=== PATIENT | female | born 1950 | race Caucasian/White ===

== ENCOUNTER → 2019-06-08 15:06 | Outpatient (CLI) | payer MEDICARE, SELFPAY ==
--- NOTE | ~2019-06-08 | MM_ITS ---
EXAMINATION: MM diagnostic jagdish BI w prema HISTORY: History of pain in the upper left breast, not currently present. TECHNIQUE: Craniocaudal, mediolateral, and mediolateral oblique 3-D tomosynthesis images of the breas ts were performed and synthetic 2-D images were generated. CAD analysis was submitted and interpreted . COMPARISON: 02/27/2016, 02/10/2015, 10/26/2013 BREAST PARENCHYMAL COMPOSITION: There are scattered areas of fibroglandular density. FINDINGS: Scattered benign-appearing calcifications are present. There is no evidence of suspicious m ass, calcification, or architectural distortion in either breast to suggest malignancy. There has b een no suspicious interval change. There is no mammographic correlate for the patient's reported left breast pain. IMPRESSION: 1. No specific mammographic correlate is identified for the patient's left breast pain. Further evalu ation at this time should be based on clinical assessment. Continued follow-up physical examination i s recommended. 2. Recommend routine screening mammography in one year. BI-RADS Category 2: Benign finding(s). Reviewed, dictated and finalized at location A. ORATOR OPERATOR MOLASSES IMPRESSION: 1. No specific mammographic correlate is identified for the patient's left bello st pain. Further evaluation at this time should be based on clinical assessment . Continued follow-up physical examination is recommended. 2. Recommend routine screening mammography in one year. BI-RADS Category 2: Benign finding(s).
== END ==
PROVIDERS: Visit Provider Family Medicine
DX: N64.4 Mastodynia (principal)
CPT/HCPCS: 77062; 77066; G0279

== ENCOUNTER 2019-12-09 12:15 | Inpatient (IN) | payer MEDICARE, SELFPAY ==
[2019-12-09] VITALS (43 sets, daily range): BP systolic 61–138; BP diastolic 33–98; PULSE 70–110; RESP 8–24; TEMP 36.8–37; O2SAT 62–100; BMI 57.2
--- NOTE | ~2019-12-09 | CT_ITS ---
EXAMINATION: CT chest wo con DATE: 12/12/2019 10:09 INDICATION: Respiratory Failure TECHNIQUE: Computed tomography (CT) of the chest was performed without intravenous contrast. Addition al 3D reconstructions utilizing coronal maximum intensity projection (MIP) were performed. Automated exposure control and iterative reconstruction technique were employed. The dose-length product was 87 4.81 mGy-cm. COMPARISON: None FINDINGS: Endotracheal tube with tip 3.5 cm above the ashley. Nasogastric tube extends into the stomach. Distal tip of a right upper extremity peripherally inserted central venous catheter extends to the caudal s uperior vena cava. There are posterior layering small bilateral pleural effusions with dependent pass bobo atelectasis in the bilateral lower and to lesser degree upper lobes. There are multiple bilateral tiny <4 mm pulmonary nodules in the aerated portion of the lungs as well as multiple bilateral small calcified pulmonary nodules, the majority the collapsed portions of the basilar segments of the lowe r lobes. No pneumothorax. Cardiomegaly. No pericardial effusion. Mild atherosclerotic calcification i s along the normal caliber thoracic aorta. Multiple small likely reactive mediastinal lymph nodes whi ch are more notable for number than size. Visual is upper abdomen is unremarkable. Moderate thoracic spondylosis. IMPRESSION: 1. Small bilateral pleural effusions with dependent atelectasis including partial collapse of the bas ilar segments of the bilateral lower lobes. 2. Cardiomegaly. 3. Multiple bilateral <4 mm calcified and noncalcified pulmonary nodules likely sequela of old granul omatous disease. If the patient is low risk for lung cancer, no follow-up is needed. If the patient i s high risk (i.e., history of smoking or asbestos or significant radiation exposure optional low-dose noncontrast chest CT could be considered at 12 months. Reviewed, dictated and finalized at location A. IMPRESSION: 1. Small bilateral pleural effusions with dependent atelectasis including parti al collapse of the basilar segments of the bilateral lower lobes. 2. Cardiomegaly. 3. Multiple bilateral <4 mm calcified and noncalcified pulmonary nodules likely sequela of old granulomatous disease. If the patient is low risk for lung canc er, no follow-up is needed. If the patient is high risk (i.e., history of smoki ng or asbestos or significant radiation exposure optional low-dose noncontrast chest CT could be considered at 12 months.
--- NOTE | ~2019-12-09 | CT_ITS ---
EXAMINATION: CT brain wo con EXAM DATE: 12/09/2019 15:07 INDICATION: Altered mental status. TECHNIQUE: Spiral CT of the head was performed without contrast. Axial, coronal and sagittal images were reviewed. The dose-length product (DLP) for this examination was 605.33 mGy-cm. The exposure w as tailored according to patient size, and iterative reconstruction (ASIR) was used as additional dos e reduction technique. There is no prior study for comparison. FINDINGS: There is no acute intraparenchymal hemorrhage. No evidence of intraparenchymal brain mass lesion. No evidence of acute infarction. Please note that initial head CT has limited sensitivity f or small or acute infarctions. There is mild periventricular and subcortical hypodensity, nonspecific but probably related to small vessel ischemic disease. There is moderate prominence of the sulci a nd ventricles related to cerebral atrophy. There is intracranial carotid arteriosclerosis. There a re no extra-axial collections. There is no mass effect or midline shift. The orbits are unremarkabl e. Soft tissue is unremarkable. Nasal cavity opacification and moderate anterior ethmoid opacificat ion. IMPRESSION: 1. No acute intracranial findings. 2. Chronic age related findings. Reviewed, dictated and finalized at location A.
--- NOTE | ~2019-12-09 | XR_ITS ---
EXAMINATION: XR chest 1V portable DATE: 12/10/2019 06:31 INDICATION: Pleural effusions. Intubated. TECHNIQUE: frontal view of the chest was obtained. COMPARISON: Chest radiograph dated 12/09/2019 FINDINGS: Endotracheal tube tip 4.7 cm above the ashley. Nasogastric tube extends below the left hemidiaphragm with distal tip collimated off the study. Small bilateral pleural effusions with atelectasis and/or pneumonia at the bilateral lower lung zones. Increased interstitial pattern throughout the remainder of the lungs consistent with mild pulmonary edema. No pneumothorax. Cardiomegaly. IMPRESSION: 1. Congestive heart failure with cardiomegaly and diffuse pulmonary edema. 2. Small bilateral pleural effusions with atelectasis and/or pneumonia in the lower lung zones. Reviewed, dictated and finalized at location A. IMPRESSION: 1. Congestive heart failure with cardiomegaly and diffuse pulmonary edema. 2. Small bilateral pleural effusions with atelectasis and/or pneumonia in the l ower lung zones.
--- NOTE | ~2019-12-09 | XR_ITS ---
EXAMINATION: XR chest 1V portable DATE: 12/13/2019 06:06 INDICATION: Respiratory failure TECHNIQUE: frontal view of the chest was obtained. COMPARISON: Chest radiograph and CT dated 12/12/2019 FINDINGS: Endotracheal tube tip 2.6 cm above the ashley. Nasogastric tube extends below the left hemidiaphragm with distal tip collimated off the study. Right upper extremity peripherally inserted central venous catheter (PICC) tip at the caudal superior vena cava. Opacities in the right mid to lower and left lower lung zones which on CT correspond to small bilater al pleural effusions with associated atelectasis. No pneumothorax. Cardiomegaly. IMPRESSION: 1. No interval change in small bilateral pleural effusions with associated compressive atelectasis. Reviewed, dictated and finalized at location A. IMPRESSION: 1. No interval change in small bilateral pleural effusions with associated comp ressive atelectasis.
--- NOTE | ~2019-12-09 | XR_ITS ---
EXAMINATION: XR chest 1V portable DATE: 12/14/2019 06:05 INDICATION: Respiratory failure TECHNIQUE: frontal view of the chest was obtained. COMPARISON: Chest radiograph dated 12/13/2019 FINDINGS: Endotracheal tube tip 4.0 cm above the ashley. Nasogastric tube extends below the left hemidiaphragm with distal tip collimated off the study. Right internal jugular central venous catheter with distal tip in the midsuperior vena cava. No significant interval change in opacities in the right mid to lower and left lower lung zones consi stent with small bilateral pleural effusions and associated atelectasis and/or pneumonia. No pneumoth orax. Cardiomegaly. IMPRESSION: 1. No interval change in small bilateral pleural effusions with associated atelectasis and/or pneumon ia. Reviewed, dictated and finalized at location A. IMPRESSION: 1. No interval change in small bilateral pleural effusions with associated atel ectasis and/or pneumonia.
--- NOTE | ~2019-12-09 | US_ITS ---
EXAMINATION: US venous doppler [facility] DATE: 12/10/2019 13:15 INDICATION: Lower limb swelling TECHNIQUE: Grayscale ultrasound images without and with compression and Doppler ultrasound images of the bilateral lower extremity veins were obtained. COMPARISON: None. FINDINGS: The visualized portions of right common femoral vein, profunda (deep) femoral vein, femoral vein, pop liteal vein and greater saphenous vein outflow are patent and compressible. The right posterior tibia l and peroneal veins are poorly visualized on grayscale imaging demonstrates normal flow on color Dop pler. The visualized portions of left common femoral vein, profunda femoral vein, femoral vein, popliteal v ein and greater saphenous vein outflow are patent. The left posterior tibial and peroneal veins are u nable to be visualized. IMPRESSION: 1. No deep venous thrombosis in either lower limb at or proximal to the popliteal veins. Assessment of the more distal posterior tibial and peroneal veins is limited by body habitus. Reviewed, dictated and finalized at location A. IMPRESSION: 1. No deep venous thrombosis in either lower limb at or proximal to the poplit eal veins. Assessment of the more distal posterior tibial and peroneal veins is limited by body habitus.
--- NOTE | ~2019-12-09 | XR_ITS ---
EXAMINATION: XR chest 1V portable DATE: 12/15/2019 05:56 INDICATION: Respiratory failure. TECHNIQUE: A single frontal view of the chest was obtained. COMPARISON: Chest single view 12/14/2019, chest CT 12/12/2019 FINDINGS: There are small pleural effusions. There are airspace opacities at the lung bases. No pneum othorax. Cardiomegaly is noted. The endotracheal tube tip is 5.1 cm above the ashley. The nasogastric tube tip is beyond the inferior margin of the radiograph, but at least to the stomach. A right upper extremity peripherally inserted central venous catheter (PICC) is seen with tip at the superior cavo atrial junction. IMPRESSION: 1. Stable small pleural effusions. 2. Stable airspace opacities at the lung bases, consistent with atelectasis versus pneumonia. 3. Cardiomegaly. Reviewed, dictated and finalized at location A. IMPRESSION: 1. Stable small pleural effusions. 2. Stable airspace opacities at the lung bases, consistent with atelectasis diana cecilia pneumonia. 3. Cardiomegaly.
--- NOTE | ~2019-12-09 | XR_ITS ---
XR abdomen/kub 1V DATE: 12/12/2019 09:49 INDICATION: Nasogastric placement TECHNIQUE: Portable AP view on 12/12/2019 at 0940 hours COMPARISON: None FINDINGS: The tip of the nasogastric tube is at least in the distal body of the stomach. Nonspecific bowel gas pattern. IMPRESSION: NG tube in stomach Reviewed, dictated and finalized at Location A. Reviewed, dictated and finalized at location A. IMPRESSION: NG tube in stomach
--- NOTE | ~2019-12-09 | XR_ITS ---
EXAMINATION: XR chest ET placement, XR abdomen NG/feed tube insert DATE: 12/09/2019 12:53 INDICATION: Unresponsive with dyspnea. Endotracheal tube and nasogastric tube placements. TECHNIQUE: 1. Frontal view of the chest was obtained. 2. Supine AP view of the abdomen was obtained for nasogastric tube placement. COMPARISON: Chest radiograph dated 10/12/2012 FINDINGS: Chest: Endotracheal tube tip 3.2 cm above the ashley. Interstitial and mild airspace opacities throughout sara th lungs. Small bilateral pleural effusions, right greater than left. No pneumothorax. Cardiomegaly w ith bilateral paracardial fat pads. KUB: Nasogastric tube tip in proximal side port in the body of the stomach. No dilated loops of gas-filled bowel in the visualized abdomen. IMPRESSION: 1. Diffuse bilateral lung disease which could represent pulmonary edema and/or pneumonia. 2. Small bilateral pleural effusions. 3. Cardiomegaly. Reviewed, dictated and finalized at location A. IMPRESSION: 1. Diffuse bilateral lung disease which could represent pulmonary edema and/or pneumonia. 2. Small bilateral pleural effusions. 3. Cardiomegaly.
--- NOTE | ~2019-12-09 | XR_ITS ---
EXAMINATION: XR chest 1V portable DATE: 12/12/2019 06:22 INDICATION: Respiratory failure TECHNIQUE: frontal view of the chest was obtained. COMPARISON: Chest radiograph dated 12/11/2019 FINDINGS: Endotracheal tube tip 4.4 cm above the ashley. Nasogastric tube can be followed only to the level of the midesophagus with indeterminate position of the distal tip. Right upper extremity peripherally in serted central venous catheter (PICC) tip at the midsuperior vena cava. Opacities in the bilateral mid to lower lung zones consistent with small bilateral layering pleural e ffusions with associated atelectasis and/or pneumonia. No pneumothorax. Cardiomegaly. IMPRESSION: 1. Opacities in the bilateral mid to lower lung zones consistent with small bilateral pleural effusio ns with associated atelectasis and/or pneumonia. 2. Cardiomegaly. 3. Nasogastric tube can be followed only to the mid esophagus where it becomes obscured with indeterm inate position of the distal tip. Consider radiograph of the upper abdomen for further evaluation. Reviewed, dictated and finalized at location A. IMPRESSION: 1. Opacities in the bilateral mid to lower lung zones consistent with small gissel ateral pleural effusions with associated atelectasis and/or pneumonia. 2. Cardiomegaly. 3. Nasogastric tube can be followed only to the mid esophagus where it becomes obscured with indeterminate position of the distal tip. Consider radiograph of the upper abdomen for further evaluation.
--- NOTE | ~2019-12-09 | XR_ITS ---
EXAMINATION: XR chest 1V portable DATE: 12/11/2019 05:50 INDICATION: Respiratory failure TECHNIQUE: frontal view of the chest was obtained. COMPARISON: Chest radiograph dated 12/10/2019 FINDINGS: Endotracheal tube tip 4.6 cm above the ashley. Nasogastric tube extends below the left hemidiaphragm with distal tip collimated off the study. Unchanged opacities in the bilateral lower lung zones with blunting at the costophrenic angles. Diffu se increased interstitial pattern. No pneumothorax. Cardiomegaly. IMPRESSION: 1. Congestive heart failure with cardiomegaly and diffuse mild pulmonary edema. 2. Small bilateral pleural effusions with atelectasis and/or pneumonia in the lower lung zones. Reviewed, dictated and finalized at location A. IMPRESSION: 1. Congestive heart failure with cardiomegaly and diffuse mild pulmonary edema. 2. Small bilateral pleural effusions with atelectasis and/or pneumonia in the l ower lung zones.
--- NOTE | 2019-12-09 12:16 | ECG_ITS ---
Measurements Intervals Carr Rate: 84 P: 88 SC: 159 QRS: 78 QRSD: 89 T: 59 QT: 398 QTc: 471 Interpretive Statements SINUS RHYTHM LOW QRS VOLTAGE IN PRECORDIAL LEADS BASELINE ARTIFACT- I, II BORDERLINE ECG Electronically Signed On 12-10-2019 11:37:51 CDT by Leland Johnson D.O.
[2019-12-09 12:27] LABS: Alveolar/Arterial O2 Gradient 92.5 mmHg; Base Excess ABG 9.8 mEq/l (+/-2.0); Carboxyhemoglobin 1.3 % THb (0-2.0); Fractional Inspired Oxygen 44 %; HCO3 ABG 45.2 mEq/l (22.0-26.0); Methemoglobin ABG 0.3 %THb (0-1.5); Oxygen Content ABG 9.8 %vol (16.0-22.0); Oxyhemoglobin 54.7 % THb (90.0-100.0); PO2 FiO2 Ratio Arterial Blood 0.92 %; Reduced Hemoglobin 43.7 %THb (0-5.0); Total Hemoglobin 12.7 g/dL (12.0-18.0)
--- NOTE | 2019-12-09 12:28 | PC.NURSE ---
Patient oxygen noted to be 58% on 6 Li NC at this time. Dr. Nguyen at bedside.
[2019-12-09 12:29] LABS: Oxygen Saturation ABG 51.4 % (95.0-100.0); PCO2 ABG 158.4 mmHg (35.0-45.0); PO2 ABG 40.6 mmHg (80.0-100.0); pH ABG 7.073 (7.350-7.450)
--- NOTE | 2019-12-09 12:29 | PC.NURSE ---
Patient being bagged at this time.
[2019-12-09 12:30] LABS: Device NASAL CANNULA; Modified Allen's Test Pass; Site Drawn RIGHT RADIAL
--- NOTE | 2019-12-09 12:31 | PC.NURSE ---
Normal saline [address] Nguyen at 999ml/hr. Etomidate 20 mg IVP at this time.(1233) Intubated per Dr. Nguyen using a 7.5 ET tube placed 23 at lip, end tidal C02 color change noted. Current oxygen level noted to be 98% on ventilator, pulse rate 93, current BP noted to be 82/47. OG 16 german placed oral with placement 65 at lip.
--- NOTE | 2019-12-09 12:41 | PC.NURSE ---
Versed 4mg with fentanyl 50 MCG given IVP for sedation at this time.
[2019-12-09 12:47] LABS: Basophils Percent Auto 0.4 % (0.2-1.2); Eosinophils Percent Auto 0.1 % (0-4.4); Hematocrit 42.3 % (37.0-47.0); Hemoglobin 11.8 g/dL (12.0-15.0); Immature Granulocyte Absolute 0.25 K/mm3 (0.00-0.031); Immature Granulocyte Percent A 2.3 % (0-0.5); Immature Platelet Fraction Pct 14.5 % (0.9-11.2); Lymphocytes Absolute Auto 1.15 K/mm3 (0.9-3.2); Lymphocytes Percent Auto 10.6 % (18.3-44.2); Mean Corpuscular HGB Conc 27.9 g/dl (32-36); Mean Corpuscular Hemoglobin 26.3 pg (26-34); Mean Corpuscular Volume 94.4 fl (80-100); Mean Platelet Volume 13.1 fl (7.4-10.4); Monocytes Absolute Auto 0.4 K/mm3 (0.1-0.6); Monocytes Percent Auto 4.1 % (2.6-8.5); Neutrophils Percent Auto 82.5 % (45.5-73.1); Nucleated Red Blood Cells Perc 0.3 % (0.0-0.2); Platelet Count Result 150 k/mm3 (150-375); Red Blood Count 4.48 M/mm3 (4.2-5.4); Red Cell Distribution Width 18.2 % (11.5-14.5); White Blood Count 10.9 K/mm3 (4.5-10.0)
[2019-12-09] MEDS: methylPREDNISolone SOD SUCC 125 MG VIAL IV PUSH (12:50)
[2019-12-09] MEDS: FUROSEMIDE INJ 40 MG/4 ML VIAL IV PUSH (12:50)
[2019-12-09 12:55] LABS: INR 1.2; Prothrombin Time 14.5 Seconds (11.1-14.7)
[2019-12-09 12:56] LABS: Partial Thromboplastin Time 28.5 SECONDS (22.3-36.8)
[2019-12-09 13:02] LABS: Anion Gap 5.99999 mmol/L (8-16); Blood Urea Nitrogen 28 mg/dL (7-17); Carbon Dioxide > 40 mmol/L (22-30); Chloride 96 mmol/L (98-107); Estimated Glomerular Filt Rate > 60; Glucose 180 mg/dL (65-105); Sodium 142 mmol/L (137-145)
[2019-12-09 13:19] LABS: Troponin I 0.049 ng/mL (0.000-0.034)
[2019-12-09 13:20] LABS: Add Urine Microscopic? YES; Appearance Urine Cloudy (Clear); Bacteria Urine 3+ /hpf; Bilirubin Urine Negative (Negative); Color Urine Yellow (Yellow); Glucose Urine UA Negative (Negative); Ketones Urine Negative (Negative); Leukocyte Esterase Ur 3+ LEU/UL (Negative); Mucus Urine Few /lpf; Nitrate Urine Negative (Negative); Protein Urine 2+ mg/dL (Negative); RBC Urine 21-50 /hpf (0-2); Specific Grav Ur 1.019 (1.001-1.035); Squamous Epithelial Cell Urine Rare /hpf (Few); Urobilinogen Urine Negative mg/dL (<2.0); WBC Clumps Urine Present /HPF; WBC Urine >75 /hpf
--- NOTE | 2019-12-09 13:24 | PC.NURSE ---
Patient moving and fighting ET tube at this time. Dr. Nguyen notified. Versed drip started at this time. Verbal order recieved to hold on the fentanyl drip at this time r/t low bp.
[2019-12-09 13:25] LABS: Blood Urine Negative (Negative)
--- NOTE | 2019-12-09 13:53 | ED.GENADULT ---
HPI - General Adult General Chief complaint: Altered Mental Status Stated complaint: unresponsive Time Seen by Provider: 12/09/19 12:40 Source: EMS Mode of arrival: EMS Limitations: altered mental status History of Present Illness HPI narrative: Patient is a 69 y/o female brought in by EMS for shortness and altered mental status since yesterday. Per EMS, patient has not been out of room all day yesterday. Her cannot wake her up today, so he called EMS. Patient is lethargic, in respiratory distress and cannot provide additional history. She has known history of CHF and COPD. Related Data Home Medications Medication Instructions Recorded Confirmed albuterol sulfate 2.5 mg INHALATION Q4H PRN 12/09/19 12/09/19 budesonide-formoterol [Symbicort] 2 puff INHALATION BID 12/09/19 12/09/19 calcium carbonate-vitamin D3 1 tablet PO DAILY 12/09/19 12/09/19 [Calcium 600 with Vitamin D3] cranberry 400 mg PO DAILY 12/09/19 12/09/19 ahimakniyrp-ivorqxejs-drpfjqby 1 inh INHALATION DAILY 12/09/19 12/09/19 [Trelegy Ellipta] glimepiride 2 mg PO DAILY 12/09/19 12/09/19 lisinopril 20 mg PO DAILY 12/09/19 12/09/19 metformin 500 mg PO BID 12/09/19 12/09/19 metoprolol succinate 50 mg PO Q12H 12/09/19 12/09/19 ihamxawpradk-vdi-fsyn-FA-vit K 1 tablet PO DAILY 12/09/19 12/09/19 [Adults Multivitamin] pioglitazone 30 mg PO DAILY 12/09/19 12/09/19 spironolactone 25 mg PO DAILY 12/09/19 12/09/19 Allergies Allergy/AdvReac Type Severity Reaction Status Date / Time liraglutide Allergy Intermediate Hives Verified 12/09/19 18:18 Review of Systems Review of Systems: ROS unobtainable: Yes unobtainable due to mental status PMFSH Past Medical History Medical History Chronic obstructive pulmonary disease Chronic respiratory failure with hypoxia, on home oxygen therapy Depression Diastolic congestive heart failure echocardiogram in November 2018 showed normal left ventricular size and function with moderate concentric left ventricular hypertrophy, impaired diastolic relaxation grade 1, ejection fraction of 65%, an estimated peak RVSP of 47 mmHg. Dyslipidemia Essential hypertension Hypothyroidism Morbid obesity Obesity hypoventilation syndrome Obstructive sleep apnea I believe she is on BiPAP at nighttime. Stage I adenocarcinoma of endometrium Considered inoperable given her comorbidities, however nurse charted that she had indeed had a hysterectomy. This cannot be confirmed with the patient at this time. Status post HDR brachytherapy time 6 fractions. Type 2 diabetes mellitus Surgical History Surgical History History of dilation and curettage History of tubal ligation Family History Family History Father Patient's father is Hypertension Cerebrovascular accident Acute myocardial infarction Mother Family history of diabetes mellitus in first degree relative Hypertension Hypothyroid Sibling Patient's brother is in good health Patient's sister is in good health Social History Social History Social History: Surrogate decision maker: Fady Burns, . Code status: Full code. Smoking packs per day: 0.5 Smoking cigarettes per day: 10.0 Years smoked: 40 Smoking pack-years: 20.00 Smoking status: Former smoker Smoking end date: 05/02/11 Alcohol intake: never Substance use: never Additional living arrangements comments: Resides with her spouse in [place]. They have 4 grown children. Occupation/Education: retired Spiritual care concerns: No Exam Const: General: well developed and acute distress Nutritional Appearance: obese Orientation/consciousness: lethargic HENMT: Head: normocephalic Ears: external ears normal General nose exam: Normal external nose present
[2019-12-09 14:14] LABS: NT Pro B Type Natriuretic Pept 565 PG/ML (5-100)
[2019-12-09 16:02] LABS: Troponin I 0.065 ng/mL (0.000-0.034)
--- NOTE | 2019-12-09 16:40 | PM.IMHP ---
H&P: HPI History of Present Illness Date/Time: 12/09/19 16:40 Chief complaint: Minimally responsive. Narrative: Radha Burns is a 69-year-old female with morbid obesity, obesity hypoventilation syndrome, obstructive sleep apnea, chronic respiratory failure on 2 to 3 liters nasal cannula, COPD, diastolic congestive heart failure, type 2 diabetes mellitus, hypertension, and history of endometrial cancer status post brachytherapy who presented to the emergency department earlier today via EMS from home for evaluation after she was found minimally responsive. At the time my evaluation she is sedated and intubated and unable to provide a history. As such, all of this history is obtained via a review of her electronic medical records as well as discussions with her daughter, who is at bedside. It sounds like she is pretty debilitated due to her lung disease, and is able to do some light cooking but other than that does not do much around the home. She spends a majority of her time in the dining room chair during the day and sleeps on a love seat in her room at nighttime. More recently she has had increasing shortness of breath and lower extremity swelling. Yesterday she told her that she was not feeling well and so she retired to her bedroom. It does not sound as though she came out of the room at all yesterday. Her daughter came over to visit today, and when she went into her room to check on her, the patient was drowsy awake. After the daughter cleaned out the commode and returned, the patient was minimally responsive and EMS was summoned. There is a pulse ox at home, and daughter reports that her SpO2 was in the 60s on her usual home oxygen. On arrival to the emergency department she was on 15 liters non-rebreather and was receiving assistance with her breathing via Ambu bag. She was intubated thereafter. At the time my evaluation she is sedated but is arousable and is able to nod her head that she has felt more short of breath the last few days. She denies fever and chest pain. Aside from that, I could not really get a history from her. Daughter does not recall the patient telling her of fever, chills, or sweats. She has not had any sick contacts and family members do not think that she has had any cold or flu symptoms. She has not complained of chest pain or pleuritic pain. No recent travel. Review of Systems Review of Systems: Narrative: A complete review of systems is unobtainable given her clinical condition (she is sedated and intubated ). [facility] Past Medical History Medical History (Updated 12/09/19 @ 23:23 by Christiana Strange PA-C) Chronic obstructive pulmonary disease Chronic respiratory failure with hypoxia, on home oxygen therapy Depression Diastolic congestive heart failure echocardiogram in November 2018 showed normal left ventricular size and function with moderate concentric left ventricular hypertrophy, impaired diastolic relaxation grade 1, ejection fraction of 65%, an estimated peak RVSP of 47 mmHg. Dyslipidemia Essential hypertension Hypothyroidism Morbid obesity Obesity hypoventilation syndrome Obstructive sleep apnea I believe she is on BiPAP at nighttime. Stage I adenocarcinoma of endometrium Considered inoperable given her comorbidities, however nurse charted that she had indeed had a hysterectomy. This cannot be confirmed with the patient at this time. Status post HDR brachytherapy time 6 fractions. Type 2 diabetes mellitus Surgical History Surgical History (Updated 12/09/19 @ 23:00 by Christiana Strange PA-C) History of dilation and curettage History of tubal ligation Family History Family History Father Patient's father is Hypertension Cerebrovascular accident Acute myocardial infarction Mother Family history of diabetes mellitus in first degree relative Hypertension Hypothyroid Sibling Patient's brother is in g
--- NOTE | 2019-12-09 17:41 | ADMGEN ---
This patient, Radha Burns, was admitted to Intensive Care Unit-1. Patient/family oriented to hospital policies and general routines including ID bracelet, bed and alarms, visiting hours, pain management, procedures, bathroom and other care routines, personal items, smoking policy, room service/diet, and visiting hours. Valuables list has been completed. Information on how to activate the Rapid Response Team has been discussed. Patient/Family are encouraged to report perceived risks to care and to ask questions if they do not understand what they are told or what they should do.
[2019-12-09 18:18] LABS: Alveolar/Arterial O2 Gradient 338.8 mmHg; Base Excess ABG 10.5 mEq/l (+/-2.0); Fractional Inspired Oxygen 100 %; HCO3 ABG 34.7 mEq/l (22.0-26.0); Oxygen Saturation ABG 99.8 % (95.0-100.0); Oxyhemoglobin 98.8 % THb (90.0-100.0); PCO2 ABG 44.9 mmHg (35.0-45.0); PO2 ABG 329.3 mmHg (80.0-100.0); PO2 FiO2 Ratio Arterial Blood 3.29 %; Total Hemoglobin 11.6 g/dL (12.0-18.0)
[2019-12-09 18:20] LABS: Device VENTILATOR; Modified Allen's Test Pass; Site Drawn RIGHT RADIAL; pH ABG 7.506 (7.350-7.450)
[2019-12-09 18:21] LABS: Arterial Blood Gas PEEP 5 cmH2O; Arterial Blood Gas Tidal Volume 500 ml; Arterial Blood Gas Vent Mode CMV; Arterial Blood Gas Ventilator rate 20 /MIN
[2019-12-09] MEDS: IPRATROPIUM BR 0.02% INH SOLN 0.5 MG/2.5 ML VIAL INHALATION (19:22)
[2019-12-09] MEDS: ALBUTEROL SULFATE NEB 2.5 MG/0.5 ML INH INHALATION (19:22)
[2019-12-09] MEDS: methylPREDNISolone SOD SUCC 40 MG VIAL IV PUSH (19:53)
[2019-12-09] MEDS: ENOXAPARIN 40 MG/0.4 ML SYRINGE SUB-Q (19:53)
[2019-12-09 20:27] LABS: Troponin I 0.051 ng/mL (0.000-0.034)
[2019-12-09] MEDS: METOPROLOL SUCCINATE EXT REL 50 MG TABCR PO (21:15)
[2019-12-09] MEDS: FAMOTIDINE 20 MG/2 ML VIAL IV PUSH (21:15)
[2019-12-09 21:46] LABS: Alanine Aminotransferase 30 U/L (4-35); Albumin Level 3.2 g/dL (3.5-5.1); Alkaline Phosphatase 68 U/L (38-126); Aspartate Amino Transferase 39 U/L (14-36); Bilirubin,Total 0.2 mg/dL (0.2-1.3); Lactate Dehydrogenase 624 U/L (313-618); Magnesium 1.9 mg/dL (1.6-2.3)
[2019-12-09 23:39] LABS: Hemoglobin A1C 6.6 % (<5.7)
[2019-12-10] VITALS (33 sets, daily range): BP systolic 91–124; BP diastolic 51–65; PULSE 68–84; RESP 18–93; TEMP 36.3–37.1; O2SAT 90–100; BMI 54.7
--- NOTE | 2019-12-10 | ECHO_ITS ---
Patient Info Name: Radha Burns Age: 69 years : 1950 Gender: Female Ht: 62 in Wt: 298 lbs BSA: 2.52 m2 HR: 72 bpm BP: 116 / 55 mmHg Heart Rhythm: Sinus Rhythm Technical Quality: Good Exam Date: 12/10/2019 2:15 PM Exam Location: [facility] Patient Status: Inpatient Admit Date: 12/09/2019 Staff Ordering Physician: Christiana Strange PA-C Fan Blade Truer: Migue Garcia RDCS Attending Provider: Yair Jorgensen MD Referring Physician: Alexandr CERNA; Exam Type: CA echo doppler color flow Study Info Indications I50.9 - Heart failure, unspecified Complete two-dimensional, color flow and Doppler transthoracic echocardiogram is performed. History/Risk Factors Acute respiratory failure; HFpEF, COPD, HTN. Summary 1. Left ventricular chamber dimension is normal. 2. Left ventricular systolic function is normal, estimated at 60-65%. 3. Left atrial chamber dimension is mildly enlarged. 4. There is mild aortic valve sclerosis. 5. There is trace mitral valve regurgitation. Left Ventricle Left ventricular chamber dimension is normal. Left ventricular systolic function is normal, estimated at 60-65%. The left ventricular diastolic function is normal. Right Ventricle Right ventricular chamber dimension is normal. Left Atria Left atrial chamber dimension is mildly enlarged. Right Atria Right atrial chamber dimension is normal. Aortic Valve The aortic valve is not well visualized. There is mild aortic valve sclerosis. Pulmonic Valve The pulmonic valve is not well visualized. Mitral Valve The mitral valve has normal leaflets. There is trace mitral valve regurgitation. Tricuspid Valve The tricuspid valve leaflets are normal. Pericardium/Pleural The pericardium appears normal. Aorta The aortic root size at the sinus of Valsalva is normal. Left Ventricular Outflow Tract Name Value Normal LVOT Doppler LVOT Peak Gradient 9 mmHg LVOT Mean Gradient 4 mmHg LVOT VTI 30 cm LVOT VTI/AV VTI Ratio 0.7 Mitral Valve Name Value Normal MV Doppler MV Decel [place] 419 cm/s2 MV PHT 77 ms MV Area (PHT) 2.8 cm2 4.0-5.0 MV Diastolic Function MV E Peak Velocity 112 cm/s MV A Peak Velocity 108 cm/s MV E/A 1.0 MV Decel Time 266 ms MV Annular TDI MV E/e' (Septal) 19.1 <=8.0 MV E/e' (Lateral) 12.9 <=8.0 MV E/e' (Average) 16.0 Tricuspid Valve
[2019-12-10 00:25] LABS: Glucose Point of Care 121 (65-105)
[2019-12-10] MEDS: methylPREDNISolone SOD SUCC 40 MG VIAL IV PUSH ×5 (00:32→23:33)
[2019-12-10] MEDS: ALBUTEROL SULFATE NEB 2.5 MG/0.5 ML INH INHALATION ×4 (01:07→20:52)
[2019-12-10] MEDS: IPRATROPIUM BR 0.02% INH SOLN 0.5 MG/2.5 ML VIAL INHALATION ×4 (01:07→20:53)
[2019-12-10 04:39] LABS: PCO2 ABG 62.3 mmHg (35.0-45.0); pH ABG 7.401 (7.350-7.450)
[2019-12-10 04:40] LABS: HCO3 ABG 37.8 mEq/l (22.0-26.0); Oxygen Content ABG 13.7 %vol (16.0-22.0); PO2 ABG 59.5 mmHg (80.0-100.0); Total Hemoglobin 10.9 g/dL (12.0-18.0)
[2019-12-10 04:41] LABS: Device VENTILATOR; Fractional Inspired Oxygen 60 %; Modified Allen's Test Pass; Site Drawn RIGHT RADIAL
[2019-12-10 04:42] LABS: Alveolar/Arterial O2 Gradient 299.8 mmHg; PO2 FiO2 Ratio Arterial Blood 0.99 %
[2019-12-10 04:43] LABS: Arterial Blood Gas PEEP 8 cmH2O; Arterial Blood Gas Tidal Volume 350 ml; Arterial Blood Gas Vent Mode CMV; Arterial Blood Gas Ventilator rate 18 /MIN
[2019-12-10 05:12] LABS: Hematocrit 32.8 % (37.0-47.0); Hemoglobin 9.8 g/dL (12.0-15.0); Immature Granulocyte Absolute 0.04 K/mm3 (0.00-0.031); Immature Granulocyte Percent A 0.6 % (0-0.5); Lymphocytes Absolute Auto 0.44 K/mm3 (0.9-3.2); Lymphocytes Percent Auto 6.2 % (18.3-44.2); Mean Corpuscular HGB Conc 29.9 g/dl (32-36); Mean Corpuscular Hemoglobin 26.8 pg (26-34); Mean Corpuscular Volume 89.9 fl (80-100); Mean Platelet Volume 11.7 fl (7.4-10.4); Monocytes Absolute Auto 0.2 K/mm3 (0.1-0.6); Monocytes Percent Auto 3.2 % (2.6-8.5); Neutrophils Absolute Auto 6.4 K/mm3 (1.3-6.7); Platelet Count Result 84 k/mm3 (150-375); Red Blood Count 3.65 M/mm3 (4.2-5.4); Red Cell Distribution Width 18.1 % (11.5-14.5); White Blood Count 7.1 K/mm3 (4.5-10.0)
[2019-12-10 05:32] LABS: Alanine Aminotransferase 30 U/L (4-35); Albumin Level 3.3 g/dL (3.5-5.1); Alkaline Phosphatase 70 U/L (38-126); Anion Gap 4 mmol/L (8-16); Aspartate Amino Transferase 39 U/L (14-36); Bilirubin,Total 0.2 mg/dL (0.2-1.3); Blood Urea Nitrogen 31 mg/dL (7-17); Calcium 8.3 mg/dL (8.4-10.2); Carbon Dioxide 38 mmol/L (22-30); Chloride 96 mmol/L (98-107); Estimated CRCL calculation 77 ml/min; Estimated Glomerular Filt Rate > 60; Glucose 176 mg/dL (65-105); Magnesium 1.9 mg/dL (1.6-2.3); Potassium 4.3 mmol/L (3.4-5.0); Sodium 138 mmol/L (137-145)
[2019-12-10 05:39] LABS: Hypochromasia 1+ (NORMAL); Large Platelets Present; Platelet Estimate Decreased (Adequate)
[2019-12-10] MEDS: LEVOTHYROXINE SODIUM 75 MCG TABLET PO (06:41)
[2019-12-10] MEDS: FAMOTIDINE 20 MG/2 ML VIAL IV PUSH ×2 (09:12→20:29)
--- NOTE | 2019-12-10 11:18 | PCDIET ---
MD order for Two Jesse HN (most fluid concentrated at 2.0kcal/mL) tube feedings. Recommended goal of 35mL/hr x 22 hours/day for 1540kcal, 64g protein and 539mL free water. Will follow closely.
--- NOTE | 2019-12-10 11:34 | WPDCNINT ---
Assessment and Plan Assessment and plan (1) Acute on chronic respiratory failure with hypoxia and hypercapnia: Code(s): J96.21 - Acute and chronic respiratory failure with hypoxia; J96.22 - Acute and chronic respiratory failure with hypercapnia Status: Acute Assessment and Plan: Acute Respiratory failure secondary to CHF, obesity hypoventilation syndrome, COPD, ? PNA Continue full mechanical ventilation support to prevent hypoxemia/hypercarbia and end organ damage. ABG and PCXR reviewed and will repeat in am. vent settings reviewed Bronchodilators Lasix for diuresis empiric Rocephin and azithromycin cultures steroid (2) Suspected COVID-19 virus infection: Code(s): Z20.828 - Contact with and (suspected) exposure to other viral communicable diseases Status: Acute Assessment and Plan: COVID-19 suspected. SARS-CoV-2 PCR sent and results pending Patient is in Airborne, Droplet and Contact Isolation (3) Chronic obstructive pulmonary disease: Code(s): J44.9 - Chronic obstructive pulmonary disease, unspecified Status: Acute Assessment and Plan: Solu-Medrol and bronchodilator (4) Diastolic congestive heart failure: Code(s): I50.30 - Unspecified diastolic (congestive) heart failure Status: Acute Assessment and Plan: echocardiogram ordered Lasix (5) Type 2 diabetes mellitus: Code(s): E11.9 - Type 2 diabetes mellitus without complications Status: Acute Assessment and Plan: sliding scale insulin (6) Hypothyroidism: Code(s): E03.9 - Hypothyroidism, unspecified Status: Acute Assessment and Plan: Continue levothyroxine and check TSH. (7) Essential hypertension: Code(s): I10 - Essential (primary) hypertension Status: Acute Assessment and Plan: Blood pressures were soft on arrival to the emergency department, thus will hold antihypertensives for now. Continue to monitor blood pressures closely. (8) UTI (urinary tract infection): Code(s): N39.0 - Urinary tract infection, site not specified Status: Acute Assessment and Plan: patient on Rocephin urine culture ordered Additional Plan DVT prophylaxis - Lovenox Stress ulcer prophylaxis - Pepcid Nutrition - start Tube Feeds Code Status - Full Code Total Critical Care Time - 35 minutes Due to a high probability of clinically significant, life threatening deterioration, the patient required my highest level of preparedness to intervene emergently and I personally spent this critical care time directly and personally managing the patient. This critical care time included obtaining a history; examining the patient; pulse oximetry; ordering and review of studies; arranging urgent treatment with development of a management plan; evaluation of patient's response to treatment; frequent reassessment; and discussions with other providers. It was exclusive of separately billable procedures and treating other patients and teaching time. Please see Assessment and Plan section and the rest of the note for further information on patient assessment and treatment Trading Assistant Consult Note Consult date: 12/10/19 Time Seen: 11:00 HPI: Radha Burns is a 69 year old female with PMH of morbid obesity, obesity hypoventilation syndrome, obstructive sleep apnea, chronic respiratory failure on 2 to 3 liters nasal cannula, COPD, diastolic congestive heart failure, type 2 diabetes mellitus, hypertension, and history of endometrial cancer status post brachytherapy who presented to the emergency department yesterday via EMS from home with chief complaint of shortness of breath and altered mental status. in ED patient was found to be in respiratory failure with hypoxia and hypercarbia. she was intubated and placed on mechanical ventilation. she was admitted to ICU for further evaluation and management. patient was also tested for COVID H
[2019-12-10] MEDS: PHARMACIST COMMUNICATION ORDER 1 EACH XX (11:36)
[2019-12-10 12:13] LABS: SARS-CoV-2 RNA PCR Negative
[2019-12-10] MEDS: METOPROLOL SUCCINATE EXT REL 50 MG TABCR PO ×2 (12:22→20:29)
[2019-12-10] MEDS: FUROSEMIDE INJ 40 MG/4 ML VIAL IV PUSH ×2 (13:44→17:50)
[2019-12-10 14:42] LABS: Glucose Point of Care 157 (65-105)
[2019-12-10 15:27] LABS: Anion Gap 1.99999 mmol/L (8-16); Blood Urea Nitrogen 35 mg/dL (7-17); Calcium 8.2 mg/dL (8.4-10.2); Carbon Dioxide > 40 mmol/L (22-30); Chloride 96 mmol/L (98-107); Estimated CRCL calculation 87 ml/min; Estimated Glomerular Filt Rate > 60; Glucose 177 mg/dL (65-105); Magnesium 2.1 mg/dL (1.6-2.3); Potassium 4.5 mmol/L (3.4-5.0); Sodium 138 mmol/L (137-145)
--- NOTE | 2019-12-10 17:13 | P.PNIM_ITS ---
Progress Note: A&P Assessment and Plan (1) Acute on chronic respiratory failure with hypoxia and hypercapnia: Code(s): J96.21 - Acute and chronic respiratory failure with hypoxia; J96.22 - Acute and chronic respiratory failure with hypercapnia Status: Acute Assessment and Plan: * Precipitating etiology is not entirely clear. It sounds as though she is compliant with PAP therapy. * She does have severe lung disease, however and may be nearing end-stage. * She was obtunded on arrival to the emergency department and has been intubated. * Vent management as per biofuels production associate, Dr. Gracia. patient is 69 year female morbidly obese was found unresponsive at home hypoxic patient was brought to the emergency department for further evaluation and patient was intubated currently on vent, is being tested for COVID-19 test are pending, patient is seen by biofuels production associate and appreciate (2) Diffuse lung disease: Code(s): J98.4 - Other disorders of lung Status: Acute Assessment and Plan: * Diffuse bilateral lung disease noted on chest x-ray which could be pulmonary edema and/ or pneumonia. * Send sputum and urine for culture and strep pneumoniae and Legionella antigens. * Continue empiric antibiotics for possible pneumonia. * She is in isolation, [id number] by PCR. (3) Chronic obstructive pulmonary disease: Code(s): J44.9 - Chronic obstructive pulmonary disease, unspecified Status: Acute Assessment and Plan: * She has been started on Solu-Medrol and updrafts. * Continue maintenance inhalers. (4) Diastolic congestive heart failure: Code(s): I50.30 - Unspecified diastolic (congestive) heart failure Status: Acute Assessment and Plan: * Blood pressures were soft on arrival to the emergency department, thus will hold on diuresis at this time. * Echocardiogram in a.m. (5) Obstructive sleep apnea: Code(s): G47.33 - Obstructive sleep apnea (adult) (pediatric) Status: Acute Assessment and Plan: * Given her decompensation, she would probably benefit from another overnight sleep study to ensure she is on appropriate settings. I believe she sees a tribal delegate out of [place]. * I will ask our pulmonologists to see her in consult to see if they think she may be a candidate for a trilogy unit . (6) Bacteriuria with pyuria: Code(s): R82.71 - Bacteriuria; R82.81 - Pyuria Status: Acute Assessment and Plan: * Empiric antibiotics for possible pneumonia should cover any underlying pathogen. * Urine cultures pending. (7) Type 2 diabetes mellitus: Code(s): E11.9 - Type 2 diabetes mellitus without complications Status: Acute Assessment and Plan: * Hold oral hypoglycemics and consider Lantus depending on her response to the steroids. * Check hemoglobin A1c and initiate sliding scale insulin, Accu-Cheks, and hypoglycemic protocol. (8) Hypothyroidism: Code(s): E03.9 - Hypothyroidism, unspecified Status: Acute Assessment and Plan: * Continue levothyroxine and check TSH. (9) Essential
--- NOTE | 2019-12-10 17:13 | PM.IMPN ---
Progress Note: A&P Assessment and Plan (1) Acute on chronic respiratory failure with hypoxia and hypercapnia: Code(s): J96.21 - Acute and chronic respiratory failure with hypoxia; J96.22 - Acute and chronic respiratory failure with hypercapnia Status: Acute Assessment and Plan: Precipitating etiology is not entirely clear. It sounds as though she is compliant with PAP therapy. She does have severe lung disease, however and may be nearing end-stage. She was obtunded on arrival to the emergency department and has been intubated. Vent management as per precision machinist, Dr. Gracia. patient is 69 year female morbidly obese was found unresponsive at home hypoxic patient was brought to the emergency department for further evaluation and patient was intubated currently on vent, is being tested for COVID-19 test are pending, patient is seen by precision machinist and appreciate (2) Diffuse lung disease: Code(s): J98.4 - Other disorders of lung Status: Acute Assessment and Plan: Diffuse bilateral lung disease noted on chest x-ray which could be pulmonary edema and/ or pneumonia. Send sputum and urine for culture and strep pneumoniae and Legionella antigens. Continue empiric antibiotics for possible pneumonia. She is in isolation, [id number] by PCR. (3) Chronic obstructive pulmonary disease: Code(s): J44.9 - Chronic obstructive pulmonary disease, unspecified Status: Acute Assessment and Plan: She has been started on Solu-Medrol and updrafts. Continue maintenance inhalers. (4) Diastolic congestive heart failure: Code(s): I50.30 - Unspecified diastolic (congestive) heart failure Status: Acute Assessment and Plan: Blood pressures were soft on arrival to the emergency department, thus will hold on diuresis at this time. Echocardiogram in a.m. (5) Obstructive sleep apnea: Code(s): G47.33 - Obstructive sleep apnea (adult) (pediatric) Status: Acute Assessment and Plan: Given her decompensation, she would probably benefit from another overnight sleep study to ensure she is on appropriate settings. I believe she sees a club director out of [place]. I will ask our pulmonologists to see her in consult to see if they think she may be a candidate for a trilogy unit . (6) Bacteriuria with pyuria: Code(s): R82.71 - Bacteriuria; R82.81 - Pyuria Status: Acute Assessment and Plan: Empiric antibiotics for possible pneumonia should cover any underlying pathogen. Urine cultures pending. (7) Type 2 diabetes mellitus: Code(s): E11.9 - Type 2 diabetes mellitus without complications Status: Acute Assessment and Plan: Hold oral hypoglycemics and consider Lantus depending on her response to the steroids. Check hemoglobin A1c and initiate sliding scale insulin, Accu-Cheks, and hypoglycemic protocol. (8) Hypothyroidism: Code(s): E03.9 - Hypothyroidism, unspecified Status: Acute Assessment and Plan: Continue levothyroxine and check TSH. (9) Essential hypertension: Code(s): I10 - Essential (primary) hypertension Status: Acute Assessment and Plan: Blood pressures were soft on arrival to the emergency department, thus will hold antihypertensives for now. Continue to monitor blood pressures closely. Subjective Date/time seen: patient is 69 year female morbidly obese was found unresponsive at
[2019-12-10 17:47] LABS: Glucose Point of Care 181 (65-105)
[2019-12-10] MEDS: ENOXAPARIN 40 MG/0.4 ML SYRINGE SUB-Q (17:50)
--- NOTE | 2019-12-10 19:13 | PM.CNPUL ---
Assessment and Plan Assessment and plan (1) Acute on chronic respiratory failure with hypoxia and hypercapnia: Code(s): J96.21 - Acute and chronic respiratory failure with hypoxia; J96.22 - Acute and chronic respiratory failure with hypercapnia Status: Acute Assessment and Plan: She was admitted and intubated Dec 08 with worsening hypercapnea, worsening gas exchange with pCO2 158, due to combination of COPD exacerbation, on isolation until COVID is excluded. She may have underlying pneumonia, difficult to say with abnormal CXR which may reflect infiltrate v pulmonary edema. She has been able to wean to FiO2 60%, still requiring PEEP 10 cm to recruit alveoli; she is awake on minimal sedation, tolerates this well, can nod to questions. She is receiving antibiotics, including ceftriaxone, azithromycin to cover for community acquired pathogens. She is getting diuresis. She has multiple issues, prognosis is guarded. (2) Acute exacerbation of chronic obstructive pulmonary disease: Code(s): J44.1 - Chronic obstructive pulmonary disease with (acute) exacerbation Status: Acute Assessment and Plan: She has baseline COPD which is severe, FEV1 les than a liter 2 years ago. Bronchodilators. (3) Diastolic congestive heart failure: Code(s): I50.30 - Unspecified diastolic (congestive) heart failure Status: Acute Assessment and Plan: echo; getting diuresis (4) UTI (urinary tract infection): Code(s): N39.0 - Urinary tract infection, site not specified Status: Acute Assessment and Plan: pathogen to be determined History of Present Illness History of Present Illness Consult date: 12/12/19 Chief complaint: Minimally responsive. Narrative: NEW CONSULT: Radha Burns is a 69 yo female with chronic respiratory failure on O2, presented to the ED yesterday Dec 08 with increased shortness of breath over few days with increased lower leg swelling. At baseline, she is not active, is able to prepare food, and spends her day in a chair, sleeps in a love seat. She presented with a saturation of 65% with decreased LOC. She was intubated in the ED Dec 08 with a pCO2 of 157. She is now alert, on low dose infusions of fentanyl 100 mcg/hour and versed 3 mg/hour. She required increased FiO2 to 65% and PEEP to 10 cm water pressure. PMH: HTN, COPD, chronic respiratory failure on O2 at home 2-3 L/min; diastolic CHF, DM type 2, endometrial cancer. PFT 12/18/2018 _=FEV1 48%, 0.93 L severely decreased, TLC 137% mild hyperinflation; DLCO 31%; severe emphysema. Review of Systems Review of Systems: ROS unobtainable: Yes unobtainable due to endotracheal tube PMFSH Past Medical History Medical History Chronic obstructive pulmonary disease Chronic respiratory failure with hypoxia, on home oxygen therapy Depression Diastolic congestive heart failure echocardiogram in November 2018 showed normal left ventricular size and function with moderate concentric left ventricular hypertrophy, impaired diastolic relaxation grade 1, ejection fraction of 65%, an estimated peak RVSP of 47 mmHg. Dyslipidemia Essential hypertension Hypothyroidism Morbid obesity Obesity hypoventilation syndrome Obstructive sleep apnea I believe she is on BiPAP at nighttime. Stage I adenocarcinoma of endometrium Considered inoperable given her comorbidities, however nurse charted that she had indeed had a hysterectomy. This cannot be confirmed with the patient at this time. Status post HDR brachytherapy time 6 fractions. Type 2 diabetes mellitus Surgical History Surgical History His
[2019-12-10 23:43] LABS: Glucose Point of Care 173 (65-105)
[2019-12-11] VITALS (31 sets, daily range): BP systolic 103–136; BP diastolic 48–69; PULSE 64–88; RESP 13–24; TEMP 36.6–37.1; O2SAT 91–99
[2019-12-11] MEDS: IPRATROPIUM BR 0.02% INH SOLN 0.5 MG/2.5 ML VIAL INHALATION ×4 (02:51→19:54)
[2019-12-11] MEDS: ALBUTEROL SULFATE NEB 2.5 MG/0.5 ML INH INHALATION ×4 (02:52→19:54)
[2019-12-11 05:04] LABS: Alveolar/Arterial O2 Gradient 365.1 mmHg; Base Excess ABG 10.6 mEq/l (+/-2.0); Carboxyhemoglobin 0.3 % THb (0-2.0); Fractional Inspired Oxygen 70 %; HCO3 ABG 37.6 mEq/l (22.0-26.0); Methemoglobin ABG 0.3 %THb (0-1.5); Oxygen Content ABG 14.5 %vol (16.0-22.0); Oxygen Saturation ABG 92.1 % (95.0-100.0); Oxyhemoglobin 91.2 % THb (90.0-100.0); PO2 ABG 65.6 mmHg (80.0-100.0); PO2 FiO2 Ratio Arterial Blood 0.94 %; Reduced Hemoglobin 8.2 %THb (0-5.0); Total Hemoglobin 11.3 g/dL (12.0-18.0)
[2019-12-11 05:05] LABS: Device VENTILATOR; Modified Allen's Test Pass; PCO2 ABG 63.6 mmHg (35.0-45.0); Site Drawn RIGHT RADIAL
[2019-12-11 05:06] LABS: Arterial Blood Gas PEEP 10 cmH2O; Arterial Blood Gas Tidal Volume 350 ml; Arterial Blood Gas Vent Mode CMV; Arterial Blood Gas Ventilator rate 18 /MIN
[2019-12-11 05:21] LABS: Hematocrit 34.5 % (37.0-47.0); Hemoglobin 10.1 g/dL (12.0-15.0); Immature Platelet Fraction Pct 13.8 % (0.9-11.2); Mean Corpuscular HGB Conc 29.3 g/dl (32-36); Mean Corpuscular Hemoglobin 26.3 pg (26-34); Mean Corpuscular Volume 89.8 fl (80-100); Mean Platelet Volume 12.3 fl (7.4-10.4); Platelet Count Result 96 k/mm3 (150-375); Red Blood Count 3.84 M/mm3 (4.2-5.4); Red Cell Distribution Width 18.3 % (11.5-14.5); White Blood Count 8.6 K/mm3 (4.5-10.0)
[2019-12-11 05:38] LABS: Alanine Aminotransferase 29 U/L (4-35); Albumin Level 3.6 g/dL (3.5-5.1); Alkaline Phosphatase 72 U/L (38-126); Anion Gap 7 mmol/L (8-16); Aspartate Amino Transferase 36 U/L (14-36); Bilirubin,Total 0.2 mg/dL (0.2-1.3); Blood Urea Nitrogen 45 mg/dL (7-17); Calcium 8.4 mg/dL (8.4-10.2); Carbon Dioxide 35 mmol/L (22-30); Chloride 96 mmol/L (98-107); Estimated CRCL calculation 81 ml/min; Estimated Glomerular Filt Rate > 60; Glucose 180 mg/dL (65-105); Magnesium 2.4 mg/dL (1.6-2.3); Potassium 4.7 mmol/L (3.4-5.0); Sodium 138 mmol/L (137-145)
--- NOTE | 2019-12-11 06:14 | PC.NURSE ---
Pt moved from ICU 1 to ICU 10.
[2019-12-11] MEDS: LEVOTHYROXINE SODIUM 75 MCG TABLET PO (06:18)
[2019-12-11] MEDS: methylPREDNISolone SOD SUCC 40 MG VIAL IV PUSH ×4 (06:18→23:59)
--- NOTE | 2019-12-11 07:35 | WPDINTPN ---
Progress Note: A&P Assessment and Plan (1) Acute on chronic respiratory failure with hypoxia and hypercapnia: Code(s): J96.21 - Acute and chronic respiratory failure with hypoxia; J96.22 - Acute and chronic respiratory failure with hypercapnia Status: Acute Assessment and Plan: Acute Respiratory failure secondary to CHF, obesity hypoventilation syndrome, COPD, ? PNA Continue full mechanical ventilation support to prevent hypoxemia/hypercarbia and end organ damage. ABG and PCXR reviewed and will repeat in am. vent settings reviewed decrease tidal volume to 3 3rd Bronchodilators, steroids continue Lasix for diuresis continue empiric Rocephin and azithromycin blood cultures the negative will now Lower extremity Dopplers were negative for DVT (2) Suspected COVID-19 virus infection: Code(s): Z20.828 - Contact with and (suspected) exposure to other viral communicable diseases Status: Acute Assessment and Plan: COVID-19 was suspected. SARS-CoV-2 PCR negative Discontinue Airborne, Droplet and Contact Isolation (3) Chronic obstructive pulmonary disease: Code(s): J44.9 - Chronic obstructive pulmonary disease, unspecified Status: Acute Assessment and Plan: Solu-Medrol and bronchodilator (4) Diastolic congestive heart failure: Code(s): I50.30 - Unspecified diastolic (congestive) heart failure Status: Acute Assessment and Plan: Summary 1. Left ventricular chamber dimension is normal. 2. Left ventricular systolic function is normal, estimated at 60-65%. 3. Left atrial chamber dimension is mildly enlarged. 4. There is mild aortic valve sclerosis. 5. There is trace mitral valve regurgitation. Lasix (5) Type 2 diabetes mellitus: Code(s): E11.9 - Type 2 diabetes mellitus without complications Status: Acute Assessment and Plan: sliding scale insulin (6) Hypothyroidism: Code(s): E03.9 - Hypothyroidism, unspecified Status: Acute Assessment and Plan: Continue levothyroxine (7) Essential hypertension: Code(s): I10 - Essential (primary) hypertension Status: Acute Assessment and Plan: Blood pressures were soft on arrival to the emergency department, thus will hold antihypertensives for now. Continue to monitor blood pressures closely. (8) UTI (urinary tract infection): Code(s): N39.0 - Urinary tract infection, site not specified Status: Acute Assessment and Plan: patient on Rocephin urine culture grew Klebsiella which is sensitive to Rocephin Additional Plan DVT prophylaxis - Lovenox Stress ulcer prophylaxis - Pepcid Nutrition - continue Tube Feeds Code Status - Full Code Total Critical Care Time - 30 minutes Due to a high probability of clinically significant, life threatening deterioration, the patient required my highest level of preparedness to intervene emergently and I personally spent this critical care time directly and personally managing the patient. This critical care time included obtaining a history; examining the patient; pulse oximetry; ordering and review of studies; arranging urgent treatment with development of a management plan; evaluation of patient's response to treatment; frequent reassessment; and discussions with other providers. It was exclusive of separately billable procedures and treating other patients and teaching time. Please see Assessment and Plan section and the rest of the note for further information on patient assessment and treatment Subjective Date/time seen: 12/11/19 0735 Overnight events reviewed Afebrile Continues to be on mechanical ventilation Vitals acceptable Review of Systems Review of Systems: ROS unobtainable: Yes unobtainable due to endotracheal tube Exam Narrative: Exam Narrative: General: Pt is sedated, intubated and on mechanical ventilation Lungs/Chest: Trachea central decreased
[2019-12-11] MEDS: METOPROLOL SUCCINATE EXT REL 50 MG TABCR PO ×2 (08:33→19:51)
[2019-12-11] MEDS: FUROSEMIDE INJ 40 MG/4 ML VIAL IV PUSH ×2 (08:33→17:52)
[2019-12-11] MEDS: FAMOTIDINE 20 MG/2 ML VIAL IV PUSH ×2 (08:33→19:51)
--- NOTE | 2019-12-11 10:44 | PCDIET ---
Nutrition Follow-Up Complete: Nutrition Diagnosis: Inadequate oral intake at present related to oral intubation as evidenced by NPO status. Nutrition Goal: Patient to meet estimated nutritional needs. Goal met. Patient tolerating Two Jesse HN at 35mL/hr with no reported issues. Receiving 30mL water flush every 4 hours. Last recorded weight is 147 kg which is up from last review. Suspect 12/10/19 outlier weight may have been inaccurate. Bowel Motility: No documented BM as of yet. Labs Reviewed: Hgb (10.1), Hct (34.5), Glu (180), BUN (45), Mg (2.4) Meds Noted: Albuterol, Pepcid, Fentanyl, Lasix, Zithromax, Novolog, Atrovent, Rocephin, Synthroid, Solu Medrol, Versed, Vancomycin Additional Notes: No open wounds documented. Will continue to monitor with same goal. Nutrition Monitoring and Evaluation: Follow up every Tuesday/Tuesday. Follow daily in ICU rounds.
[2019-12-11] MEDS: INSULIN ASPART (*BKC) 100 UNITS/ML SUB-Q ×2 (12:12→17:54)
[2019-12-11 12:32] LABS: Glucose Point of Care 218 (65-105)
[2019-12-11] MEDS: LIDOCAINE HCL 1% PF INJ 5 ML VIAL INFILTRATE (14:15)
[2019-12-11] MEDS: ENOXAPARIN 40 MG/0.4 ML SYRINGE SUB-Q (17:52)
--- NOTE | 2019-12-11 17:52 | PM.IMPN ---
Progress Note: A&P Assessment and Plan (1) Acute on chronic respiratory failure with hypoxia and hypercapnia: Code(s): J96.21 - Acute and chronic respiratory failure with hypoxia; J96.22 - Acute and chronic respiratory failure with hypercapnia Status: Acute Assessment and Plan: Intubated IV steroids IV abx, breathing treatments (2) Diffuse lung disease: Code(s): J98.4 - Other disorders of lung Status: Acute Assessment and Plan: Intubated IV steroids IV abx, breathing treatments (3) Chronic obstructive pulmonary disease: Code(s): J44.9 - Chronic obstructive pulmonary disease, unspecified Status: Acute Assessment and Plan: Intubated IV steroids IV rocephin and IV zithromax, breathing treatments (4) Diastolic congestive heart failure: Code(s): I50.30 - Unspecified diastolic (congestive) heart failure Status: Acute Assessment and Plan: Pt is on lasix drip (5) Obstructive sleep apnea: Code(s): G47.33 - Obstructive sleep apnea (adult) (pediatric) Status: Acute Assessment and Plan: . (6) Bacteriuria with pyuria: Code(s): R82.71 - Bacteriuria; R82.81 - Pyuria Status: Acute Assessment and Plan: pt already on iv rocephin (7) Type 2 diabetes mellitus: Code(s): E11.9 - Type 2 diabetes mellitus without complications Status: Acute Assessment and Plan: Hold oral hypoglycemics and consider Lantus depending on her response to the steroids. Check hemoglobin A1c and initiate sliding scale insulin, Accu-Cheks, and hypoglycemic protocol. (8) Hypothyroidism: Code(s): E03.9 - Hypothyroidism, unspecified Status: Chronic Assessment and Plan: pt is on levothyroxine (9) Essential hypertension: Code(s): I10 - Essential (primary) hypertension Status: Chronic Assessment and Plan: Pt is on a lasix drip Subjective Date/time seen: 12/11/19 17:52 Interval history: 69 year female morbidly obese was found unresponsive at home hypoxic patient was brought to the emergency department for further evaluation and patient was intubated currently on vent, Covid is negative likely copd excerbation Kpneumonia on cultures pt already on iv rocephin Pt is on a lasix drip for CHF excerbation Weaning off the vent Review of Systems Review of Systems: ROS unobtainable: Yes unobtainable due to endotracheal tube Exam Narrative: Exam Narrative: pt is on the ventilator Objective Data Vital Signs Vital Signs: Vital Signs - 24 hr 12/10/19 18:00 12/10/19 18:14 12/10/19 18:16 Temperature Pulse Rate 72 70 70 Respiratory Rate 93 H 18 18 Blood Pressure 96/51 L Pulse Oximetry 93 12/10/19 20:00 12/10/19 20:29 12/10/19 20:30 Temperature 37.0 C Pulse Rate 81 75 74 Respiratory Rate 24 H Blood Pressure 91/56 L Pulse Oximetry 100 93 12/10/19 20:54 12/10/19 21:01 12/10/19 22:00 Temperature Pulse Rate 76 75 69 Respiratory Rate 18 18 20 Blood Pressure 91/59 L Pulse Oximetry 96 12/10/19 23:09 12/10/19 23:25 12/11/19 00:00 Temperature 37.1 C Pulse Rate 75 73 67 Respiratory Rate 20 24 H Blood Pressure 124/59 L Pulse Oximetry 95 99 12/11/19 02:00 12/11/19 02:02 12/11/19 02:53 Temperature Pulse Rate 82 66 73 Respiratory Rate 24 H 19 Blood Pressure 120/55 L Pulse Oximetry 99 93 12/11/19 03:01 12/11/19 04:00 12/11/19 05:19 Temperature 36.6 C Pulse Rate 64 79 79 Respira
[2019-12-11 17:58] LABS: Glucose Point of Care 221 (65-105)
[2019-12-11] MEDS: CENTRAL LINE FLUSH 10 ML IV PUSH (19:52)
[2019-12-11 23:58] LABS: Glucose Point of Care 184 (65-105)
[2019-12-12] VITALS (32 sets, daily range): BP systolic 111–143; BP diastolic 52–74; PULSE 58–87; RESP 16–21; TEMP 36.6–36.8; O2SAT 90–99
[2019-12-12 00:32] LABS: Pneumococcal Antigen Urine Not Detected (Not Detected)
[2019-12-12] MEDS: IPRATROPIUM BR 0.02% INH SOLN 0.5 MG/2.5 ML VIAL INHALATION ×4 (02:31→20:06)
[2019-12-12] MEDS: ALBUTEROL SULFATE NEB 2.5 MG/0.5 ML INH INHALATION ×4 (02:31→20:06)
[2019-12-12 04:55] LABS: pH ABG 7.402 (7.350-7.450)
[2019-12-12 04:56] LABS: Base Excess ABG 7.9 mEq/l (+/-2.0); HCO3 ABG 34.1 mEq/l (22.0-26.0); Oxygen Saturation ABG 96.1 % (95.0-100.0); PO2 ABG 83.5 mmHg (80.0-100.0); Total Hemoglobin 11.2 g/dL (12.0-18.0)
[2019-12-12 04:57] LABS: Alveolar/Arterial O2 Gradient 282.7 mmHg; Carboxyhemoglobin 0.3 % THb (0-2.0); Device VENTILATOR; Fractional Inspired Oxygen 60 %; Methemoglobin ABG 0.4 %THb (0-1.5); Modified Allen's Test Pass; Oxyhemoglobin 94.7 % THb (90.0-100.0); PO2 FiO2 Ratio Arterial Blood 1.39 %; Reduced Hemoglobin 4.6 %THb (0-5.0); Site Drawn RIGHT RADIAL
[2019-12-12 04:58] LABS: Arterial Blood Gas PEEP 10 cmH2O; Arterial Blood Gas Tidal Volume 330 ml; Arterial Blood Gas Vent Mode CMV; Arterial Blood Gas Ventilator rate 18 /MIN
[2019-12-12] MEDS: CENTRAL LINE FLUSH 10 ML IV PUSH ×3 (05:24→20:27)
[2019-12-12] MEDS: methylPREDNISolone SOD SUCC 40 MG VIAL IV PUSH ×2 (05:24→18:40)
[2019-12-12 05:33] LABS: Hematocrit 33.5 % (37.0-47.0); Hemoglobin 9.9 g/dL (12.0-15.0); Mean Corpuscular HGB Conc 29.6 g/dl (32-36); Mean Corpuscular Hemoglobin 26.8 pg (26-34); Mean Corpuscular Volume 90.8 fl (80-100); Mean Platelet Volume 12.9 fl (7.4-10.4); Platelet Count Result 90 k/mm3 (150-375); Red Blood Count 3.69 M/mm3 (4.2-5.4); White Blood Count 6.3 K/mm3 (4.5-10.0)
[2019-12-12 05:52] LABS: Alanine Aminotransferase 25 U/L (4-35); Albumin Level 3.3 g/dL (3.5-5.1); Alkaline Phosphatase 60 U/L (38-126); Anion Gap 3 mmol/L (8-16); Aspartate Amino Transferase 32 U/L (14-36); Bilirubin,Total 0.3 mg/dL (0.2-1.3); Blood Urea Nitrogen 51 mg/dL (7-17); Calcium 8.3 mg/dL (8.4-10.2); Carbon Dioxide 39 mmol/L (22-30); Chloride 94 mmol/L (98-107); Estimated CRCL calculation 106 ml/min; Estimated Glomerular Filt Rate > 60; Glucose 234 mg/dL (65-105); Magnesium 2.5 mg/dL (1.6-2.3); Potassium 4.9 mmol/L (3.4-5.0); Sodium 136 mmol/L (137-145)
[2019-12-12 06:19] LABS: Vancomycin Trough 13.5 ug/mL (10.0-20.0)
[2019-12-12] MEDS: LEVOTHYROXINE SODIUM 75 MCG TABLET PO (06:34)
[2019-12-12] MEDS: INSULIN ASPART (*BKC) 100 UNITS/ML SUB-Q ×2 (06:35→12:34)
--- NOTE | 2019-12-12 08:00 | WPDINTPN ---
Progress Note: A&P Assessment and Plan (1) Acute on chronic respiratory failure with hypoxia and hypercapnia: Code(s): J96.21 - Acute and chronic respiratory failure with hypoxia; J96.22 - Acute and chronic respiratory failure with hypercapnia Status: Acute Assessment and Plan: Acute Respiratory failure secondary to CHF, obesity hypoventilation syndrome, COPD, ? PNA Continue full mechanical ventilation support to prevent hypoxemia/hypercarbia and end organ damage. ABG and PCXR reviewed and will repeat in am. vent settings reviewed wean FiO2 and PEEP as possible FiO2 weaned down to 55% Bronchodilators, steroids continue Lasix for diuresis with switch to infusion continue empiric Rocephin and azithromycin. discontinue vancomycin blood cultures the negative will now Lower extremity Dopplers were negative for DVT check CT of the chest for further assessment (2) Suspected COVID-19 virus infection: Code(s): Z20.828 - Contact with and (suspected) exposure to other viral communicable diseases Status: Acute Assessment and Plan: COVID-19 was suspected. SARS-CoV-2 PCR negative Discontinue Airborne, Droplet and Contact Isolation (3) Chronic obstructive pulmonary disease: Code(s): J44.9 - Chronic obstructive pulmonary disease, unspecified Status: Acute Assessment and Plan: Solu-Medrol and bronchodilator (4) Diastolic congestive heart failure: Code(s): I50.30 - Unspecified diastolic (congestive) heart failure Status: Acute Assessment and Plan: Summary 1. Left ventricular chamber dimension is normal. 2. Left ventricular systolic function is normal, estimated at 60-65%. 3. Left atrial chamber dimension is mildly enlarged. 4. There is mild aortic valve sclerosis. 5. There is trace mitral valve regurgitation. Lasix to be continued (5) Type 2 diabetes mellitus: Code(s): E11.9 - Type 2 diabetes mellitus without complications Status: Acute Assessment and Plan: sliding scale insulin add Lantus (6) Hypothyroidism: Code(s): E03.9 - Hypothyroidism, unspecified Status: Acute Assessment and Plan: Continue levothyroxine (7) Essential hypertension: Code(s): I10 - Essential (primary) hypertension Status: Acute Assessment and Plan: on p.o. metoprolol Continue to monitor blood pressures closely. (8) UTI (urinary tract infection): Code(s): N39.0 - Urinary tract infection, site not specified Status: Acute Assessment and Plan: patient on Rocephin urine culture grew Klebsiella which is sensitive to Rocephin Additional Plan DVT prophylaxis - Lovenox Stress ulcer prophylaxis - Pepcid Nutrition - continue Tube Feeds Code Status - Full Code Total Critical Care Time - 32 minutes Due to a high probability of clinically significant, life threatening deterioration, the patient required my highest level of preparedness to intervene emergently and I personally spent this critical care time directly and personally managing the patient. This critical care time included obtaining a history; examining the patient; pulse oximetry; ordering and review of studies; arranging urgent treatment with development of a management plan; evaluation of patient's response to treatment; frequent reassessment; and discussions with other providers. It was exclusive of separately billable procedures and treating other patients and teaching time. Please see Assessment and Plan section and the rest of the note for further information on patient assessment and treatment Subjective Date/time seen: 12/12/19 0800 Overnight events reviewed Afebrile Continues to be on mechanical ventilation Vitals acceptable Sedated but arousable follows commands Review of Systems Review of Systems: ROS unobtainable: Yes unobtainable due to endotracheal tube Exam Narrative: Exam Narrative:
[2019-12-12] MEDS: FUROSEMIDE INJ 100 MG in SODIUM CHLORIDE 0.9% IV 90 ML IV CONT (08:37)
[2019-12-12] MEDS: FAMOTIDINE 20 MG/2 ML VIAL IV PUSH ×2 (08:38→20:23)
[2019-12-12] MEDS: FUROSEMIDE INJ 40 MG/4 ML VIAL IV PUSH (08:38)
[2019-12-12] MEDS: METOPROLOL SUCCINATE EXT REL 50 MG TABCR PO (08:39)
[2019-12-12] MEDS: INSULIN GLARGINE (*BKC) 100 UNITS/ML 15 UNITS SUB-Q (11:01)
[2019-12-12 12:10] LABS: Glucose Point of Care 215 (65-105)
--- NOTE | 2019-12-12 12:17 | PCFNICU ---
ICU Rounding Note: Pt current nutrition is 2 mercedes HN continuos at goal rate of 35 ml/hr with 30 ml H2O flushes after each feeding. Nutrition recommendation: Agree with current recommendations Last recorded weight is 158.7 kg which has increased by 11.7 kg since last seen. Recommend reweighing to obtain accuracy. Bowel Motility: No documented BM Labs Reviewed: Hgb (9.9) Hct (33.5) Alb (3.3) Na (136) BUN (51) Cr (0.6) Glu (234) Meds Noted: Albuterol, Pepcid, Fentanyl, Lasix, Zithromax, Novolog, Atrovent, Rocephin, Synthroid, Solu Medrol, Versed, Vancomycin, Toprol, Sodium Chloride Additional Notes: Skin is WNL according to nurse report. Patient is tolerating tube feeding well according to report. Will continue to monitor with same goal. Following daily in ICU rounds. Assessing/reassessing every Tuesday/Tuesday.
--- NOTE | 2019-12-12 12:35 | PCNSR ---
On 12/12/19, the student, Benny Gordon, provided care and completed [facility] documentation on this patient. I have reviewed the student's documentation and agree with the findings.
[2019-12-12 15:50] LABS: Anion Gap 3 mmol/L (8-16); Blood Urea Nitrogen 45 mg/dL (7-17); Carbon Dioxide 39 mmol/L (22-30); Chloride 92 mmol/L (98-107); Estimated CRCL calculation 111 ml/min; Estimated Glomerular Filt Rate > 60; Glucose 246 mg/dL (65-105); Magnesium 2.3 mg/dL (1.6-2.3); Potassium 4.9 mmol/L (3.4-5.0); Sodium 134 mmol/L (137-145)
[2019-12-12 16:08] LABS: Legionella pneumophila Ag Ur Not Detected (Not Detected)
[2019-12-12 17:10] LABS: Glucose Point of Care 168 (65-105)
[2019-12-12] MEDS: ENOXAPARIN 40 MG/0.4 ML SYRINGE SUB-Q (18:40)
--- NOTE | 2019-12-12 20:05 | PM.PNPUL ---
Progress Note: A&P Assessment and Plan (1) Acute on chronic respiratory failure with hypoxia and hypercapnia: Code(s): J96.21 - Acute and chronic respiratory failure with hypoxia; J96.22 - Acute and chronic respiratory failure with hypercapnia Status: Acute Assessment and Plan: She was admitted and intubated Dec 08 with worsening hypercapnea, worsening gas exchange with pCO2 158, due to combination of COPD exacerbation, COVID Is negative. WBC is now normal 6.3, urine antigens are negative Legionella, Strep pneumonia. She is now on a Lasix drip 5 mg per hour with 2.6 L uop today, and has been loree to wean to FiO2 55%, PEEP still 10 cm. Remains awake on minimal sedation, tolerates this well, can nod to questions. She is receiving antibiotics, including ceftriaxone, azithromycin to cover for community acquired pathogens. Will continue to wean, treat COPD exacerbation, attempt SBT when FiO@ requirement is close to 40%. She has multiple issues, prognosis is guarded. (2) Acute exacerbation of chronic obstructive pulmonary disease: Code(s): J44.1 - Chronic obstructive pulmonary disease with (acute) exacerbation Status: Acute Assessment and Plan: She has baseline COPD which is severe, FEV1 les than a liter 2 years ago. Bronchodilators. (3) Diastolic congestive heart failure: Code(s): I50.30 - Unspecified diastolic (congestive) heart failure Status: Acute Assessment and Plan: echo; getting diuresis (4) UTI (urinary tract infection): Code(s): N39.0 - Urinary tract infection, site not specified Status: Acute Assessment and Plan: pathogen to be determined Subjective Date/time seen: 12/12/19 16:00 This 60 yo female is seen in follow up for acute on chronic hypercapnic hypoxemic respiratory failure with COPD exacerbation. She is now on Lasix drip to facilitate diuresis. She remains alert, on fentanyl 100 mcg /hour and versed 2 mg / hour. She is not in pain. Her FiO2 required increasing yesterday Dec 10, now weaned, 55%. No pressors. Tolerating tube feeds. Review of Systems Review of Systems: ROS unobtainable: Yes unobtainable due to endotracheal tube Exam Const: General: comfortable and no acute distress (lightly sedated) HENMT: Head: normal to inspection Ears: hearing grossly normal bilaterally General nose exam: Normal external nose present and Normal nares present Face and sinus: normal facial exam Mouth: Yes Normal oral and palatal mucosa present (limited exam with ETT ) Eyes: General: appearance normal, both eyes and all related structures Neck: Neck: no lymphadenopathy Chest: Chest palpation & inspection: normal inspection of the chest Resp: Effort & Inspection: normal respiratory effort Auscultation: clear to auscultation bilaterally (equal air entry, few crackles; clear compared to the CXR) Cardio: Rate: regular rate Rhythm: regular rhythm Heart sounds: S1 normal heart sound present and S2 normal heart sound present GI: Inspection: obesity Auscultation: Hypoactive bowel sounds present Extrem: General: no clubbing, no cyanosis, edema (muffin-topping over the dorsum of the foot) bilateral and other (she has erythema aroudn the lower legs, L>R, flaking skin. ) Objective Data Vital Signs Vital Signs: Vital Signs - 24 hr 12/11/19 20:11 12/11/19 22:00 12/11/19 23:04 Temperature Pulse Rate 80 70 69 Respiratory Rate 20 18 Blood Pressure 113/48 L Pulse Oximetry 92 92 12/12/19 00:00 12/12/19 02:00 12/12/19 02:25 Temperature 36.6 C Pulse Rate 64 74 73 Respiratory Rate 17 18 20 Blood Pressure 129/62 143/74 H Pulse Oximetry 93 92 12/12/19 02:32 12/12/19 04:00
[2019-12-12] MEDS: METOPROLOL SUCCINATE EXT REL 25 MG TABCR PO (20:24)
[2019-12-12 22:48] LABS: Glucose Point of Care 178 (65-105)
[2019-12-13] VITALS (43 sets, daily range): BP systolic 109–138; BP diastolic 58–82; PULSE 64–102; RESP 16–21; TEMP 36.4–37.1; O2SAT 92–99
[2019-12-13] MEDS: FUROSEMIDE INJ 100 MG in SODIUM CHLORIDE 0.9% IV 90 ML IV CONT ×2 (01:10→21:08)
[2019-12-13] MEDS: IPRATROPIUM BR 0.02% INH SOLN 0.5 MG/2.5 ML VIAL INHALATION ×4 (02:19→20:40)
[2019-12-13] MEDS: ALBUTEROL SULFATE NEB 2.5 MG/0.5 ML INH INHALATION ×4 (02:19→20:40)
[2019-12-13 04:30] LABS: Alveolar/Arterial O2 Gradient 256.3 mmHg; Base Excess ABG 12.1 mEq/l (+/-2.0); Carboxyhemoglobin 0.3 % THb (0-2.0); Fractional Inspired Oxygen 55 %; HCO3 ABG 37.9 mEq/l (22.0-26.0); Methemoglobin ABG 0.3 %THb (0-1.5); Oxygen Saturation ABG 95.4 % (95.0-100.0); Oxyhemoglobin 94.5 % THb (90.0-100.0); PCO2 ABG 54.8 mmHg (35.0-45.0); PO2 ABG 74.9 mmHg (80.0-100.0); PO2 FiO2 Ratio Arterial Blood 1.36 %; Reduced Hemoglobin 4.9 %THb (0-5.0); pH ABG 7.458 (7.350-7.450)
[2019-12-13 04:31] LABS: Device VENTILATOR; Modified Allen's Test Pass; Site Drawn RIGHT RADIAL
[2019-12-13 04:32] LABS: Arterial Blood Gas PEEP 10 cmH2O; Arterial Blood Gas Pressure Support 0 cmH2O; Arterial Blood Gas Tidal Volume 330 ml; Arterial Blood Gas Vent Mode CMV; Arterial Blood Gas Ventilator rate 18 /MIN
[2019-12-13 05:01] LABS: Hematocrit 35.6 % (37.0-47.0); Hemoglobin 10.5 g/dL (12.0-15.0); Immature Platelet Fraction Pct 11.4 % (0.9-11.2); Mean Corpuscular HGB Conc 29.5 g/dl (32-36); Mean Corpuscular Hemoglobin 26.6 pg (26-34); Mean Corpuscular Volume 90.4 fl (80-100); Mean Platelet Volume 12.4 fl (7.4-10.4); Platelet Count Result 86 k/mm3 (150-375); Red Blood Count 3.94 M/mm3 (4.2-5.4); Red Cell Distribution Width 17.8 % (11.5-14.5)
[2019-12-13] MEDS: methylPREDNISolone SOD SUCC 40 MG VIAL IV PUSH (05:04)
[2019-12-13] MEDS: LEVOTHYROXINE SODIUM 75 MCG TABLET PO (05:04)
[2019-12-13] MEDS: CENTRAL LINE FLUSH 10 ML IV PUSH ×3 (05:05→21:06)
[2019-12-13] MEDS: CENTRAL LINE FLUSH 20 ML IV PUSH (05:05)
[2019-12-13 05:16] LABS: Alanine Aminotransferase 32 U/L (4-35); Albumin Level 3.5 g/dL (3.5-5.1); Alkaline Phosphatase 60 U/L (38-126); Anion Gap 4.99999 mmol/L (8-16); Aspartate Amino Transferase 44 U/L (14-36); Bilirubin,Total 0.3 mg/dL (0.2-1.3); Blood Urea Nitrogen 46 mg/dL (7-17); Calcium 8.3 mg/dL (8.4-10.2); Carbon Dioxide > 40 mmol/L (22-30); Chloride 92 mmol/L (98-107); Estimated CRCL calculation 108 ml/min; Estimated Glomerular Filt Rate > 60; Glucose 210 mg/dL (65-105); Magnesium 2.3 mg/dL (1.6-2.3); Potassium 4.8 mmol/L (3.4-5.0); Sodium 137 mmol/L (137-145)
[2019-12-13] MEDS: INSULIN ASPART (*BKC) 100 UNITS/ML SUB-Q ×2 (06:10→17:13)
--- NOTE | 2019-12-13 07:10 | WPDINTPN ---
Progress Note: A&P Assessment and Plan (1) Acute on chronic respiratory failure with hypoxia and hypercapnia: Code(s): J96.21 - Acute and chronic respiratory failure with hypoxia; J96.22 - Acute and chronic respiratory failure with hypercapnia Status: Acute Assessment and Plan: Acute Respiratory failure secondary to CHF, obesity hypoventilation syndrome, COPD, ? PNA Continue full mechanical ventilation support to prevent hypoxemia/hypercarbia and end organ damage. ABG and PCXR reviewed and will repeat in am. vent settings reviewed decrease tidal volume to 300 wean FiO2 and PEEP as possible. FiO2 weaned down to 50% Bronchodilators, steroids continue Lasix infusion for diuresis continue empiric Rocephin and azithromycin. discontinued vancomycin blood cultures the negative will now Lower extremity Dopplers were negative for DVT CT Chest 12/11 IMPRESSION: 1. Small bilateral pleural effusions with dependent atelectasis including partial collapse of the basilar segments of the bilateral lower lobes. 2. Cardiomegaly. 3. Multiple bilateral <4 mm calcified and noncalcified pulmonary nodules likely sequela of old granulomatous disease. If the patient is low risk for lung cancer, no follow-up is needed. If the patient is high risk (i.e., history of smoking or asbestos or significant radiation exposure optional low-dose noncontrast chest CT could be considered at 12 months. (2) Suspected COVID-19 virus infection: Code(s): Z20.828 - Contact with and (suspected) exposure to other viral communicable diseases Status: Acute Assessment and Plan: COVID-19 was suspected. SARS-CoV-2 PCR negative Discontinue Airborne, Droplet and Contact Isolation (3) Chronic obstructive pulmonary disease: Code(s): J44.9 - Chronic obstructive pulmonary disease, unspecified Status: Acute Assessment and Plan: Solu-Medrol and bronchodilator decrease Solu-Medrol dose (4) Diastolic congestive heart failure: Code(s): I50.30 - Unspecified diastolic (congestive) heart failure Status: Acute Assessment and Plan: Summary 1. Left ventricular chamber dimension is normal. 2. Left ventricular systolic function is normal, estimated at 60-65%. 3. Left atrial chamber dimension is mildly enlarged. 4. There is mild aortic valve sclerosis. 5. There is trace mitral valve regurgitation. Lasix to be continued (5) Type 2 diabetes mellitus: Code(s): E11.9 - Type 2 diabetes mellitus without complications Status: Acute Assessment and Plan: sliding scale insulin and Lantus (6) Hypothyroidism: Code(s): E03.9 - Hypothyroidism, unspecified Status: Chronic Assessment and Plan: Continue levothyroxine (7) Essential hypertension: Code(s): I10 - Essential (primary) hypertension Status: Chronic Assessment and Plan: on p.o. metoprolol Continue to monitor blood pressures closely. (8) UTI (urinary tract infection): Code(s): N39.0 - Urinary tract infection, site not specified Status: Acute Assessment and Plan: patient on Rocephin urine culture grew Klebsiella which is sensitive to Rocephin Additional Plan DVT prophylaxis - Lovenox Stress ulcer prophylaxis - Pepcid Nutrition - continue Tube Feeds Code Status - Full Code Total Critical Care Time - 30 minutes Due to a high probability of clinically significant, life threatening deterioration, the patient required my highest level of preparedness to intervene emergently and I personally spent this critical care time directly and personally managing the patient. This critical care time included obtaining a history; examining the patient; pulse oximetry; ordering and review of studies; arranging urgent treatment with development of a management plan; evaluation of patient's response to treatment; frequent reassessment; and discussions with other provi
[2019-12-13] MEDS: INSULIN GLARGINE (*BKC) 100 UNITS/ML 15 UNITS SUB-Q (09:02)
[2019-12-13] MEDS: FAMOTIDINE 20 MG/2 ML VIAL IV PUSH ×2 (09:02→21:05)
[2019-12-13] MEDS: METOPROLOL SUCCINATE EXT REL 25 MG TABCR PO (09:03)
--- NOTE | 2019-12-13 10:34 | PCFNICU ---
ICU Rounding Note: Pt current nutrition is Vital 1.5 at goal of 35 mL/hr with 30 mL water flushes after each feeding. Patient previously on 2 jesse HN but switched to vital 1.2 based on shortage of 2 jesse HN. Two Jesse HN back in stock and to resume later today. No new recommendations at this time. Last recorded weight is 152.6 kg which has decreased by 6.1 kg since last seen. Patient on Lasix drip with negative -I/O. Bowel Motility: no bowel movement reported. Physician made aware of issue and ordered miralax and colace for patient. Labs Reviewed: Hgb (10.5) Hct (35.6) BUN (46) Cr (0.6) Glu (210) Meds Noted: Albuterol, Pepcid, Fentanyl, Lasix, Zithromax, Novolog, Atrovent, Rocephin, Synthroid, Solu Medrol, Versed, Vancomycin, Toprol, Sodium Chloride, Miralax, Colace Additional Notes: Patient had 10-15 mL of residual based on nursing report. Nursing reports patient is tolerating tube feeding well. Patient has reddened legs ans buttocks. Will continue to monitor with same goal. Following daily in ICU rounds. Assessing/reassessing every Tuesday/Tuesday.
[2019-12-13] MEDS: polyethylene glycoL 3350 17 GM POWD.PACK PO (11:32)
[2019-12-13 11:41] LABS: Glucose Point of Care 195 (65-105)
--- NOTE | 2019-12-13 14:07 | PCNSR ---
On 12/13/19, the student, Benny, provided care and completed [employer] documentation on this patient. I have reviewed the student's documentation and agree with the findings. Clarification: Vital 1.5 was substituted for Two Jesse HN, rather than Vital 1.2.
--- NOTE | 2019-12-13 14:26 | PM.CNCAR ---
Assessment and Plan Assessment and plan (1) Frequent PVCs: Code(s): I49.3 - Ventricular premature depolarization Status: Acute Assessment and Plan: she is hemodynamically stable with her frequent PVCs even in a pattern of ventricular bigeminy. Agree with restarting her beta-aj. Will recheck an EKG today but otherwise did not think that further workup is indicated at this point. Keep potassium greater than 4 and magnesium greater than 2 (2) Obesity hypoventilation syndrome: Code(s): E66.2 - Morbid (severe) obesity with alveolar hypoventilation Status: Acute (3) Acute exacerbation of chronic obstructive pulmonary disease: Code(s): J44.1 - Chronic obstructive pulmonary disease with (acute) exacerbation Status: Acute Assessment and Plan: currently intubated (4) Essential hypertension: Code(s): I10 - Essential (primary) hypertension Status: Chronic (5) Diastolic congestive heart failure: Code(s): I50.30 - Unspecified diastolic (congestive) heart failure Status: Acute Assessment and Plan: some degree of diastolic heart failure is present but this is predominantly likely right-sided heart failure from her obesity hypoventilation syndrome/COPD. Continue diuresis History of Present Illness History of Present Illness Consult date/time: 12/13/19 14:26 Requesting physician: Isaias Cunningham MD Consult reason: Other ( frequent PVCs) Reason For Visit: Minimally responsive. Narrative: date of service 12/13/2019 Reason for consultation frequent PVCs History: Patient is a 69-year-old female with morbid obesity, obesity hypoventilation syndrome, sleep apnea, chronic respiratory failure COPD diastolic heart failure hypertension diabetes in a [facility] [place] [facility] who presented to the hospital several days ago because of a minimal responsiveness. She was intubated and sedated. History is predominantly obtained by reviewing medical record. Reportedly she had not been feeling well and her daughter came to visit her and the patient was very drowsy. Her O2 sats were in the 60s upon EMS arrival. She has been started on Lasix drip. She is slow to respond to recover and difficult to wean from a a respirator point of view. she has been started on Lasix drip with some response. She has had frequent PVCs and a pattern of ventricular bigeminy at times and cardiology consultation was requested. Echocardiogram is unremarkable an EKG admission was also normal. There has been no recent history of chest pain that is described. No paroxysmal nocturnal dyspnea, syncope. Review of Systems Review of Systems: ROS unobtainable: Yes unobtainable due to endotracheal tube Constitutional: Constitutional: Denies body ache(s) Eyes: Eyes: Denies blurry vision ENT: Denies epistaxis Cardiovascular: Cardiovascular: Reports leg edema Respiratory: Respiratory: Reports dyspnea Gastrointestinal: Gastrointestinal: Denies diarrhea Genitourinary: Genitourinary: Denies dysuria Musculoskeletal: Musculoskeletal: Denies myalgias Integumentary/Breasts: Skin/Breast: Denies dry skin Neurologic: Denies headache(s) Psychiatric: Psychiatric: Denies suicidal ideation Endocrine: Endocrine: Denies excessive sweating Hematologic/Lymphatic: Hematologic/Lymphatic: Denies easy bleeding Allergic/Immunologic: Allergic/Immunologic: Denies GI upset with certain foods PMFSH Past Medical History Medical History Chronic obstructive pulmonary disease Chronic respiratory failure with hypoxia, on home oxygen therapy Depression Diastolic congestive heart failure echocardiogram in November 2018 showed normal left ventricular size and function with moderate concentric left ventricular hypertrophy, impaired diastolic relaxation grade 1, ejection fraction of 65%, an estimated peak RVSP of 47 mmHg. Dyslipidemia Essential hypertension Hypothyroidis
--- NOTE | 2019-12-13 14:34 | ECG_ITS ---
Measurements Intervals [place] Rate: 73 P: 86 CA: 158 QRS: 47 QRSD: 90 T: 41 QT: 373 QTc: 411 Interpretive Statements SINUS RHYTHM WITH IRREGULAR RATE DUE TO SINOATRIAL BLOCK, AV BLOCK OR NON-C CONDUCTED ATRIAL PREMATURE COMPLEX VENTRICULAR TRIGEMINY LOW QRS VOLTAGE IN PRECORDIAL LEADS BASELINE WANDER- AVR, AVL, AVF, V1 ABNORMAL ECG Electronically Signed On 12-13-2019 15:50:28 CDT by Leland Johnson D.O.
[2019-12-13 15:14] LABS: Anion Gap 5.99999 mmol/L (8-16); Blood Urea Nitrogen 40 mg/dL (7-17); Calcium 7.8 mg/dL (8.4-10.2); Carbon Dioxide > 40 mmol/L (22-30); Chloride 89 mmol/L (98-107); Estimated CRCL calculation 127 ml/min; Estimated Glomerular Filt Rate > 60; Glucose 302 mg/dL (65-105); Magnesium 2.2 mg/dL (1.6-2.3); Sodium 135 mmol/L (137-145)
[2019-12-13 17:10] LABS: Glucose Point of Care 212 (65-105)
[2019-12-13] MEDS: METOPROLOL TARTRATE 25 MG TABLET PO (21:05)
[2019-12-13] MEDS: DOCUSATE SODIUM LIQ 100 MG/10 ML UDC PO (21:05)
[2019-12-13 23:37] LABS: Glucose Point of Care 121 (65-105)
[2019-12-14] VITALS (37 sets, daily range): BP systolic 102–127; BP diastolic 63–80; PULSE 60–95; RESP 17–23; TEMP 36.6–36.8; O2SAT 93–99
--- NOTE | 2019-12-14 03:50 | PCRCNOTE ---
Patient unable to receive Symbicort due to being mechanically ventilated.
[2019-12-14] MEDS: ALBUTEROL SULFATE NEB 2.5 MG/0.5 ML INH INHALATION ×4 (03:51→20:10)
[2019-12-14] MEDS: IPRATROPIUM BR 0.02% INH SOLN 0.5 MG/2.5 ML VIAL INHALATION ×4 (03:51→20:10)
[2019-12-14 04:51] LABS: Alveolar/Arterial O2 Gradient 202.2 mmHg; Base Excess ABG 16.2 mEq/l (+/-2.0); Carboxyhemoglobin 0.3 % THb (0-2.0); Fractional Inspired Oxygen 50 %; HCO3 ABG 43.8 mEq/l (22.0-26.0); Methemoglobin ABG 0.4 %THb (0-1.5); Oxygen Content ABG 14.7 %vol (16.0-22.0); Oxygen Saturation ABG 94.5 % (95.0-100.0); Oxyhemoglobin 93.7 % THb (90.0-100.0); PO2 ABG 74.7 mmHg (80.0-100.0); PO2 FiO2 Ratio Arterial Blood 1.49 %; Reduced Hemoglobin 5.6 %THb (0-5.0); Total Hemoglobin 11.1 g/dL (12.0-18.0); pH ABG 7.409 (7.350-7.450)
[2019-12-14 05:13] LABS: PCO2 ABG 70.8 mmHg (35.0-45.0)
[2019-12-14 05:14] LABS: Device VENTILATOR; Modified Allen's Test Pass; Site Drawn RIGHT RADIAL
[2019-12-14 05:19] LABS: Hematocrit 35.5 % (37.0-47.0); Hemoglobin 10.2 g/dL (12.0-15.0); Mean Corpuscular HGB Conc 28.7 g/dl (32-36); Mean Corpuscular Hemoglobin 26.4 pg (26-34); Mean Corpuscular Volume 91.7 fl (80-100); Mean Platelet Volume 12.7 fl (7.4-10.4); Platelet Count Result 72 k/mm3 (150-375); Red Blood Count 3.87 M/mm3 (4.2-5.4); Red Cell Distribution Width 17.4 % (11.5-14.5); White Blood Count 4.3 K/mm3 (4.5-10.0)
[2019-12-14 05:30] LABS: Arterial Blood Gas PEEP 10 cmH2O; Arterial Blood Gas Tidal Volume 300 ml; Arterial Blood Gas Vent Mode CMV; Arterial Blood Gas Ventilator rate 18 /MIN
[2019-12-14] MEDS: LEVOTHYROXINE SODIUM 75 MCG TABLET PO (05:36)
[2019-12-14] MEDS: CENTRAL LINE FLUSH 20 ML IV PUSH (05:36)
[2019-12-14] MEDS: CENTRAL LINE FLUSH 10 ML IV PUSH ×2 (05:36→22:07)
[2019-12-14 05:43] LABS: Alanine Aminotransferase 38 U/L (4-35); Albumin Level 3.2 g/dL (3.5-5.1); Alkaline Phosphatase 55 U/L (38-126); Anion Gap 8.99999 mmol/L (8-16); Aspartate Amino Transferase 51 U/L (14-36); Bilirubin,Total 0.3 mg/dL (0.2-1.3); Blood Urea Nitrogen 39 mg/dL (7-17); Calcium 8.2 mg/dL (8.4-10.2); Carbon Dioxide > 40 mmol/L (22-30); Chloride 89 mmol/L (98-107); Estimated CRCL calculation 105 ml/min; Estimated Glomerular Filt Rate > 60; Glucose 137 mg/dL (65-105); Magnesium 2.3 mg/dL (1.6-2.3); Potassium 4.2 mmol/L (3.4-5.0); Sodium 138 mmol/L (137-145)
--- NOTE | 2019-12-14 07:30 | WPDINTPN ---
Progress Note: A&P Assessment and Plan (1) Acute on chronic respiratory failure with hypoxia and hypercapnia: Code(s): J96.21 - Acute and chronic respiratory failure with hypoxia; J96.22 - Acute and chronic respiratory failure with hypercapnia Status: Acute Assessment and Plan: Acute Respiratory failure secondary to CHF, obesity hypoventilation syndrome, COPD, ? PNA Continue full mechanical ventilation support to prevent hypoxemia/hypercarbia and end organ damage. ABG and PCXR reviewed and will repeat in am. vent settings reviewed decrease tidal volume to 300 wean FiO2 and PEEP as possible. FiO2 weaned down to 45% today Bronchodilators, steroids continue Lasix infusion for diuresis. I will give a dose of Diamox for increasing metabolic alkalosis although not all of it is contraction as patient is a chronic CO2 retainer continue empiric Rocephin and azithromycin. discontinued vancomycin blood cultures the negative will now Lower extremity Dopplers were negative for DVT CT Chest 12/11 IMPRESSION: 1. Small bilateral pleural effusions with dependent atelectasis including partial collapse of the basilar segments of the bilateral lower lobes. 2. Cardiomegaly. 3. Multiple bilateral <4 mm calcified and noncalcified pulmonary nodules likely sequela of old granulomatous disease. If the patient is low risk for lung cancer, no follow-up is needed. If the patient is high risk (i.e., history of smoking or asbestos or significant radiation exposure optional low-dose noncontrast chest CT could be considered at 12 months. (2) Suspected COVID-19 virus infection: Code(s): Z20.828 - Contact with and (suspected) exposure to other viral communicable diseases Status: Acute Assessment and Plan: COVID-19 was suspected. SARS-CoV-2 PCR negative Discontinue Airborne, Droplet and Contact Isolation (3) Chronic obstructive pulmonary disease: Code(s): J44.9 - Chronic obstructive pulmonary disease, unspecified Status: Acute Assessment and Plan: Solu-Medrol and bronchodilator decrease Solu-Medrol dose (4) Diastolic congestive heart failure: Code(s): I50.30 - Unspecified diastolic (congestive) heart failure Status: Acute Assessment and Plan: Summary 1. Left ventricular chamber dimension is normal. 2. Left ventricular systolic function is normal, estimated at 60-65%. 3. Left atrial chamber dimension is mildly enlarged. 4. There is mild aortic valve sclerosis. 5. There is trace mitral valve regurgitation. Lasix to be continued (5) Type 2 diabetes mellitus: Code(s): E11.9 - Type 2 diabetes mellitus without complications Status: Acute Assessment and Plan: sliding scale insulin and Lantus (6) Hypothyroidism: Code(s): E03.9 - Hypothyroidism, unspecified Status: Chronic Assessment and Plan: Continue levothyroxine (7) Essential hypertension: Code(s): I10 - Essential (primary) hypertension Status: Chronic Assessment and Plan: on p.o. metoprolol Continue to monitor blood pressures closely. (8) UTI (urinary tract infection): Code(s): N39.0 - Urinary tract infection, site not specified Status: Acute Assessment and Plan: patient on Rocephin urine culture grew Klebsiella which is sensitive to Rocephin Additional Plan DVT prophylaxis - Lovenox Stress ulcer prophylaxis - Pepcid Nutrition - continue Tube Feeds Code Status - Full Code Total Critical Care Time - 31 minutes Due to a high probability of clinically significant, life threatening deterioration, the patient required my highest level of preparedness to intervene emergently and I personally spent this critical care time directly and personally managing the patient. This critical care time included obtaining a history; examining the patient; pulse oximetry; ordering and review of studies; arranging urgent treat
[2019-12-14] MEDS: FAMOTIDINE 20 MG/2 ML VIAL IV PUSH ×2 (09:18→19:58)
[2019-12-14] MEDS: methylPREDNISolone SOD SUCC 40 MG VIAL IV PUSH (09:18)
[2019-12-14] MEDS: INSULIN GLARGINE (*BKC) 100 UNITS/ML 15 UNITS SUB-Q (09:19)
[2019-12-14] MEDS: DOCUSATE SODIUM LIQ 100 MG/10 ML UDC PO (09:19)
[2019-12-14] MEDS: METOPROLOL TARTRATE 25 MG TABLET PO ×3 (09:19→22:06)
[2019-12-14 09:31] LABS: Glucose Point of Care 138 (65-105)
[2019-12-14] MEDS: acetaZOLAMIDE SODIUM FOR INJ 500 MG VIAL IV PUSH (10:24)
--- NOTE | 2019-12-14 11:31 | PCDIET ---
Nutrition Follow-Up Complete: Nutrition Diagnosis: Inadequate oral intake at present related to oral intubation as evidenced by NPO status. Nutrition Goal: Patient to meet estimated nutritional needs. Goal met. Patient tolerating Two Jesse HN at 35mL/hr goal rate without reported issues. Last recorded weight is 146.4 kg which is down from last review. -I/O. Bowel Motility: No documented BM as of yet. MD started Colace and Miralax 12/13/19. Labs Reviewed: Hgb (10.2), Hct (35.5), Glu (137), BUN (39), Cr (0.6), Alb (3.2) Meds Noted: Diamox, Albuterol, Zithromax, Rocephin, Versed, Miralax, Colace, Pepcid, Fentanyl, Solu Medrol, Furosemide, Novolog, Lantus, Atrovent Additional Notes: Left leg with venous stasis ulcer. No pressure ulcers documented. Nutrition Monitoring and Evaluation: Follow up every 3 days. Follow daily in ICU rounds.
--- NOTE | 2019-12-14 12:05 | PM.PNCARD ---
Progress Note: A&P Assessment and Plan (1) Frequent PVCs: Code(s): I49.3 - Ventricular premature depolarization Status: Acute Assessment and Plan: she is hemodynamically stable with her frequent PVCs even in a pattern of ventricular bigeminy. increase metoprolol to 25 mg p.o. t.i.d. Keep potassium greater than 4 and magnesium greater than 2 (2) Obesity hypoventilation syndrome: Code(s): E66.2 - Morbid (severe) obesity with alveolar hypoventilation Status: Acute Assessment and Plan: CO2 is quite (3) Acute exacerbation of chronic obstructive pulmonary disease: Code(s): J44.1 - Chronic obstructive pulmonary disease with (acute) exacerbation Status: Acute Assessment and Plan: currently intubated (4) Essential hypertension: Code(s): I10 - Essential (primary) hypertension Status: Chronic Assessment and Plan: at goal (5) Diastolic congestive heart failure: Code(s): I50.30 - Unspecified diastolic (congestive) heart failure Status: Acute Assessment and Plan: some degree of diastolic heart failure is present but this is predominantly likely right-sided heart failure from her obesity hypoventilation syndrome/COPD. Continue diuresis Subjective Date/time seen: 12/14/19 12:05 Interval history: 69 year female morbidly obese was found unresponsive at home hypoxic patient was brought to the emergency department for further evaluation and patient was intubated currently on vent, Covid is negative likely copd excerbation Kpneumonia on cultures pt already on iv rocephin Pt is on a lasix drip for CHF excerbation Weaning off the vent Date of service 12/14/2019: Still diuresing well. PVCs have improved. Still intubated and sedated. Review of Systems Review of Systems: ROS unobtainable: Yes unobtainable due to endotracheal tube Constitutional: Constitutional: Denies body ache(s), Denies excessive sweating and Denies headache(s) Eyes: Eyes: Denies blurry vision ENT: Denies headache(s) and Denies epistaxis Cardiovascular: Cardiovascular: Reports leg edema and Reports dyspnea Respiratory: Respiratory: Reports dyspnea Gastrointestinal: Gastrointestinal: Denies diarrhea Genitourinary: Genitourinary: Denies dysuria Musculoskeletal: Musculoskeletal: Denies myalgias Integumentary/Breasts: Skin/Breast: Denies dry skin Neurologic: Denies headache(s) Psychiatric: Psychiatric: Denies suicidal ideation Endocrine: Endocrine: Denies excessive sweating Hematologic/Lymphatic: Hematologic/Lymphatic: Denies easy bleeding Allergic/Immunologic: Allergic/Immunologic: Denies GI upset with certain foods Exam Narrative: Exam Narrative: Currently intubated and sedated. Const: General: no acute distress HENMT: General nose exam: Normal nares present Eyes: Sclera: sclerae normal Neck: Neck: supple Carotids: no bruits Chest: Other: No chest wall deformities are noted Resp: Auscultation: diminished lung sounds Cardio: Rate: regular rate Other: Ectopy is currently improved and not present Urinary Catheter: Urinary Catheter: patent and draining Skin: General skin exam: normal color Neuro: Other: patient is currently intubated and sedated but withdrawal to pain Extrem: General: normal to inspection and edema Psych: Other: sedated Objective Data Vital Signs Vital Signs: Vital Signs - 24 hr 12/13/19 14:00 12/13/19 14:29 12/13/19 14:32 Temperature Pulse Rate 64 74 75 Respiratory Rate 18 18 Blood Pressure 109/58 L Pulse Oximetry 92 92 12/13/19 14:40 12/13/19 16:00 12/13/19 16:35 Temperature 36.4 C Pulse Rate 68 85 70 Respiratory Rate 18 20 Blood Pressure 132/79 Pulse Oximetry 97 97 12/13/19 17:24 12/13/19 17:25 12/13/19 17:59 Temperature Pulse Rate 90 90 80 Respiratory Rate 18 18 17 Blood Pressure Pulse Oximetry 12/13/19 18:00 12/13/19 18:25 12/13/19 18:56
[2019-12-14 12:48] LABS: Glucose Point of Care 190 (65-105)
[2019-12-14 15:26] LABS: Anion Gap 6.99999 mmol/L (8-16); Blood Urea Nitrogen 32 mg/dL (7-17); Calcium 8.2 mg/dL (8.4-10.2); Carbon Dioxide > 40 mmol/L (22-30); Chloride 89 mmol/L (98-107); Estimated CRCL calculation 81 ml/min; Estimated Glomerular Filt Rate > 60; Glucose 250 mg/dL (65-105); Magnesium 2.2 mg/dL (1.6-2.3); Potassium 3.8 mmol/L (3.4-5.0); Sodium 136 mmol/L (137-145)
--- NOTE | 2019-12-14 17:24 | PM.IMPN ---
Progress Note: A&P Assessment and Plan (1) Acute on chronic respiratory failure with hypoxia and hypercapnia: Code(s): J96.21 - Acute and chronic respiratory failure with hypoxia; J96.22 - Acute and chronic respiratory failure with hypercapnia Status: Acute Assessment and Plan: Intubated IV steroids IV abx, breathing treatments (2) Diffuse lung disease: Code(s): J98.4 - Other disorders of lung Status: Acute Assessment and Plan: Intubated IV steroids IV abx, breathing treatments (3) Chronic obstructive pulmonary disease: Code(s): J44.9 - Chronic obstructive pulmonary disease, unspecified Status: Acute Assessment and Plan: Intubated IV steroids IV rocephin and IV zithromax, breathing treatments (4) Diastolic congestive heart failure: Code(s): I50.30 - Unspecified diastolic (congestive) heart failure Status: Acute Assessment and Plan: Pt is on lasix drip (5) Obstructive sleep apnea: Code(s): G47.33 - Obstructive sleep apnea (adult) (pediatric) Status: Acute Assessment and Plan: . (6) Bacteriuria with pyuria: Code(s): R82.71 - Bacteriuria; R82.81 - Pyuria Status: Acute Assessment and Plan: pt already on iv rocephin (7) Type 2 diabetes mellitus: Code(s): E11.9 - Type 2 diabetes mellitus without complications Status: Acute Assessment and Plan: Hold oral hypoglycemics and consider Lantus depending on her response to the steroids. Check hemoglobin A1c and initiate sliding scale insulin, Accu-Cheks, and hypoglycemic protocol. (8) Hypothyroidism: Code(s): E03.9 - Hypothyroidism, unspecified Status: Chronic Assessment and Plan: pt is on levothyroxine (9) Essential hypertension: Code(s): I10 - Essential (primary) hypertension Status: Chronic Assessment and Plan: Pt is on a lasix drip Subjective Date/time seen: 12/14/19 17:24 Interval history: 69 year female morbidly obese was found unresponsive at home hypoxic patient was brought to the emergency department for further evaluation and patient was intubated currently on vent, Covid is negative likely copd excerbation Kpneumonia on cultures pt already on iv rocephin Pt is on a lasix drip for CHF excerbation Weaning off the vent Review of Systems Review of Systems: ROS unobtainable: Yes unobtainable due to medical condition Exam Narrative: Exam Narrative: pt is on the ventilator Const: General: comfortable and no acute distress HENMT: General nose exam: Normal nares present Other: ET tube in place Neck: Other: no retraction Resp: Effort & Inspection: normal respiratory effort GI: Other: morbidly obese Skin: General skin exam: normal color Extrem: General: normal to inspection Objective Data Vital Signs Vital Signs: Vital Signs - 24 hr 12/13/19 17:25 08/13/20 17:59 12/13/19 18:00 Temperature Pulse Rate 90 80 80 Respiratory Rate 18 17 17 Blood Pressure 113/63 Pulse Oximetry 98 12/13/19 18:25 12/13/19 18:56 12/13/19 19:15 Temperature Pulse Rate 80 78 80 Respiratory Rate 17 18 20 Blood Pressure Pulse Oximetry 12/13/19 20:00 12/13/19 20:20 12/13/19 20:41 Temperature 36.6 C Pulse Rate 70 79 76 Respiratory Rate 18 18 Blood Pressure 111/63 Pulse Oximetry 99 98 12/13/19 20:55 12/13/19 21:05 12/13/19 21:08 Temperature Pulse Rate 81 77 80 Respiratory Rate 19 Blood Pressure
[2019-12-14 18:06] LABS: Glucose Point of Care 193 (65-105)
[2019-12-14] MEDS: FUROSEMIDE INJ 100 MG in SODIUM CHLORIDE 0.9% IV 90 ML IV CONT (18:10)
[2019-12-14] MEDS: ENOXAPARIN 40 MG/0.4 ML SYRINGE SUB-Q (18:11)
[2019-12-15] VITALS (33 sets, daily range): BP systolic 92–166; BP diastolic 61–85; PULSE 73–94; RESP 10–24; TEMP 36.6–37.4; O2SAT 90–98
[2019-12-15 00:49] LABS: Glucose Point of Care 148 (65-105)
[2019-12-15] MEDS: IPRATROPIUM BR 0.02% INH SOLN 0.5 MG/2.5 ML VIAL INHALATION ×4 (01:37→20:00)
[2019-12-15] MEDS: ALBUTEROL SULFATE NEB 2.5 MG/0.5 ML INH INHALATION ×4 (01:37→20:00)
[2019-12-15 04:58] LABS: Alveolar/Arterial O2 Gradient 178.5 mmHg; Base Excess ABG 15.1 mEq/l (+/-2.0); Carboxyhemoglobin 0.9 % THb (0-2.0); Fractional Inspired Oxygen 45 %; HCO3 ABG 42.1 mEq/l (22.0-26.0); Methemoglobin ABG 0.3 %THb (0-1.5); Oxygen Content ABG 15.9 %vol (16.0-22.0); Oxyhemoglobin 92.2 % THb (90.0-100.0); PO2 ABG 69.9 mmHg (80.0-100.0); PO2 FiO2 Ratio Arterial Blood 1.55 %; Reduced Hemoglobin 6.6 %THb (0-5.0); Total Hemoglobin 12.2 g/dL (12.0-18.0); pH ABG 7.438 (7.350-7.450)
[2019-12-15 04:59] LABS: PCO2 ABG 63.7 mmHg (35.0-45.0)
[2019-12-15 05:00] LABS: Device VENTILATOR; Modified Allen's Test Pass; Site Drawn RIGHT RADIAL
[2019-12-15 05:01] LABS: Arterial Blood Gas PEEP 8 cmH2O; Arterial Blood Gas Tidal Volume 300 ml; Arterial Blood Gas Vent Mode CMV; Arterial Blood Gas Ventilator rate 18 /MIN
[2019-12-15 06:13] LABS: Glucose Point of Care 98 (65-105)
[2019-12-15] MEDS: CENTRAL LINE FLUSH 10 ML IV PUSH ×2 (06:22→21:29)
[2019-12-15] MEDS: METOPROLOL TARTRATE 25 MG TABLET PO ×3 (06:22→21:29)
[2019-12-15] MEDS: LEVOTHYROXINE SODIUM 75 MCG TABLET PO (06:23)
[2019-12-15 06:35] LABS: Hematocrit 35.7 % (37.0-47.0); Hemoglobin 10.5 g/dL (12.0-15.0); Immature Platelet Fraction Pct 12.3 % (0.9-11.2); Mean Corpuscular HGB Conc 29.4 g/dl (32-36); Mean Corpuscular Hemoglobin 26.2 pg (26-34); Mean Platelet Volume 13.5 fl (7.4-10.4); Platelet Count Result 74 k/mm3 (150-375); Red Blood Count 4.01 M/mm3 (4.2-5.4); Red Cell Distribution Width 17.3 % (11.5-14.5); White Blood Count 7.4 K/mm3 (4.5-10.0)
--- NOTE | 2019-12-15 07:00 | WPDINTPN ---
Progress Note: A&P Assessment and Plan (1) Acute on chronic respiratory failure with hypoxia and hypercapnia: Code(s): J96.21 - Acute and chronic respiratory failure with hypoxia; J96.22 - Acute and chronic respiratory failure with hypercapnia Status: Acute Assessment and Plan: Acute Respiratory failure secondary to CHF, obesity hypoventilation syndrome, COPD, ? PNA Continue full mechanical ventilation support to prevent hypoxemia/hypercarbia and end organ damage. ABG and PCXR reviewed and will repeat in am. vent settings reviewed will try pressure support weaning trial today wean FiO2 and PEEP as possible. FiO2 weaned down to 45% today Bronchodilators, steroids continue Lasix infusion for diuresis. Continue Diamox for metabolic alkalosis although not all of it is contraction as patient is a chronic CO2 retainer continue empiric Rocephin and azithromycin. discontinued vancomycin blood cultures the negative will now Lower extremity Dopplers were negative for DVT CT Chest 12/11 IMPRESSION: 1. Small bilateral pleural effusions with dependent atelectasis including partial collapse of the basilar segments of the bilateral lower lobes. 2. Cardiomegaly. 3. Multiple bilateral <4 mm calcified and noncalcified pulmonary nodules likely sequela of old granulomatous disease. If the patient is low risk for lung cancer, no follow-up is needed. If the patient is high risk (i.e., history of smoking or asbestos or significant radiation exposure optional low-dose noncontrast chest CT could be considered at 12 months. (2) Suspected COVID-19 virus infection: Code(s): Z20.828 - Contact with and (suspected) exposure to other viral communicable diseases Status: Acute Assessment and Plan: COVID-19 was suspected. SARS-CoV-2 PCR negative Discontinue Airborne, Droplet and Contact Isolation (3) Chronic obstructive pulmonary disease: Code(s): J44.9 - Chronic obstructive pulmonary disease, unspecified Status: Acute Assessment and Plan: Solu-Medrol and bronchodilator decrease Solu-Medrol dose (4) Diastolic congestive heart failure: Code(s): I50.30 - Unspecified diastolic (congestive) heart failure Status: Acute Assessment and Plan: Summary 1. Left ventricular chamber dimension is normal. 2. Left ventricular systolic function is normal, estimated at 60-65%. 3. Left atrial chamber dimension is mildly enlarged. 4. There is mild aortic valve sclerosis. 5. There is trace mitral valve regurgitation. Lasix to be continued (5) Type 2 diabetes mellitus: Code(s): E11.9 - Type 2 diabetes mellitus without complications Status: Acute Assessment and Plan: sliding scale insulin and Lantus (6) Hypothyroidism: Code(s): E03.9 - Hypothyroidism, unspecified Status: Chronic Assessment and Plan: Continue levothyroxine (7) Essential hypertension: Code(s): I10 - Essential (primary) hypertension Status: Chronic Assessment and Plan: on p.o. metoprolol Continue to monitor blood pressures closely. (8) UTI (urinary tract infection): Code(s): N39.0 - Urinary tract infection, site not specified Status: Acute Assessment and Plan: patient on Rocephin urine culture grew Klebsiella which is sensitive to Rocephin Additional Plan DVT prophylaxis - Lovenox Stress ulcer prophylaxis - Pepcid Nutrition - continue Tube Feeds Code Status - Full Code Total Critical Care Time - 30 minutes Due to a high probability of clinically significant, life threatening deterioration, the patient required my highest level of preparedness to intervene emergently and I personally spent this critical care time directly and personally managing the patient. This critical care time included obtaining a history; examining the patient; pulse oximetry; ordering and review of studies; arranging urgent treatment w
[2019-12-15 07:30] LABS: Alanine Aminotransferase 43 U/L (4-35); Albumin Level 3.3 g/dL (3.5-5.1); Alkaline Phosphatase 57 U/L (38-126); Anion Gap 4.99999 mmol/L (8-16); Aspartate Amino Transferase 63 U/L (14-36); Bilirubin,Total 0.5 mg/dL (0.2-1.3); Blood Urea Nitrogen 31 mg/dL (7-17); Calcium 8.2 mg/dL (8.4-10.2); Carbon Dioxide > 40 mmol/L (22-30); Chloride 91 mmol/L (98-107); Estimated CRCL calculation 89 ml/min; Estimated Glomerular Filt Rate > 60; Glucose 167 mg/dL (65-105); Magnesium 2.4 mg/dL (1.6-2.3); Potassium 3.7 mmol/L (3.4-5.0); Sodium 136 mmol/L (137-145)
--- NOTE | 2019-12-15 08:52 | PM.PNCARD ---
Progress Note: A&P Additional Plan 69-year-old lady with frequent ectopic activity as detailed above and Dr. Velasquez's last note. Patient seems to be stable with beta-aj treatment. Still has occasional ectopics but less frequency. There is no plan for further cardiac workup at this time we will sign off and please call of cardiology services are needed again during this hospitalization Irineo Mcneil MD [facility] Subjective Date/time seen: date of service:12/15/19 08:52 Interval history: Follow-up visit in 69-year-old patient with multiple comorbidities with frequent ventricular ectopic activity. Patient has echocardiographic evidence of normal left ventricular systolic function and no significant valvular pathology. Ectopic activity appears to be the consequence of respiratory insufficiency / obesity hypoventilation syndrome. Simple beta-aj therapy in the form of metoprolol has been prescribed. Exam Const: General: comfortable Other: Obese white female intubated ICU 10. HENMT: Mouth: Yes dry mucous membranes Eyes: Sclera: sclerae normal Pupils: Equal, round and reactive pupils present Neck: Neck: supple and no JVD Resp: Effort & Inspection: normal respiratory effort Auscultation: clear to auscultation bilaterally Other: Breath sounds distant and relatively clear Cardio: Rate: regular rate Rhythm: regular rhythm GI: Auscultation: normal bowel sounds Skin: General skin exam: normal color Neuro: Other: sedated patient Extrem: General: normal to inspection Objective Data Vital Signs Vital Signs: Vital Signs - 24 hr 12/14/19 09:19 12/14/19 09:39 12/14/19 10:00 Temperature Pulse Rate 85 76 73 Respiratory Rate 18 18 Blood Pressure 118/71 Pulse Oximetry 99 12/14/19 10:36 12/14/19 12:00 12/14/19 13:51 Temperature 36.6 C Pulse Rate 80 82 75 Respiratory Rate 22 H Blood Pressure 116/66 Pulse Oximetry 97 94 12/14/19 14:00 12/14/19 14:06 12/14/19 14:07 Temperature Pulse Rate 78 78 79 Respiratory Rate 18 22 H Blood Pressure 118/70 Pulse Oximetry 95 96 12/14/19 15:56 12/14/19 16:00 12/14/19 16:07 Temperature 36.7 C Pulse Rate 74 78 84 Respiratory Rate 18 Blood Pressure 110/67 Pulse Oximetry 93 12/14/19 17:10 12/14/19 18:00 12/14/19 18:11 Temperature Pulse Rate 77 78 83 Respiratory Rate 22 H 22 H Blood Pressure 121/66 Pulse Oximetry 94 95 12/14/19 19:55 12/14/19 19:56 12/14/19 20:00 Temperature 36.8 C Pulse Rate 77 77 77 Respiratory Rate 22 H 18 20 Blood Pressure 111/64 Pulse Oximetry 93 12/14/19 20:06 12/14/19 20:10 12/14/19 20:20 Temperature Pulse Rate 77 78 84 Respiratory Rate 17 20 Blood Pressure Pulse Oximetry 94 12/14/19 21:58 12/14/19 22:06 12/14/19 22:45 Temperature Pulse Rate 95 86 76 Respiratory Rate 18 Blood Pressure 127/68 Pulse Oximetry 94 96 12/15/19 00:00 12/15/19 00:43 12/15/19 01:39 Temperature 36.9 C Pulse Rate 76 74 81 Respiratory Rate 18 18 21 H Blood Pressure 113/67 Pulse Oximetry 93 98 12/15/19 01:46 12/15/19 02:00 12/15/19 04:00 Temperature 37.0 C Pulse Rate 86 84 80 Respiratory Rate 20 17 18 Blood Pressure 140/63 130/65 Pulse Oximetry 96 94 12/15/19 04:09 12/15/19 04:41 12/15/19 06:00 Temperature Pulse Rate 84 80 80 Respiratory Rate 21 H 22 H Blood Pressure 118/61 Pulse Oximetry 97 95 12/15/19 06:22 12/15/19 08:07 12/15/19 08:09 Temperature Pulse Rate 83 84 84 Respiratory Rate 15 Blood Pressure Pulse Oximetry 95 12/15/19 08:29 Temperature Pulse Rate 90 Respiratory Rate 12 Blood Pressure Pulse Oximetry Intake/Output Intake/Output: Intake & Output 12/12/19 12/13/19 12/14/19 12/15/19 23:59 23:59 23:59 23:59 Intake Total 1738 2002.0 1107 1091 Output Total 7620 4125 4675 1775 [facility] -1312 -2123.0 -3568 -684 Meds/Results Medications: Active Medications Generic Name Dos
[2019-12-15 08:59] LABS: Glucose Point of Care 192 (65-105)
[2019-12-15] MEDS: acetaZOLAMIDE SODIUM FOR INJ 500 MG VIAL IV PUSH (08:59)
[2019-12-15] MEDS: DOCUSATE SODIUM LIQ 100 MG/10 ML UDC PO (08:59)
[2019-12-15 09:12] LABS: Alveolar/Arterial O2 Gradient 182.8 mmHg; Base Excess ABG 16.5 mEq/l (+/-2.0); Fractional Inspired Oxygen 45 %; HCO3 ABG 43.5 mEq/l (22.0-26.0); Oxygen Content ABG 15.9 %vol (16.0-22.0); Oxyhemoglobin 91.8 % THb (90.0-100.0); PO2 ABG 65.3 mmHg (80.0-100.0); PO2 FiO2 Ratio Arterial Blood 1.45 %; Total Hemoglobin 12.3 g/dL (12.0-18.0)
[2019-12-15 09:13] LABS: Device VENTILATOR; Modified Allen's Test Pass; Site Drawn LEFT RADIAL
[2019-12-15 09:14] LABS: Arterial Blood Gas PEEP 8 cmH2O; Arterial Blood Gas Pressure Support 5 cmH2O; Arterial Blood Gas Vent Mode SPONTANEOUS
[2019-12-15] MEDS: methylPREDNISolone SOD SUCC 40 MG VIAL IV PUSH (10:26)
[2019-12-15] MEDS: INSULIN GLARGINE (*BKC) 100 UNITS/ML 15 UNITS SUB-Q (10:26)
[2019-12-15] MEDS: FAMOTIDINE 20 MG/2 ML VIAL IV PUSH ×2 (10:26→21:29)
[2019-12-15 12:58] LABS: Glucose Point of Care 204 (65-105)
[2019-12-15] MEDS: INSULIN ASPART (*BKC) 100 UNITS/ML SUB-Q (13:04)
[2019-12-15] MEDS: FUROSEMIDE INJ 100 MG in SODIUM CHLORIDE 0.9% IV 90 ML IV CONT (14:07)
--- NOTE | 2019-12-15 16:45 | PM.PNPUL ---
Progress Note: A&P Assessment and Plan (1) Acute on chronic respiratory failure with hypoxia and hypercapnia: Code(s): J96.21 - Acute and chronic respiratory failure with hypoxia; J96.22 - Acute and chronic respiratory failure with hypercapnia Status: Acute Assessment and Plan: Extubated today. Admitted and intubated Dec 08 with worsening hypercapnea, worsening gas exchange with pCO2 158, due to combination of COPD exacerbation, COVID Is negative. WBC is now normal 6.3, urine antigens are negative Legionella, Strep pneumonia. Off Lasix drip. She has multiple issues, prognosis is guarded. (2) Acute exacerbation of chronic obstructive pulmonary disease: Code(s): J44.1 - Chronic obstructive pulmonary disease with (acute) exacerbation Status: Acute Assessment and Plan: She has baseline COPD which is severe, FEV1 les than a liter 2 years ago. Bronchodilators. (3) Diastolic congestive heart failure: Code(s): I50.30 - Unspecified diastolic (congestive) heart failure Status: Acute Assessment and Plan: echo; getting diuresis (4) UTI (urinary tract infection): Code(s): N39.0 - Urinary tract infection, site not specified Status: Acute Assessment and Plan: pathogen to be determined Subjective Date/time seen: 12/15/19 16:45 This 69 yo female is seen in follow up, ICU Room 10, with acute on chronic respiratory failure, was extubated at 9:45 am. Her pCO2 was 65, compensated pH. 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 Review of Systems Review of Systems: All systems reviewed & are unremarkable except as noted in HPI and below (HPI) Exam Const: General: comfortable and no acute distress (lightly sedated) HENMT: Head: normal to inspection Ears: hearing grossly normal bilaterally General nose exam: Normal external nose present and Normal nares present Face and sinus: normal facial exam Mouth: Yes Normal oral and palatal mucosa present (limited exam with ETT ) Eyes: General: appearance normal, both eyes and all related structures Neck: Neck: no lymphadenopathy Chest: Chest palpation & inspection: normal inspection of the chest Resp: Effort & Inspection: normal respiratory effort Auscultation: clear to auscultation bilaterally (equal air entry, few crackles; clear compared to the CXR) Cardio: Rate: regular rate Rhythm: regular rhythm Heart sounds: S1 normal heart sound present and S2 normal heart sound present GI: Inspection: obesity Auscultation: Hypoactive bowel sounds present Extrem: General: no clubbing, no cyanosis, edema (muffin-topping over the dorsum of the foot) bilateral and other (she has erythema aroudn the lower legs, L>R, flaking skin. ) Objective Data Vital Signs Vital Signs: Vital Signs - 24 hr 12/14/19 17:10 12/14/19 18:00 12/14/19 18:11 Temperature Pulse Rate 77 78 83 Respiratory Rate 22 H 22 H Blood Pressure 121/66 Pulse Oximetry 94 95 12/14/19 19:55 12/14/19 19:56 12/14/19 20:00 Temperature 36.8 C Pulse Rate 77 77 77 Respiratory Rate 22 H 18 20 Blood Pressure 111/64 Pulse Oximetry 93 12/14/19 20:06 12/14/19 20:10 12/14/19 20:20 Temperature Pulse Rate 77 78 84 Respiratory Rate 17 20 Blood Pressure Pulse Oximetry 94 12/14/19 21:58 12/14/19 22:06 12/14/19 22:45 Temperature Pulse Rate 95 86 76 Respiratory Rate 18 Blood Pressure 127/68 Pulse Oximetry 94 96 12/15/19 00:00 12/15/19 00:43 12/15/19 01:39 Temperature 36.9 C Pulse Rate 76 74 81 Respiratory Rate 18 18 21 H Blood Pressure 113/67 Pulse Oximetry 93 98 12/15/19 01:46 12/15/19 02:00
[2019-12-15] MEDS: ENOXAPARIN 40 MG/0.4 ML SYRINGE SUB-Q (17:15)
[2019-12-15 17:24] LABS: Glucose Point of Care 161 (65-105)
--- NOTE | 2019-12-15 18:24 | PM.IMPN ---
Progress Note: A&P Assessment and Plan (1) Acute on chronic respiratory failure with hypoxia and hypercapnia: Code(s): J96.21 - Acute and chronic respiratory failure with hypoxia; J96.22 - Acute and chronic respiratory failure with hypercapnia Status: Acute Assessment and Plan: extubated IV steroids IV abx, breathing treatments (2) Diffuse lung disease: Code(s): J98.4 - Other disorders of lung Status: Acute Assessment and Plan: extubated IV steroids IV abx, breathing treatments (3) Chronic obstructive pulmonary disease: Code(s): J44.9 - Chronic obstructive pulmonary disease, unspecified Status: Acute Assessment and Plan: extubated IV steroids IV rocephin and IV zithromax, breathing treatments (4) Diastolic congestive heart failure: Code(s): I50.30 - Unspecified diastolic (congestive) heart failure Status: Acute Assessment and Plan: Pt is on lasix IV Left ventricular systolic function is normal, estimated at 60-65%. The left ventricular diastolic function is normal. (5) Obstructive sleep apnea: Code(s): G47.33 - Obstructive sleep apnea (adult) (pediatric) Status: Acute Assessment and Plan: Seen by pulmology . (6) Bacteriuria with pyuria: Code(s): R82.71 - Bacteriuria; R82.81 - Pyuria Status: Acute Assessment and Plan: pt already on iv rocephin for Kpneumonia in Urine (7) Type 2 diabetes mellitus: Code(s): E11.9 - Type 2 diabetes mellitus without complications Status: Acute Assessment and Plan: Hold oral hypoglycemics and consider Lantus depending on her response to the steroids. Check hemoglobin A1c and initiate sliding scale insulin, Accu-Cheks, and hypoglycemic protocol. (8) Hypothyroidism: Code(s): E03.9 - Hypothyroidism, unspecified Status: Chronic Assessment and Plan: pt is on levothyroxine (9) Essential hypertension: Code(s): I10 - Essential (primary) hypertension Status: Chronic Assessment and Plan: Bp are controlled (10) Diarrhea: Code(s): R19.7 - Diarrhea, unspecified Status: Acute Assessment and Plan: Pt was tube feeds earlier in the admission, continue to monitor Subjective Date/time seen: 12/15/19 18:24 Interval history: 69 year female morbidly obese was found unresponsive at home hypoxic patient was brought to the emergency department for further evaluation and patient was intubated currently on vent, Covid is negative likely copd excerbation Kpneumonia on urine cultures pt already on iv rocephin Pt is on a lasix IV for CHF excerbation Pt is extubated today Pt is having diarrhea today was tube feed earlier in admission Review of Systems Review of Systems: All systems reviewed & are unremarkable except as noted in HPI and below ROS unobtainable: Yes other (Diarrhea ) Exam Const: General: comfortable and no acute distress GI: Other: morbidly obese Skin: General skin exam: normal color Extrem: General: normal to inspection Objective Data Vital Signs Vital Signs: Vital Signs - 24 hr 12/14/19 19:55 12/14/19 19:56 12/14/19 20:00 Temperature 36.8 C Pulse Rate 77 77 77 Respiratory Rate 22 H 18 20 Blood Pressure 111/64 Pulse Oximetry 93 12/14/19 20:06 12/14/19 20:10 12/14/19 20:20 Temperature Pulse Rate 77 78 84 Respiratory Rate 17 20 Blood Pressure Pulse Oximetry 94 12/14/19 21:58 12/14/19 22:06 12/14/19 22:
[2019-12-16] VITALS (29 sets, daily range): BP systolic 114–155; BP diastolic 56–76; PULSE 68–90; RESP 14–28; TEMP 35.9–37.2; O2SAT 92–99
[2019-12-16 00:05] LABS: Glucose Point of Care 128 (65-105)
[2019-12-16] MEDS: ALBUTEROL SULFATE NEB 2.5 MG/0.5 ML INH INHALATION ×4 (02:08→19:34)
[2019-12-16] MEDS: IPRATROPIUM BR 0.02% INH SOLN 0.5 MG/2.5 ML VIAL INHALATION ×4 (02:08→19:34)
[2019-12-16] MEDS: CENTRAL LINE FLUSH 10 ML IV PUSH ×3 (05:41→20:48)
[2019-12-16] MEDS: LEVOTHYROXINE SODIUM 75 MCG TABLET PO (05:41)
[2019-12-16] MEDS: METOPROLOL TARTRATE 25 MG TABLET PO ×3 (05:42→20:48)
[2019-12-16 06:06] LABS: Glucose Point of Care 114 (65-105)
--- NOTE | 2019-12-16 07:20 | WPDINTPN ---
Progress Note: A&P Assessment and Plan (1) Acute on chronic respiratory failure with hypoxia and hypercapnia: Code(s): J96.21 - Acute and chronic respiratory failure with hypoxia; J96.22 - Acute and chronic respiratory failure with hypercapnia Status: Acute Assessment and Plan: Acute Respiratory failure secondary to CHF, obesity hypoventilation syndrome, COPD, ? PNA 12/15/2019 Patient was extubated after a successful weaning. Patient was placed on BiPAP for few hours as she was still low drowsy from sedation. As the day progressed mental status improved and patient was taken off of BiPAP and placed on nasal cannula. Patient was on BiPAP overnight and this morning she feels good and continue BiPAP p.r.n. and at night incentive spirometry and up in chair today discontinue Lasix infusion and switched to Lasix IV twice a day continue Bronchodilators, steroids continue empiric Rocephin and azithromycin. will continue for 7 days. discontinued vancomycin as blood cultures are negative will now Lower extremity Dopplers were negative for DVT CT Chest 12/11 IMPRESSION: 1. Small bilateral pleural effusions with dependent atelectasis including partial collapse of the basilar segments of the bilateral lower lobes. 2. Cardiomegaly. 3. Multiple bilateral <4 mm calcified and noncalcified pulmonary nodules likely sequela of old granulomatous disease. If the patient is low risk for lung cancer, no follow-up is needed. If the patient is high risk (i.e., history of smoking or asbestos or significant radiation exposure optional low-dose noncontrast chest CT could be considered at 12 months. (2) Suspected COVID-19 virus infection: Code(s): Z20.828 - Contact with and (suspected) exposure to other viral communicable diseases Status: Acute Assessment and Plan: COVID-19 was suspected. SARS-CoV-2 PCR negative Discontinue Airborne, Droplet and Contact Isolation (3) Chronic obstructive pulmonary disease: Code(s): J44.9 - Chronic obstructive pulmonary disease, unspecified Status: Acute Assessment and Plan: Solu-Medrol and bronchodilator decreased Solu-Medrol dose to daily (4) Diastolic congestive heart failure: Code(s): I50.30 - Unspecified diastolic (congestive) heart failure Status: Acute Assessment and Plan: Summary 1. Left ventricular chamber dimension is normal. 2. Left ventricular systolic function is normal, estimated at 60-65%. 3. Left atrial chamber dimension is mildly enlarged. 4. There is mild aortic valve sclerosis. 5. There is trace mitral valve regurgitation. Lasix to be continued (5) Type 2 diabetes mellitus: Code(s): E11.9 - Type 2 diabetes mellitus without complications Status: Acute Assessment and Plan: controlled with current dose of sliding scale insulin and Lantus (6) Hypothyroidism: Code(s): E03.9 - Hypothyroidism, unspecified Status: Chronic Assessment and Plan: Continue levothyroxine (7) Essential hypertension: Code(s): I10 - Essential (primary) hypertension Status: Chronic Assessment and Plan: on p.o. metoprolol Continue to monitor blood pressures closely. (8) UTI (urinary tract infection): Code(s): N39.0 - Urinary tract infection, site not specified Status: Acute Assessment and Plan: patient on Rocephin urine culture grew Klebsiella which is sensitive to Rocephin Additional Plan DVT prophylaxis - Lovenox Stress ulcer prophylaxis - Pepcid Nutrition - advance diet Code Status - Full Code incentive spirometry, PT, OT, up in chair and transfer out of ICU to step-down unit today Subjective Date/time seen: 12/16/19 0720 Overnight events reviewed. Patient was extubated yesterday after a successful weaning. Patient was placed on BiPAP for few hours as she was still low drowsy from sedation. As the day progressed mental
[2019-12-16] MEDS: methylPREDNISolone SOD SUCC 40 MG VIAL IV PUSH (08:31)
[2019-12-16] MEDS: FAMOTIDINE 20 MG/2 ML VIAL IV PUSH (08:31)
[2019-12-16] MEDS: acetaZOLAMIDE SODIUM FOR INJ 500 MG VIAL IV PUSH (08:31)
[2019-12-16] MEDS: INSULIN GLARGINE (*BKC) 100 UNITS/ML 15 UNITS SUB-Q (08:31)
[2019-12-16 08:45] LABS: Basophils Percent Auto 0.1 % (0.2-1.2); Eosinophils Absolute Auto 0.1 K/mm3 (0-0.3); Eosinophils Percent Auto 0.8 % (0-4.4); Hematocrit 37.9 % (37.0-47.0); Hemoglobin 11.5 g/dL (12.0-15.0); Immature Granulocyte Absolute 0.03 K/mm3 (0.00-0.031); Immature Granulocyte Percent A 0.4 % (0-0.5); Immature Platelet Fraction Pct 12.8 % (0.9-11.2); Lymphocytes Absolute Auto 0.79 K/mm3 (0.9-3.2); Lymphocytes Percent Auto 10.4 % (18.3-44.2); Mean Corpuscular HGB Conc 30.3 g/dl (32-36); Mean Corpuscular Hemoglobin 26.6 pg (26-34); Mean Corpuscular Volume 87.5 fl (80-100); Monocytes Absolute Auto 0.5 K/mm3 (0.1-0.6); Monocytes Percent Auto 7.1 % (2.6-8.5); Neutrophils Absolute Auto 6.2 K/mm3 (1.3-6.7); Neutrophils Percent Auto 81.2 % (45.5-73.1); Platelet Count Result 82 k/mm3 (150-375); Red Blood Count 4.33 M/mm3 (4.2-5.4); Red Cell Distribution Width 17.3 % (11.5-14.5); White Blood Count 7.6 K/mm3 (4.5-10.0)
[2019-12-16 08:51] LABS: Alanine Aminotransferase 47 U/L (4-35); Albumin Level 3.6 g/dL (3.5-5.1); Alkaline Phosphatase 64 U/L (38-126); Anion Gap 5 mmol/L (8-16); Aspartate Amino Transferase 65 U/L (14-36); Bilirubin,Total 0.7 mg/dL (0.2-1.3); Blood Urea Nitrogen 20 mg/dL (7-17); Calcium 8.6 mg/dL (8.4-10.2); Carbon Dioxide 38 mmol/L (22-30); Chloride 95 mmol/L (98-107); Estimated CRCL calculation 86 ml/min; Estimated Glomerular Filt Rate > 60; Glucose 118 mg/dL (65-105); Magnesium 2.4 mg/dL (1.6-2.3); Potassium 3.5 mmol/L (3.4-5.0); Sodium 138 mmol/L (137-145)
[2019-12-16 11:17] LABS: Glucose Point of Care 233 (65-105)
[2019-12-16] MEDS: INSULIN ASPART (*BKC) 100 UNITS/ML SUB-Q (12:38)
--- NOTE | 2019-12-16 14:13 | PC.NURSE ---
This patient, Radha Burns, was received from ICU-10 into 206 on 12/16/19 at 1413. Personal belongings list checked and signed. Patient/family oriented to unit policies and routines
--- NOTE | 2019-12-16 15:19 | PC.NURSE ---
Pt transferred to IMU 206 via WC, pt on 3L NC, belongings with patient and daughter at bedside. Report given to Ariana ESPINOZA.
[2019-12-16 16:54] LABS: Glucose Point of Care 191 (65-105)
--- NOTE | 2019-12-16 16:59 | PM.IMPN ---
Progress Note: A&P Assessment and Plan (1) Acute on chronic respiratory failure with hypoxia and hypercapnia: Code(s): J96.21 - Acute and chronic respiratory failure with hypoxia; J96.22 - Acute and chronic respiratory failure with hypercapnia Status: Acute Assessment and Plan: extubated. on medical floor now, IV steroids IV abx, breathing treatments encouraged to ambulate, PT/ OT ordered (2) Diffuse lung disease: Code(s): J98.4 - Other disorders of lung Status: Acute Assessment and Plan: extubated. on medical floornow, IV steroids IV abx, breathing treatments (3) Chronic obstructive pulmonary disease: Code(s): J44.9 - Chronic obstructive pulmonary disease, unspecified Status: Acute Assessment and Plan: extubated, on medical floor now, IV steroids IV rocephin and IV zithromax, breathing treatments (4) Diastolic congestive heart failure: Code(s): I50.30 - Unspecified diastolic (congestive) heart failure Status: Acute Assessment and Plan: Pt is off lasix IV Left ventricular systolic function is normal, estimated at 60-65%. The left ventricular diastolic function is normal. (5) Obstructive sleep apnea: Code(s): G47.33 - Obstructive sleep apnea (adult) (pediatric) Status: Acute Assessment and Plan: Seen by pulmology . (6) Bacteriuria with pyuria: Code(s): R82.71 - Bacteriuria; R82.81 - Pyuria Status: Acute Assessment and Plan: pt already on iv rocephin for Kpneumonia in Urine (7) Type 2 diabetes mellitus: Code(s): E11.9 - Type 2 diabetes mellitus without complications Status: Acute Assessment and Plan: Hold oral hypoglycemics and consider Lantus depending on her response to the steroids. Check hemoglobin A1c and initiate sliding scale insulin, Accu-Cheks, and hypoglycemic protocol. (8) Hypothyroidism: Code(s): E03.9 - Hypothyroidism, unspecified Status: Chronic Assessment and Plan: pt is on levothyroxine (9) Essential hypertension: Code(s): I10 - Essential (primary) hypertension Status: Chronic Assessment and Plan: Bp are controlled (10) Diarrhea: Code(s): R19.7 - Diarrhea, unspecified Status: Resolved Assessment and Plan: No further diarrhea Subjective Date/time seen: 12/16/19 16:59 Interval history: 69 year female morbidly obese was found unresponsive at home hypoxic patient was brought to the emergency department for further evaluation and patient was intubated currently on vent, Covid is negative likely copd excerbation Kpneumonia on urine cultures pt already on iv rocephin Pt is on a lasix IV for CHF excerbation Pt is extubated and remains stable on the medical floor. Review of Systems Review of Systems: All systems reviewed & are unremarkable except as noted in HPI and below Respiratory: Respiratory: Reports chest congestion and Reports cough Exam Const: General: comfortable and no acute distress Other: Pleasant talking Resp: Auscultation: bronchial breath sounds GI: Other: morbidly obese Skin: General skin exam: normal color Extrem: General: normal to inspection Objective Data Vital Signs Vital Signs: Vital Signs - 24 hr 12/15/19 18:00 12/15/19 20:00 12/15/19 20:05 Temperature 36.6 C Pulse Rate 86 80 90 Respiratory Rate 14 15 23 H Blood Pressure 166/70 H 148/83 H Pulse Oximetry 94 97 95 12/15/19 20:09 12/15/19 20:17 12/15/19 2
[2019-12-16] MEDS: FUROSEMIDE INJ 40 MG/4 ML VIAL IV PUSH (17:17)
[2019-12-16 17:26] LABS: Anion Gap 9 mmol/L (8-16); Blood Urea Nitrogen 32 mg/dL (7-17); Calcium 8.9 mg/dL (8.4-10.2); Carbon Dioxide 35 mmol/L (22-30); Chloride 92 mmol/L (98-107); Estimated CRCL calculation 68 ml/min; Estimated Glomerular Filt Rate > 60; Glucose 200 mg/dL (65-105); Potassium 3.5 mmol/L (3.4-5.0); Sodium 136 mmol/L (137-145)
[2019-12-16 17:58] LABS: Vancomycin Trough < 5.0 ug/mL (10.0-20.0)
[2019-12-16 20:37] LABS: Glucose Point of Care 152 (65-105)
[2019-12-17] VITALS (30 sets, daily range): BP systolic 101–151; BP diastolic 51–65; PULSE 65–958; RESP 16–22; TEMP 35.8–36.6; O2SAT 96–100
[2019-12-17] MEDS: IPRATROPIUM BR 0.02% INH SOLN 0.5 MG/2.5 ML VIAL INHALATION ×4 (01:30→19:50)
[2019-12-17] MEDS: ALBUTEROL SULFATE NEB 2.5 MG/0.5 ML INH INHALATION ×4 (01:31→19:50)
[2019-12-17 03:59] LABS: Alveolar/Arterial O2 Gradient 99.9 mmHg; Base Excess ABG 5.9 mEq/l (+/-2.0); Carboxyhemoglobin 0.5 % THb (0-2.0); Fractional Inspired Oxygen 35 %; HCO3 ABG 31.6 mEq/l (22.0-26.0); Methemoglobin ABG 0.3 %THb (0-1.5); Oxygen Content ABG 16.9 %vol (16.0-22.0); Oxygen Saturation ABG 96.9 % (95.0-100.0); Oxyhemoglobin 95.4 % THb (90.0-100.0); PCO2 ABG 50.9 mmHg (35.0-45.0); PO2 ABG 90.5 mmHg (80.0-100.0); PO2 FiO2 Ratio Arterial Blood 2.59 %; Reduced Hemoglobin 3.8 %THb (0-5.0); Total Hemoglobin 12.5 g/dL (12.0-18.0); pH ABG 7.411 (7.350-7.450)
[2019-12-17 04:00] LABS: Device NON-INVASIVE VENT; Modified Allen's Test Pass; Site Drawn RIGHT RADIAL
[2019-12-17 04:01] LABS: Non-Invasive Expiratory Pressure 8 CMH2O; Non-Invasive Inspiratory Pressure 15 CMH2O; Non-Invasive Vent Rate 10 /MIN
[2019-12-17] MEDS: LEVOTHYROXINE SODIUM 75 MCG TABLET PO (05:46)
[2019-12-17] MEDS: CENTRAL LINE FLUSH 10 ML IV PUSH ×3 (05:46→21:00)
[2019-12-17] MEDS: METOPROLOL TARTRATE 25 MG TABLET PO ×3 (05:46→21:00)
[2019-12-17 06:10] LABS: Hematocrit 37.8 % (37.0-47.0); Hemoglobin 11.4 g/dL (12.0-15.0); Mean Corpuscular HGB Conc 30.2 g/dl (32-36); Mean Corpuscular Volume 86.1 fl (80-100); Platelet Count Result 88 k/mm3 (150-375); Red Blood Count 4.39 M/mm3 (4.2-5.4); Red Cell Distribution Width 16.9 % (11.5-14.5); White Blood Count 8.8 K/mm3 (4.5-10.0)
[2019-12-17 06:21] LABS: Alanine Aminotransferase 52 U/L (4-35); Albumin Level 3.7 g/dL (3.5-5.1); Alkaline Phosphatase 70 U/L (38-126); Anion Gap 6 mmol/L (8-16); Aspartate Amino Transferase 64 U/L (14-36); Bilirubin,Total 0.8 mg/dL (0.2-1.3); Blood Urea Nitrogen 29 mg/dL (7-17); Calcium 8.9 mg/dL (8.4-10.2); Carbon Dioxide 37 mmol/L (22-30); Chloride 93 mmol/L (98-107); Estimated CRCL calculation 85 ml/min; Estimated Glomerular Filt Rate > 60; Glucose 132 mg/dL (65-105); Magnesium 2.3 mg/dL (1.6-2.3); Potassium 3.5 mmol/L (3.4-5.0); Sodium 136 mmol/L (137-145)
[2019-12-17 07:43] LABS: Glucose Point of Care 126 (65-105)
[2019-12-17] MEDS: FUROSEMIDE INJ 40 MG/4 ML VIAL IV PUSH ×2 (09:29→17:10)
[2019-12-17] MEDS: PANTOPRAZOLE 40 MG TABLET PO (09:30)
[2019-12-17] MEDS: methylPREDNISolone SOD SUCC 40 MG VIAL IV PUSH (09:30)
[2019-12-17] MEDS: INSULIN GLARGINE (*BKC) 100 UNITS/ML 15 UNITS SUB-Q (09:33)
[2019-12-17 12:04] LABS: Glucose Point of Care 135 (65-105)
[2019-12-17 12:10] LABS: SARS-CoV-2 RNA PCR Negative
--- NOTE | 2019-12-17 15:06 | PCDIET ---
Nutrition Follow-Up Complete: Nutrition Diagnosis: Inadequate oral intake at present related to oral intubation as evidenced by NPO status. Nutrition Goal: Patient to meet estimated nutritional needs. Goal in progress. Patient with average of 80% of meals consumed, although patient reports ordering light meals and has altered taste. Agreeable to try Glucerna Shake (220kcal, 10g protein). Recommend continuing diabetic diet with Glucerna BID. Last recorded weight is 131.1 kg which is down from last review. -I/O. Bowel Motility: Last documented BM on 12/15/19. Labs Reviewed: Hgb (11.4), Glu (132), BUN (29), Na (136) Meds Noted: Albuterol, Lasix, Atrovent, Solu Medrol, Novolog, Lantus, Protonix, Miralax Additional Notes: Left leg with venous stasis ulcer. No pressure ulcers reported. Will continue to monitor with same goal. Nutrition Monitoring and Evaluation: Follow up every 5 days. Follow daily in ICU rounds.
[2019-12-17 16:34] LABS: Glucose Point of Care 257 (65-105)
--- NOTE | 2019-12-17 16:58 | PM.IMPN ---
Progress Note: A&P Assessment and Plan (1) Acute on chronic respiratory failure with hypoxia and hypercapnia: Code(s): J96.21 - Acute and chronic respiratory failure with hypoxia; J96.22 - Acute and chronic respiratory failure with hypercapnia Status: Acute Assessment and Plan: extubated IV steroids IV abx, breathing treatments 69 year female morbidly obese was found unresponsive at home hypoxic patient was brought to the emergency department for further evaluation and patient was intubated, and was extubated on 12/14, Covid is negative most likely copd excerbation, current in IMU pneumonia on urine cultures pt already on iv rocephin Pt is on a lasix IV for CHF excerbation. today patient is feeling much better however complains of persistent and unable to expectorate will continue present managed will add guaifenesin will continue to monitor, will taper Solu-Medrol as patient's symptoms improved, will have a PT OT evaluate the patient and further recommendation to follow (2) Diffuse lung disease: Code(s): J98.4 - Other disorders of lung Status: Acute Assessment and Plan: extubated IV steroids IV abx, breathing treatments (3) Chronic obstructive pulmonary disease: Code(s): J44.9 - Chronic obstructive pulmonary disease, unspecified Status: Acute Assessment and Plan: extubated IV steroids IV rocephin and IV zithromax, breathing treatments (4) Diastolic congestive heart failure: Code(s): I50.30 - Unspecified diastolic (congestive) heart failure Status: Acute Assessment and Plan: Pt is on lasix IV Left ventricular systolic function is normal, estimated at 60-65%. The left ventricular diastolic function is normal. (5) Obstructive sleep apnea: Code(s): G47.33 - Obstructive sleep apnea (adult) (pediatric) Status: Acute Assessment and Plan: Seen by pulmology . (6) Bacteriuria with pyuria: Code(s): R82.71 - Bacteriuria; R82.81 - Pyuria Status: Acute Assessment and Plan: pt already on iv rocephin for Kpneumonia in Urine (7) Type 2 diabetes mellitus: Code(s): E11.9 - Type 2 diabetes mellitus without complications Status: Acute Assessment and Plan: Hold oral hypoglycemics and consider Lantus depending on her response to the steroids. Check hemoglobin A1c and initiate sliding scale insulin, Accu-Cheks, and hypoglycemic protocol. (8) Hypothyroidism: Code(s): E03.9 - Hypothyroidism, unspecified Status: Chronic Assessment and Plan: pt is on levothyroxine (9) Essential hypertension: Code(s): I10 - Essential (primary) hypertension Status: Chronic Assessment and Plan: Bp are controlled (10) Diarrhea: Code(s): R19.7 - Diarrhea, unspecified Status: Resolved Assessment and Plan: Pt was tube feeds earlier in the admission, continue to monitor Subjective Date/time seen: 12/17/19 16:58 Interval history: 69 year female morbidly obese was found unresponsive at home hypoxic patient was brought to the emergency department for further evaluation and patient was intubated, and was extubated on 12/14, Covid is negative most likely copd excerbation, current in IMU pneumonia on urine cultures pt already on iv rocephin Pt is on a lasix IV for CHF excerbation. today patient is feeling much better however complains of persistent and unable to expectorate will continue present managed will add guaifenesin will
[2019-12-17] MEDS: INSULIN ASPART (*BKC) 100 UNITS/ML SUB-Q (17:09)
[2019-12-17] MEDS: ENOXAPARIN 40 MG/0.4 ML SYRINGE SUB-Q (17:09)
[2019-12-17] MEDS: guaiFENesin 12 HR 600 MG TABCR PO ×2 (17:10→20:59)
[2019-12-17 21:17] LABS: Glucose Point of Care 143 (65-105)
--- NOTE | 2019-12-17 21:22 | PM.PNPUL ---
Progress Note: A&P Assessment and Plan (1) Acute on chronic respiratory failure with hypoxia and hypercapnia: Code(s): J96.21 - Acute and chronic respiratory failure with hypoxia; J96.22 - Acute and chronic respiratory failure with hypercapnia Status: Acute Assessment and Plan: Extubated 12/14. Admitted and intubated Dec 08 with worsening hypercapnea, worsening gas exchange with pCO2 158, due to combination of COPD exacerbation, COVID Is negative. WBC is now normal 6.3, urine antigens are negative Legionella, Strep pneumonia. Off Lasix drip. She has multiple issues, prognosis is guarded. (2) Acute exacerbation of chronic obstructive pulmonary disease: Code(s): J44.1 - Chronic obstructive pulmonary disease with (acute) exacerbation Status: Acute Assessment and Plan: She has baseline COPD which is severe, FEV1 les than a liter 2 years ago. Bronchodilators. (3) Diastolic congestive heart failure: Code(s): I50.30 - Unspecified diastolic (congestive) heart failure Status: Acute Assessment and Plan: echo; getting diuresis (4) UTI (urinary tract infection): Code(s): N39.0 - Urinary tract infection, site not specified Status: Acute Assessment and Plan: pathogen to be determined Subjective Date/time seen: 12/17/19 21:22 Interval history: 69 year female morbidly obese was found unresponsive at home hypoxic patient was brought to the emergency department for further evaluation and patient was intubated, and was extubated on 12/14, Covid is negative; has a COPD exacerbation. IMU Room 206. She is feeling better. Dr Jorgensen added guaifenesin, and her solumedrol is being weaned. PT OT evaluate the patient and further recommendation to follow Review of Systems Review of Systems: All systems reviewed & are unremarkable except as noted in HPI and below (HPI) Exam Narrative: Exam Narrative: Const: General: comfortable and no acute distress (lightly sedated) HENMT: Head: normal to inspection Ears: hearing grossly normal bilaterally General nose exam: Normal external nose present and Normal nares present Face and sinus: normal facial exam Mouth: Yes Normal oral and palatal mucosa present (limited exam with ETT ) Eyes: General: appearance normal, both eyes and all related structures Neck: Neck: no lymphadenopathy Chest: Chest palpation & inspection: normal inspection of the chest Resp: Effort & Inspection: normal respiratory effort Auscultation: clear to auscultation bilaterally (equal air entry, few crackles; clear compared to the CXR) Cardio: Rate: regular rate Rhythm: regular rhythm Heart sounds: S1 normal heart sound present and S2 normal heart sound present GI: Inspection: obesity Auscultation: Hypoactive bowel sounds present Extrem: General: no clubbing, no cyanosis, edema (muffin-topping over the dorsum of the foot) bilateral and other (she has erythema aroudn the lower legs, L>R, flaking skin. ) Objective Data Vital Signs Vital Signs: Vital Signs - 24 hr 12/16/19 21:28 12/16/19 22:00 12/16/19 23:43 Temperature 36.6 C Pulse Rate 85 73 72 Respiratory Rate 20 20 Blood Pressure 136/62 Pulse Oximetry 99 99 12/16/19 23:45 12/17/19 01:30 12/17/19 01:31 Temperature Pulse Rate 72 75 75 Respiratory Rate 20 18 18 Blood Pressure Pulse Oximetry 99 99 12/17/19 01:41 12/17/19 02:10 12/17/19 04:00 Temperature 36.6 C Pulse Rate 77 65 72 Respiratory Rate 18 16 Blood Pressure 151/59 H Pulse Oximetry 98 12/17/19 04:02 12/17/19 05:46 12/17/19 06:00 Temperature Pulse Rate 86 78 74 Respiratory Rate 16 Blood Pressure Pulse Oximetry 98 08
[2019-12-18] VITALS (18 sets, daily range): BP systolic 99–147; BP diastolic 47–71; PULSE 66–89; RESP 16–22; TEMP 36.5–37.1; O2SAT 96–100
[2019-12-18] MEDS: IPRATROPIUM BR 0.02% INH SOLN 0.5 MG/2.5 ML VIAL INHALATION ×2 (01:36→08:29)
[2019-12-18] MEDS: ALBUTEROL SULFATE NEB 2.5 MG/0.5 ML INH INHALATION ×2 (01:36→08:29)
[2019-12-18] MEDS: METOPROLOL TARTRATE 25 MG TABLET PO ×2 (05:58→14:57)
[2019-12-18] MEDS: CENTRAL LINE FLUSH 10 ML IV PUSH (05:59)
[2019-12-18] MEDS: LEVOTHYROXINE SODIUM 75 MCG TABLET PO (05:59)
[2019-12-18 06:07] LABS: Hematocrit 35.8 % (37.0-47.0); Hemoglobin 10.9 g/dL (12.0-15.0); Immature Platelet Fraction Pct 15.2 % (0.9-11.2); Mean Corpuscular HGB Conc 30.4 g/dl (32-36); Mean Corpuscular Hemoglobin 26.5 pg (26-34); Mean Corpuscular Volume 86.9 fl (80-100); Platelet Count Result 78 k/mm3 (150-375); Red Blood Count 4.12 M/mm3 (4.2-5.4)
[2019-12-18 06:17] LABS: Alanine Aminotransferase 56 U/L (4-35); Albumin Level 3.5 g/dL (3.5-5.1); Alkaline Phosphatase 71 U/L (38-126); Anion Gap 3 mmol/L (8-16); Aspartate Amino Transferase 65 U/L (14-36); Bilirubin,Total 0.7 mg/dL (0.2-1.3); Blood Urea Nitrogen 27 mg/dL (7-17); Calcium 8.5 mg/dL (8.4-10.2); Carbon Dioxide 38 mmol/L (22-30); Chloride 95 mmol/L (98-107); Estimated CRCL calculation 98 ml/min; Estimated Glomerular Filt Rate > 60; Glucose 103 mg/dL (65-105); Magnesium 2.2 mg/dL (1.6-2.3); Potassium 3.1 mmol/L (3.4-5.0); Sodium 136 mmol/L (137-145)
[2019-12-18 07:43] LABS: Glucose Point of Care 100 (65-105)
[2019-12-18] MEDS: INSULIN GLARGINE (*BKC) 100 UNITS/ML 15 UNITS SUB-Q (10:12)
[2019-12-18] MEDS: POTASSIUM CHLORIDE 20 MEQ TABLET 40 MEQ PO (10:13)
[2019-12-18] MEDS: FUROSEMIDE INJ 40 MG/4 ML VIAL IV PUSH (10:14)
[2019-12-18] MEDS: predniSONE 20 MG TABLET 40 MG PO (10:14)
[2019-12-18] MEDS: PANTOPRAZOLE 40 MG TABLET PO (10:15)
[2019-12-18 12:01] LABS: Glucose Point of Care 156 (65-105)
[2019-12-18] MEDS: guaiFENesin 12 HR 600 MG TABCR PO (12:01)
--- NOTE | 2019-12-18 12:45 | PM.DS ---
DS: Admitting Diagnosis Admitting Diagnosis Admitting Diagnosis: Minimally responsive. DS: Discharge Diagnosis Discharge Diagnosis (1) Acute on chronic respiratory failure with hypoxia and hypercapnia: Code(s): J96.21 - Acute and chronic respiratory failure with hypoxia; J96.22 - Acute and chronic respiratory failure with hypercapnia Status: Acute Assessment and Plan: extubated. on medical floor now, IV steroids IV abx, breathing treatments encouraged to ambulate, PT/ OT ordered (2) Diffuse lung disease: Code(s): J98.4 - Other disorders of lung Status: Acute Assessment and Plan: extubated. on medical floornow, IV steroids IV abx, breathing treatments (3) Chronic obstructive pulmonary disease: Code(s): J44.9 - Chronic obstructive pulmonary disease, unspecified Status: Acute Assessment and Plan: Patient is a 69-year-old female with history of COPD, presented with exacerbation of COPD and respiratory failure patient was intubated and was treated with a steroid updraft and antibiotics, patient extubated on 12/14, now on medical floor, doing well seen by pulmonology, clinically stable he can be discharged today to follow-up with her brake holder as outpatient. extubated, on medical floor now, IV steroids IV rocephin and IV zithromax, breathing treatments (4) Diastolic congestive heart failure: Code(s): I50.30 - Unspecified diastolic (congestive) heart failure Status: Acute Assessment and Plan: Pt is off lasix IV Left ventricular systolic function is normal, estimated at 60-65%. The left ventricular diastolic function is normal. (5) Obstructive sleep apnea: Code(s): G47.33 - Obstructive sleep apnea (adult) (pediatric) Status: Acute Assessment and Plan: Seen by pulmology . (6) Bacteriuria with pyuria: Code(s): R82.71 - Bacteriuria; R82.81 - Pyuria Status: Acute Assessment and Plan: pt already on iv rocephin for Kpneumonia in Urine (7) Type 2 diabetes mellitus: Code(s): E11.9 - Type 2 diabetes mellitus without complications Status: Acute Assessment and Plan: Hold oral hypoglycemics and consider Lantus depending on her response to the steroids. Check hemoglobin A1c and initiate sliding scale insulin, Accu-Cheks, and hypoglycemic protocol. (8) Hypothyroidism: Code(s): E03.9 - Hypothyroidism, unspecified Status: Chronic Assessment and Plan: pt is on levothyroxine (9) Essential hypertension: Code(s): I10 - Essential (primary) hypertension Status: Chronic Assessment and Plan: Bp are controlled (10) Diarrhea: Code(s): R19.7 - Diarrhea, unspecified Status: Resolved Assessment and Plan: No further diarrhea DS: Summary Hospital Course Reason for hospitalization: Chief complaint: Minimally responsive. Narrative: Radha Burns is a 69-year-old female with morbid obesity, obesity hypoventilation syndrome, obstructive sleep apnea, chronic respiratory failure on 2 to 3 liters nasal cannula, COPD, diastolic congestive heart failure, type 2 diabetes mellitus, hypertension, and history of endometrial cancer status post brachytherapy who presented to the emergency department earlier today via EMS from home for evaluation after she was found minimally responsive. At the time my evaluation she is sedated and intubated and unable to provide a history. As such, all of this history is obtained via a re
[2019-12-18] MEDS: NEOMYCIN/POLYMYXIN/BACITRACIN OINTMENT PACKET 1 PACKET (15:07)
--- NOTE | 2019-12-18 15:31 | PM.PNPUL ---
Progress Note: A&P Assessment and Plan (1) Acute exacerbation of chronic obstructive pulmonary disease: Code(s): J44.1 - Chronic obstructive pulmonary disease with (acute) exacerbation Status: Acute Assessment and Plan: Resolving. She can be discharged home from pulmonary perspective. Continue home bronchodilator therapy, diruetics, CPAP pressures. f/u with outpatient lining closer in 2-4 weeks if possible. Will order f/u CT chest non contrast in 4-6 weeks for her outpatient lining closer to review. (2) UTI (urinary tract infection): Code(s): N39.0 - Urinary tract infection, site not specified Status: Acute (3) CHF (congestive heart failure): Qualifiers: Heart failure chronicity: acute on chronic Heart failure type: unspecified Qualified Code(s): I50.9 - Heart failure, unspecified Code(s): I50.9 - Heart failure, unspecified Status: Acute Subjective Date/time seen: 12/18/19 15:31 Interval history: Feeling well and back to baseline. CXR still showing bilateral moderate sized pleural effusions but she has no productive cough. Sounds like the UTI with sepsis is made her very sick at home. She wears home O2 and CPAP and her COPD and DANELLE are managed regularly by an outpatient lining closer. Review of Systems Review of Systems: All systems reviewed & are unremarkable except as noted in HPI and below Exam Const: General: comfortable and no acute distress HENMT: Mouth: Yes moist mucous membranes Neck: Neck: supple and no JVD Resp: Effort & Inspection: normal respiratory effort Auscultation: no crackles, no rales, no rhonchi, no wheezes and diminished lung sounds Cardio: Rate: regular rate Rhythm: regular rhythm Heart sounds: no murmurs Skin: General skin exam: normal color and no rashes or lesions noted Neuro: Cognition (Neuro): normal cognition Speech: normal speech Extrem: General: normal to inspection and edema Objective Data Vital Signs Vital Signs: Vital Signs - 24 hr 12/17/19 16:00 12/17/19 16:45 12/17/19 18:00 Temperature 36.1 C L Pulse Rate 75 80 91 Respiratory Rate 21 H Blood Pressure 110/65 Pulse Oximetry 99 12/17/19 19:51 12/17/19 20:00 12/17/19 20:02 Temperature 36.4 C Pulse Rate 77 958 H 80 Respiratory Rate 20 20 20 Blood Pressure 110/62 Pulse Oximetry 98 97 12/17/19 20:03 12/17/19 21:00 12/17/19 22:00 Temperature Pulse Rate 80 84 68 Respiratory Rate 20 Blood Pressure Pulse Oximetry 12/17/19 22:10 12/18/19 00:00 12/18/19 01:15 Temperature 36.6 C Pulse Rate 70 70 74 Respiratory Rate 21 H 20 Blood Pressure 147/58 H Pulse Oximetry 97 99 12/18/19 01:34 12/18/19 01:37 12/18/19 01:42 Temperature Pulse Rate 66 66 70 Respiratory Rate 22 H 16 20 Blood Pressure Pulse Oximetry 97 12/18/19 03:38 12/18/19 04:00 12/18/19 05:56 Temperature 36.5 C Pulse Rate 70 69 69 Respiratory Rate 20 20 Blood Pressure 124/47 L Pulse Oximetry 97 100 12/18/19 05:58 12/18/19 08:00 12/18/19 08:15 Temperature 36.6 C Pulse Rate 67 79 76 Respiratory Rate 21 H Blood Pressure 104/57 L Pulse Oximetry 96 100 12/18/19 08:30 12/18/19 08:40 12/18/19 10:00 Temperature Pulse Rate 77 75 80 Respiratory Rate 20 20 Blood Pressure Pulse Oximetry 96 12/18/19 12:00 12/18/19 13:05 12/18/19 14:00 Temperature 37.1 C Pulse Rate 76 82 89 Respiratory Rate 22 H Blood Pressure 99/71 L Pulse Oximetry 99 12/18/19 14:57 Temperature Pulse Rate 74 Respiratory Rate Blood Pressure Pulse Oximetry Intake/Output Intake/Output: Intake & Output 12/15/19 12/16/19 12/17/19 12/18/19 23:59 23:59 23:59 23:59 Intake Total 1458 1010 1580 1190 Output Total 3821 [phone] [facility] [phone] Meds/Results Medications: Active Medications Generic Name Dose Route Start Last Admin Trade Name Freq PRN Reason Stop Dose Admin Albuterol 2.5 mg 0
--- NOTE | 2019-12-22 08:12 | PC.NURSE ---
LATE ENTRY This note is being entered to document information to the patient's record. The following information was omitted on [12/09/2019 at 1600.] Patient was continued in soft restraints at this time r/t continue to pull at IVs and ET tube.
== END 2019-12-18 17:06 | disposition home or self-care (01) | DRG 207 ==
LOC: ANHED 14:19 → ANHICU 17:13 → ANHIMU 12-16 14:15
PROVIDERS: Family Medicine; Internal Medicine; Physician Assistant; Admitting Provider Family Medicine; Emergency Provider Emergency Medicine; Visit Provider Family Medicine
DX: J96.21 Acute and chronic respiratory failure with hypoxia (principal); I50.33 Acute on chronic diastolic (congestive) heart failure; E87.3 Alkalosis; E66.2 Morbid (severe) obesity with alveolar hypoventilation; Z68.43 Body mass index [BMI] 50.0-59.9, adult; J44.1 Chronic obstructive pulmonary disease with (acute) exacerbation; D69.6 Thrombocytopenia, unspecified; I11.0 Hypertensive heart disease with heart failure; Z20.828 Contact with and (suspected) exposure to other viral communicable diseases; J96.22 Acute and chronic respiratory failure with hypercapnia; J98.4 Other disorders of lung; B96.1 Klebsiella pneumoniae [K. pneumoniae] as the cause of diseases classified elsewhere; R82.71 Bacteriuria; R82.81 Pyuria; E03.9 Hypothyroidism, unspecified; E11.9 Type 2 diabetes mellitus without complications; I49.3 Ventricular premature depolarization; E78.5 Hyperlipidemia, unspecified; Z87.891 Personal history of nicotine dependence; Z99.81 Dependence on supplemental oxygen; Z79.84 Long term (current) use of oral hypoglycemic drugs; Z79.899 Other long term (current) drug therapy; Z85.42 Personal history of malignant neoplasm of other parts of uterus
CPT/HCPCS: 31500; 36415; 36569; 36600; 70450; 71045; 71250; 74018; 80048; 80053; 80076; 80202; 81001; 82375; 82728; 82805; 83036; 83050; 83605; 83615; 83735; 83880; 84484; 85025; 85027; 85055; 85610; 85730; 86140; 87040; 87070; 87077; 87086; 87088; 87186; 87205; 87449; 87635; 87899; 93005; 93306; 93970; 94002; 94003; 94640; 94660; 96365; 96375; 97110; 97161; 97165; 97530; 97535; 99291; A9270; C1751; C9803; J0456; J0696; J1120; J1650; J1815; J1940; J2250; J2920; J2930; J3010; J3370; J7030; J7512; U0003

== ENCOUNTER 2020-11-18 11:54 | Inpatient (IN) | payer OTHER, SELFPAY ==
[2020-11-18] VITALS (26 sets, daily range): BP systolic 111–153; BP diastolic 56–92; PULSE 82–115; RESP 18–29; TEMP 36.3–37.1; O2SAT 78–100; BMI 56.1
--- NOTE | ~2020-11-18 | CT_ITS ---
EXAMINATION: CTA chest PE protocol DATE: 11/18/2020 14:48 INDICATION: Shortness of breath TECHNIQUE: Computed tomography angiography (CTA) of the chest was performed with 100 mL Omnipaque-350 intravenous contrast timed to evaluate the pulmonary arteries. Coronal maximum intensity projection 3D-reconstructions were created by the technologist. Automated exposure control and iterative reconst ruction technique were employed. Exam dose: 1035.86 mGy-cm total exam DLP. COMPARISON: None. FINDINGS: There is moderate opacification the pulmonary arteries and no evidence of pulmonary embolis m. No thoracic aortic dissection. Cardiomegaly. No pericardial effusion. Small right pleural effusion. Prominent right basilar atelecta sis with air bronchograms. There is discoid atelectasis and/or scarring in the left lower lobe. There is some patchy groundglass infiltrates of the remaining lung whitaker. Diagnosis includes pulmonary edema and bilateral pneumonia. 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 Diffuse idiopathic skeletal hyperostosis of the thoracic spine. No suspicious osteolytic or osteoblastic lesions are noted. IMPRESSION: No pulmonary embolism is evident Cardiomegaly, mild right pleural effusion, bilateral patchy pulmonary infiltrates, consistent with co ngestive heart failure and pulmonary edema. Pneumonia is not excluded. Right basilar and lesser left basilar atelectasis Reviewed, dictated and finalized at [facility]. Reviewed, dictated and finalized at location [facility]. IMPRESSION: No pulmonary embolism is evident Cardiomegaly, mild right pleural effusion, bilateral patchy pulmonary infiltrat es, consistent with congestive heart failure and pulmonary edema. Pneumonia is not excluded. Right basilar and lesser left basilar atelectasis
--- NOTE | ~2020-11-18 | XR_ITS ---
EXAMINATION: XR chest 1V portable DATE: 11/20/2020 05:35 INDICATION: Congestive heart failure and COPD exacerbation. TECHNIQUE: frontal view of the chest was obtained. COMPARISON: Chest radiograph dated 11/19/2020 FINDINGS: Cardiomegaly with pulmonary vascular congestion and mild pulmonary edema in the lower lung zones. [place] in the right lower lung zone with blunting at the right costophrenic angle consistent with sma ll pleural effusion and associated atelectasis and/or pneumonia. No pneumothorax or left-sided pleura l effusion. IMPRESSION: 1. Congestive heart failure with cardiomegaly, pulmonary vascular congestion and mild pulmonary edema . 2. Small right pleural effusion with associated right basilar atelectasis and/or pneumonia. Reviewed, dictated and finalized at location A. IMPRESSION: 1. Congestive heart failure with cardiomegaly, pulmonary vascular congestion an d mild pulmonary edema. 2. Small right pleural effusion with associated right basilar atelectasis and/o r pneumonia.
--- NOTE | ~2020-11-18 | US_ITS ---
EXAMINATION: US venous doppler [facility] DATE: 11/19/2020 10:51 INDICATION: Lower limb swelling TECHNIQUE: Ruggiero scale images without and with compression and Doppler images of the bilateral lower e xtremity veins were obtained. COMPARISON: 12/10/2019 FINDINGS: The bilateral peroneal veins are not evaluated due to body habitus. The right common femoral vein, profunda femoral vein, femoral vein, popliteal vein, posterior tibial veins, and greater saphenous vein are patent. The left common femoral vein, profunda femoral vein, femoral vein, popliteal vein, posterior tibial v eins, and greater saphenous vein are patent. IMPRESSION: 1. Patent bilateral lower extremity veins. No evidence of deep venous thrombosis. Reviewed, dictated and finalized at location B. IMPRESSION: 1. Patent bilateral lower extremity veins. No evidence of deep venous thrombosi s.
--- NOTE | ~2020-11-18 | XR_ITS ---
XR chest 1V portable DATE: 11/19/2020 08:41 INDICATION: Shortness of breath. COPD. Congestive heart failure. TECHNIQUE: Portable upright AP chest on 11/19/2020 at 0834 hours COMPARISON: 11/18/2020 portable AP chest at 1226 hours 11/18/2020 CT pulmonary scan FINDINGS: Cardiomegaly. There is pulmonary vascular congestion and redistribution. There is diminishe d right pleural effusion and diminished infiltrate or atelectasis in the right lower lung zone and di minished prominence of the minor fissure since 11/18/2020. Diffuse osteopenia. Degenerative changes of the thoracic spine. IMPRESSION: Congestive heart failure and pulmonary infiltrate and right pleural effusion, all improve d since 11/18/2020 Reviewed, dictated and finalized at location A. IMPRESSION: Congestive heart failure and pulmonary infiltrate and right pleural effusion, all improved since 11/18/2020
--- NOTE | ~2020-11-18 | US_ITS ---
US renal BI 11/25/2020 11:37 Procedure: Realtime transabdominal ultrasound of the kidneys and bladder. Indication: Chronic UTI Comparison: Ultrasound dated 11/03/2004 Findings: Renal echotexture is normal bilaterally without hydronephrosis, contour deforming mass or r enal calculus. The right kidney measures 11.6 cm and left kidney measures 13.8 cm. Bladder evaluation limited due to Jolly catheter. Impression: 1: Unremarkable renal ultrasound. No stones, masses or hydronephrosis. Reviewed, dictated and finalized at location A. Impression: 1: Unremarkable renal ultrasound. No stones, masses or hydronephrosis.
--- NOTE | ~2020-11-18 | XR_ITS ---
EXAMINATION: XR chest 1V portable INDICATION: COPD and CHF exacerbation TECHNIQUE: Portable AP chest at 0701 hours COMPARISON: 11/20/2020 FINDINGS: Cardiomegaly is unchanged. There is a stable mild diffuse interstitial pattern. Small pleur al effusions are suggested. There is no pneumothorax. Minimal bibasilar airspace present. IMPRESSION: 1. Cardiomegaly with stable mild pulmonary edema. 2. Small pleural effusions, stable. 3. Bibasilar airspace opacities, likely atelectasis. Reviewed, dictated and finalized at location B.
--- NOTE | ~2020-11-18 | XR_ITS ---
EXAMINATION: XR chest 1V portable INDICATION: Shortness of breath TECHNIQUE: Portable AP chest at 1226 hours COMPARISON: 12/15/2019 FINDINGS: There our small pleural effusions. Airspace opacities are present in the lung bases. A mild diffuse interstitial pattern is present. Cardiomegaly is noted. There is no pneumothorax. IMPRESSION: 1. Cardiomegaly with likely mild pulmonary edema. 2. Small pleural effusions. 3. Bibasilar airspace opacities, consistent with atelectasis versus pneumonia. Reviewed, dictated and finalized at location B.
[2020-11-18 12:05] LABS: Alveolar/Arterial O2 Gradient 590.4 mmHg; Base Excess ABG 8.7 mEq/l (+/-2.0); Carboxyhemoglobin 1.6 % THb (0-2.0); Fractional Inspired Oxygen 100 %; Methemoglobin ABG 0.2 %THb (0-1.5); Oxygen Content ABG 10.6 %vol (16.0-22.0); Oxyhemoglobin 67.5 % THb (90.0-100.0); PO2 FiO2 Ratio Arterial Blood 0.39 %; Reduced Hemoglobin 30.7 %THb (0-5.0); Total Hemoglobin 11.2 g/dL (12.0-18.0)
[2020-11-18 12:09] LABS: pH ABG 7.276 (7.350-7.450)
[2020-11-18 12:10] LABS: Oxygen Saturation ABG 63.9 % (95.0-100.0); PCO2 ABG 83.5 mmHg (35.0-45.0); PO2 ABG 39.1 mmHg (80.0-100.0)
--- NOTE | 2020-11-18 12:14 | ECG_ITS ---
Measurements Intervals [place] Rate: 113 P: 81 [place]: 161 QRS: 84 QRSD: 85 T: 67 QT: 286 QTc: 393 Interpretive Statements SINUS TACHYCARDIA INCOMPLETE RIGHT BUNDLE BRANCH BLOCK LOW QRS VOLTAGE IN PRECORDIAL LEADS BORDERLINE T WAVE ABNORMALITY- HIGH LATERAL LEADS BASELINE ARTIFACT- I, II, III, AVR, AVL, AVF, V1-V2, V4-V6 ABNORMAL ECG Electronically Signed On 11-18-2020 12:57:31 CDT by Leland Johnson D.O.
--- NOTE | 2020-11-18 12:23 | ED.GENADULT ---
HPI - General Adult General Chief complaint: Shortness of Breath/Dyspnea Stated complaint: SOB Time Seen by Provider: 11/18/20 12:00 Source: patient and EMS History of Present Illness HPI narrative: Patient is a 70 y/o female complaining of severe SOB starting 2 days ago. She has history of COPD and she is on home O2. She states that Nebulizer helps with her SOB. She has no chest pain or fever. She has some cough. When EMS arrived, her pulse was 69% on 3L. She was given Neb and Decadron 10 mg IV. She was placed on CPAP. Related Data Home Medications Medication Instructions Recorded Confirmed Adults Multivitamin 1 tablet PO DAILY 12/09/19 12/09/19 Calcium 600 with Vitamin D3 1 tablet PO DAILY 12/09/19 12/09/19 albuterol sulfate 2.5 mg INHALATION Q4H PRN 12/09/19 12/09/19 budesonide-formoterol [Symbicort] 2 puff INHALATION BID 12/09/19 12/09/19 cranberry 400 mg PO DAILY 12/09/19 12/09/19 lisinopril 20 mg PO DAILY 12/09/19 12/09/19 metoprolol succinate 50 mg PO Q12H 12/09/19 12/09/19 pioglitazone 30 mg PO DAILY 12/09/19 12/09/19 spironolactone 25 mg PO DAILY 12/09/19 12/09/19 potassium chloride 10 meq PO DAILY 11/18/20 11/18/20 Allergies Allergy/AdvReac Type Severity Reaction Status Date / Time liraglutide Allergy Intermediate Hives Verified 11/18/20 12:26 Review of Systems Review of Systems: All systems reviewed & are unremarkable except as noted in HPI and below Constitutional: Constitutional: Denies chills, Denies fever(s), Denies headache(s) and Denies weakness Eyes: Eyes: Denies blurry vision ENT: Denies headache(s) and Denies neck pain Cardiovascular: Cardiovascular: Denies chest pain and Reports dyspnea Respiratory: Respiratory: Reports cough and Reports dyspnea Gastrointestinal: Gastrointestinal: Denies abdominal pain, Denies diarrhea, Denies nausea and Denies vomiting Genitourinary: Genitourinary: Denies hematuria and Denies dysuria Musculoskeletal: Musculoskeletal: Denies back pain and Denies neck pain Neurologic: Denies headache(s) and Denies weakness PMFSH Past Medical History Medical History (Updated 11/18/20 @ 18:32 by Cierra Nguyen MD) Chronic obstructive pulmonary disease Chronic respiratory failure with hypoxia, on home oxygen therapy Depression Diastolic congestive heart failure echocardiogram in November 2018 showed normal left ventricular size and function with moderate concentric left ventricular hypertrophy, impaired diastolic relaxation grade 1, ejection fraction of 65%, an estimated peak RVSP of 47 mmHg. Dyslipidemia Essential hypertension Hypothyroidism Morbid obesity Obesity hypoventilation syndrome Obstructive sleep apnea I believe she is on BiPAP at nighttime. Stage I adenocarcinoma of endometrium Considered inoperable given her comorbidities, however nurse charted that she had indeed had a hysterectomy. This cannot be confirmed with the patient at this time. Status post HDR brachytherapy time 6 fractions. Type 2 diabetes mellitus Surgical History Surgical History History of dilation and curettage History of tubal ligation Family History Family History Father Patient's father is Hypertension Cerebrovascular accident Acute myocardial infarction Mother Family history of diabetes mellitus in first degree relative Hypertension Hypothyroid Sibling Patient's brother is in good health Patient's sister is in good health Social History Social History Social History: Surrogate decision maker: Fady Burns, . Code status: Full code. Smoking packs per day: 0.5 Smoking cigarettes per day: 10.0 Years smoked: 40 Smoking pack-years: 20.00 Smoking status: Former smoker Smoking end date: 05/02/11 Alcohol intake: never Substance use: never Additional living ar
[2020-11-18 12:25] LABS: Device OTHER DEVICE; Modified Allen's Test Pass; Site Drawn RIGHT RADIAL
[2020-11-18] MEDS: MAGNESIUM SULF 2 GM/WATER 50ML 2 GM/50 ML BAG 100 GM (12:25)
[2020-11-18 12:52] LABS: Basophils Percent Auto 0.4 % (0.2-1.2); Eosinophils Percent Auto 0.3 % (0-4.4); Hematocrit 33.8 % (37.0-47.0); Hemoglobin 9.6 g/dL (12.0-15.0); INR 1.1; Immature Granulocyte Absolute 0.17 K/mm3 (0.00-0.031); Immature Granulocyte Percent A 1.7 % (0-0.5); Lymphocytes Absolute Auto 0.73 K/mm3 (0.9-3.2); Lymphocytes Percent Auto 7.3 % (18.3-44.2); Mean Corpuscular HGB Conc 28.4 g/dl (32-36); Mean Corpuscular Hemoglobin 26.3 pg (26-34); Mean Corpuscular Volume 92.6 fl (80-100); Mean Platelet Volume 12.9 fl (7.4-10.4); Monocytes Absolute Auto 0.7 K/mm3 (0.1-0.6); Monocytes Percent Auto 6.7 % (2.6-8.5); Neutrophils Absolute Auto 8.4 K/mm3 (1.3-6.7); Neutrophils Percent Auto 83.6 % (45.5-73.1); Partial Thromboplastin Time 31.5 SECONDS (22.3-36.8); Platelet Count Result 112 k/mm3 (150-375); Red Blood Count 3.65 M/mm3 (4.2-5.4); Red Cell Distribution Width 16.7 % (11.5-14.5)
[2020-11-18 12:55] LABS: D Dimer 1.01 ug/mL (<0.48)
[2020-11-18 13:01] LABS: Alanine Aminotransferase 30 U/L (4-35); Albumin Level 4.3 g/dL (3.5-5.1); Alkaline Phosphatase 103 U/L (38-126); Anion Gap 4 mmol/L (8-16); Aspartate Amino Transferase 45 U/L (14-36); Bilirubin,Total 0.7 mg/dL (0.2-1.3); Blood Urea Nitrogen 28 mg/dL (7-17); Calcium 9.5 mg/dL (8.4-10.2); Carbon Dioxide 38 mmol/L (22-30); Chloride 97 mmol/L (98-107); Estimated CRCL calculation 111 ml/min; Estimated Glomerular Filt Rate > 60; Glucose 147 mg/dL (65-110); Potassium 5.3 mmol/L (3.4-5.0); Sodium 139 mmol/L (137-145)
[2020-11-18 13:23] LABS: NT Pro B Type Natriuretic Pept 395 pg/mL (5-100); Troponin I 0.013 ng/mL (0.000-0.034)
[2020-11-18 14:06] LABS: Add Urine Microscopic? YES; Appearance Urine Clear (Clear); Bilirubin Urine Negative (Negative); Color Urine Yellow (Yellow); Glucose Urine UA Negative (Negative); Hyaline Casts Urine 15-19 /lpf; Ketones Urine Negative (Negative); Leukocyte Esterase Ur 1+ LEU/UL (Negative); Mucus Urine Rare /lpf; Nitrate Urine Negative (Negative); Protein Urine 1+ mg/dL (Negative); Squamous Epithelial Cell Urine Rare /hpf (Few); Urobilinogen Urine Negative mg/dL (<2.0); WBC Urine 31-50 /hpf
[2020-11-18 14:18] LABS: Blood Urine Negative (Negative)
[2020-11-18] MEDS: FUROSEMIDE INJ 40 MG/4 ML VIAL IV PUSH (14:29)
[2020-11-18 16:22] LABS: Alveolar/Arterial O2 Gradient 173.1 mmHg; Base Excess ABG 9.8 mEq/l (+/-2.0); Fractional Inspired Oxygen 50 %; HCO3 ABG 40.2 mEq/l (22.0-26.0); Oxygen Content ABG 14.1 %vol (16.0-22.0); Oxygen Saturation ABG 91.1 % (95.0-100.0); Oxyhemoglobin 91.4 % THb (90.0-100.0); PO2 ABG 74.2 mmHg (80.0-100.0); PO2 FiO2 Ratio Arterial Blood 1.48 %; Total Hemoglobin 10.9 g/dL (12.0-18.0)
[2020-11-18 16:33] LABS: Troponin I 0.025 ng/mL (0.000-0.034)
[2020-11-18 16:36] LABS: pH ABG 7.235 (7.350-7.450)
[2020-11-18 16:37] LABS: Device NON-INVASIVE VENT; Modified Allen's Test Pass; PCO2 ABG 97.1 mmHg (35.0-45.0); Site Drawn LEFT RADIAL
[2020-11-18 16:38] LABS: Non-Invasive Expiratory Pressure 8 CMH2O; Non-Invasive Inspiratory Pressure 18 CMH2O; Non-Invasive Vent Rate 18 /MIN
--- NOTE | 2020-11-18 19:33 | ADMGEN ---
This patient, Radha Burns, was admitted to Intensive Care Unit-7 at 1900 from the ER. Patient/family oriented to hospital policies and general routines including ID bracelet, bed and alarms, visiting hours, pain management, procedures, bathroom and other care routines, personal items, smoking policy, room service/diet, and visiting hours. Information on how to activate the Rapid Response Team has been discussed. Patient/Family are encouraged to report perceived risks to care and to ask questions if they do not understand what they are told or what they should do.
--- NOTE | 2020-11-18 20:44 | PM.IMHP ---
H&P: HPI History of Present Illness Date/Time: 11/18/20 20:44 This is a 70-year-old female patient who is oxygen dependent at home. She has a history of COPD and CHF. She also hypoventilation requiring a CPAP. It looks like it has been at least a year since the patient has been admitted. The patient came in today with complaints of severe shortness of breath that is been going on for 2 days. She used nebulizer machine that help some. She had no fever chills. She also had some cough. When EMS arrived the patient's pulse ox was 69% on 3 L and she was started on a CPAP machine. She was given a nebulizer treatment and Decadron. Patient's pH on her ABGs was 7.276 with a CO2 83.5. PO2 was 39.1. The patient was still arousable. Repeat ABGs pH 7.235 with the CO2 97.1 and a PO2 of 74.2. Patient's BiPAP settings are 16/8 with a bleed a 40%. The patient is still arousable of this point. Chest x-ray was read as cardiomegaly with likely mild pulmonary edema. Small pleural effusions. Bibasilar airspace opacities consistent with atelectasis versus pneumonia. CT a pulmonary was read as no pulmonary embolism is evident cardiomegaly, mild right pleural effusion, mild bilateral patchy pulmonary infiltrates consistent with congestive heart failure and pulmonary edema. Pneumonia is not excluded. Right basilar and least her left basilar atelectasis. The patient was given IV Lasix. The patient was admitted to ICU as inpatient on the date of service of 11/18/2020. Chief Complaint: Shortness of breath Review of Systems Review of Systems: All systems reviewed & are unremarkable except as noted in HPI and below ROS unobtainable: Yes unobtainable due to medical condition, unobtainable due to mental status and other ( The patient is on a BiPAP machine and it is difficult to understand ) Constitutional: Constitutional: Reports as per HPI and Reports no additional constitutional complaints Eyes: Eyes: Reports as per HPI and Reports no additional eye complaints ENT: Reports system reviewed and no additional complaints, except as documented and Reports Normal hearing present Cardiovascular: Cardiovascular: Reports no additional cardiovascular complaints Respiratory: Respiratory: Reports no additional respiratory complaints and Reports no additional respiratory complaints Gastrointestinal: Gastrointestinal: Reports as per HPI and Reports no additional gastrointestinal complaints Musculoskeletal: Musculoskeletal: Reports no additional musculoskeletal complaints Integumentary/Breasts: Skin/Breast: Reports system reviewed and no additional complaints, except as docu and Reports as per HPI Neurologic: Reports system reviewed and no additional complaints, except as documented, Reports as per HPI and Reports Normal hearing present Psychiatric: Psychiatric: Reports no additional psychiatric complaints and Reports as per HPI Endocrine: Endocrine: Reports no additional endocrine complaints Hematologic/Lymphatic: Hematologic/Lymphatic: Reports no additional hematologic/lymphatic complaints Allergic/Immunologic: Allergic/Immunologic: Reports no additional allergic/immunologic complaints [facility] Past Medical History Medical History (Updated 11/18/20 @ 21:08 by Isi Arboleda NP) Chronic obstructive pulmonary disease Chronic respiratory failure with hypoxia, on home oxygen therapy Depression Diastolic congestive heart failure echocardiogram in November 2018 showed normal left ventricular size and function with moderate concentric left ventricular hypertrophy, impaired diastolic relaxation grade 1, ejection fraction of 65%, an estimated peak RVSP of 47 mmHg. Dyslipidemia Essential hypertension Hypothyroidism Morbid obesity Obesity hypoventilation syndrome Obstructive sleep apnea I believe she is on BiPAP at nighttime. Stage I adenocarcinoma of endometrium Considered inoperable given her comorbidities, however nurse charted that she had indeed had a hysterectom
[2020-11-18 21:01] LABS: Troponin I 0.021 ng/mL (0.000-0.034)
[2020-11-18] MEDS: methylPREDNISolone SOD SUCC 125 MG VIAL IV PUSH (21:30)
[2020-11-18] MEDS: ENOXAPARIN 40 MG/0.4 ML SYRINGE SUB-Q (21:52)
[2020-11-18 23:05] LABS: Alveolar/Arterial O2 Gradient 157.1 mmHg; Base Excess ABG 9.7 mEq/l (+/-2.0); Fractional Inspired Oxygen 45 %; HCO3 ABG 37.8 mEq/l (22.0-26.0); Oxygen Content ABG 13.4 %vol (16.0-22.0); Oxyhemoglobin 93.6 % THb (90.0-100.0); PO2 ABG 78.3 mmHg (80.0-100.0); PO2 FiO2 Ratio Arterial Blood 1.74 %; Total Hemoglobin 10.1 g/dL (12.0-18.0)
[2020-11-18 23:08] LABS: Device NON-INVASIVE VENT; Modified Allen's Test Pass; PCO2 ABG 75.1 mmHg (35.0-45.0); Site Drawn LEFT RADIAL
[2020-11-18 23:09] LABS: Non-Invasive Expiratory Pressure 8 CMH2O; Non-Invasive Inspiratory Pressure 18 CMH2O; Non-Invasive Vent Rate 18 /MIN
[2020-11-18 23:41] LABS: Glucose Point of Care 155 mg/dl (65-105)
[2020-11-19] VITALS (22 sets, daily range): BP systolic 107–162; BP diastolic 53–95; PULSE 78–105; RESP 18–24; TEMP 36.7–37.3; O2SAT 90–100
[2020-11-19] MEDS: ALBUTEROL SULFATE NEB 2.5 MG/0.5 ML INH INHALATION ×4 (02:34→20:45)
[2020-11-19] MEDS: IPRATROPIUM BR 0.02% INH SOLN 0.5 MG/2.5 ML VIAL INHALATION ×4 (02:35→20:45)
[2020-11-19] MEDS: methylPREDNISolone SOD SUCC 125 MG VIAL 80 MG IV PUSH (05:18)
[2020-11-19 05:27] LABS: Basophils Percent Auto 0.2 % (0.2-1.2); Hematocrit 31.2 % (37.0-47.0); Hemoglobin 8.7 g/dL (12.0-15.0); Immature Granulocyte Absolute 0.04 K/mm3 (0.00-0.031); Immature Granulocyte Percent A 0.6 % (0-0.5); Immature Platelet Fraction Pct 12.3 % (0.9-11.2); Lymphocytes Absolute Auto 0.37 K/mm3 (0.9-3.2); Lymphocytes Percent Auto 5.8 % (18.3-44.2); Mean Corpuscular HGB Conc 27.9 g/dl (32-36); Mean Corpuscular Hemoglobin 26.5 pg (26-34); Mean Corpuscular Volume 95.1 fl (80-100); Mean Platelet Volume 12.8 fl (7.4-10.4); Monocytes Absolute Auto 0.1 K/mm3 (0.1-0.6); Monocytes Percent Auto 1.6 % (2.6-8.5); Neutrophils Absolute Auto 5.8 K/mm3 (1.3-6.7); Neutrophils Percent Auto 91.8 % (45.5-73.1); Platelet Count Result 94 k/mm3 (150-375); Red Blood Count 3.28 M/mm3 (4.2-5.4); Red Cell Distribution Width 16.8 % (11.5-14.5); White Blood Count 6.4 K/mm3 (4.5-10.0)
[2020-11-19 05:31] LABS: Hemoglobin A1C 6.2 % (<5.7)
[2020-11-19 05:35] LABS: Alanine Aminotransferase 24 U/L (4-35); Albumin Level 3.7 g/dL (3.5-5.1); Alkaline Phosphatase 92 U/L (38-126); Anion Gap 5 mmol/L (8-16); Aspartate Amino Transferase 27 U/L (14-36); Bilirubin,Total 0.5 mg/dL (0.2-1.3); Blood Urea Nitrogen 33 mg/dL (7-17); Calcium 9.2 mg/dL (8.4-10.2); Carbon Dioxide 36 mmol/L (22-30); Chloride 96 mmol/L (98-107); Estimated CRCL calculation 94 ml/min; Estimated Glomerular Filt Rate > 60; Glucose 161 mg/dL (65-110); Lactate Dehydrogenase 635 U/L (313-618); Lipase 12 U/L (23-300); Magnesium 2.3 mg/dL (1.6-2.3); Potassium 5.3 mmol/L (3.4-5.0); Sodium 137 mmol/L (137-145)
[2020-11-19 05:36] LABS: Lactic Acid Reflex 1.2 mmol/L (0.7-2.1)
[2020-11-19] MEDS: LEVOTHYROXINE SODIUM INJ 100 MCG/5 ML VIAL 37.5 MCG IV PUSH (06:47)
[2020-11-19 07:08] LABS: Glucose Point of Care 178 mg/dl (65-105)
[2020-11-19] MEDS: FUROSEMIDE INJ 40 MG/4 ML VIAL IV PUSH ×2 (08:15→18:45)
--- NOTE | 2020-11-19 09:55 | WPDCNINT ---
Assessment and Plan Assessment and plan (1) Acute respiratory failure with hypoxia and hypercapnia: Code(s): J96.01 - Acute respiratory failure with hypoxia; J96.02 - Acute respiratory failure with hypercapnia Status: Acute Assessment and Plan: acute hypercapnic respiratory failure along with hypoxic respiratory failure likely related to CHF and/or COPD exacerbation, could also be related to pneumonia - patient is on BiPAP, increase the IPAP to 24 this morning, will repeat ABGs - if ABGs look better, will give break from BiPAP. Patient will have to wear BiPAP at night - continue ceftriaxone and azithromycin - continue bronchodilators and steroids - patient being diuresed with Lasix - pulmonology has been consulted (2) Acute exacerbation of chronic obstructive pulmonary disease: Code(s): J44.1 - Chronic obstructive pulmonary disease with (acute) exacerbation Status: Acute Assessment and Plan: as above (3) CAP (community acquired pneumonia): Code(s): J18.9 - Pneumonia, unspecified organism Status: Acute (4) Essential hypertension: Code(s): I10 - Essential (primary) hypertension Status: Chronic Assessment and Plan: blood pressures have been stable, continue to monitor (5) Hypothyroidism: Code(s): E03.9 - Hypothyroidism, unspecified Status: Chronic Assessment and Plan: continue levothyroxine (6) Type 2 diabetes mellitus: Code(s): E11.9 - Type 2 diabetes mellitus without complications Status: Acute Assessment and Plan: continue Accu-Cheks and sliding scale insulin - hemoglobin A1c 6.2 on this admission (7) Obesity hypoventilation syndrome: Code(s): E66.2 - Morbid (severe) obesity with alveolar hypoventilation Status: Acute Assessment and Plan: chronic (8) Obstructive sleep apnea: Code(s): G47.33 - Obstructive sleep apnea (adult) (pediatric) Status: Acute Assessment and Plan: chronic - patient to wear BiPAP at night (9) UTI (urinary tract infection): Code(s): N39.0 - Urinary tract infection, site not specified Status: Acute Assessment and Plan: UA reflective of UTI, cultures pending, continue ceftriaxone (10) DVT prophylaxis: Code(s): Z29.9 - Encounter for prophylactic measures, unspecified Status: Acute Assessment and Plan: continue Lovenox Additional Plan discussed with patient updated with her condition and plan of care. I answered all questions code status: Full code Critical care time spent: 42 minutes This dictation may have been done utilizing a voice recognition system. Attempts have been made to correct errors. However, there may be uncorrected grammatical, spelling, and recognition errors present. Due to a high probability of clinically significant, life threatening deterioration, the patient required my highest level of preparedness to intervene emergently and I personally spent this critical care time directly and personally managing the patient. This critical care time included obtaining a history; examining the patient; pulse oximetry; ordering and review of studies; arranging urgent treatment with development of a management plan; evaluation of patient's response to treatment; frequent reassessment; and discussions with other providers. It was exclusive of separately billable procedures and treating other patients and teaching time. Please see Assessment and Plan section and the rest of the note for further information on patient assessment and treatment Optician Apprentice Consult Note Consult date: 11/19/20 Time Seen: 07:02 Reason for consult: Hypercapnic respiratory failure, CHF HPI: Radha Burns is a 70 year old female with PMH of COPD on home O2, CHF, HTN, DANELLE, DM 2, Hypothyroidism, depression, morbid obesity presented to the ED on 11/18/2020 with complains of severe shortness of breath that started 2 days prior
[2020-11-19] MEDS: methylPREDNISolone SOD SUCC 40 MG VIAL IV PUSH ×3 (11:10→23:31)
[2020-11-19 11:19] LABS: Glucose Point of Care 158 mg/dl (65-105)
[2020-11-19 12:15] LABS: Alveolar/Arterial O2 Gradient 187.7 mmHg; Base Excess ABG 11.2 mEq/l (+/-2.0); Fractional Inspired Oxygen 45 %; HCO3 ABG 37.3 mEq/l (22.0-26.0); Modified Allen's Test Pass; Oxygen Content ABG 12.9 %vol (16.0-22.0); Oxygen Saturation ABG 93.2 % (95.0-100.0); Oxyhemoglobin 92.5 % THb (90.0-100.0); PCO2 ABG 58.3 mmHg (35.0-45.0); PO2 ABG 66.8 mmHg (80.0-100.0); PO2 FiO2 Ratio Arterial Blood 1.48 %; Site Drawn LEFT RADIAL; Total Hemoglobin 9.9 g/dL (12.0-18.0); pH ABG 7.424 (7.350-7.450)
[2020-11-19 19:08] LABS: SARS-CoV-2 RNA PCR Negative
[2020-11-19 19:58] LABS: Glucose Point of Care 181 mg/dl (65-105)
[2020-11-19] MEDS: ENOXAPARIN 40 MG/0.4 ML SYRINGE SUB-Q (21:40)
[2020-11-19 23:54] LABS: Glucose Point of Care 185 mg/dl (65-105)
[2020-11-20] VITALS (24 sets, daily range): BP systolic 117–148; BP diastolic 59–89; PULSE 69–105; RESP 19–30; TEMP 36.5–37.2; O2SAT 92–100
--- NOTE | 2020-11-20 | ECHO_ITS ---
Patient Info Name: Radha Burns Age: 70 years : 1950 Gender: Female Ht: 64 in Wt: 343 lbs BSA: 2.76 m2 HR: 70 bpm BP: 121 / 72 mmHg Technical Quality: Good Exam Date: 11/20/2020 8:29 AM Exam Location: [facility] Patient Status: Inpatient Admit Date: 11/18/2020 Staff Ordering Physician: Isi Arboleda NP Golf Ball Inspector: Piero Hansen RDCS, RT Attending Provider: Yair Jorgensen MD Referring Physician: Nkechi WORRELL; Exam Type: CA echo dop color flow w con Study Info Indications I50.9 - Heart failure, unspecified Complete two-dimensional, color flow and Doppler transthoracic echocardiogram is performed with contrast to opacify the left ventricle and to improve the deliniation of the left ventricle endocardial borders. Summary 1. Left ventricular systolic function is normal, estimated at 60-65%. 2. There is mildly increased left ventricular wall thickness. 3. The left ventricular diastolic function is grade II diastolic dysfunction. 4. E/e' 16.39 is elevated. 5. There is mild tricuspid valve regurgitation. 6. Severe pulmonary hypertension, estimated pulmonary arterial systolic pressure is 57 mmHg. 7. Trivial pericardial effusion. Left Ventricle Left ventricular chamber dimension is normal. Left ventricular systolic function is normal, estimated at 60-65%. There is mildly increased left ventricular wall thickness. Left ventricular septal wall motion is normal. The left ventricular diastolic function is grade II diastolic dysfunction. E/e' 16.39 is elevated. Right Ventricle Right ventricular chamber dimension is normal. Right ventricular systolic function is normal. Left Atria Left atrial chamber dimension is normal. Right Atria Right atrial chamber dimension is normal. Aortic Valve The aortic valve is trileaflet. There is no aortic valve sclerosis. There is no aortic valve stenosis. There is no aortic valve regurgitation. Pulmonic Valve The pulmonic valve is normal. There is no pulmonic valve stenosis. There is no pulmonic regurgitation. Mitral Valve The mitral valve has normal leaflets. There is no mitral valve stenosis. There is no mitral valve regurgitation. Tricuspid Valve The tricuspid valve leaflets are normal. There is no significant tricuspid valve stenosis. There is mild tricuspid valve regurgitation. Severe pulmonary hypertension, estimated pulmonary arterial systolic pressure is 57 mmHg. Pericardium/Pleural The pericardium appears normal. There is trivial pericardial effusion. Inferior Vena Cava Dilated inferior vena cava with <50% collapse upon inspiration consistent with elevated right atrial pressure, 15 mmHg. Aorta The aortic root size at the sinus of Valsalva is normal. The prox ascending aorta size is normal. Left Ventricular Outflow Tract Name Value Normal LVOT 2D LVOT Diameter 1.99 cm LVOT Doppler LVOT Peak Gradient 7 mmHg LVOT Mean Gradient 4 mmHg LVOT VTI 29.72 cm LVOT VTI/AV VTI Ratio 0.77
[2020-11-20] MEDS: ALBUTEROL SULFATE NEB 2.5 MG/0.5 ML INH INHALATION ×4 (02:46→22:25)
[2020-11-20] MEDS: IPRATROPIUM BR 0.02% INH SOLN 0.5 MG/2.5 ML VIAL INHALATION ×4 (02:47→22:24)
[2020-11-20 04:29] LABS: Basophils Percent Auto 0.1 % (0.2-1.2); Eosinophils Percent Auto 0.3 % (0-4.4); Hematocrit 30.6 % (37.0-47.0); Hemoglobin 8.7 g/dL (12.0-15.0); Immature Granulocyte Absolute 0.04 K/mm3 (0.00-0.031); Immature Granulocyte Percent A 0.5 % (0-0.5); Immature Platelet Fraction Pct 13.3 % (0.9-11.2); Lymphocytes Absolute Auto 0.49 K/mm3 (0.9-3.2); Lymphocytes Percent Auto 6.6 % (18.3-44.2); Mean Corpuscular HGB Conc 28.4 g/dl (32-36); Mean Corpuscular Hemoglobin 26.4 pg (26-34); Mean Platelet Volume 12.3 fl (7.4-10.4); Monocytes Absolute Auto 0.3 K/mm3 (0.1-0.6); Monocytes Percent Auto 4.3 % (2.6-8.5); Neutrophils Absolute Auto 6.5 K/mm3 (1.3-6.7); Neutrophils Percent Auto 88.2 % (45.5-73.1); Platelet Count Result 87 k/mm3 (150-375); Red Blood Count 3.29 M/mm3 (4.2-5.4); Red Cell Distribution Width 16.7 % (11.5-14.5); White Blood Count 7.4 K/mm3 (4.5-10.0)
[2020-11-20 04:41] LABS: Alanine Aminotransferase 23 U/L (4-35); Albumin Level 3.6 g/dL (3.5-5.1); Alkaline Phosphatase 82 U/L (38-126); Anion Gap 6 mmol/L (8-16); Aspartate Amino Transferase 27 U/L (14-36); Bilirubin,Total 0.4 mg/dL (0.2-1.3); Blood Urea Nitrogen 50 mg/dL (7-17); CRP 5.8 mg/dL (<1.0); Calcium 8.8 mg/dL (8.4-10.2); Carbon Dioxide 37 mmol/L (22-30); Chloride 92 mmol/L (98-107); Estimated CRCL calculation 94 ml/min; Estimated Glomerular Filt Rate > 60; Glucose 193 mg/dL (65-110); Magnesium 2.3 mg/dL (1.6-2.3); Potassium 5.1 mmol/L (3.4-5.0); Sodium 135 mmol/L (137-145)
[2020-11-20 04:54] LABS: Hypochromasia 1+ (NORMAL)
[2020-11-20] MEDS: LEVOTHYROXINE SODIUM INJ 100 MCG/5 ML VIAL 37.5 MCG IV PUSH (05:55)
[2020-11-20] MEDS: methylPREDNISolone SOD SUCC 40 MG VIAL IV PUSH ×3 (05:55→17:20)
[2020-11-20 06:09] LABS: Alveolar/Arterial O2 Gradient 178.2 mmHg; Base Excess ABG 10.1 mEq/l (+/-2.0); Carboxyhemoglobin 0.3 % THb (0-2.0); Fractional Inspired Oxygen 45 %; HCO3 ABG 37.5 mEq/l (22.0-26.0); Methemoglobin ABG 0.3 %THb (0-1.5); Oxygen Content ABG 16.2 %vol (16.0-22.0); Oxygen Saturation ABG 93.2 % (95.0-100.0); Oxyhemoglobin 92.5 % THb (90.0-100.0); PO2 ABG 69.6 mmHg (80.0-100.0); PO2 FiO2 Ratio Arterial Blood 1.55 %; Reduced Hemoglobin 6.9 %THb (0-5.0); Total Hemoglobin 12.4 g/dL (12.0-18.0); pH ABG 7.384 (7.350-7.450)
[2020-11-20 06:11] LABS: Device BIPAP; Modified Allen's Test Pass; PCO2 ABG 64.2 mmHg (35.0-45.0); Site Drawn RIGHT RADIAL
[2020-11-20 06:13] LABS: Expiratory Pressure 8 cmH2O; Inspiratory Pressure 18 cmH2O
[2020-11-20 07:00] LABS: Glucose Point of Care 170 mg/dl (65-105)
[2020-11-20 07:04] LABS: Lactic Acid Reflex 0.9 mmol/L (0.7-2.1)
[2020-11-20 07:43] LABS: Device BIPAP; Expiratory Pressure 8 cmH2O; Inspiratory Pressure 18 cmH2O
[2020-11-20] MEDS: FUROSEMIDE INJ 40 MG/4 ML VIAL IV PUSH ×2 (08:35→16:22)
[2020-11-20] MEDS: PERFLUTREN LIPID MICROSPHERES 1.5 ML VIAL DILUTED TO 10 ML TOTAL VOLUME IV PUSH (08:57)
[2020-11-20 11:43] LABS: Glucose Point of Care 163 mg/dl (65-105)
[2020-11-20 11:54] LABS: Alveolar/Arterial O2 Gradient 177.9 mmHg; Fractional Inspired Oxygen 45 %; HCO3 ABG 39.8 mEq/l (22.0-26.0); Oxygen Content ABG 13.2 %vol (16.0-22.0); Oxygen Saturation ABG 93.4 % (95.0-100.0); Oxyhemoglobin 91.6 % THb (90.0-100.0); PO2 ABG 69.2 mmHg (80.0-100.0); PO2 FiO2 Ratio Arterial Blood 1.54 %; Total Hemoglobin 10.2 g/dL (12.0-18.0); pH ABG 7.406 (7.350-7.450)
[2020-11-20 11:55] LABS: Device NON-INVASIVE VENT; Modified Allen's Test Pass; PCO2 ABG 64.8 mmHg (35.0-45.0); Site Drawn LEFT RADIAL
[2020-11-20 11:56] LABS: Non-Invasive Expiratory Pressure 8 CMH2O; Non-Invasive Inspiratory Pressure 24 CMH2O; Non-Invasive Vent Rate 24 /MIN
--- NOTE | 2020-11-20 12:30 | WPDINTPN ---
Progress Note: A&P Assessment and Plan (1) Acute respiratory failure with hypoxia and hypercapnia: Code(s): J96.01 - Acute respiratory failure with hypoxia; J96.02 - Acute respiratory failure with hypercapnia Status: Acute Assessment and Plan: acute hypercapnic respiratory failure along with hypoxic respiratory failure likely related to CHF and/or COPD exacerbation, could also be related to pneumonia - patient is on BiPAP, increase the IPAP to 24 this morning, ABGs much improved, patient likely lives had a pCO2 of 50s to 60s. patient may benefit from a BiPAP or trilogy at home - if ABGs look better, will give break from BiPAP. Patient will have to wear BiPAP at night - continue ceftriaxone and azithromycin - continue bronchodilators and steroids - patient being diuresed with Lasix - pulmonology has been consulted (2) Acute exacerbation of chronic obstructive pulmonary disease: Code(s): J44.1 - Chronic obstructive pulmonary disease with (acute) exacerbation Status: Acute Assessment and Plan: will have patient switch between BiPAP and nasal cannula intermittently. BiPAP at night and while sleeping during the day (3) CAP (community acquired pneumonia): Code(s): J18.9 - Pneumonia, unspecified organism Status: Acute Assessment and Plan: continue antibiotics as above (4) Essential hypertension: Code(s): I10 - Essential (primary) hypertension Status: Chronic Assessment and Plan: blood pressures have been stable, continue to monitor (5) Hypothyroidism: Code(s): E03.9 - Hypothyroidism, unspecified Status: Chronic Assessment and Plan: continue levothyroxine (6) Type 2 diabetes mellitus: Code(s): E11.9 - Type 2 diabetes mellitus without complications Status: Acute Assessment and Plan: continue Accu-Cheks and sliding scale insulin - hemoglobin A1c 6.2 on this admission (7) Obesity hypoventilation syndrome: Code(s): E66.2 - Morbid (severe) obesity with alveolar hypoventilation Status: Acute Assessment and Plan: chronic (8) Obstructive sleep apnea: Code(s): G47.33 - Obstructive sleep apnea (adult) (pediatric) Status: Acute Assessment and Plan: chronic - patient to wear BiPAP at night (9) UTI (urinary tract infection): Code(s): N39.0 - Urinary tract infection, site not specified Status: Acute Assessment and Plan: UA reflective of UTI, cultures pending, continue ceftriaxone (10) DVT prophylaxis: Code(s): Z29.9 - Encounter for prophylactic measures, unspecified Status: Acute Assessment and Plan: continue Lovenox Additional Plan discussed with patient updated with her condition and plan of care. I answered all questions code status: Full code Critical care time spent: 31 minutes patient will be transferred to IMU This dictation may have been done utilizing a voice recognition system. Attempts have been made to correct errors. However, there may be uncorrected grammatical, spelling, and recognition errors present. Due to a high probability of clinically significant, life threatening deterioration, the patient required my highest level of preparedness to intervene emergently and I personally spent this critical care time directly and personally managing the patient. This critical care time included obtaining a history; examining the patient; pulse oximetry; ordering and review of studies; arranging urgent treatment with development of a management plan; evaluation of patient's response to treatment; frequent reassessment; and discussions with other providers. It was exclusive of separately billable procedures and treating other patients and teaching time. Please see Assessment and Plan section and the rest of the note for further information on patient assessment and treatment Subjective Date/time seen: 11/20/20 12:30 Int
[2020-11-20] MEDS: TOLNAFTATE 1% POWDER 45 GM BTL 1 APPLIC TOPICAL ×2 (16:22→20:49)
--- NOTE | 2020-11-20 16:39 | PC.NURSE ---
This patient, Radha Burns, was received from [ICU-7 ] on 11/20/20 at 1639. Patient/family oriented to unit policies and routines
--- NOTE | 2020-11-20 16:39 | PC.NURSE ---
This patient, Radha Burns, was transferred to [[id number]] on 11/20/20 at 1640. Personal belongings sent with patient. Report given to [Cynthia ESPINOZA]. Appropriate documentation sent with patient.
[2020-11-20] MEDS: INSULIN ASPART (*BKC) 100 UNITS/ML SUB-Q (17:19)
[2020-11-20] MEDS: ENOXAPARIN 40 MG/0.4 ML SYRINGE SUB-Q (20:49)
[2020-11-20 21:12] LABS: Glucose Point of Care 272 mg/dl (65-105)
[2020-11-20 21:55] LABS: Glucose Point of Care 264 mg/dl (65-105)
[2020-11-21] VITALS (23 sets, daily range): BP systolic 118–159; BP diastolic 59–98; PULSE 65–110; RESP 20–26; TEMP 36.1–36.6; O2SAT 87–98
[2020-11-21] MEDS: INSULIN ASPART (*BKC) 100 UNITS/ML SUB-Q ×4 (00:06→23:56)
[2020-11-21] MEDS: methylPREDNISolone SOD SUCC 40 MG VIAL IV PUSH ×5 (00:07→23:56)
[2020-11-21 00:14] LABS: Glucose Point of Care 232 mg/dl (65-105)
[2020-11-21] MEDS: ALBUTEROL SULFATE NEB 2.5 MG/0.5 ML INH INHALATION ×4 (02:45→20:25)
[2020-11-21] MEDS: IPRATROPIUM BR 0.02% INH SOLN 0.5 MG/2.5 ML VIAL INHALATION ×4 (02:45→20:25)
[2020-11-21 04:42] LABS: Basophils Percent Auto 0.2 % (0.2-1.2); Hematocrit 30.7 % (37.0-47.0); Hemoglobin 9.1 g/dL (12.0-15.0); Immature Granulocyte Absolute 0.08 K/mm3 (0.00-0.031); Immature Granulocyte Percent A 1.2 % (0-0.5); Lymphocytes Absolute Auto 0.38 K/mm3 (0.9-3.2); Lymphocytes Percent Auto 5.9 % (18.3-44.2); Mean Corpuscular HGB Conc 29.6 g/dl (32-36); Mean Corpuscular Hemoglobin 26.6 pg (26-34); Mean Corpuscular Volume 89.8 fl (80-100); Mean Platelet Volume 12.4 fl (7.4-10.4); Monocytes Absolute Auto 0.3 K/mm3 (0.1-0.6); Monocytes Percent Auto 5.1 % (2.6-8.5); Neutrophils Absolute Auto 5.6 K/mm3 (1.3-6.7); Neutrophils Percent Auto 87.6 % (45.5-73.1); Platelet Count Result 91 k/mm3 (150-375); Red Blood Count 3.42 M/mm3 (4.2-5.4); Red Cell Distribution Width 16.6 % (11.5-14.5); White Blood Count 6.4 K/mm3 (4.5-10.0)
[2020-11-21 04:53] LABS: Alanine Aminotransferase 26 U/L (4-35); Albumin Level 3.6 g/dL (3.5-5.1); Alkaline Phosphatase 82 U/L (38-126); Anion Gap 8 mmol/L (8-16); Aspartate Amino Transferase 31 U/L (14-36); Bilirubin,Total 0.4 mg/dL (0.2-1.3); Blood Urea Nitrogen 56 mg/dL (7-17); Calcium 9.2 mg/dL (8.4-10.2); Carbon Dioxide 37 mmol/L (22-30); Chloride 91 mmol/L (98-107); Estimated CRCL calculation 94 ml/min; Estimated Glomerular Filt Rate > 60; Glucose 194 mg/dL (65-110); Magnesium 2.4 mg/dL (1.6-2.3); Sodium 136 mmol/L (137-145)
[2020-11-21] MEDS: LEVOTHYROXINE SODIUM INJ 100 MCG/5 ML VIAL 37.5 MCG IV PUSH (06:11)
[2020-11-21] MEDS: TOLNAFTATE 1% POWDER 45 GM BTL 1 APPLIC TOPICAL ×2 (08:48→20:28)
[2020-11-21] MEDS: FUROSEMIDE INJ 40 MG/4 ML VIAL IV PUSH ×2 (08:48→17:21)
[2020-11-21 09:42] LABS: Glucose Point of Care 184 mg/dl (65-105)
[2020-11-21 10:25] LABS: Alveolar/Arterial O2 Gradient 197.7 mmHg; Carboxyhemoglobin 0.9 % THb (0-2.0); Fractional Inspired Oxygen 45 %; HCO3 ABG 34.2 mEq/l (22.0-26.0); Methemoglobin ABG 0.3 %THb (0-1.5); Oxygen Content ABG 14.2 %vol (16.0-22.0); Oxygen Saturation ABG 93.8 % (95.0-100.0); Oxyhemoglobin 90.7 % THb (90.0-100.0); PCO2 ABG 49.9 mmHg (35.0-45.0); PO2 ABG 66.4 mmHg (80.0-100.0); PO2 FiO2 Ratio Arterial Blood 1.48 %; Reduced Hemoglobin 8.1 %THb (0-5.0); Total Hemoglobin 11.1 g/dL (12.0-18.0); pH ABG 7.454 (7.350-7.450)
[2020-11-21 10:26] LABS: Device NON-INVASIVE VENT; Modified Allen's Test Pass; Site Drawn RIGHT RADIAL
[2020-11-21 10:27] LABS: Non-Invasive Expiratory Pressure 8 CMH2O; Non-Invasive Inspiratory Pressure 24 CMH2O; Non-Invasive Vent Rate 24 /MIN
[2020-11-21 11:26] LABS: Vancomycin Trough 21.8 ug/mL (10.0-20.0)
[2020-11-21 11:45] LABS: Glucose Point of Care 223 mg/dl (65-105)
--- NOTE | 2020-11-21 14:46 | PM.IMPN ---
Progress Note: A&P Assessment and Plan (1) Acute respiratory failure with hypoxia and hypercapnia: Code(s): J96.01 - Acute respiratory failure with hypoxia; J96.02 - Acute respiratory failure with hypercapnia Status: Acute Assessment and Plan: STILL REQUIRING BIPAP ALTHOUGH FEELS MUCH BETTER TODAY IN THE MORNING acute hypercapnic respiratory failure along with hypoxic respiratory failure likely related to CHF and/or COPD exacerbation, could also be related to pneumonia - patient is on BiPAP, increase the IPAP to 24 this morning, ABGs much improved, patient likely lives had a pCO2 of 50s to 60s. patient may benefit from a BiPAP or trilogy at home - if ABGs look better, will give break from BiPAP. Patient will have to wear BiPAP at night - continue ceftriaxone and azithromycin - continue bronchodilators and steroids - patient being diuresed with Lasix - pulmonology has been consulted (2) Acute exacerbation of chronic obstructive pulmonary disease: Code(s): J44.1 - Chronic obstructive pulmonary disease with (acute) exacerbation Status: Acute Assessment and Plan: CONTINUE PRESENT MANAGEMENT will have patient switch between BiPAP and nasal cannula intermittently. BiPAP at night and while sleeping during the day (3) CAP (community acquired pneumonia): Code(s): J18.9 - Pneumonia, unspecified organism Status: Acute Assessment and Plan: continue antibiotics as above (4) Essential hypertension: Code(s): I10 - Essential (primary) hypertension Status: Chronic Assessment and Plan: blood pressures have been stable, continue to monitor (5) Hypothyroidism: Code(s): E03.9 - Hypothyroidism, unspecified Status: Chronic Assessment and Plan: continue levothyroxine (6) Type 2 diabetes mellitus: Code(s): E11.9 - Type 2 diabetes mellitus without complications Status: Acute Assessment and Plan: continue Accu-Cheks and sliding scale insulin - hemoglobin A1c 6.2 on this admission (7) Obesity hypoventilation syndrome: Code(s): E66.2 - Morbid (severe) obesity with alveolar hypoventilation Status: Acute Assessment and Plan: chronic (8) Obstructive sleep apnea: Code(s): G47.33 - Obstructive sleep apnea (adult) (pediatric) Status: Acute Assessment and Plan: chronic - patient to wear BiPAP at night (9) UTI (urinary tract infection): Code(s): N39.0 - Urinary tract infection, site not specified Status: Acute Assessment and Plan: UA reflective of UTI, cultures pending, continue ceftriaxone (10) DVT prophylaxis: Code(s): Z29.9 - Encounter for prophylactic measures, unspecified Status: Acute Assessment and Plan: continue Lovenox Additional Plan discussed with patient updated with her condition and plan of care. I answered all questions code status: Full code Critical care time spent: 31 minutes patient will be transferred to IMU This dictation may have been done utilizing a voice recognition system. Attempts have been made to correct errors. However, there may be uncorrected grammatical, spelling, and recognition errors present. Due to a high probability of clinically significant, life threatening deterioration, the patient required my highest level of preparedness to intervene emergently and I personally spent this critical care time directly and personally managing the patient. This critical care time included obtaining a history; examining the patient; pulse oximetry; ordering and review of studies; arranging urgent treatment with development of a management plan; evaluation of patient's response to treatment; frequent reassessment; and discussions with other providers. It was exclusive of separately billable procedures and treating other patients and teaching time. Please see Assessment and Plan section and the rest of the note for further
[2020-11-21 17:26] LABS: Glucose Point of Care 298 mg/dl (65-105)
[2020-11-21] MEDS: ENOXAPARIN 40 MG/0.4 ML SYRINGE SUB-Q (20:27)
[2020-11-21] MEDS: SODIUM CHLORIDE NASAL GEL 14.1 GM 1 APPLIC NASAL (20:28)
[2020-11-21 23:41] LABS: Glucose Point of Care 316 mg/dl (65-105)
[2020-11-22] VITALS (22 sets, daily range): BP systolic 133–157; BP diastolic 64–79; PULSE 74–117; RESP 18–26; TEMP 35.6–36.8; O2SAT 93–100
[2020-11-22 05:45] LABS: Glucose Point of Care 219 mg/dl (65-105)
[2020-11-22] MEDS: LEVOTHYROXINE SODIUM INJ 100 MCG/5 ML VIAL 37.5 MCG IV PUSH (05:49)
[2020-11-22] MEDS: INSULIN ASPART (*BKC) 100 UNITS/ML SUB-Q ×3 (05:49→18:39)
[2020-11-22] MEDS: methylPREDNISolone SOD SUCC 40 MG VIAL IV PUSH ×3 (05:49→18:40)
[2020-11-22] MEDS: TOLNAFTATE 1% POWDER 45 GM BTL 1 APPLIC TOPICAL ×2 (09:16→21:09)
[2020-11-22] MEDS: FUROSEMIDE INJ 40 MG/4 ML VIAL IV PUSH ×2 (09:16→18:39)
[2020-11-22] MEDS: ALBUTEROL SULFATE NEB 2.5 MG/0.5 ML INH INHALATION ×3 (09:18→20:11)
[2020-11-22] MEDS: IPRATROPIUM BR 0.02% INH SOLN 0.5 MG/2.5 ML VIAL INHALATION ×3 (09:19→20:11)
[2020-11-22 11:35] LABS: Glucose Point of Care 340 mg/dl (65-105)
[2020-11-22 18:22] LABS: Glucose Point of Care 235 mg/dl (65-105)
[2020-11-22] MEDS: SODIUM CHLORIDE NASAL GEL 14.1 GM 1 APPLIC NASAL (21:09)
[2020-11-22] MEDS: ENOXAPARIN 40 MG/0.4 ML SYRINGE SUB-Q (22:54)
[2020-11-22 23:54] LABS: Glucose Point of Care 334 mg/dl (65-105)
[2020-11-23] VITALS (27 sets, daily range): BP systolic 129–159; BP diastolic 54–66; PULSE 69–104; RESP 16–25; TEMP 35.8–37.1; O2SAT 92–100
[2020-11-23] MEDS: INSULIN ASPART (*BKC) 100 UNITS/ML SUB-Q ×4 (00:31→17:59)
[2020-11-23] MEDS: methylPREDNISolone SOD SUCC 40 MG VIAL IV PUSH ×2 (00:32→06:27)
[2020-11-23] MEDS: ALBUTEROL SULFATE NEB 2.5 MG/0.5 ML INH INHALATION ×4 (01:18→20:34)
[2020-11-23] MEDS: IPRATROPIUM BR 0.02% INH SOLN 0.5 MG/2.5 ML VIAL INHALATION ×4 (01:18→20:34)
[2020-11-23] MEDS: LEVOTHYROXINE SODIUM INJ 100 MCG/5 ML VIAL 37.5 MCG IV PUSH (06:27)
[2020-11-23 06:33] LABS: Glucose Point of Care 229 mg/dl (65-105)
[2020-11-23] MEDS: FUROSEMIDE INJ 40 MG/4 ML VIAL IV PUSH ×2 (09:20→17:58)
[2020-11-23] MEDS: TOLNAFTATE 1% POWDER 45 GM BTL 1 APPLIC TOPICAL ×2 (09:20→20:38)
--- NOTE | 2020-11-23 09:32 | PM.CNPUL ---
Assessment and Plan Assessment and plan (1) Chronic obstructive pulmonary disease: Code(s): J44.9 - Chronic obstructive pulmonary disease, unspecified Status: Acute Assessment and Plan: patient carries a diagnosis of COPD for 10 years and has a history of tobacco use at 42 pack years. Patient has chronic hypercarbic and hypoxemic respiratory failure and currently has a COPD exacerbation with possible pneumonia. Patient has been treated with Solu-Medrol since 11/18, albuterol and ipratropium nebulizers and currently states she is improved. She has no wheezes on exam. 11/23 Patient is day 6 of high-dose glucocorticoids and I will discontinue them today. I will initiate budesonide nebulizers 0.5 mg twice a day. I will continue albuterol 2.5 mg nebs a Q 6 hours and ipratropium 0.5 mg nebs q.6 hours. Patient is currently being treated with ceftriaxone and azithromycin for community-acquired pneumonia started on 11/18. blood cultures are negative and I will continue these antibiotics through 11/24 for a total of 7 days. Patient has chronic hypoxemic and hypercarbic respiratory failure. Patient's initial blood gas this presentation was 7.28/84/ 39 and presented with a serum bicarbonate of 38 on 11/18/2020. Patient has hypercarbic respiratory failure is related to COPD and obesity hypoventilation syndrome and she would benefit from BiPAP or noninvasive ventilation to prevent further deterioration and subsequent hospitalizations. Patient has difficulty with the current BiPAP settings and I have changed her to an AVAPS mode with a respiratory rate of 16, tidal volume 500, EPAP 8, minimal inspiratory pressure 9, maximal inspiratory pressure 25 inspiratory time 1.0 seconds, rise of 3 which is our middle setting, and 35%. I will check a blood gas in the morning prior to removing the noninvasive ventilation. will follow with you (2) Obesity hypoventilation syndrome: Code(s): E66.2 - Morbid (severe) obesity with alveolar hypoventilation Status: Acute Assessment and Plan: patient has obesity hypoventilation syndrome diagnosed from a sleep study on 12/11/2012 and she would benefit from noninvasive ventilation for this condition as well as her hypercarbic respiratory failure related to her COPD. I will initiate AVAPS on the above-mentioned settings tonight. (3) CHF (congestive heart failure): Qualifiers: Heart failure chronicity: acute on chronic Heart failure type: unspecified Qualified Code(s): I50.9 - Heart failure, unspecified Code(s): I50.9 - Heart failure, unspecified Status: Acute Assessment and Plan: Patient has a history of grade 2 diastolic dysfunction and severe pulmonary hypertension and is being diuresed per the hospitalist team. I agree with diuresis as aggressively as possible as tolerated by her renal and cardiac systems. 11/23 Cumulative minus 3585 on lasix 40 IV BID. History of Present Illness History of Present Illness Consult date: 11/23/20 Reason for consult: COPD Chief complaint: acute respiratory failure/copd exacerbation Narrative: 11/23/20 This is a new pulmonary consult for COPD, obesity hypoventilation syndrome, chronic hypoxemic and hypercarbic respiratory failure. 70-year-old woman with a history of morbid obesity, COPD for 10 years on home oxygen 2-3 L at night, obesity hypoventilation syndrome on CPAP with 2-3 L bleed in at night since 2016 ([employer], telephone [phone] is her [employer]), severe pulmonary hypertension with an estimated PA systolic pressure 57 on 11/20/2020, hypothyroidism, hypertension, diastolic congestive heart failure with grade 2 diastolic dysfunction and a left ventricular EF of 60-65 % on 11/20/2020 who presented on 11/18 with acute on chronic hypercarbic and hypoxemic respiratory failure. Patient tells me that she follows up with the grit removal operator Dr. Dennis Hoff at [place] and last saw him in July of
[2020-11-23 11:52] LABS: Glucose Point of Care 260 mg/dl (65-105)
--- NOTE | 2020-11-23 13:22 | PM.IMPN ---
Progress Note: A&P Assessment and Plan (1) Acute respiratory failure with hypoxia and hypercapnia: Code(s): J96.01 - Acute respiratory failure with hypoxia; J96.02 - Acute respiratory failure with hypercapnia Status: Acute Assessment and Plan: APPRECIATE PULMONOLOGY CONSULT FOLLOW-UP PULMONOLOGY RECS APPEARS IMPROVED STILL REQUIRING BIPAP ALTHOUGH FEELS MUCH BETTER TODAY IN THE MORNING acute hypercapnic respiratory failure along with hypoxic respiratory failure likely related to CHF and/or COPD exacerbation, could also be related to pneumonia - patient is on BiPAP, increase the IPAP to 24 this morning, ABGs much improved, patient likely lives had a pCO2 of 50s to 60s. patient may benefit from a BiPAP or trilogy at home - if ABGs look better, will give break from BiPAP. Patient will have to wear BiPAP at night - continue ceftriaxone and azithromycin - continue bronchodilators and steroids - patient being diuresed with Lasix (2) Acute exacerbation of chronic obstructive pulmonary disease: Code(s): J44.1 - Chronic obstructive pulmonary disease with (acute) exacerbation Status: Acute Assessment and Plan: CONTINUE PRESENT MANAGEMENT BREATHING TREATMENTS SYSTEMIC STEROIDS (3) CAP (community acquired pneumonia): Code(s): J18.9 - Pneumonia, unspecified organism Status: Acute Assessment and Plan: continue antibiotics (4) Essential hypertension: Code(s): I10 - Essential (primary) hypertension Status: Chronic Assessment and Plan: blood pressures have been stable, continue to monitor (5) Hypothyroidism: Code(s): E03.9 - Hypothyroidism, unspecified Status: Chronic Assessment and Plan: continue levothyroxine (6) Type 2 diabetes mellitus: Code(s): E11.9 - Type 2 diabetes mellitus without complications Status: Acute Assessment and Plan: continue Accu-Cheks and sliding scale insulin - hemoglobin A1c 6.2 on this admission (7) Obesity hypoventilation syndrome: Code(s): E66.2 - Morbid (severe) obesity with alveolar hypoventilation Status: Acute Assessment and Plan: chronic (8) Obstructive sleep apnea: Code(s): G47.33 - Obstructive sleep apnea (adult) (pediatric) Status: Acute Assessment and Plan: chronic - patient to wear BiPAP at night (9) UTI (urinary tract infection): Code(s): N39.0 - Urinary tract infection, site not specified Status: Acute Assessment and Plan: UA reflective of UTI, cultures pending, continue ceftriaxone (10) DVT prophylaxis: Code(s): Z29.9 - Encounter for prophylactic measures, unspecified Status: Acute Assessment and Plan: continue Lovenox Additional Plan PULMONOLOGY HAS BEEN CONSULTED This dictation may have been done utilizing a voice recognition system. Attempts have been made to correct errors. However, there may be uncorrected grammatical, spelling, and recognition errors present. Due to a high probability of clinically significant, life threatening deterioration, the patient required my highest level of preparedness to intervene emergently and I personally spent this critical care time directly and personally managing the patient. This critical care time included obtaining a history; examining the patient; pulse oximetry; ordering and review of studies; arranging urgent treatment with development of a management plan; evaluation of patient's response to treatment; frequent reassessment; and discussions with other providers. It was exclusive of separately billable procedures and treating other patients and teaching time. Please see Assessment and Plan section and the rest of the note for further information on patient assessment and treatment Subjective Date/time seen: 11/23/20 13:22 I FEEL BETTER Interval history: PATIENT STILL REQUIRING BIPAP AT NIGHTTIME Reason for consult: H
[2020-11-23] MEDS: FLUCONAZOLE 150 MG TABLET PO (15:29)
[2020-11-23 16:51] LABS: Glucose Point of Care 280 mg/dl (65-105)
[2020-11-23] MEDS: BUDESONIDE RESPULE NEB 0.5 MG/2 ML AMP INHALATION (20:34)
[2020-11-23] MEDS: ENOXAPARIN 40 MG/0.4 ML SYRINGE SUB-Q (20:38)
[2020-11-23] MEDS: SODIUM CHLORIDE NASAL GEL 14.1 GM 1 APPLIC NASAL (20:38)
[2020-11-24] VITALS (22 sets, daily range): BP systolic 132–160; BP diastolic 51–69; PULSE 74–107; RESP 18–29; TEMP 36.2–36.7; O2SAT 90–100
[2020-11-24] MEDS: IPRATROPIUM BR 0.02% INH SOLN 0.5 MG/2.5 ML VIAL INHALATION ×4 (03:30→22:09)
[2020-11-24] MEDS: ALBUTEROL SULFATE NEB 2.5 MG/0.5 ML INH INHALATION ×4 (03:30→22:09)
[2020-11-24 04:14] LABS: Glucose Point of Care 209 mg/dl (65-105)
[2020-11-24 05:13] LABS: Base Excess ABG 18.8 mEq/l (+/-2.0); Fractional Inspired Oxygen 35 %; HCO3 ABG 46.1 mEq/l (22.0-26.0); Oxygen Content ABG 14.1 %vol (16.0-22.0); Oxygen Saturation ABG 95.9 % (95.0-100.0); Oxyhemoglobin 95.1 % THb (90.0-100.0); PO2 ABG 81.7 mmHg (80.0-100.0); PO2 FiO2 Ratio Arterial Blood 2.33 %; Total Hemoglobin 10.5 g/dL (12.0-18.0); pH ABG 7.434 (7.350-7.450)
[2020-11-24 05:19] LABS: Device NON-INVASIVE VENT; Modified Allen's Test Pass; Non-Invasive Vent Rate 16 /MIN; PCO2 ABG 70.4 mmHg (35.0-45.0); Site Drawn RIGHT RADIAL
[2020-11-24 06:08] LABS: Blood Urea Nitrogen 34 mg/dL (7-17); Calcium 8.6 mg/dL (8.4-10.2); Carbon Dioxide > 40 mmol/L (22-30); Chloride 89 mmol/L (98-107); Estimated CRCL calculation 85 ml/min; Estimated Glomerular Filt Rate > 60; Glucose 144 mg/dL (65-110); Potassium 3.7 mmol/L (3.4-5.0); Sodium 136 mmol/L (137-145)
[2020-11-24] MEDS: LEVOTHYROXINE SODIUM INJ 100 MCG/5 ML VIAL 37.5 MCG IV PUSH (07:36)
--- NOTE | 2020-11-24 08:23 | PM.PNPUL ---
Progress Note: A&P Assessment and Plan (1) Chronic obstructive pulmonary disease: Code(s): J44.9 - Chronic obstructive pulmonary disease, unspecified Status: Acute Assessment and Plan: patient carries a diagnosis of COPD for 10 years and has a history of tobacco use at 42 pack years. Patient has chronic hypercarbic and hypoxemic respiratory failure and currently has a COPD exacerbation with possible pneumonia. Patient has been treated with Solu-Medrol since 11/18, albuterol and ipratropium nebulizers and currently states she is improved. She has no wheezes on exam. 11/23 Patient is day 6 of high-dose glucocorticoids and I will discontinue them today. I will initiate budesonide nebulizers 0.5 mg twice a day. I will continue albuterol 2.5 mg nebs a Q 6 hours and ipratropium 0.5 mg nebs q.6 hours. Patient is currently being treated with ceftriaxone and azithromycin for community-acquired pneumonia started on 11/18. blood cultures are negative and I will continue these antibiotics through 11/24 for a total of 7 days. Patient has chronic hypoxemic and hypercarbic respiratory failure. Patient's initial blood gas this presentation was 7.28/84/ 39 and presented with a serum bicarbonate of 38 on 11/18/2020. Patient has hypercarbic respiratory failure is related to COPD and obesity hypoventilation syndrome and she would benefit from BiPAP or noninvasive ventilation to prevent further deterioration and subsequent hospitalizations. Patient has difficulty with the current BiPAP settings and I have changed her to an AVAPS mode with a respiratory rate of 16, tidal volume 500, EPAP 8, minimal inspiratory pressure 9, maximal inspiratory pressure 25 inspiratory time 1.0 seconds, rise of 3 which is our middle setting, and 35%. I will check a blood gas in the morning prior to removing the noninvasive ventilation. 11/24 Patient continues to improve and today she tells me she is 50% back to her baseline. Patient is now on 5 L nasal cannula and saturations 94%. Patient wore her full face mask last night and slept intermittently and said that the noninvasive settings were fine. ON AVAPS mode with a respiratory rate of 16, tidal volume 500, EPAP 8, minimal inspiratory pressure 9, maximal inspiratory pressure 25 inspiratory time 1.0 seconds, rise of 3 which is our middle setting, and 35% She had a blood gas at the end of the night with a pH of 7.43/70/82. Finished 6 days of azithro and will DC today. Day 6 of ceftriaxone will DC after today dose. I will perform overnight oximetry on 30% tonight. Will follow with you (2) Obesity hypoventilation syndrome: Code(s): E66.2 - Morbid (severe) obesity with alveolar hypoventilation Status: Acute Assessment and Plan: patient has COPD and obesity hypoventilation syndrome diagnosed from a sleep study on 12/11/2012 and she would benefit from noninvasive ventilation for this condition as well as her hypercarbic respiratory failure related to her COPD. I will initiate AVAPS on the above-mentioned settings. Encouraged weight loss. (3) CHF (congestive heart failure): Qualifiers: Heart failure chronicity: acute on chronic Heart failure type: unspecified Qualified Code(s): I50.9 - Heart failure, unspecified Code(s): I50.9 - Heart failure, unspecified Status: Acute Assessment and Plan: Patient has a history of grade 2 diastolic dysfunction and severe pulmonary hypertension and is being diuresed per the hospitalist team. I agree with diuresis as aggressively as possible as tolerated by her renal and cardiac systems. 11/23 Cumulative minus 3585 on lasix 40 IV BID. 11/23 Cumulative minus 6005 on lasix 40 IV BID. Subjective Date/time seen: 11/24/20 08:23 Interval history: Narrative: 11/23/20 This is a new pulmonary consult for COPD, obesity hypoventilation syndrome, chronic hypoxemic and hypercarbic respiratory failure. 70-year-old woman with a history
[2020-11-24] MEDS: BUDESONIDE RESPULE NEB 0.5 MG/2 ML AMP INHALATION ×2 (08:47→22:09)
[2020-11-24] MEDS: TOLNAFTATE 1% POWDER 45 GM BTL 1 APPLIC TOPICAL ×2 (10:30→20:55)
[2020-11-24] MEDS: FUROSEMIDE INJ 40 MG/4 ML VIAL IV PUSH ×2 (10:30→17:03)
[2020-11-24 11:36] LABS: Glucose Point of Care 293 mg/dl (65-105)
[2020-11-24] MEDS: INSULIN ASPART (*BKC) 100 UNITS/ML SUB-Q ×2 (11:43→17:03)
--- NOTE | 2020-11-24 12:57 | PM.IMPN ---
Progress Note: A&P Assessment and Plan (1) Acute respiratory failure with hypoxia and hypercapnia: Code(s): J96.01 - Acute respiratory failure with hypoxia; J96.02 - Acute respiratory failure with hypercapnia Status: Acute Assessment and Plan: Patietn with acute hypercapnic and hypoxic respiratory failure related to CHF and/or COPD exacerbation and/or pneumonia. ABG on admission 7./39 on 10L. She was treated with BiPAP and settings adjusted. Treated with lasix, steroids, nebs and abx. ABG today 7./82. Steroids stopped. Weaned to 5L O2. Continue current treatment plant otherwise. Wean O2 as toelrated. Appreciate pulmonary input. PT/OT (2) Acute exacerbation of chronic obstructive pulmonary disease: Code(s): J44.1 - Chronic obstructive pulmonary disease with (acute) exacerbation Status: Acute Assessment and Plan: Clinically improved. Patient still with productive cough. Being treated for pneumonia / bronchitis. Start PT OT. Appreciate Pulmonary input. Continue nebulizer treatments. Steroids stopped 11/23/2020. Continue to follow. Wean oxygen as tolerated. (3) CAP (community acquired pneumonia): Code(s): J18.9 - Pneumonia, unspecified organism Status: Acute Assessment and Plan: CT of the chest was negative for pulmonary embolism and more consistent with CHF but cannot exclude pneumonia. BCx remain negative. Patient is having a productive cough with difficulty expectorating. Continue Pulmicort. Will add Pulmozyme for harman so to see if this helps. She has completed azithromycin. Continue Rocephin and vancomycin for now. (4) Essential hypertension: Code(s): I10 - Essential (primary) hypertension Status: Chronic Assessment and Plan: Patient's blood pressure was reviewed on 11/24 Blood pressure remains reasonably well controlled. Will resume some of her home medicatins. Monitor closely (5) Hypothyroidism: Code(s): E03.9 - Hypothyroidism, unspecified Status: Chronic Assessment and Plan: Stable. Continue levothyroxine. Change to oral route. (6) Type 2 diabetes mellitus: Code(s): E11.9 - Type 2 diabetes mellitus without complications Status: Acute Assessment and Plan: A1c 6.2. The patient's blood glucose was reviewed on 11/24. Glucose remains poorly controlled. Related to steroids. Steroids were stopped 11/23. Continue AccuCheks covering with sliding scale. Hypoglycemia protocol available as needed. Continue current medications. (7) Obesity hypoventilation syndrome: Code(s): E66.2 - Morbid (severe) obesity with alveolar hypoventilation Status: Acute Assessment and Plan: Chronic. As above (8) Obstructive sleep apnea: Code(s): G47.33 - Obstructive sleep apnea (adult) (pediatric) Status: Acute Assessment and Plan: Chronic. Patient wears CPAP at night with nasal pillows at home. As above (9) UTI (urinary tract infection): Code(s): N39.0 - Urinary tract infection, site not specified Status: Acute Assessment and Plan: UA reflective of UTI. urine culture growing Enterococcus sensitive to vancomycin. Continue the same. Family requesting urology consult since this is her 5th UTI since July. Will consult urology. (10) DVT prophylaxis: Code(s): Z29.9 - Encounter for prophylactic measures, unspecified Status: Acute Assessment and Plan: Lovenox Additional Plan Tinea corporis - nape of the neck being treated as fungal infection. Will monitor for improvement. Consider antibacterial cream if no improvement in 1-2 days Subjective Date/time seen: 11/24/20 12:57 Interval history: 70yo female with morbid obesity, COPD for 10 years on home oxygen 2-3 L, obesity hypoventilation syndrome on CPAP with 2-3 L bleed in at night since 2016, severe pulmonary HTN (PASP 57mmHg), dCHF who presents on
[2020-11-24] MEDS: METOPROLOL SUCCINATE EXT REL 50 MG TABCR PO (16:12)
--- NOTE | 2020-11-24 16:14 | WPDURCON ---
Assessment and Plan Assessment and plan (1) UTI (urinary tract infection): Code(s): N39.0 - Urinary tract infection, site not specified Status: Acute Assessment and Plan: Continue IV therapy with Vancomycin. No need to repeat her urine culture as she is asymptomatic at this time after being on treatment for a sufficient amount of time. (2) Chronic lower urinary tract infection: Code(s): N39.0 - Urinary tract infection, site not specified Status: Acute Assessment and Plan: Would recommend a ANDREAS of her kidneys and bladder, then to follow up in the office with Dr. Morataya for a cystoscope to further evaluate. Unclear as to what is causing her infections but necessary to rule out stones, lesions or strictures, incomplete emptying. Will also recommend a bladder scan post void to rule out retention. Urology Consult Note HPI Date Seen: 11/24/20 Requesting Physician: Yair Jorgensen MD Primary Care Provider: DIRECTOR PUBLIC SERVICE PHYSICIAN Consult Narrative Narrative: Radha Burns is a 70 year old female who presented to the ER initially 6 days ago for SOB. She normally wears O2 at home. While here she was diagnosed with a UTI, after noticing her UA was abnormal her urine culture was sent off and confirmed Enterococcus growth. She is currently being treated with Vancomycin which is culture sensitive. She also had a positive urine culture last November in the [facility] system on 12/09/2019 which grew Klebsiella. According to her chart, her family is requesting that we see her d/t chronic UTI's. It was reported that she has had more than 4 infections since July, however it is unclear where these have been treated or if there were other positive urine cultures. She states that during infections she has dysuria, frequency hematuria, but denies flank pain, abdominal pain or fevers. Her creatinine is 0.80, she is tachypneic and tachycardic. She states she has not had any imaging of her abdomen at any other locations and there has been no imaging done at this hospital recently. Review of Systems Cardiovascular: Cardiovascular: Denies chest pain Respiratory: Respiratory: Reports dyspnea Gastrointestinal: Gastrointestinal: Denies abdominal pain, Denies nausea and Denies vomiting Genitourinary: Genitourinary: Denies hematuria, Denies dysuria, Denies flank pain and Denies urinary urgency [facility] Past Medical History Medical History (Updated 11/24/20 @ 16:20 by Sejal Banerjee APRN) Chronic obstructive pulmonary disease Chronic respiratory failure with hypoxia, on home oxygen therapy Depression Diastolic congestive heart failure echocardiogram in November 2018 showed normal left ventricular size and function with moderate concentric left ventricular hypertrophy, impaired diastolic relaxation grade 1, ejection fraction of 65%, an estimated peak RVSP of 47 mmHg. Dyslipidemia Essential hypertension Hypothyroidism Morbid obesity Obesity hypoventilation syndrome Obstructive sleep apnea I believe she is on BiPAP at nighttime. Stage I adenocarcinoma of endometrium Considered inoperable given her comorbidities, however nurse charted that she had indeed had a hysterectomy. This cannot be confirmed with the patient at this time. Status post HDR brachytherapy time 6 fractions. Type 2 diabetes mellitus Surgical History Surgical History History of dilation and curettage History of tubal ligation Family History Family History Father Patient's father is Hypertension Cerebrovascular accident Acute myocardial infarction Mother Family history of diabetes mellitus in first degree relative Hypertension Hypothyroid Sibling Patient's brother is in good health Patient's sister is in good health Social History Social History Social Histor
[2020-11-24 17:54] LABS: Glucose Point of Care 225 mg/dl (65-105)
[2020-11-24] MEDS: ENOXAPARIN 40 MG/0.4 ML SYRINGE SUB-Q (20:55)
[2020-11-24] MEDS: SODIUM CHLORIDE NASAL GEL 14.1 GM 1 APPLIC NASAL (20:55)
[2020-11-24 21:30] LABS: Glucose Point of Care 218 mg/dl (65-105)
[2020-11-24 23:36] LABS: Vancomycin Trough 9.9 ug/mL (10.0-20.0)
[2020-11-25] VITALS (21 sets, daily range): BP systolic 101–145; BP diastolic 48–72; PULSE 76–100; RESP 18–23; TEMP 36.2–36.7; O2SAT 90–97
[2020-11-25] MEDS: LEVOTHYROXINE SODIUM 75 MCG TABLET PO (05:59)
[2020-11-25 07:14] LABS: Hematocrit 33.1 % (37.0-47.0); Mean Corpuscular HGB Conc 30.2 g/dl (32-36); Mean Corpuscular Hemoglobin 26.2 pg (26-34); Mean Corpuscular Volume 86.9 fl (80-100); Mean Platelet Volume 12.2 fl (7.4-10.4); Platelet Count Result 96 k/mm3 (150-375); Red Blood Count 3.81 M/mm3 (4.2-5.4); Red Cell Distribution Width 15.9 % (11.5-14.5); White Blood Count 7.5 K/mm3 (4.5-10.0)
[2020-11-25 07:36] LABS: Albumin Level 3.4 g/dL (3.5-5.1); Blood Urea Nitrogen 22 mg/dL (7-17); Calcium 8.5 mg/dL (8.4-10.2); Carbon Dioxide > 40 mmol/L (22-30); Chloride 89 mmol/L (98-107); Estimated CRCL calculation 131 ml/min; Estimated Glomerular Filt Rate > 60; Glucose 141 mg/dL (65-110); Phosphorus 3.3 mg/dL (2.5-4.5); Potassium 3.8 mmol/L (3.4-5.0); Sodium 135 mmol/L (137-145)
[2020-11-25] MEDS: ALBUTEROL SULFATE NEB 2.5 MG/0.5 ML INH INHALATION ×3 (09:22→20:38)
[2020-11-25] MEDS: BUDESONIDE RESPULE NEB 0.5 MG/2 ML AMP INHALATION ×2 (09:23→20:39)
[2020-11-25] MEDS: IPRATROPIUM BR 0.02% INH SOLN 0.5 MG/2.5 ML VIAL INHALATION ×3 (09:23→20:39)
[2020-11-25 09:26] LABS: Glucose Point of Care 134 mg/dl (65-105)
--- NOTE | 2020-11-25 09:50 | PM.PNPUL ---
Progress Note: A&P Assessment and Plan (1) Chronic obstructive pulmonary disease: Code(s): J44.9 - Chronic obstructive pulmonary disease, unspecified Status: Acute Assessment and Plan: patient carries a diagnosis of COPD for 10 years and has a history of tobacco use at 42 pack years. Patient has chronic hypercarbic and hypoxemic respiratory failure and currently has a COPD exacerbation with possible pneumonia. Patient has been treated with Solu-Medrol since 11/18, albuterol and ipratropium nebulizers and currently states she is improved. She has no wheezes on exam. 11/23 Patient is day 6 of high-dose glucocorticoids and I will discontinue them today. I will initiate budesonide nebulizers 0.5 mg twice a day. I will continue albuterol 2.5 mg nebs a Q 6 hours and ipratropium 0.5 mg nebs q.6 hours. Patient is currently being treated with ceftriaxone and azithromycin for community-acquired pneumonia started on 11/18. blood cultures are negative and I will continue these antibiotics through 11/24 for a total of 7 days. Patient has chronic hypoxemic and hypercarbic respiratory failure. Patient's initial blood gas this presentation was 7.28/84/ 39 and presented with a serum bicarbonate of 38 on 11/18/2020. Patient has hypercarbic respiratory failure is related to COPD and obesity hypoventilation syndrome and she would benefit from BiPAP or noninvasive ventilation to prevent further deterioration and subsequent hospitalizations. Patient has difficulty with the current BiPAP settings and I have changed her to an AVAPS mode with a respiratory rate of 16, tidal volume 500, EPAP 8, minimal inspiratory pressure 9, maximal inspiratory pressure 25 inspiratory time 1.0 seconds, rise of 3 which is our middle setting, and 35%. I will check a blood gas in the morning prior to removing the noninvasive ventilation. 11/24 Patient continues to improve and today she tells me she is 50% back to her baseline. Patient is now on 5 L nasal cannula and saturations 94%. Patient wore her full face mask last night and slept intermittently and said that the noninvasive settings were fine. ON AVAPS mode with a respiratory rate of 16, tidal volume 500, EPAP 8, minimal inspiratory pressure 9, maximal inspiratory pressure 25 inspiratory time 1.0 seconds, rise of 3 which is our middle setting, and 35% She had a blood gas at the end of the night with a pH of 7.43/70/82. Finished 6 days of azithro and will DC today. Day 6 of ceftriaxone will DC after today dose. I will perform overnight oximetry on 30% tonight. 11/25 Patient continues to improve. Currently she is on 3 L nasal cannula with saturations 93%. Tolerated AVAPS mode with a respiratory rate of 16, tidal volume 500, EPAP 8, minimal inspiratory pressure 9, maximal inspiratory pressure 25 inspiratory time 1.0 seconds, rise of 3 which is our middle setting, and 30%. patient had an overnight oximetry on these settings which demonstrated a average saturation 91%, lowest saturation 78% time with saturation less than or equal to 88% was 24 minutes. Finished antibiotics. Patient suitable for discharge to skilled facility from pulmonary perspective on these pulmonary medications: Beta agonist, muscarinic antagonist and inhaled corticosteroids that insurance will cover (Trelegy 200/62.5/24 at 1 puffs Q day or Breztri 160/9/4.8 at 2 puffs BID) Rescue albuterol 2 puffs q.4 hours p.r.n. shortness of breath or wheezing. Oxygen at rest and with ambulation per assessment at skilled facility. Noninvasive ventilation with AVAPS mode with a respiratory rate of 16, tidal volume 500, Expiratory pressure min 9, expiratory pressure max 15, minimal pressure support 9, maximal pressure support 25, inspiratory time 1.0 seconds, rise of 3, and 4 L bleed in. Follow up inpulmonary clinic in 2-3 weeks. I agve her our business card and informed our speech communication professor. Will sign off. Discussed with Dr. Herbert. Call with questions (2) Obesity hypov
[2020-11-25] MEDS: FUROSEMIDE INJ 40 MG/4 ML VIAL IV PUSH (10:20)
[2020-11-25] MEDS: METOPROLOL SUCCINATE EXT REL 50 MG TABCR PO (10:20)
[2020-11-25] MEDS: MULTIVITAMINS /C LUTEIN (CENTRUM SILVER) TABLET *BKC 1 TAB PO (10:20)
[2020-11-25] MEDS: TOLNAFTATE 1% POWDER 45 GM BTL 1 APPLIC TOPICAL ×2 (10:21→21:38)
--- NOTE | 2020-11-25 10:38 | PCRCNOTE ---
Arrangements for Trilogy pending with [facility]. Will also require approval for use at [facility].
--- NOTE | 2020-11-25 11:19 | PCPTNOTE ---
Attempted to see patient for PT, however unable to due to patient leaving room for testing.
[2020-11-25 12:49] LABS: Glucose Point of Care 186 mg/dl (65-105)
[2020-11-25] MEDS: acetaZOLAMIDE SODIUM FOR INJ 500 MG VIAL 250 MG IV PUSH (13:06)
[2020-11-25] MEDS: FUROSEMIDE 40 MG TABLET PO ×2 (13:06→17:12)
--- NOTE | 2020-11-25 13:47 | WPDUROPN2 ---
Progress Note: A&P Assessment and Plan (1) Chronic lower urinary tract infection: Code(s): N39.0 - Urinary tract infection, site not specified Status: Acute Assessment and Plan: ANDREAS is normal. The other urine cultures were confirmed to be done at [facility] by her PCP in between this infection and the one in 12/2019 noted in the hospital system. We will have her do a voiding trial prior to discharge to remove her guallpa. She will start daily Keflex to prevent new UTI's, after finishing treatment of her current infection. She will need to follow up with Dr. Morataya in the office for a cysto when she is discharged. Subjective Subjective Date/Time Seen: 11/25/20 13:47 Urine culture grew Enterococcus on 11/18/2020. She has a guallpa catheter in at this time draining clear yellow urine. Her ANDREAS is normal from yesterday. Patient sitting up in her chair and doing well. Review of Systems Cardiovascular: Cardiovascular: Denies chest pain Respiratory: Respiratory: Reports dyspnea Gastrointestinal: Gastrointestinal: Denies abdominal pain, Denies nausea and Denies vomiting Genitourinary: Genitourinary: Denies hematuria Exam Resp: Effort & Inspection: labored Cardio: Rate: tachycardic GI: GI Palp: Yes Soft to palpation and No Tenderness to palpation present (GI) : General: Yes no CVA tenderness Urinary Catheter: Urinary Catheter: patent and draining and urine clear Extrem: General: edema bilateral Objective Data Vital Signs Vital Signs: Vital Signs - 24 hr 11/24/20 14:00 11/24/20 14:23 11/24/20 14:34 Temperature Pulse Rate 98 101 H 74 Respiratory Rate 20 18 Blood Pressure Pulse Oximetry 11/24/20 15:02 11/24/20 16:00 11/24/20 18:00 Temperature 97.5 F L Pulse Rate 99 92 95 Respiratory Rate 29 H 24 H Blood Pressure 151/65 H Pulse Oximetry 100 97 11/24/20 20:00 11/24/20 22:00 11/24/20 22:20 Temperature 97.9 F Pulse Rate 92 89 90 Respiratory Rate 20 22 H Blood Pressure 143/67 H Pulse Oximetry 96 97 11/25/20 00:00 11/25/20 02:00 11/25/20 04:00 Temperature 97.8 F 97.9 F Pulse Rate 86 80 77 Respiratory Rate 20 20 20 Blood Pressure 145/52 H 140/67 Pulse Oximetry 97 91 97 11/25/20 05:17 11/25/20 06:00 11/25/20 08:00 Temperature 97.1 F L Pulse Rate 79 76 84 Respiratory Rate 23 H 18 Blood Pressure 130/59 L Pulse Oximetry 91 95 11/25/20 09:23 11/25/20 09:35 11/25/20 12:00 Temperature 97.3 F L Pulse Rate 98 92 100 Respiratory Rate 20 20 22 H Blood Pressure 127/48 L Pulse Oximetry 95 95 96 Intake/Output Intake/Output: Intake & Output 11/22/20 11/23/20 11/24/20 11/25/20 23:59 23:59 23:59 23:59 Intake Total 2620 1280 2470 940 Output Total 4571 2200 4056 1300 [facility] -[phone] Meds/Results Medications: Active Medications Generic Name Dose Route Start Last Admin Trade Name Freq PRN Reason Stop Dose Admin Albuterol 2.5 mg 11/19/20 02:00 11/25/20 12:11 Albuterol Sulfate Neb 2.5 Mg/0.5 Ml Inh INHALATION Not Given Q6HRT NIKHIL Budesonide 0.5 mg 11/23/20 20:00 11/25/20 09:23 Budesonide Respule Neb 0.5 Mg/2 Ml Amp INHALATION 0.5 mg Q12HRT NIKHIL Administration Calcium Carbonate 500 mg 11/25/20 09:00 11/25/20 10:20 Calcium/Vitamin D 500 Mg Tablet PO 12/25/20 09:01 500 mg DAILY NIKHIL Administration Dextrose 12.5 gm 11/18/20 20:42 Dextrose 50% 25 Gm/50 Ml Syringe IV PUSH PRN PRN Hypoglycemia Protocol Enoxaparin Sodium 40 mg 11/18/20 21:00 11/24/20 20:55 Enoxaparin 40 Mg/0.4 Ml Syringe SUB-Q 40 mg Q24H NIKHIL Administration Furosemide 40 mg 11/25/20 11:00 11/25/20 13:06 Furosemide 40 Mg Tablet PO 40 mg BID NIKHIL Administration Glucagon 1 mg 11/18/20 20:42 Glucagon For Inj 1 Mg Vial IM PRN PRN Hypoglycemia Protocol Glucose 15 gm 11/18/20 20:42 Glucose Oral Gel 15 Gm Of Glucse In 37.5 Gm Tube PO PRN PRN Hypoglycemia
--- NOTE | 2020-11-25 14:29 | PM.IMPN ---
Progress Note: A&P Assessment and Plan (1) Acute respiratory failure with hypoxia and hypercapnia: Code(s): J96.01 - Acute respiratory failure with hypoxia; J96.02 - Acute respiratory failure with hypercapnia Status: Acute Assessment and Plan: Patietn with acute hypercapnic and hypoxic respiratory failure related to CHF and/or COPD exacerbation and/or pneumonia. ABG on admission 783/39 on 10L. She was treated with BiPAP and settings adjusted. Treated with lasix, steroids, nebs and abx. ABG today /82. Steroids stopped. Weaned to 3L O2. Continue current treatment plant otherwise. Back to baseline home O2 requirement. Appreciate pulmonary input. Awaiting placement (2) Acute exacerbation of chronic obstructive pulmonary disease: Code(s): J44.1 - Chronic obstructive pulmonary disease with (acute) exacerbation Status: Acute Assessment and Plan: Clinically improved. Patient still with productive cough. Being treated for pneumonia / bronchitis. Contnue PT/OT. Appreciate Pulmonary input. Continue nebulizer treatments. Steroids stopped 11/23/2020. Continue to follow. Back to baseline O2 requirement (3) CAP (community acquired pneumonia): Code(s): J18.9 - Pneumonia, unspecified organism Status: Acute Assessment and Plan: CT of the chest was negative for pulmonary embolism and more consistent with CHF but cannot exclude pneumonia. BCx remain negative. Patient is having a productive cough with difficulty expectorating. Continue Pulmicort. She has completed azithromycin. Last day for Rocephin and vancomycin. (4) Essential hypertension: Code(s): I10 - Essential (primary) hypertension Status: Chronic Assessment and Plan: Patient's blood pressure was reviewed on 11/25 Blood pressure remains reasonably well controlled. Will continue current medications. Monitor closely (5) Hypothyroidism: Code(s): E03.9 - Hypothyroidism, unspecified Status: Chronic Assessment and Plan: Stable. Continue levothyroxine. Check TSH (6) Type 2 diabetes mellitus: Code(s): E11.9 - Type 2 diabetes mellitus without complications Status: Acute Assessment and Plan: A1c 6.2. The patient's blood glucose was reviewed on 11/25 Glucose better controlled. Related to steroids but steroids were stopped 11/23. Continue AccuCheks covering with sliding scale. Hypoglycemia protocol available as needed. Continue current medications. (7) Obesity hypoventilation syndrome: Code(s): E66.2 - Morbid (severe) obesity with alveolar hypoventilation Status: Acute Assessment and Plan: Chronic. As above (8) Obstructive sleep apnea: Code(s): G47.33 - Obstructive sleep apnea (adult) (pediatric) Status: Acute Assessment and Plan: Chronic. Patient wears CPAP at night with nasal pillows at home. Plan for discharge with BiPAP now. As above (9) UTI (urinary tract infection): Code(s): N39.0 - Urinary tract infection, site not specified Status: Acute Assessment and Plan: UA reflective of UTI. urine culture growing Enterococcus sensitive to vancomycin. Continue the same. Urology consulted since this is her 5th UTI since July. She is on her last day of Vancomycin. Renal US showing no acute process. Remove Jolly. Appreciate Urology input (10) Thrombocytopenia: Code(s): D69.6 - Thrombocytopenia, unspecified Status: Acute Assessment and Plan: Platelet count low but stable in the 90K range. Appears to be chronic and noted last year. Etiology unclear. Could be ITP possibly. Follow for now (11) DVT prophylaxis: Code(s): Z29.9 - Encounter for prophylactic measures, unspecified Status: Acute Assessment and Plan: Lovenox held due to low plt count Additional Plan Tinea corporis - nape of the neck being treated as fungal infec
[2020-11-25] MEDS: WATER, STERILE FOR INJECTION 10 ML VIAL XX (14:30)
--- NOTE | 2020-11-25 14:31 | PCDIET ---
Weekly nutritional screen. Patient is tolerating current diet with adequate intake. Reports fluctuating appetite but unaware of any weight loss. No nutritional needs at this time.
[2020-11-25 16:49] LABS: Glucose Point of Care 257 mg/dl (65-105)
[2020-11-25] MEDS: INSULIN ASPART (*BKC) 100 UNITS/ML SUB-Q (17:12)
[2020-11-25 20:21] LABS: Glucose Point of Care 236 mg/dl (65-105)
[2020-11-25] MEDS: SODIUM CHLORIDE NASAL GEL 14.1 GM 1 APPLIC NASAL (21:37)
[2020-11-26] VITALS (20 sets, daily range): BP systolic 119–138; BP diastolic 45–61; PULSE 74–92; RESP 16–24; TEMP 36.2–36.8; O2SAT 93–100
[2020-11-26] MEDS: IPRATROPIUM BR 0.02% INH SOLN 0.5 MG/2.5 ML VIAL INHALATION ×3 (02:23→13:03)
[2020-11-26] MEDS: ALBUTEROL SULFATE NEB 2.5 MG/0.5 ML INH INHALATION ×3 (02:23→13:03)
[2020-11-26 05:28] LABS: Blood Urea Nitrogen 21 mg/dL (7-17); Calcium 8.7 mg/dL (8.4-10.2); Carbon Dioxide > 40 mmol/L (22-30); Chloride 90 mmol/L (98-107); Estimated CRCL calculation 85 ml/min; Estimated Glomerular Filt Rate > 60; Glucose 150 mg/dL (65-110); Potassium 3.5 mmol/L (3.4-5.0); Sodium 137 mmol/L (137-145)
[2020-11-26] MEDS: LEVOTHYROXINE SODIUM 75 MCG TABLET PO (06:03)
[2020-11-26] MEDS: BUDESONIDE RESPULE NEB 0.5 MG/2 ML AMP INHALATION (07:38)
[2020-11-26 08:00] LABS: Glucose Point of Care 151 mg/dl (65-105)
[2020-11-26] MEDS: acetaZOLAMIDE SODIUM FOR INJ 500 MG VIAL 250 MG IV PUSH (08:17)
[2020-11-26] MEDS: MULTIVITAMINS /C LUTEIN (CENTRUM SILVER) TABLET *BKC 1 TAB PO (08:21)
[2020-11-26] MEDS: METOPROLOL SUCCINATE EXT REL 50 MG TABCR PO (08:21)
[2020-11-26] MEDS: FUROSEMIDE 40 MG TABLET PO ×2 (08:22→16:32)
[2020-11-26] MEDS: TOLNAFTATE 1% POWDER 45 GM BTL 1 APPLIC TOPICAL ×2 (08:22→20:20)
[2020-11-26 12:31] LABS: Glucose Point of Care 192 mg/dl (65-105)
--- NOTE | 2020-11-26 14:41 | PM.IMPN ---
Progress Note: A&P Assessment and Plan (1) Acute respiratory failure with hypoxia and hypercapnia: Code(s): J96.01 - Acute respiratory failure with hypoxia; J96.02 - Acute respiratory failure with hypercapnia Status: Acute Assessment and Plan: Patient with acute hypercapnic and hypoxic respiratory failure related to CHF and/or COPD exacerbation and/or pneumonia. ABG on admission /39 on 10L. She was treated with BiPAP and settings adjusted; plan for discharge on AVAPS. Treated with lasix IV, steroids, nebs and abx. ABG today .. Steroids stopped. Continue current treatment plant otherwise. Back to baseline home O2 requirement. Appreciate pulmonary input. Awaiting placement (2) Acute exacerbation of chronic obstructive pulmonary disease: Code(s): J44.1 - Chronic obstructive pulmonary disease with (acute) exacerbation Status: Acute Assessment and Plan: Clinically improved. She is feeling back to herself. Was treated for pneumonia / bronchitis as well. Steroids stopped 11/23/2020. Back to baseline O2 requirement. Continue to follow. Continue nebulizer treatments. Continue PT/OT. Appreciate Pulmonary input. (3) CAP (community acquired pneumonia): Code(s): J18.9 - Pneumonia, unspecified organism Status: Acute Assessment and Plan: CT of the chest was negative for pulmonary embolism and more consistent with CHF but cannot exclude pneumonia. BCx remain negative. Continue Pulmicort. She has completed azithromycin, Rocephin and vancomycin. Check CXR in 1 month to ensure clearance. (4) Essential hypertension: Code(s): I10 - Essential (primary) hypertension Status: Chronic Assessment and Plan: Patient's blood pressure was reviewed on 11/26 Blood pressure remains reasonably well controlled. Will continue current medications. Monitor closely (5) Hypothyroidism: Code(s): E03.9 - Hypothyroidism, unspecified Status: Chronic Assessment and Plan: Stable. Continue levothyroxine. Check TSH. (6) Type 2 diabetes mellitus: Code(s): E11.9 - Type 2 diabetes mellitus without complications Status: Acute Assessment and Plan: A1c 6.2. The patient's blood glucose was reviewed on 11/26 Glucose better controlled. Related to steroids but steroids were stopped 11/23. Continue AccuCheks covering with sliding scale. Hypoglycemia protocol available as needed. (7) Obesity hypoventilation syndrome: Code(s): E66.2 - Morbid (severe) obesity with alveolar hypoventilation Status: Acute Assessment and Plan: Chronic. As above (8) Obstructive sleep apnea: Code(s): G47.33 - Obstructive sleep apnea (adult) (pediatric) Status: Acute Assessment and Plan: Chronic. Patient wears CPAP at night with nasal pillows at home. Wearing AVAPS here with plan for discharge with AVAPS now. As above (9) UTI (urinary tract infection): Code(s): N39.0 - Urinary tract infection, site not specified Status: Acute Assessment and Plan: UA reflective of UTI. Urine culture growing Enterococcus sensitive to vancomycin. Urology consulted since this is her 5th UTI since July. She completed a course of Vancomycin. Renal US showing no acute process. Jolly removed. Appreciate Urology input (10) Thrombocytopenia: Code(s): D69.6 - Thrombocytopenia, unspecified Status: Acute Assessment and Plan: Platelet count low but stable in the 90K range. Appears to be chronic and noted last year. Etiology unclear. Could be ITP possibly. Follow intermittently for now (11) DVT prophylaxis: Code(s): Z29.9 - Encounter for prophylactic measures, unspecified Status: Acute Assessment and Plan: Doppler showing patent bilateral lower extremity veins. No evidence of deep venous thrombosis. Lovenox held due to low plt count; SCD added Subjec
--- NOTE | 2020-11-26 15:50 | PC.NURSE ---
Pt will be transferred to med surg starting 1509 on 11/26/20. Waiting on bed.
[2020-11-26 16:18] LABS: Glucose Point of Care 217 mg/dl (65-105)
[2020-11-26] MEDS: INSULIN ASPART (*BKC) 100 UNITS/ML SUB-Q (16:32)
--- NOTE | 2020-11-26 18:41 | PC.NURSE ---
This patient, Radha Burns, was transferred to [facility] on 11/26/20 at 1850. Personal belongings sent with patient. Report given to Jaqueline. Appropriate documentation sent with patient.
--- NOTE | 2020-11-26 18:56 | PC.NURSE ---
This patient, Radha Burns, was received from IMU on 11/26/20 at 1856. Patient/family oriented to unit policies and routines
[2020-11-26] MEDS: SODIUM CHLORIDE NASAL GEL 14.1 GM 1 APPLIC NASAL (20:20)
[2020-11-26 20:24] LABS: Glucose Point of Care 261 mg/dl (65-105)
--- NOTE | 2020-11-26 23:53 | PCRCNOTE ---
Window of time for administration has passed. See next scheduled administration.
[2020-11-27] VITALS (17 sets, daily range): BP systolic 119–125; BP diastolic 50; PULSE 77–90; RESP 16–20; TEMP 36.6–36.9; O2SAT 86–99
[2020-11-27] MEDS: ALBUTEROL SULFATE NEB 2.5 MG/0.5 ML INH INHALATION ×3 (01:54→14:23)
[2020-11-27] MEDS: IPRATROPIUM BR 0.02% INH SOLN 0.5 MG/2.5 ML VIAL INHALATION ×3 (01:54→14:23)
[2020-11-27] MEDS: LEVOTHYROXINE SODIUM 75 MCG TABLET PO (05:49)
[2020-11-27 06:07] LABS: Hematocrit 32.6 % (37.0-47.0); Hemoglobin 9.4 g/dL (12.0-15.0); Mean Corpuscular HGB Conc 28.8 g/dl (32-36); Mean Corpuscular Hemoglobin 25.7 pg (26-34); Mean Corpuscular Volume 89.1 fl (80-100); Mean Platelet Volume 12.8 fl (7.4-10.4); Platelet Count Result 85 k/mm3 (150-375); Red Blood Count 3.66 M/mm3 (4.2-5.4); Red Cell Distribution Width 15.9 % (11.5-14.5); White Blood Count 8.1 K/mm3 (4.5-10.0)
[2020-11-27 06:32] LABS: Anion Gap 5 mmol/L (8-16); Blood Urea Nitrogen 20 mg/dL (7-17); Calcium 8.8 mg/dL (8.4-10.2); Carbon Dioxide 37 mmol/L (22-30); Chloride 93 mmol/L (98-107); Estimated CRCL calculation 91 ml/min; Estimated Glomerular Filt Rate > 60; Glucose 141 mg/dL (65-110); Potassium 3.6 mmol/L (3.4-5.0); Sodium 135 mmol/L (137-145)
[2020-11-27 07:36] LABS: Glucose Point of Care 108 mg/dl (65-105)
[2020-11-27] MEDS: FUROSEMIDE 40 MG TABLET PO ×2 (08:00→17:36)
[2020-11-27] MEDS: MULTIVITAMINS /C LUTEIN (CENTRUM SILVER) TABLET *BKC 1 TAB PO (08:00)
[2020-11-27] MEDS: METOPROLOL SUCCINATE EXT REL 50 MG TABCR PO (08:00)
[2020-11-27] MEDS: TOLNAFTATE 1% POWDER 45 GM BTL 1 APPLIC TOPICAL (08:00)
[2020-11-27] MEDS: BUDESONIDE RESPULE NEB 0.5 MG/2 ML AMP INHALATION (08:05)
--- NOTE | 2020-11-27 09:45 | PCRCNOTE ---
Yvette approved though [facility]. Device to be set-up at [facility]. [facility] staff education being provided by [facility] later today.
[2020-11-27 11:42] LABS: Glucose Point of Care 193 mg/dl (65-105)
--- NOTE | 2020-11-27 13:50 | PC.NURSE ---
On 11/27/20, the student, [Sondra Goldstein], provided care and completed [facility] documentation on this patient. I have reviewed the student's documentation and agree with the findings.
--- NOTE | 2020-11-27 16:08 | HOMEO2EVAL ---
Evaluation was performed at [facility] Home Oxygen Evaluation RC: Home Oxygen (O2) Evaluation Start: 11/27/20 15:48 Freq: ONCE Status: Active Protocol: RPE Activity Type Activity Date Activity User E-Sign Co-Sign Detail Recorded Client Recorded Date Recorded By Document 11/27/20 15:40 LUIS [email or web address] 11/27/20 16:07 LUIS Document 11/27/20 15:41 LUIS [email or web address] 11/27/20 16:07 LUIS Document 11/27/20 15:42 LUIS [email or web address] 11/27/20 16:07 LUIS Document 11/27/20 15:43 LUIS [email or web address] 11/27/20 16:07 LUIS Document 11/27/20 15:44 LUIS [email or web address] 11/27/20 16:07 LUIS Document 11/27/20 15:50 LUIS [email or web address] 11/27/20 16:07 LUIS 11/27/20 11/27/20 11/27/20 15:40 15:41 15:42 Home O2 Evaluation Test Phase Resting Resting Resting Oxygen Delivery Room Air Nasal Cannula Nasal Cannula Oxygen Flow Rate (L/min) 1 2 Pulse Oximetry (90-100 %) 87 L 87 L 91 Home Oxygen Evaluation Comments Treatment Charges O2 Evaluation - Inpatient 11/27/20 11/27/20 11/27/20 15:43 15:44 15:50 Home O2 Evaluation Test Phase Exercise Exercise Resting Oxygen Delivery Nasal Cannula Nasal Cannula Nasal Cannula Oxygen Flow Rate (L/min) 2 3 2 Pulse Oximetry (90-100 %) 86 L 90 92 Home Oxygen Evaluation Comments pt requires 2 l at rest and 3 l with exertion Treatment Charges
--- NOTE | 2020-11-27 16:12 | PCRCNOTE ---
Home O2 eval complete. RN notified. Pt has [facility] for O2 needs and new Trilogy unit. Pt has Port O2 concentrator for D/c home.
--- NOTE | 2020-12-05 05:20 | PM.IMPN ---
Progress Note: A&P Assessment and Plan (1) Acute respiratory failure with hypoxia and hypercapnia: Code(s): J96.01 - Acute respiratory failure with hypoxia; J96.02 - Acute respiratory failure with hypercapnia Status: Acute Assessment and Plan: Patient presents with acute hypercapnic and hypoxic respiratory failure related to CHF and/or COPD exacerbation and/or pneumonia. ABG on admission 7.27/83/39 on 10L. She was treated with BiPAP and settings adjusted; plan for discharge on AVAPS. Treated with lasix IV, steroids, nebs and abx. ABG improved to 7.43/70/82. Back to baseline home O2 requirement. Pulmonary consulted and assisted with managing her COPD and DANELLE (2) Acute exacerbation of chronic obstructive pulmonary disease: Code(s): J44.1 - Chronic obstructive pulmonary disease with (acute) exacerbation Status: Acute Assessment and Plan: Clinically improved. Treated with nebulizer treatments, steroids and abx. She is feeling back to herself. Steroids stopped 11/23/2020. Back to baseline O2 requirement. She worked with PT/OT. She did well and was insistent on being discharged home. She did well with therpay due to the length of time it took to have insurance authorization. (3) CAP (community acquired pneumonia): Code(s): J18.9 - Pneumonia, unspecified organism Status: Acute Assessment and Plan: CT of the chest was negative for pulmonary embolism and more consistent with CHF but cannot exclude pneumonia. BCx were negative. She completed azithromycin, Rocephin and vancomycin. Check CXR in 1 month to ensure clearance. (4) Essential hypertension: Code(s): I10 - Essential (primary) hypertension Status: Chronic Assessment and Plan: Patient's blood pressure was monitored and blood pressure remained reasonably well controlled. (5) Hypothyroidism: Code(s): E03.9 - Hypothyroidism, unspecified Status: Chronic Assessment and Plan: TSH normal. We continued her levothyroxine. (6) Type 2 diabetes mellitus: Code(s): E11.9 - Type 2 diabetes mellitus without complications Status: Acute Assessment and Plan: A1c 6.2. The patient's blood glucose was monitored with AccuCheks covering with sliding scale. Hypoglycemia protocol was available as needed. Glucose elevated related to steroids but steroids were stopped 11/23. Glucose became better controlled. (7) Obesity hypoventilation syndrome: Code(s): E66.2 - Morbid (severe) obesity with alveolar hypoventilation Status: Acute Assessment and Plan: Chronic. As above (8) Obstructive sleep apnea: Code(s): G47.33 - Obstructive sleep apnea (adult) (pediatric) Status: Acute Assessment and Plan: Chronic. Patient wears CPAP at night with nasal pillows at home. Wearing AVAPS here with plan for discharge with AVAPS now. As above (9) UTI (urinary tract infection): Code(s): N39.0 - Urinary tract infection, site not specified Status: Acute Assessment and Plan: UA reflective of UTI. Urine culture growing Enterococcus sensitive to vancomycin. Urology consulted since this is her 5th UTI since July. She completed a course of Vancomycin. Renal US showing no acute process. Jolly removed. Plan for patient to follow up with Urology (10) Thrombocytopenia: Code(s): D69.6 - Thrombocytopenia, unspecified Status: Acute Assessment and Plan: Platelet count low but stable in the 90K range. Appears to be chronic and noted last year. Etiology unclear. Could be ITP possibly. Follow intermittently for now (11) DVT prophylaxis: Code(s): Z29.9 - Encounter for prophylactic measures, unspecified Status: Acute Assessment and Plan: Doppler showing patent bilateral lower extremity veins. No evidence of deep venous thrombosis. Lovenox held due to low plt count; SCDs were used Addition
--- NOTE | 2020-12-22 21:15 | P.PNIM_ITS ---
Progress Note: A&P Assessment and Plan (1) Acute respiratory failure with hypoxia and hypercapnia: Code(s): J96.01 - Acute respiratory failure with hypoxia; J96.02 - Acute respiratory failure with hypercapnia Status: Acute Assessment and Plan: Patient presents with acute hypercapnic and hypoxic respiratory failure related to CHF and/or COPD exacerbation and/or pneumonia. ABG on admission 7.27/83/39 on 10L. She was treated with BiPAP and settings adjusted; plan for discharge on AVAPS. Treated with lasix IV, steroids, nebs and abx. ABG improved to 7.43/70/82. Back to baseline home O2 requirement. Pulmonary consulted and assisted with managing her COPD and DANELLE (2) Acute exacerbation of chronic obstructive pulmonary disease: Code(s): J44.1 - Chronic obstructive pulmonary disease with (acute) exacerbation Status: Acute Assessment and Plan: Clinically improved. Treated with nebulizer treatments, steroids and abx. She is feeling back to herself. Steroids stopped 11/23/2020. Back to baseline O2 requirement. She worked with PT/OT. She did well and was insistent on being discharged home. She did well with therpay due to the length of time it took to have insurance authorization. (3) CAP (community acquired pneumonia): Code(s): J18.9 - Pneumonia, unspecified organism Status: Acute Assessment and Plan: CT of the chest was negative for pulmonary embolism and more consistent with CHF but cannot exclude pneumonia. BCx were negative. She completed azithromycin, Rocephin and vancomycin. Check CXR in 1 month to ensure clearance. (4) Essential hypertension: Code(s): I10 - Essential (primary) hypertension Status: Chronic Assessment and Plan: Patient's blood pressure was monitored and blood pressure remained reasonably well controlled. (5) Hypothyroidism: Code(s): E03.9 - Hypothyroidism, unspecified Status: Chronic Assessment and Plan: TSH normal. We continued her levothyroxine. (6) Type 2 diabetes mellitus: Code(s): E11.9 - Type 2 diabetes mellitus without complications Status: Acute Assessment and Plan: A1c 6.2. The patient's blood glucose was monitored with AccuCheks covering with sliding scale. Hypoglycemia protocol was available as needed. Glucose elevated related to steroids but steroids were stopped 11/23. Glucose became better controlled. (7) Obesity hypoventilation syndrome: Code(s): E66.2 - Morbid (severe) obesity with alveolar hypoventilation Status: Acute Assessment and Plan: Chronic. As above (8) Obstructive sleep apnea: Code(s): G47.33 - Obstructive sleep apnea (adult) (pediatric) Status: Acute Assessment and Plan: Chronic. Patient wears CPAP at night with nasal pillows at home. Wearing AVAPS here with plan for discharge with AVAPS now. As above (9) UTI (urinary tract infection): Code(s): N39.0 - Urinary tract infection, site not specified Status: Acute Assessment and Plan: UA reflective of UTI. Urine culture growing Enterococcus sensitive to vancomycin. Urology consulted since this is her 5th UTI since July. She completed a course of Vancomycin. Renal US showing no acute process. Jolly removed. Plan for patient to follow up with Urology (10) Thrombocytopenia: Code(s): D69.6 - Thrombocytopenia, unspecified Status: Acute Assessment and Plan: Platelet count low but stable in the 90K range. Appears to be chronic and noted last y
== END 2020-11-27 17:45 | disposition home health service (06) | DRG 291 ==
LOC: ANHED 15:08 → ANHICU 17:53 → ANH3MED 11-26 20:51 → ANHICU 11-28 10:28 → ANHIMU 11-28 10:28
PROVIDERS: Internal Medicine; Internal Medicine Pulmonary Disease; Nurse Practitioner; Admitting Provider Family Medicine; Emergency Provider Emergency Medicine; PCP Family Medicine; Visit Provider Internal Medicine
DX: I11.0 Hypertensive heart disease with heart failure (principal); J96.21 Acute and chronic respiratory failure with hypoxia; J18.9 Pneumonia, unspecified organism; J96.02 Acute respiratory failure with hypercapnia; J44.1 Chronic obstructive pulmonary disease with (acute) exacerbation; E66.2 Morbid (severe) obesity with alveolar hypoventilation; J44.0 Chronic obstructive pulmonary disease with (acute) lower respiratory infection; N39.0 Urinary tract infection, site not specified; I50.33 Acute on chronic diastolic (congestive) heart failure; Z20.822 Contact with and (suspected) exposure to COVID-19; Z99.81 Dependence on supplemental oxygen; F32.9 Major depressive disorder, single episode, unspecified; E78.5 Hyperlipidemia, unspecified; E03.9 Hypothyroidism, unspecified; E11.9 Type 2 diabetes mellitus without complications; Z87.891 Personal history of nicotine dependence; C54.1 Malignant neoplasm of endometrium; D69.6 Thrombocytopenia, unspecified; Z79.4 Long term (current) use of insulin; I27.20 Pulmonary hypertension, unspecified; B95.2 Enterococcus as the cause of diseases classified elsewhere; B35.4 Tinea corporis
CPT/HCPCS: 36415; 36600; 51701; 71045; 71275; 76775; 80048; 80053; 80069; 80202; 81001; 82375; 82805; 82948; 83036; 83050; 83605; 83615; 83690; 83735; 83880; 84100; 84443; 84484; 85025; 85027; 85055; 85380; 85610; 85730; 86140; 87040; 87070; 87077; 87086; 87088; 87186; 87205; 93005; 93970; 94002; 94003; 94618; 94640; 94660; 94762; 96374; 96375; 97110; 97162; 97165; 97530; 97535; 99291; A9270; C8929; C9803; J0456; J0696; J1120; J1650; J1815; J1940; J2920; J2930; J3370; J3475; Q9957; Q9967; U0003; U0005

== ENCOUNTER 2020-12-29 09:44 | Inpatient (IN) | payer OTHER, SELFPAY ==
[2020-12-29] VITALS (21 sets, daily range): BP systolic 122–157; BP diastolic 57–78; PULSE 90–116; RESP 20–30; TEMP 36.4–36.9; O2SAT 92–100; BMI 66.6
--- NOTE | 2020-12-29 | ECG_ITS ---
Measurements Intervals [place] Rate: 109 P: 86 MI: 166 QRS: 56 QRSD: 93 T: 47 QT: 320 QTc: 431 Interpretive Statements SINUS TACHYCARDIA LOW QRS VOLTAGE IN PRECORDIAL LEADS BORDERLINE R WAVE PROGRESSION, ANTERIOR LEADS BASELINE ARTIFACT- I, II, III, AVR, AVL, AVF, V2-V6 ABNORMAL ECG Electronically Signed On 12-29-2020 14:03:10 CDT by Leland Johnson D.O.
--- NOTE | ~2020-12-29 | XR_ITS ---
EXAMINATION: XR chest 1V portable INDICATION: Shortness of breath TECHNIQUE: Portable AP chest at 1045 hours COMPARISON: 01/13/2021 FINDINGS: There are opacities of the mid and lower lung zones with worsening on the right. A mild int erstitial pattern is present. Small pleural effusions are present. There is no pneumothorax. Cardiome jonny is noted. IMPRESSION: 1. Cardiomegaly with pulmonary edema. Focal opacity in the right midlung zone could reflect worsening edema versus atelectasis versus pneumonia. 2. Small pleural effusions. Reviewed, dictated and finalized at location A. IMPRESSION: 1. Cardiomegaly with pulmonary edema. Focal opacity in the right midlung zone c ould reflect worsening edema versus atelectasis versus pneumonia. 2. Small pleural effusions.
--- NOTE | ~2020-12-29 | CT_ITS ---
EXAMINATION: CTA chest PE protocol EXAM DATE: 01/10/2021 13:14 INDICATION: r/o pulm embolism, worsening respiratory status. Shortness of breath. TECHNIQUE: Spiral CTA of the chest (pulmonary arteries) was performed with 100 cc Omnipaque 350 intr avenous contrast injection. Images were acquired during the pulmonary arterial phase. Coronal maxi mum intensity projection 3D-reconstructions were created by the technologist on dedicated workstation . Axial, coronal and sagittal reformatted images were reviewed. The dose-length product (DLP) for t his examination was 913.46 mGy-cm. The exposure was tailored according to patient size (auto mA exp osure control), and iterative reconstruction (ASIR) was used as additional dose reduction technique. Comparison is made to prior examination from 11/18/2020. FINDINGS: Patient may have CHF exacerbation. The main, central pulmonary arteries are dilated which c an indicate elevated pulmonary arterial pressure, pulmonary arterial hypertension. No intraluminal fi lling defects within the pulmonary arteries. No thoracic aortic dissection. There is moderate rig ht pleural effusion, small left pleural effusion. Multi segmental bilateral lower lobe atelectasis. M ild emphysema. Mosaic attenuation which could be mild pulmonary edema or air trapping. Tracheobronch ial tree is patent. There is no mediastinal, hilar or axillary lymphadenopathy. There is no pneum othorax. Cardiomegaly. There is mild coronary arterial calcification, arterial sclerosis. Some li diana surface undulations, patient may have cirrhosis. There is thoracic spondylosis without osteoblas tic or osteolytic lesions identified. IMPRESSION: 1. Dilated pulmonary arteries without emboli suspected. 2. Cardiomegaly. Moderate right, small left pleural effusions. 3. Multi segmental and lateral lower lobe atelectasis. 4. Mosaic attenuation, air trapping versus mild pulmonary edema. 5. Mild emphysema. 6. Probable cirrhosis. Reviewed, dictated and finalized at location A.
--- NOTE | ~2020-12-29 | XR_ITS ---
EXAMINATION: XR chest 1V portable INDICATION: Shortness of breath, COPD TECHNIQUE: Portable AP chest at 0954 hours COMPARISON: 11/21/2020 FINDINGS: There are small pleural effusions. Cardiomegaly is noted. A mild diffuse interstitial patte rn is present. There are airspace opacities of the lower lung zones. IMPRESSION: 1. Small pleural effusions. 2. Bibasilar airspace opacities, consistent with atelectasis versus pneumonia. 3. Cardiomegaly with mild pulmonary edema. Reviewed, dictated and finalized at location A.
--- NOTE | ~2020-12-29 | US_ITS ---
EXAMINATION: US thyroid DATE: 01/15/2021 15:04 INDICATION: Right neck swelling TECHNIQUE: Multiple ultrasound images of the thyroid were obtained. COMPARISON: None. FINDINGS: The right thyroid lobe measures 6.2 x 1.8 x 2.3 cm. The left thyroid lobe measures 5.3 x 2.1 x 2.1 c m. The thyroid isthmus is thickened measuring 1.3 cm. There are multiple bilateral thyroid nodules. The largest seen at the superior right thyroid measuring 1.6 cm maximal diameter. The nodule is solid , hypoechoic, wider than tall with smooth margins and without echogenic foci (TI-RADS 4, moderately s uspicious , FNA if >=1.5 cm, annual followup is >=1 cm). There are a few additional TI-RADS 4 nodules with similar imaging features the next largest measuring 1.2 cm in the inferior right thyroid in the remaining measuring less than 1 cm in the left and right thyroid lobes. 10 mm mixed cystic and solid nodule with smooth margins, isoechoic solid component with internal echogenic focus with comet taili ng consistent with inspissated colloid (TI-RADS 2, not suspicious, no FNA recommended). Suggestion of soft tissue swelling with subcutaneous edema in the right submandibular region without a discrete ma ss or fluid collection. IMPRESSION: 1. Multinodular goiter. Recommend ultrasound-guided biopsy of the 1.6 cm TI-RADS 4 right thyroid nodu le. Reviewed, dictated and finalized at location A. IMPRESSION: 1. Multinodular goiter. Recommend ultrasound-guided biopsy of the 1.6 cm TI-RAD S 4 right thyroid nodule.
--- NOTE | ~2020-12-29 | US_ITS ---
EXAMINATION: US venous doppler [facility] DATE: 12/29/2020 13:46 INDICATION: Bilateral lower limb swelling TECHNIQUE: Ruggiero scale images without and with compression and Doppler images of the bilateral lower e xtremity veins were obtained. COMPARISON: 11/19/2020 FINDINGS: The right common femoral vein, profunda femoral vein, femoral vein, popliteal vein, posterior tibial veins, and greater saphenous vein are patent. The peroneal trunk is not evaluated due to body habitus . A Quintero's cyst is noted which measures up to 5.5 cm. The left common femoral vein, profunda femoral vein, greater saphenous vein, and femoral vein are pat ent. The popliteal vein, peroneal trunk, and posterior tibial veins are not evaluated due to body hab itus. IMPRESSION: 1. Patent bilateral lower extremity veins. No evidence of deep venous thrombosis. Examination limited by body habitus. 2. Right-sided Quintero's cyst. Reviewed, dictated and finalized at location A. IMPRESSION: 1. Patent bilateral lower extremity veins. No evidence of deep venous thrombosi s. Examination limited by body habitus. 2. Right-sided Quintero's cyst.
--- NOTE | ~2020-12-29 | XR_ITS ---
EXAMINATION: XR chest 1V portable EXAM DATE: 01/01/2021 09:44 INDICATION: Shortness of breath. TECHNIQUE: Portable AP chest x-ray, compared to study from 12/29/2020. FINDINGS: There is no significant interval change. Small to moderate right, small left pleural effu sions with adjacent compressive atelectasis. There is cardiomegaly and pulmonary vascular congestion . There is indistinct reticulation with a bibasal predominance which may indicate pulmonary edema. IMPRESSION: Findings consistent with CHF exacerbation unchanged. Reviewed, dictated and finalized at location B.
--- NOTE | ~2020-12-29 | XR_ITS ---
EXAMINATION: XR chest 2V DATE: 01/07/2021 13:45 INDICATION: Shortness of breath, pulmonary edema TECHNIQUE: AP and lateral views of the chest are obtained. COMPARISON: 01/01/2021 FINDINGS: A mild diffuse interstitial pattern persists with slight improvement. Cardiomegaly is noted . There are small pleural effusions. More focal airspace opacities are present in the lung bases. The re is no pneumothorax. There is severe thoracic spondylosis. IMPRESSION: 1. Cardiomegaly with improving pulmonary edema. 2. Small pleural effusions. 3. Bibasilar airspace opacities, consistent with atelectasis versus pneumonia. Reviewed, dictated and finalized at location B.
--- NOTE | ~2020-12-29 | XR_ITS ---
EXAMINATION: XR chest 1V portable INDICATION: Hypoxia TECHNIQUE: Portable AP chest at 0345 hours COMPARISON: 01/07/2021 FINDINGS: Diffuse opacities persist throughout all lung zones with slight worsening in the mid and lo wer lung zones. There are small stable pleural effusions. No pneumothorax is identified. Cardiomegaly is noted. IMPRESSION: 1. Cardiomegaly with likely worsening pulmonary edema. 2. Small pleural effusions. Reviewed, dictated and finalized at location A.
[2020-12-29 09:51] LABS: Alveolar/Arterial O2 Gradient 293.9 mmHg; Base Excess ABG 11.5 mEq/l (+/-2.0); Carboxyhemoglobin 0.9 % THb (0-2.0); Fractional Inspired Oxygen 80 %; Methemoglobin ABG 0.3 %THb (0-1.5); Oxygen Content ABG 14.3 %vol (16.0-22.0); Oxygen Saturation ABG 98.7 % (95.0-100.0); Oxyhemoglobin 97.2 % THb (90.0-100.0); PO2 ABG 168.9 mmHg (80.0-100.0); PO2 FiO2 Ratio Arterial Blood 2.11 %; Reduced Hemoglobin 1.6 %THb (0-5.0); Total Hemoglobin 10.2 g/dL (12.0-18.0)
[2020-12-29 09:52] LABS: PCO2 ABG 102.5 mmHg (35.0-45.0)
[2020-12-29 09:53] LABS: Device NON-REBREATHER MASK; Site Drawn RIGHT BRACHIAL
--- NOTE | 2020-12-29 10:07 | ED.SOB ---
HPI - SOB/Dyspnea General Chief Complaint: Shortness of Breath/Dyspnea Stated Complaint: DIFFICULTY BREATHING Time Seen by Provider: 12/29/20 09:56 Source: patient, EMS and RN notes reviewed Mode of arrival: EMS Limitations: no limitations History of Present Illness HPI Narrative: Patient is 70 years old white female brought to the emergency room from home by ambulance complaining of shortness of breath for a while, got worse this morning. Patient had history of COPD, on 3 to 4 L by nasal cannula during daytime, and Trilogy BiPAP during night. Patient is fully vaccinated for COVID-19. Arrived to the ED on 15 L nonrebreather, with oxygenation 78%. Patient is full code. History of obstructive sleep apnea, obesity hypoventilation syndrome, COPD, chronic respiratory failure, congestive heart failure, diabetes, hypertension. Related Data Home Medications Medication Instructions Recorded Confirmed Adults Multivitamin 1 tablet PO DAILY 12/09/19 11/18/20 Calcium 600 with Vitamin D3 1 tablet PO DAILY 12/09/19 11/18/20 albuterol sulfate 2.5 mg INHALATION Q4H PRN 12/09/19 11/18/20 cranberry 500 mg PO DAILY 12/09/19 11/18/20 lisinopril 20 mg PO DAILY 12/09/19 11/18/20 metoprolol succinate 50 mg PO DAILY 12/09/19 11/18/20 pioglitazone 30 mg PO DAILY 12/09/19 11/18/20 spironolactone 25 mg PO DAILY 12/09/19 11/18/20 levothyroxine 75 mcg PO QAM 11/18/20 11/18/20 potassium chloride 10 meq PO DAILY 11/18/20 11/18/20 Allergies Allergy/AdvReac Type Severity Reaction Status Date / Time liraglutide Allergy Intermediate Hives Verified 12/29/20 09:46 Review of Systems Review of Systems: CONSTITUTIONAL: Denies fever, chills, or sweats. EYES: Denies visual changes, redness, or discharge. ENT: Denies rhinorrhea, congestion, sore throat, or otalgia. CARDIOVASCULAR: Denies chest pain, palpitations, or edema. RESPIRATORY: Denies cough or dyspnea. GASTROINTESTINAL: Denies abdominal pain, nausea, vomiting, or diarrhea. GENITOURINARY: Denies dysuria or hematuria. SKIN: Denies rash or itching. MUSCULOSKELETAL: Denies back pain, joint pain, or myalgia. NEUROLOGIC: Denies headache, numbness, or weakness. PSYCHIATRIC: Denies anxiety or depression. [facility] Past Medical History Medical History (Updated 12/29/20 @ 10:15 by Rina Shepard MD) Chronic obstructive pulmonary disease Chronic respiratory failure with hypoxia, on home oxygen therapy Depression Diastolic congestive heart failure echocardiogram in November 2018 showed normal left ventricular size and function with moderate concentric left ventricular hypertrophy, impaired diastolic relaxation grade 1, ejection fraction of 65%, an estimated peak RVSP of 47 mmHg. Dyslipidemia Essential hypertension Hypothyroidism Morbid obesity Obesity hypoventilation syndrome Obstructive sleep apnea I believe she is on BiPAP at nighttime. Stage I adenocarcinoma of endometrium Considered inoperable given her comorbidities, however nurse charted that she had indeed had a hysterectomy. This cannot be confirmed with the patient at this time. Status post HDR brachytherapy time 6 fractions. Type 2 diabetes mellitus Surgical History Surgical History History of dilation and curettage History of tubal ligation Family History Family History Father Patient's father is Hypertension Cerebrovascular accident Acute myocardial infarction Mother Family history of diabetes mellitus in first degree relative Hypertension Hypothyroid Sibling Patient's brother is in good health Patient's sister is in good health Social History Social History Social History: Surrogate decision maker: Fady Gunnden, . Code status: Full code. Smoking packs per day: 1 Smoking cigarettes per day: 20.0 Years smoked: 45 Smoking pack-years: 45.00
[2020-12-29] MEDS: methylPREDNISolone SOD SUCC 40 MG VIAL 62.5 MG IV PUSH (10:38)
[2020-12-29] MEDS: FUROSEMIDE INJ 40 MG/4 ML VIAL 60 MG IV PUSH (10:38)
[2020-12-29 11:13] LABS: Basophils Percent Auto 0.2 % (0.2-1.2); Eosinophils Absolute Auto 0.1 K/mm3 (0-0.3); Hematocrit 32.3 % (37.0-47.0); Hemoglobin 8.9 g/dL (12.0-15.0); Immature Granulocyte Absolute 0.08 K/mm3 (0.00-0.031); Immature Platelet Fraction Pct 12.2 % (0.9-11.2); Lymphocytes Absolute Auto 0.55 K/mm3 (0.9-3.2); Lymphocytes Percent Auto 6.7 % (18.3-44.2); Mean Corpuscular HGB Conc 27.6 g/dl (32-36); Mean Corpuscular Hemoglobin 25.4 pg (26-34); Mean Platelet Volume 12.5 fl (7.4-10.4); Monocytes Absolute Auto 0.4 K/mm3 (0.1-0.6); Monocytes Percent Auto 4.6 % (2.6-8.5); Neutrophils Absolute Auto 7.1 K/mm3 (1.3-6.7); Neutrophils Percent Auto 86.5 % (45.5-73.1); Platelet Count Result 96 k/mm3 (150-375); Red Blood Count 3.51 M/mm3 (4.2-5.4); Red Cell Distribution Width 17.2 % (11.5-14.5); White Blood Count 8.2 K/mm3 (4.5-10.0)
[2020-12-29 11:29] LABS: Prothrombin Time 13.3 Seconds (11.1-14.7)
[2020-12-29 11:30] LABS: Partial Thromboplastin Time 28.6 SECONDS (22.3-36.8)
[2020-12-29 11:34] LABS: Hypochromasia 1+ (NORMAL)
[2020-12-29 11:35] LABS: Stomatocytes 1+ (NORMAL)
[2020-12-29 11:38] LABS: NT Pro B Type Natriuretic Pept 200 pg/mL (5-100)
[2020-12-29 11:40] LABS: Troponin I < 0.012 ng/mL (0.000-0.034)
[2020-12-29 11:47] LABS: Alanine Aminotransferase 22 U/L (4-35); Albumin Level 3.4 g/dL (3.5-5.1); Alkaline Phosphatase 114 U/L (38-126); Aspartate Amino Transferase 30 U/L (14-36); Bilirubin,Total 0.6 mg/dL (0.2-1.3); Blood Urea Nitrogen 17 mg/dL (7-17); Calcium 8.8 mg/dL (8.4-10.2); Carbon Dioxide > 40 mmol/L (22-30); Chloride 96 mmol/L (98-107); Estimated CRCL calculation 105 ml/min; Estimated Glomerular Filt Rate > 60; Glucose 176 mg/dL (65-110); Potassium 4.2 mmol/L (3.4-5.0); Sodium 139 mmol/L (137-145)
[2020-12-29] MEDS: IPRATROPIUM BR 0.02% INH SOLN 0.5 MG/2.5 ML VIAL INHALATION ×2 (11:47→20:54)
[2020-12-29] MEDS: ALBUTEROL SULFATE NEB 2.5 MG/0.5 ML INH 5 MG INHALATION (11:47)
--- NOTE | 2020-12-29 12:48 | PM.IMHP ---
H&P: HPI History of Present Illness Date/Time: 12/29/20 12:48 this is 70-year-old female patient who resides with her at home. The patient was brought into the emergency room via ambulance with complaint of shortness of breath. The patient does have a history of COPD and she is chronically on oxygen at 2-3 L at home. The patient also has a trilogy BiPAP that she uses at night. The patient tells me that she has been using her trilogy. 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 The patient has been fully vaccinated for COVID-19. The patient's O2 saturations were initially 78% on room air and the patient is a full code. She initially was placed on 15 L per non-rebreather. And then she was placed on a BiPAP machine 16/8 with a tidal volume of 500 with 45% oxygen. The patient is arousable and she is speaking in full sentences. Initially the patient appeared to be sleeping and her saturation was 91% with respirations 48. But once I aroused her and she started talking her oxygen level went up to 96% respirations went to 28 per minute. I asked respiratory to redraw her ABGs. The 1st set was noted to be pH of 7.230, CO2 102.5, PO2 160.9, and bicarb 42. Patient's BiPAP settings were changed multiple times. The oxygen bleed was changed to couple times. Chest x-ray was read as small pleural effusions. Bibasilar airspace opacities, consistent with atelectasis versus pneumonia. Cardiomegaly with mild pulmonary edema. Her last echo was performed on 11/20/2020 with the EF of 65%. The patient was given IV Lasix, Solu-Medrol, nitroglycerin, and dual nebs in the emergency room. Patient stated that she is starting to feel much better. Her H&H is 8.9 and 32.3. Which is her baseline. The patient denies any active bleeding. Patient's blood sugars noted to be 176. The patient stated she is diabetic. The patient is being admitted to inpatient services on the date of service of 12/29/2020. Chief Complaint: Shortness of breath Review of Systems Review of Systems: All systems reviewed & are unremarkable except as noted in HPI and below Constitutional: Constitutional: Reports as per HPI and Reports no additional constitutional complaints Eyes: Eyes: Reports as per HPI and Reports no additional eye complaints ENT: Reports system reviewed and no additional complaints, except as documented and Reports Normal hearing present Cardiovascular: Cardiovascular: Reports no additional cardiovascular complaints Respiratory: Respiratory: Reports no additional respiratory complaints and Reports no additional respiratory complaints Gastrointestinal: Gastrointestinal: Reports as per HPI and Reports no additional gastrointestinal complaints Musculoskeletal: Musculoskeletal: Reports no additional musculoskeletal complaints Integumentary/Breasts: Skin/Breast: Reports system reviewed and no additional complaints, except as docu and Reports as per HPI Neurologic: Reports system reviewed and no additional complaints, except as documented, Reports as per HPI and Reports Normal hearing present Psychiatric: Psychiatric: Reports no additional psychiatric complaints and Reports as per HPI Endocrine: Endocrine: Reports no additional endocrine complaints Hematologic/Lymphatic: Hematologic/Lymphatic: Reports no additional hematologic/lymphatic complaints Allergic/Immunologic: Allergic/Immunologic: Reports no additional allergic/immunologic complaints [facility] Past Medical History Medical History (Updated 12/29/20 @ 13:12 by Isi Arboleda NP) Chronic obstructive pulmonary disease Chronic respiratory failure with hypoxia, on home oxygen therapy Depression Diastolic congestive heart failure echocardiogram in November 2018 showed normal left ventricular size and function with moderate concentric left ventricular hypertrophy, impaired diastolic relaxation grade 1, ejection fraction of 65%, an estimated peak RVSP of 47 mmHg. Dyslipidemia Essential hypertension Hypothyro
[2020-12-29 12:55] LABS: Alveolar/Arterial O2 Gradient 149.7 mmHg; Base Excess ABG 13.8 mEq/l (+/-2.0); Fractional Inspired Oxygen 45 %; Oxygen Content ABG 13.6 %vol (16.0-22.0); Oxygen Saturation ABG 92.1 % (95.0-100.0); Oxyhemoglobin 91.9 % THb (90.0-100.0); PO2 ABG 72.3 mmHg (80.0-100.0); PO2 FiO2 Ratio Arterial Blood 1.61 %; Total Hemoglobin 10.5 g/dL (12.0-18.0); pH ABG 7.312 (7.350-7.450)
[2020-12-29 12:56] LABS: PCO2 ABG 86.9 mmHg (35.0-45.0)
[2020-12-29 12:57] LABS: Device NON-INVASIVE VENT; Modified Allen's Test Pass; Site Drawn LEFT RADIAL
[2020-12-29 13:01] LABS: Non-Invasive Inspiratory Pressure 25 CMH2O; Non-Invasive Vent Rate 16 /MIN
[2020-12-29 13:02] LABS: Non-Invasive Expiratory Pressure 8 CMH2O
[2020-12-29 14:26] LABS: Troponin I < 0.012 ng/mL (0.000-0.034)
--- NOTE | 2020-12-29 14:49 | PM.CNPUL ---
Assessment and Plan Assessment and plan (1) Acute on chronic respiratory failure with hypoxia and hypercapnia: Code(s): J96.21 - Acute and chronic respiratory failure with hypoxia; J96.22 - Acute and chronic respiratory failure with hypercapnia Status: Acute Assessment and Plan: Patient has morbid obesity, obesity hypoventilation syndrome, pulmonary hypertension, tobacco use and possible COPD, and diastolic heart failure with fluid retention as the etiology for her respiratory failure. Currently I do not see evidence of pneumonia. She may also have a COPD exacerbation. Patient with acute on chronic hypoxemic and hypoxic hypercarbic respiratory failure. On 11/24 during previous hospitalization on AVAPS mode with a respiratory rate of 16, tidal volume 500, EPAP 8, minimal inspiratory pressure 9, maximal inspiratory pressure 25 inspiratory time 1.0 seconds, rise of 3 which is our middle setting, and 35% She had a blood gas at the end of the night with a pH of 7.43/70/82. Currently I have her back on these AVAPS settings. she has a home noninvasive ventilator with a VATS 80 settings and I told the patient to have her family bring in this machine tubing and mask so that she can wear that in the hospital. Will follow with you. (2) Chronic obstructive pulmonary disease: Code(s): J44.9 - Chronic obstructive pulmonary disease, unspecified Status: Acute Assessment and Plan: Patient has worsening dyspnea on exertion and acute on chronic hypercarbic and hypoxemic respiratory failure with no wheezing, change in phlegm volume or change in phlegm color per her report. She is morbidly obese and it is almost impossible to hear any breath sounds but she has no heavy wheezing. She is maintained on trilogy 200-20 62.5-24 and rescue albuterol. I will continue Solu-Medrol 40 Q 6. albuterol and ipratropium nebulizers and assess her in the morning for conversion to oral steroids. I see no need for antibiotics at this time. (3) Diastolic congestive heart failure: Code(s): I50.30 - Unspecified diastolic (congestive) heart failure Status: Acute Assessment and Plan: Patient with an echocardiogram on 11/20/2020 that showed grade 2 diastolic dysfunction. Patient has fluid retention likely from obesity hypoventilation with pulmonary hypertension. previous echo showed no evidence of right ventricular enlargement or decreased right ventricular systolic function or right atrial enlargement. I agree with diuresing as aggressively as tolerated by her cardiac and renal systems. Patient is currently being diuresed with Lasix 40 IV b.i.d.. History of Present Illness History of Present Illness Consult date: 12/29/20 Requesting physician: Isi Arboleda NP Reason for consult: COPD Chief complaint: Acute respiratory failure/COPD exacerbation/ CHF Narrative: 70-year-old woman with a history of morbid obesity, COPD for 10 years and obesity hypoventilation syndrome on home trilogy with 4 L bleed in started on hospital discharge on 11/27/20, oxygen 3L rest and 4-6 with ambulation, severe pulmonary hypertension with an estimated PA systolic pressure 57 on 11/20/2020, hypothyroidism, hypertension, diastolic congestive heart failure with grade 2 diastolic dysfunction and a left ventricular EF of 60-65 % on 11/20/2020 who presented on 12/29/20 with SOB and acute on chronic hypercarbic and hypoxemic respiratory failure. Patient smoked tobacco from 1970 to 2011 at 1 pack per day for a total of 42 pack years. Patient denies vaping, illicit drug use, sandblasting, welding, asbestos work, professional painting, sand blasting. Patient recently discharged from hospitalization from 11/18/20 throough 11/27/20 on: Tre[place] 200/62.5/24 at 1 puffs Q day, rescue albuterol nebs, lasix 40 PO BID. Noninvasive ventilation with AVAPS mode with a respiratory rate of 16, tidal volume 500, Expiratory pressure min 9, expiratory pr
--- NOTE | 2020-12-29 15:08 | PC.NURSE ---
attempted to call report, nurse just received SBAR from patient care secretary. Nurse will call me back.
[2020-12-29 16:04] LABS: Glucose Point of Care 189 mg/dl (65-105)
--- NOTE | 2020-12-29 16:22 | ADMGEN ---
This patient, Radha Burns, was admitted to IMU Room 232-01 [id number] Patient/ oriented to hospital policies and general routines including ID bracelet, bed and alarms, visiting hours, pain management, procedures, bathroom and other care routines, personal items, smoking policy, room service/diet, and visiting hours. [address] Allen into see pt Information on how to activate the Rapid Response Team has been discussed. Patient/ encouraged to report perceived risks to care and to ask questions if they do not understand what they are told or what they should do.
[2020-12-29 16:56] LABS: Troponin I < 0.012 ng/mL (0.000-0.034)
[2020-12-29] MEDS: FUROSEMIDE INJ 40 MG/4 ML VIAL IV PUSH (19:33)
[2020-12-29] MEDS: NITROGLYCERIN OINTMENT 1 INCH DOSE TRANSDERM (19:33)
[2020-12-29 20:31] LABS: Glucose Point of Care 179 mg/dl (65-105)
[2020-12-29] MEDS: methylPREDNISolone SOD SUCC 40 MG VIAL IV PUSH (20:31)
[2020-12-29] MEDS: TOLNAFTATE 1% POWDER 45 GM BTL 1 APPLIC TOPICAL (20:35)
[2020-12-29] MEDS: ALBUTEROL SULFATE NEB 2.5 MG/0.5 ML INH INHALATION (20:54)
[2020-12-29] MEDS: METOPROLOL SUCCINATE EXT REL 50 MG TABCR PO (21:33)
[2020-12-30] VITALS (19 sets, daily range): BP systolic 129–150; BP diastolic 58–64; PULSE 75–107; RESP 20–26; TEMP 36.5–36.9; O2SAT 90–98
[2020-12-30] MEDS: NITROGLYCERIN OINTMENT 1 INCH DOSE TRANSDERM ×3 (00:23→17:18)
[2020-12-30] MEDS: methylPREDNISolone SOD SUCC 40 MG VIAL IV PUSH ×2 (00:23→05:01)
[2020-12-30] MEDS: IPRATROPIUM BR 0.02% INH SOLN 0.5 MG/2.5 ML VIAL INHALATION (02:22)
[2020-12-30] MEDS: ALBUTEROL SULFATE NEB 2.5 MG/0.5 ML INH INHALATION (02:22)
[2020-12-30] MEDS: LEVOTHYROXINE SODIUM 75 MCG TABLET PO (05:02)
[2020-12-30 05:39] LABS: Hematocrit 34.3 % (37.0-47.0); Hemoglobin 9.4 g/dL (12.0-15.0); Immature Granulocyte Absolute 0.06 K/mm3 (0.00-0.031); Immature Granulocyte Percent A 0.8 % (0-0.5); Lymphocytes Absolute Auto 0.48 K/mm3 (0.9-3.2); Lymphocytes Percent Auto 6.5 % (18.3-44.2); Mean Corpuscular HGB Conc 27.4 g/dl (32-36); Mean Corpuscular Hemoglobin 25.5 pg (26-34); Mean Platelet Volume 12.7 fl (7.4-10.4); Monocytes Absolute Auto 0.1 K/mm3 (0.1-0.6); Monocytes Percent Auto 1.5 % (2.6-8.5); Neutrophils Absolute Auto 6.7 K/mm3 (1.3-6.7); Neutrophils Percent Auto 91.2 % (45.5-73.1); Platelet Count Result 104 k/mm3 (150-375); Red Blood Count 3.69 M/mm3 (4.2-5.4); Red Cell Distribution Width 17.4 % (11.5-14.5); White Blood Count 7.4 K/mm3 (4.5-10.0)
[2020-12-30 06:06] LABS: Blood Urea Nitrogen 21 mg/dL (7-17); Calcium 8.8 mg/dL (8.4-10.2); Carbon Dioxide > 40 mmol/L (22-30); Chloride 95 mmol/L (98-107); Estimated CRCL calculation 104 ml/min; Estimated Glomerular Filt Rate > 60; Glucose 214 mg/dL (65-110); Lactate Dehydrogenase 628 U/L (313-618); Magnesium 1.9 mg/dL (1.6-2.3); Potassium 4.8 mmol/L (3.4-5.0); Sodium 140 mmol/L (137-145)
[2020-12-30 06:23] LABS: Hemoglobin A1C 6.8 % (<5.7)
[2020-12-30 07:25] LABS: Thyroid Stimulating Hormone Reflex 0.557 uIU/mL (0.465-4.68)
--- NOTE | 2020-12-30 08:30 | PM.PNPUL ---
Progress Note: A&P Assessment and Plan (1) Acute on chronic respiratory failure with hypoxia and hypercapnia: Code(s): J96.21 - Acute and chronic respiratory failure with hypoxia; J96.22 - Acute and chronic respiratory failure with hypercapnia Status: Acute Assessment and Plan: 12/29 Patient has morbid obesity, obesity hypoventilation syndrome, pulmonary hypertension, tobacco use and possible COPD, and diastolic heart failure with fluid retention as the etiology for her respiratory failure. Currently I do not see evidence of pneumonia. I do not think this is a COPD exacerbation as no increase in phlegm volume and no change inphlegm color and only owrsening WOMACK with no rest SOB. Patient with acute on chronic hypoxemic and hypoxic hypercarbic respiratory failure. On 11/24 during previous hospitalization on AVAPS mode with a respiratory rate of 16, tidal volume 500, EPAP 8, minimal inspiratory pressure 9, maximal inspiratory pressure 25 inspiratory time 1.0 seconds, rise of 3 which is our middle setting, and 35% She had a blood gas at the end of the night with a pH of 7.43/70/82. Currently I have her back on these AVAPS settings. She has a home noninvasive ventilator with AVAPS-AE settings and I told the patient to have her family bring in this machine tubing and mask so that she can wear that in the hospital. 12/30 patient did well with a hospital noninvasive ventilator with a VATS mode overnight. I took the noninvasive ventilator off this morning and she said she is breathing at her normal when she is at rest. She states that her main trouble is when she tries to exert herself to walk. The best she can do is walk across the room with her walker at home. The says that they had some difficulty with a home noninvasive ventilator with alarms. I have encouraged the family to bring in the home unit so that we can troubleshoot the unit while the patient is in the hospital. Will follow with you. (2) Chronic obstructive pulmonary disease: Code(s): J44.9 - Chronic obstructive pulmonary disease, unspecified Status: Acute Assessment and Plan: 12/29 Patient has worsening dyspnea on exertion and acute on chronic hypercarbic and hypoxemic respiratory failure with no wheezing, change in phlegm volume or change in phlegm color per her report. She is morbidly obese and it is almost impossible to hear any breath sounds but she has no heavy wheezing. She is maintained on trilogy 200-20 62.5-24 and rescue albuterol. I will continue Solu-Medrol 40 Q 6. albuterol and ipratropium nebulizers and assess her in the morning for conversion to oral steroids. I see no need for antibiotics at this time. 12/30 Patient gives no history of wheezing, change in phlegm volume, change in phlegm color but does have shortness of breath that was mainly dyspnea on exertion at home. At this time I am not convinced the patient is having a COPD exacerbation and I will discontinue systemic steroids. I will place her back on her home regimen of trilogy 200/62.5/25 with p.r.n. rescue albuterol nebulizers. Blood cultures negative and I agree with no antibiotics at this time. (3) Diastolic congestive heart failure: Code(s): I50.30 - Unspecified diastolic (congestive) heart failure Status: Acute Assessment and Plan: 12/29 Patient with an echocardiogram on 11/20/2020 that showed grade 2 diastolic dysfunction. Patient has fluid retention likely from obesity hypoventilation with pulmonary hypertension. previous echo showed no evidence of right ventricular enlargement or decreased right ventricular systolic function or right atrial enlargement. I agree with diuresing as aggressively as tolerated by her cardiac and renal systems. Patient is currently being diuresed with Lasix 40 IV b.i.d.. 12/30 I agree with diuresing as aggressively as tolerated by her cardiac and renal systems on lasix 40 IV BID, Diuresed 1250 mL yesterday. S
[2020-12-30 08:55] LABS: Glucose Point of Care 208 mg/dl (65-105)
[2020-12-30] MEDS: TOLNAFTATE 1% POWDER 45 GM BTL 1 APPLIC TOPICAL ×2 (09:00→20:49)
[2020-12-30] MEDS: INSULIN ASPART (*BKC) 100 UNITS/ML SUB-Q (09:03)
[2020-12-30] MEDS: METOPROLOL SUCCINATE EXT REL 50 MG TABCR PO (09:05)
[2020-12-30] MEDS: FUROSEMIDE INJ 40 MG/4 ML VIAL IV PUSH (09:05)
[2020-12-30] MEDS: MULTIVITAMINS /C LUTEIN (CENTRUM SILVER) TABLET *BKC 1 TAB PO (09:05)
[2020-12-30] MEDS: SPIRONOLACTONE 25 MG TABLET PO (09:06)
[2020-12-30] MEDS: POTASSIUM CHLORIDE 10 MEQ TABLET.ER PO (09:06)
[2020-12-30] MEDS: PIOGLITAZONE HCL 30 MG TABLET PO (09:06)
[2020-12-30] MEDS: FLUTICASONE/UMECLIDIN/VILANTER 200-62.5-25 MCG ELLIPTA 1 PUFF INHALATION (09:21)
[2020-12-30 12:57] LABS: Glucose Point of Care 219 mg/dl (65-105)
--- NOTE | 2020-12-30 13:38 | PM.IMPN ---
Progress Note: A&P Assessment and Plan (1) Acute respiratory failure with hypoxia and hypercapnia: Code(s): J96.01 - Acute respiratory failure with hypoxia; J96.02 - Acute respiratory failure with hypercapnia Status: Acute Assessment and Plan: Continue with inhalers. Pulmonary consult was greatly be appreciated. Taken off of steroids given no evidence of COPD exacerbation. The patient has chronic hypoxia and hypercapnia. The patient is on a trilogy at home. Question of malfunction and is to bring it for troubleshooting. The patient also has oxygen chronically 2-3 L at home as well. (2) Obesity hypoventilation syndrome: Code(s): E66.2 - Morbid (severe) obesity with alveolar hypoventilation Status: Acute Assessment and Plan: The patient uses a trilogy at home. This will be brought in today for respiratory therapy to look at it today to ensure it is working properly with the plan to have her use it tonight. (3) CHF (congestive heart failure): Qualifiers: Heart failure chronicity: acute on chronic Heart failure type: unspecified Qualified Code(s): I50.9 - Heart failure, unspecified Code(s): I50.9 - Heart failure, unspecified Status: Acute Assessment and Plan: Patient recently had an echo and EF was within normal limits but with significant diastolic dysfunction. Patient is now receiving IV Lasix. She has chronic lymphedema to her lower extremities. The patient is typically on p.o. Lasix (40 mg b.i.d.). There is evidence of pitting edema along with her lymphedema on exam and also chest x-ray with congestion. Will give an extra 80 mg of IV Lasix today and continue to assess response. (4) Essential hypertension: Code(s): I10 - Essential (primary) hypertension Status: Chronic Assessment and Plan: Continue with home lisinopril, metoprolol, and spironolactone. Adjust as needed. (5) Hypothyroidism: Code(s): E03.9 - Hypothyroidism, unspecified Status: Chronic Assessment and Plan: TSH within normal limits. continue with her levothyroxine. (6) Type 2 diabetes mellitus: Code(s): E11.9 - Type 2 diabetes mellitus without complications Status: Chronic Assessment and Plan: Continue with patient's home medication and will do Accu-Cheks a.c. HS with moderate sliding scale. Hemoglobin A1c 6.8. Uncertain why she is on pioglitazone which is associated with worsening heart failure versus other more preferred oral diabetes medications. This can be readdressed in the outpatient setting. (7) Thrombocytopenia: Code(s): D69.6 - Thrombocytopenia, unspecified Status: Acute Assessment and Plan: Patient appears to be at her baseline. Continue to monitor. (8) Anemia of chronic disease: Code(s): D63.8 - Anemia in other chronic diseases classified elsewhere Status: Acute Assessment and Plan: Patient appears to be at her baseline. Continue to monitor no active bleeding at this time. Additional Plan Code status: Full code DVT proph: SCDs Subjective Date/time seen: 12/30/20 13:38 No acute events overnight. She was on VATS noninvasive ventilation overnight. She reports her shortness of breath is stable. Hemodynamically stable. Afebrile. No new symptoms reported. Review of Systems Review of Systems: All systems reviewed & are unremarkable except as noted in HPI and below Exam Narrative: Gen: Alert, NAD, Bipap on Abd: Soft, NT, ND Heart: RRR Lungs: CTAB Ext: 1+ bilateral lower extremity edema and significant lymphedema Objective Data Vital Signs Vital Signs: Vital Signs - 24 hr 12/29/20 14:47 12/29/20 15:00 12/29/20 15:45 Temperature 97.8 F Pulse Rate 105 H 106 H 116 H Respiratory Rate 23 H 23 H 26 H Blood Pressure 151/78 H Pulse Oximetry 93 95 94 12/29/20 16:00 12/29/20 16:40 12/29/20 18:00 Temperature 98 F Pulse Rate 106 H 104 H 101 H Res
[2020-12-30] MEDS: FUROSEMIDE INJ 100 MG/10 ML VIAL 80 MG IV PUSH (16:11)
[2020-12-30 17:07] LABS: Glucose Point of Care 152 mg/dl (65-105)
[2020-12-30] MEDS: SILVERGEL (ELTA) 45 ML 1 APPLIC TOPICAL (20:49)
[2020-12-30 21:09] LABS: Glucose Point of Care 171 mg/dl (65-105)
[2020-12-31] VITALS (12 sets, daily range): BP systolic 124–158; BP diastolic 54–92; PULSE 76–102; RESP 12–28; TEMP 36.6–36.8; O2SAT 91–95; BMI 10.0
[2020-12-31 05:09] LABS: Alveolar/Arterial O2 Gradient 103.8 mmHg; Base Excess ABG 12.4 mEq/l (+/-2.0); Fractional Inspired Oxygen 35 %; Oxygen Content ABG 13.9 %vol (16.0-22.0); Oxygen Saturation ABG 91.1 % (95.0-100.0); Oxyhemoglobin 90.4 % THb (90.0-100.0); PO2 ABG 64.1 mmHg (80.0-100.0); PO2 FiO2 Ratio Arterial Blood 1.83 %; Total Hemoglobin 10.9 g/dL (12.0-18.0); pH ABG 7.374 (7.350-7.450)
[2020-12-31 05:12] LABS: Modified Allen's Test Pass; PCO2 ABG 70.2 mmHg (35.0-45.0); Site Drawn RIGHT RADIAL
[2020-12-31 05:28] LABS: Hemoglobin 8.6 g/dL (12.0-15.0); Immature Platelet Fraction Pct 9.8 % (0.9-11.2); Mean Corpuscular HGB Conc 27.7 g/dl (32-36); Mean Corpuscular Hemoglobin 25.8 pg (26-34); Mean Corpuscular Volume 93.1 fl (80-100); Mean Platelet Volume 11.2 fl (7.4-10.4); Platelet Count Result 113 k/mm3 (150-375); Red Blood Count 3.33 M/mm3 (4.2-5.4); Red Cell Distribution Width 17.3 % (11.5-14.5); White Blood Count 7.3 K/mm3 (4.5-10.0)
[2020-12-31] MEDS: LEVOTHYROXINE SODIUM 75 MCG TABLET PO (05:35)
[2020-12-31 08:45] LABS: Glucose Point of Care 255 mg/dl (65-105)
[2020-12-31] MEDS: FLUTICASONE/UMECLIDIN/VILANTER 200-62.5-25 MCG ELLIPTA 1 PUFF INHALATION (09:03)
--- NOTE | 2020-12-31 09:19 | PM.PNPUL ---
Progress Note: A&P Assessment and Plan (1) Acute on chronic respiratory failure with hypoxia and hypercapnia: Code(s): J96.21 - Acute and chronic respiratory failure with hypoxia; J96.22 - Acute and chronic respiratory failure with hypercapnia Status: Acute Assessment and Plan: 12/29 Patient has morbid obesity, obesity hypoventilation syndrome, pulmonary hypertension, tobacco use and possible COPD, and diastolic heart failure with fluid retention as the etiology for her respiratory failure. Currently I do not see evidence of pneumonia. I do not think this is a COPD exacerbation as no increase in phlegm volume and no change inphlegm color and only owrsening WOMACK with no rest SOB. Patient with acute on chronic hypoxemic and hypoxic hypercarbic respiratory failure. On 11/24 during previous hospitalization on AVAPS mode with a respiratory rate of 16, tidal volume 500, EPAP 8, minimal inspiratory pressure 9, maximal inspiratory pressure 25 inspiratory time 1.0 seconds, rise of 3 which is our middle setting, and 35% She had a blood gas at the end of the night with a pH of 7.43/70/82. Currently I have her back on these AVAPS settings. She has a home noninvasive ventilator with AVAPS-AE settings and I told the patient to have her family bring in this machine tubing and mask so that she can wear that in the hospital. 12/30 patient did well with a hospital noninvasive ventilator with a VATS mode overnight. I took the noninvasive ventilator off this morning and she said she is breathing at her normal when she is at rest. She states that her main trouble is when she tries to exert herself to walk. The best she can do is walk across the room with her walker at home. The says that they had some difficulty with a home noninvasive ventilator with alarms. I have encouraged the family to bring in the home unit so that we can troubleshoot the unit while the patient is in the hospital. 12/31 She states she has 50% back to normal. Patient wore her home noninvasive ventilator with the AVAPS-AE mode with a rate of 10, tidal volume 500, EPAP Min 5, EPAP max 15, IPAP min 9, IPAP max 25, inspiratory time 1.0 and 4 L bleed in last night. She said she was able to sleep a little bit with the machine on. She did complain of an air leak going into are eyes. At the bedside today I adjusted her mask to try to minimize this leak and she said it felt better after we adjusted the mask. At the end of the night she had a blood gas demonstrating a pH of 7.37/70/64. She had an overnight oximetry with the 4 L bleed in demonstrating her average saturation was 93%, Desiree saturation 76%, time with saturations less than or equal to 88% was 14 minutes. The tracing demonstrates 1 episode with saturations less than or equal to 88% but otherwise she was maintained over 88%. This episode below 88% may have been associated with mask malpositioning and will not increase her oxygen at this time. Will follow with you. (2) Chronic obstructive pulmonary disease: Code(s): J44.9 - Chronic obstructive pulmonary disease, unspecified Status: Acute Assessment and Plan: 12/29 Patient has worsening dyspnea on exertion and acute on chronic hypercarbic and hypoxemic respiratory failure with no wheezing, change in phlegm volume or change in phlegm color per her report. She is morbidly obese and it is almost impossible to hear any breath sounds but she has no heavy wheezing. She is maintained on trilogy 200-20 62.5-24 and rescue albuterol. I will continue Solu-Medrol 40 Q 6. albuterol and ipratropium nebulizers and assess her in the morning for conversion to oral steroids. I see no need for antibiotics at this time. 12/30 Patient gives no history of wheezing, change in phlegm volume, change in phlegm color but does have shortness of breath that was mainly dyspnea on exertion at home. At this time I am not convinced the patient is having a COPD exacerbation and I
--- NOTE | 2020-12-31 09:35 | PM.IMPN ---
Progress Note: A&P Assessment and Plan (1) Acute respiratory failure with hypoxia and hypercapnia: Code(s): J96.01 - Acute respiratory failure with hypoxia; J96.02 - Acute respiratory failure with hypercapnia Status: Acute Assessment and Plan: Continue with inhalers. Pulmonary consult was greatly be appreciated. Taken off of steroids given no evidence of COPD exacerbation. The patient has chronic hypoxia and hypercapnia. The patient is on a trilogy at home. She did reasonable with her home trilogy use last night. Her PCO2 this AM is 70, pH is compensated. Discussed with pulmonary, this is about her baseline and no further changes to the trilogy are recommended. The patient also has oxygen chronically 4 L at home as well. Continue inhalers. (2) Obesity hypoventilation syndrome: Code(s): E66.2 - Morbid (severe) obesity with alveolar hypoventilation Status: Acute Assessment and Plan: Continue Trelegy at current settings, continue oxygen at 5 L while awake. Appreciate Pulmonary recommendations. (3) CHF (congestive heart failure): Qualifiers: Heart failure chronicity: acute on chronic Heart failure type: unspecified Qualified Code(s): I50.9 - Heart failure, unspecified Code(s): I50.9 - Heart failure, unspecified Status: Acute Assessment and Plan: Patient recently had an echo and EF was within normal limits but with significant diastolic dysfunction. Patient is now receiving IV Lasix. She has chronic lymphedema to her lower extremities. The patient is typically on p.o. Lasix (40 mg b.i.d.). There is evidence of pitting edema along with her lymphedema on exam and also chest x-ray with congestion. Will give an extra 80 mg of IV Lasix today and continue to assess response. (4) Essential hypertension: Code(s): I10 - Essential (primary) hypertension Status: Chronic Assessment and Plan: Continue with home lisinopril, metoprolol, and spironolactone. Adjust as needed. (5) Hypothyroidism: Code(s): E03.9 - Hypothyroidism, unspecified Status: Chronic Assessment and Plan: TSH within normal limits. continue with her levothyroxine. (6) Type 2 diabetes mellitus: Code(s): E11.9 - Type 2 diabetes mellitus without complications Status: Chronic Assessment and Plan: Continue with patient's home medication and will do Accu-Cheks a.c. HS with moderate sliding scale. Hemoglobin A1c 6.8. Uncertain why she is on pioglitazone which is associated with worsening heart failure versus other more preferred oral diabetes medications. This can be readdressed in the outpatient setting. (7) Thrombocytopenia: Code(s): D69.6 - Thrombocytopenia, unspecified Status: Acute Assessment and Plan: Patient appears to be at her baseline. Continue to monitor. (8) Anemia of chronic disease: Code(s): D63.8 - Anemia in other chronic diseases classified elsewhere Status: Acute Assessment and Plan: Slightly lower than baseline. Will check anemia indices and replace as needed. Continue to monitor no active bleeding at this time. Additional Plan Dipso: I discussed with her length that she requires high level care and given her is wheelchair-bound, she is unlikely to be able to care self home. Recommend [facility] facility placement vs. LTAC if possible. I discussed this with and appreciate help of our childcare teacher for placement. Subjective Date/time seen: 12/31/20 09:35 She reports feeling more comfortable with the BiPAP the night prior than she is with a trilogy overnight. This morning she is sitting at the edge bed. Looks comfortable. She is currently on 5 L of oxygen by nasal cannula. Appetite is good. Hemodynamically stable. Exam Narrative: Gen: Alert, NAD, on oxygen by nasal cannula Abd: Soft, NT, ND Heart: RRR Lungs: CTAB Ext: 1+ bilateral lower extremity edema and signi
[2020-12-31] MEDS: INSULIN ASPART (*BKC) 100 UNITS/ML SUB-Q (11:02)
[2020-12-31] MEDS: METOPROLOL SUCCINATE EXT REL 50 MG TABCR PO (11:04)
[2020-12-31] MEDS: FUROSEMIDE INJ 40 MG/4 ML VIAL IV PUSH (11:04)
[2020-12-31] MEDS: SPIRONOLACTONE 25 MG TABLET PO (11:05)
[2020-12-31] MEDS: MULTIVITAMINS /C LUTEIN (CENTRUM SILVER) TABLET *BKC 1 TAB PO (11:05)
[2020-12-31] MEDS: PIOGLITAZONE HCL 30 MG TABLET PO (11:05)
[2020-12-31] MEDS: SILVERGEL (ELTA) 45 ML 1 APPLIC TOPICAL (11:06)
[2020-12-31] MEDS: TOLNAFTATE 1% POWDER 45 GM BTL 1 APPLIC TOPICAL ×2 (11:06→20:39)
[2020-12-31 12:42] LABS: Glucose Point of Care 179 mg/dl (65-105)
[2020-12-31 16:35] LABS: Bilirubin,Total 0.4 mg/dL (0.2-1.3); Lactate Dehydrogenase 653 U/L (313-618)
[2020-12-31 16:54] LABS: Iron 29 ug/dL (37-170)
[2020-12-31] MEDS: POTASSIUM CHLORIDE 10 MEQ TABLET.ER PO (16:59)
[2020-12-31] MEDS: FUROSEMIDE INJ 40 MG/4 ML VIAL 80 MG IV PUSH (16:59)
[2020-12-31 17:04] LABS: Percent Iron Saturation 8 % (20-50)
[2020-12-31 17:12] LABS: Glucose Point of Care 194 mg/dl (65-105)
[2020-12-31 17:42] LABS: Folic Acid > 20.0 ng/mL (2.76->20)
--- NOTE | 2020-12-31 20:10 | PC.NURSE ---
This patient, Radha Burns, was received from [ IMU] on 12/31/20 at 2000. Patient/family oriented to unit policies and routines
[2020-12-31 20:49] LABS: Glucose Point of Care 248 mg/dl (65-105)
[2021-01-01] VITALS (16 sets, daily range): BP systolic 129–149; BP diastolic 6–70; PULSE 72–101; RESP 19–25; TEMP 36.1–36.9; O2SAT 90–98
[2021-01-01] MEDS: LEVOTHYROXINE SODIUM 75 MCG TABLET PO (05:32)
[2021-01-01 06:11] LABS: Basophils Percent Auto 0.4 % (0.2-1.2); Eosinophils Absolute Auto 0.1 K/mm3 (0-0.3); Eosinophils Percent Auto 1.2 % (0-4.4); Hematocrit 32.3 % (37.0-47.0); Hemoglobin 9.1 g/dL (12.0-15.0); Immature Granulocyte Absolute 0.04 K/mm3 (0.00-0.031); Immature Granulocyte Percent A 0.5 % (0-0.5); Immature Platelet Fraction Pct 10.7 % (0.9-11.2); Lymphocytes Absolute Auto 0.65 K/mm3 (0.9-3.2); Lymphocytes Percent Auto 8.5 % (18.3-44.2); Mean Corpuscular HGB Conc 28.2 g/dl (32-36); Mean Corpuscular Hemoglobin 25.5 pg (26-34); Mean Corpuscular Volume 90.5 fl (80-100); Monocytes Absolute Auto 0.6 K/mm3 (0.1-0.6); Monocytes Percent Auto 7.6 % (2.6-8.5); Neutrophils Absolute Auto 6.3 K/mm3 (1.3-6.7); Neutrophils Percent Auto 81.8 % (45.5-73.1); Platelet Count Result 101 k/mm3 (150-375); Red Blood Count 3.57 M/mm3 (4.2-5.4); White Blood Count 7.7 K/mm3 (4.5-10.0)
[2021-01-01] MEDS: POTASSIUM CHLORIDE 10 MEQ TABLET.ER PO (08:55)
[2021-01-01] MEDS: SPIRONOLACTONE 25 MG TABLET PO (08:55)
[2021-01-01] MEDS: PIOGLITAZONE HCL 30 MG TABLET PO (08:55)
[2021-01-01] MEDS: MULTIVITAMINS /C LUTEIN (CENTRUM SILVER) TABLET *BKC 1 TAB PO (08:55)
[2021-01-01] MEDS: METOPROLOL SUCCINATE EXT REL 50 MG TABCR PO (08:55)
[2021-01-01] MEDS: TOLNAFTATE 1% POWDER 45 GM BTL 1 APPLIC TOPICAL ×2 (08:56→20:21)
[2021-01-01] MEDS: FUROSEMIDE INJ 40 MG/4 ML VIAL IV PUSH ×2 (08:56→17:06)
--- NOTE | 2021-01-01 09:24 | PCRCNOTE ---
MDI HELD THIS MORNING DUE TO INCREASED WOB AND LOW SPO2 OF 84% ON 5LPM NC. PT WAS PLACED ON 8LPM HFNC WITH LITTLE IMPROVEMENT IN SPO2. ATTEMPTED PT HOME TRILOGY WITH 6LPM O2 BLEED IN FOR SPO2 92% BUT THEN PT SPO2 DROPPED TO MID 80'S AGAIN. WOB HOWEVER WAS IMPROVED. O2 INCREASED TO 12LPM WITH SPO2 96% WITH DR WHEELER AT BEDSIDE.
[2021-01-01 09:34] LABS: Glucose Point of Care 154 mg/dl (65-105)
[2021-01-01 10:06] LABS: Device CPAP
--- NOTE | 2021-01-01 10:47 | PM.PNPUL ---
Progress Note: A&P Assessment and Plan (1) Acute on chronic respiratory failure with hypoxia and hypercapnia: Code(s): J96.21 - Acute and chronic respiratory failure with hypoxia; J96.22 - Acute and chronic respiratory failure with hypercapnia Status: Acute Assessment and Plan: 12/29 Patient has morbid obesity, obesity hypoventilation syndrome, pulmonary hypertension, tobacco use and possible COPD, and diastolic heart failure with fluid retention as the etiology for her respiratory failure. Currently I do not see evidence of pneumonia. I do not think this is a COPD exacerbation as no increase in phlegm volume and no change inphlegm color and only owrsening WOMACK with no rest SOB. Patient with acute on chronic hypoxemic and hypoxic hypercarbic respiratory failure. On 11/24 during previous hospitalization on AVAPS mode with a respiratory rate of 16, tidal volume 500, EPAP 8, minimal inspiratory pressure 9, maximal inspiratory pressure 25 inspiratory time 1.0 seconds, rise of 3 which is our middle setting, and 35% She had a blood gas at the end of the night with a pH of 7.43/70/82. Currently I have her back on these AVAPS settings. She has a home noninvasive ventilator with AVAPS-AE settings and I told the patient to have her family bring in this machine tubing and mask so that she can wear that in the hospital. 12/30 patient did well with a hospital noninvasive ventilator with a VATS mode overnight. I took the noninvasive ventilator off this morning and she said she is breathing at her normal when she is at rest. She states that her main trouble is when she tries to exert herself to walk. The best she can do is walk across the room with her walker at home. The says that they had some difficulty with a home noninvasive ventilator with alarms. I have encouraged the family to bring in the home unit so that we can troubleshoot the unit while the patient is in the hospital. 12/31 She states she has 50% back to normal. Patient wore her home noninvasive ventilator with the AVAPS-AE mode with a rate of 10, tidal volume 500, EPAP Min 5, EPAP max 15, IPAP min 9, IPAP max 25, inspiratory time 1.0 and 4 L bleed in last night. She said she was able to sleep a little bit with the machine on. She did complain of an air leak going into are eyes. At the bedside today I adjusted her mask to try to minimize this leak and she said it felt better after we adjusted the mask. At the end of the night she had a blood gas demonstrating a pH of 7.37/70/64. She had an overnight oximetry with the 4 L bleed in demonstrating her average saturation was 93%, Desiree saturation 76%, time with saturations less than or equal to 88% was 14 minutes. The tracing demonstrates 1 episode with saturations less than or equal to 88% but otherwise she was maintained over 88%. This episode below 88% may have been associated with mask malpositioning and will not increase her oxygen at this time. 01/01 Worsening oxygenation this morning and chest x-ray continues to show bilateral effusions with congestion. Patient was given 80 mg IV Lasix push this morning. She has no wheezing and no evidence of a pneumonia. continue her home AVAPS-AE mode with a rate of 10, tidal volume 500, EPAP Min 5, EPAP max 15, IPAP min 9, IPAP max 25, inspiratory time 1.0 and oxygen bleed in to maintain satuations 90-94%. Will follow with you. (2) Chronic obstructive pulmonary disease: Code(s): J44.9 - Chronic obstructive pulmonary disease, unspecified Status: Acute Assessment and Plan: 12/29 Patient has worsening dyspnea on exertion and acute on chronic hypercarbic and hypoxemic respiratory failure with no wheezing, change in phlegm volume or change in phlegm color per her report. She is morbidly obese and it is almost impossible to hear any breath sounds but she has no heavy wheezing. She is maintained on trilogy 200-20 62.5-24 and rescue albuterol. I will continue [facility]
--- NOTE | 2021-01-01 11:41 | PCRCNOTE ---
CALLED TO PTS ROOM FOR LOW SPO2. DUE TO DIFFICULTY IN REACHING 90% WITH PTS HOME TRILOGY AND 15LPM O2 BLEED IN, PT WAS PLACED ON V60 WITH HOME AVAPS SETTINGS. PTS SPO2 DROPPED TO 83% ON 75% FIO2 SO SETTINGS WERE CHANGED TO ACHIEVE VT OF ~500. FINAL SETTINGS REPORTED ARE 17/12 R16 50% FIO2 FOR SPO2 97%
--- NOTE | 2021-01-01 12:25 | PCPTNOTE ---
Attempted to see pt for PT session this afternoon. RN reports pt is having difficulty breathing with increased oxygen demand. Pt will be transferring to IMU soon. Therapy will hold at this time and try again as schedule allows and pt is appropriate.
[2021-01-01 13:14] LABS: NT Pro B Type Natriuretic Pept 372 pg/mL (5-100)
--- NOTE | 2021-01-01 15:00 | PCOTNOTE ---
Pt not seen this date due to decline in medical status and transfer to IMU.
[2021-01-01 16:57] LABS: Glucose Point of Care 144 mg/dl (65-105)
[2021-01-01] MEDS: SILVERGEL (ELTA) 45 ML 1 APPLIC TOPICAL (17:06)
--- NOTE | 2021-01-01 18:11 | PM.IMPN ---
Progress Note: A&P Assessment and Plan (1) Acute respiratory failure with hypoxia and hypercapnia: Code(s): J96.01 - Acute respiratory failure with hypoxia; J96.02 - Acute respiratory failure with hypercapnia Status: Acute Assessment and Plan: The patient is on a trilogy at home. She did reasonably with her home trilogy use last night. She desaturated to the 70s and was getting tired on the trilogy despite aggressive diuresis with IV lasix. During the afternoon she was upgraded to IMU and started on BiPAP. (2) Acute exacerbation of chronic obstructive pulmonary disease: Code(s): J44.1 - Chronic obstructive pulmonary disease with (acute) exacerbation Status: Acute Assessment and Plan: We will continue aggressive pulmonary toilet with scheduled duonebs. There is no evidence of acute COPD exacerbation. Patient is a chronic CO2 retainer on oxygen 4 liters at home which is her baseline (3) Obesity hypoventilation syndrome: Code(s): E66.2 - Morbid (severe) obesity with alveolar hypoventilation Status: Acute Assessment and Plan: Currently failing trilogy she was upgraded to bipap. (4) CHF (congestive heart failure): Qualifiers: Heart failure chronicity: acute on chronic Heart failure type: unspecified Qualified Code(s): I50.9 - Heart failure, unspecified Code(s): I50.9 - Heart failure, unspecified Status: Acute Assessment and Plan: Patient recently had an echo and EF was within normal limits but with significant diastolic dysfunction. Patient is responding well to IV Lasix. She has chronic lymphedema to her lower extremities. The patient is typically on p.o. Lasix (40 mg b.i.d.). There is evidence of pitting edema along with her lymphedema on exam and also chest x-ray with congestion. Continue IV Lasix today and continue to assess response. (5) Type 2 diabetes mellitus: Code(s): E11.9 - Type 2 diabetes mellitus without complications Status: Chronic Assessment and Plan: Continue with patient's home medication and will do Accu-Cheks a.c. HS with moderate sliding scale. Hemoglobin A1c 6.8. Uncertain why she is on pioglitazone which is associated with worsening heart failure versus other more preferred oral diabetes medications. This can be readdressed in the outpatient setting (6) Diastolic congestive heart failure: Code(s): I50.30 - Unspecified diastolic (congestive) heart failure Status: Acute Assessment and Plan: as above (7) Frequent PVCs: Code(s): I49.3 - Ventricular premature depolarization Status: Acute Assessment and Plan: Rate controlled with metoprolol. Monitor electrolytes. (8) CAP (community acquired pneumonia): Code(s): J18.9 - Pneumonia, unspecified organism Status: Acute Assessment and Plan: Chest Xray suggestive of pulmonary edema. Blood culture negative. Sputum culture reveals oropharyngeal christiana. (9) Hypothyroidism: Code(s): E03.9 - Hypothyroidism, unspecified Status: Chronic Assessment and Plan: Supplement with levothyroxine. (10) Essential hypertension: Code(s): I10 - Essential (primary) hypertension Status: Chronic Assessment and Plan: Continue with home lisinopril, metoprolol, and spironolactone (11) Anemia of chronic disease: Code(s): D63.8 - Anemia in other chronic diseases classified elsewhere Status: Acute Assessment and Plan: Continue to monitor no active bleeding at this time. (12) DVT prophylaxis: Code(s): Z29.9 - Encounter for prophylactic measures, unspecified Status: Acute Additional Plan [facility] vs. [facility] if possible. Subjective Date/time seen: 01/01/21 18:11 Interval history: 70-year-old lady with a past medical history including but not limited to morbid obesity, COPD for 10 years, obesity hypoventilation syndr
[2021-01-01 19:46] LABS: IFOB Positive Control Positive; Immunochemical Fecal Occult Bl Positive (N)
[2021-01-01 21:34] LABS: Glucose Point of Care 184 mg/dl (65-105)
[2021-01-02] VITALS (26 sets, daily range): BP systolic 98–142; BP diastolic 53–67; PULSE 58–113; RESP 18–28; TEMP 35.6–36.4; O2SAT 91–96
--- NOTE | 2021-01-02 | ECHO_ITS ---
Patient Info Name: Radha Burns Age: 70 years : 1950 Gender: Female Ht: 60 in Wt: 329 lbs BSA: 2.63 m2 HR: 104 bpm BP: 98 / 67 mmHg Heart Rhythm: Sinus Rhythm, Tachycardia Exam Date: 01/02/2021 10:29 AM Exam Location: [facility] Patient Status: Inpatient Admit Date: 12/29/2020 Staff Ordering Physician: Irineo Carpenter MD Component Technician: Piero Hansen RDCS, RT Attending Provider: Jessica Fraser MD Referring Physician: Jayden HOLGUIN; Exam Type: CA echo dop color flow w con Study Info Indications J96.01 - Acute respiratory failure with hypoxia I50.9 - Heart failure, unspecified Complete two-dimensional, color flow and Doppler transthoracic echocardiogram is performed with contrast to opacify the left ventricle and to improve the deliniation of the left ventricle endocardial borders. Strain analysis performed. Summary 1. Technically difficult study with limited views. 2. Left ventricular systolic function is normal, estimated at 65-70%. 3. There is no increased left ventricular wall thickness. 4. The left ventricular diastolic function is grade II diastolic dysfunction. 5. E/e' 16.58 is mildly elevated. 6. Right atrial chamber dimension is mildly enlarged. 7. There is mild aortic valve stenosis with a peak velocity of 231.04 cm/s, mean gradient of 9 mmHg, and aortic valve area of 1.95 cm2. 8. There is trace tricuspid valve regurgitation. 9. Severe pulmonary hypertension, estimated pulmonary arterial systolic pressure is 77 mmHg. 10. Dilated inferior vena cava with <50% collapse upon inspiration consistent with significantly elevated right atrial pressure, 15 mmHg. 11. Right ventricular chamber dimension is normal. 12. Right ventricular systolic function is normal with TAPSE 3.2.. Left Ventricle Left ventricular chamber dimension is normal. Left ventricular systolic function is normal, estimated at 65-70%. There is no increased left ventricular wall thickness. The left ventricular diastolic function is grade II diastolic dysfunction. E/e' 16.58 is mildly elevated. Global longitudinal strain is mildly elevated at -14 %. Technically difficult study with limited views. Right Ventricle Right ventricular chamber dimension is normal. Right ventricular systolic function is normal with TAPSE 3.2.. Left Atria Left atrial chamber dimension is mildly enlarged. Right Atria Right atrial chamber dimension is mildly enlarged. Aortic Valve The aortic valve is not well visualized. There is mild aortic valve stenosis with a peak velocity of 231.04 cm/s, mean gradient of 9 mmHg, and aortic valve area of 1.95 cm2. There is no aortic valve regurgitation. Pulmonic Valve The pulmonic valve is not well visualized. Mitral Valve The mitral valve has thickened leaflets. There is trace mitral valve regurgitation. The mitral valve annulus is mildly calcified. Tricuspid Valve The tricuspid valve leaflets are not well visualized. There is trace tricuspid valve regurgitation. Severe pulmonary hypertension, estimated pulmonary arterial systolic pressure is 77 mmHg. Pericardium/Pleural The pericardium appears not well visualized. There is small pericardial effusion. Inferior Vena Cava Dilated inferior vena cava with <50% collapse upon inspiration consistent with significantly elevated right atrial pressure, 15 mmHg. Aorta The aortic root size at the sinus of Valsalva is normal. Left Ventricular Outflow Tract
[2021-01-02] MEDS: LEVOTHYROXINE SODIUM 75 MCG TABLET PO (06:21)
--- NOTE | 2021-01-02 07:30 | P.PNPL_ITS ---
Progress Note: A&P Assessment and Plan (1) Acute on chronic respiratory failure with hypoxia and hypercapnia: Code(s): J96.21 - Acute and chronic respiratory failure with hypoxia; J96.22 - Acute and chronic respiratory failure with hypercapnia Status: Acute Assessment and Plan: 12/29 Patient has morbid obesity, obesity hypoventilation syndrome, pulmonary hypertension, tobacco use and possible COPD, and diastolic heart failure with fluid retention as the etiology for her respiratory failure. Currently I do not see evidence of pneumonia. I do not think this is a COPD exacerbation as no increase in phlegm volume and no change inphlegm color and only owrsening WOMACK with no rest SOB. Patient with acute on chronic hypoxemic and hypoxic hypercarbic respiratory failure. On 11/24 during previous hospitalization on AVAPS mode with a respiratory rate of 16, tidal volume 500, EPAP 8, minimal inspiratory pressure 9, maximal inspiratory pressure 25 inspiratory time 1.0 seconds, rise of 3 which is our middle setting, and 35% She had a blood gas at the end of the night with a pH of 7.43/70/82. Currently I have her back on these AVAPS settings. She has a home noninvasive ventilator with AVAPS-AE settings and I told the patient to have her family bring in this machine tubing and mask so that she can wear that in the hospital. 12/30 patient did well with a hospital noninvasive ventilator with a VATS mode overnight. I took the noninvasive ventilator off this morning and she said she is breathing at her normal when she is at rest. She states that her main trouble is when she tries to exert herself to walk. The best she can do is walk across the room with her walker at home. The says that they had some difficulty with a home noninvasive ventilator with alarms. I have encouraged t he family to bring in the home unit so that we can troubleshoot the unit while the patient is in the hospital. 12/31 She states she has 50% back to normal. Patient wore her home noninvasive ventilator with the AVAPS-AE mode with a rate of 10, tidal volume 500, EPAP Min 5, EPAP max 15, IPAP min 9, IPAP max 25, inspiratory time 1.0 and 4 L bleed in last night. She said she was able to sleep a little bit with the machine on. She did complain of an air leak going into are eyes. At the bedside today I adjusted her mask to try to minimize this leak and she said it felt better after we adjusted the mask. At the end of the night she had a blood gas demonstrating a pH of 7.37/70/64. She had an overnight oximetry with the 4 L bleed in demonstrating her average saturation was 93%, Desiree saturation 76%, time with saturations less than or equal to 88% was 14 minutes. The tracing demonstrates 1 episode with saturations less than or equal to 88% but otherwise she was maintained over 88%. This episode below 88% may have been associated with mask malpositioning and will not increase her oxygen at this time. 01/01 Worsening oxygenation this morning and chest x-ray continues to show bila teral effusions with congestion. Patient was given 80 mg IV Lasix push this morning. She has no wheezing and no evidence of a pneumonia. continue her home AVAPS-AE mode with a rate of 10, tidal volume 500, EPAP Min 5, EPAP max 15, IPAP min 9, IPAP max 25, inspiratory time 1.0 and oxygen bleed in to maintain satuations 90-94%. 01/02 Patient wore hospital BiPAP 18/8 all day yesterday and overnight. She was on 80% this morning with saturations 100%. Her tidal volumes were 330. I changed her to noninvasive ventilation with AVAPS mode rate of 20, tidal volume 500, EPAP 8, inspiratory minimum pressure 9, inspiratory maximum pressure 35, inspiratory time 1.0 seconds, rise 3 and decreased her to 50% and she
--- NOTE | 2021-01-02 08:16 | PCPTNOTE ---
Patient transferred to IMU from medical floor due to change in medical status. PT will hold therapy at this time and await recommendations from Zahraa.
[2021-01-02] MEDS: TOLNAFTATE 1% POWDER 45 GM BTL 1 APPLIC TOPICAL ×2 (08:36→21:13)
[2021-01-02] MEDS: SILVERGEL (ELTA) 45 ML 1 APPLIC TOPICAL (08:36)
--- NOTE | 2021-01-02 08:44 | PCOTNOTE ---
Spoke with nurse re: pt. status with BiPap. Nurse reports that dr. confirm BiPap can be taken off and is not continuous. Followed up with TENORIO to confirm continuation of OT services, and to reconfirm with nurse prior to OT therapy session.
[2021-01-02 08:45] LABS: Glucose Point of Care 143 mg/dl (65-105)
[2021-01-02] MEDS: BUDESONIDE RESPULE NEB 0.5 MG/2 ML AMP INHALATION ×2 (08:45→20:42)
[2021-01-02] MEDS: ALBUTEROL SULFATE NEB 2.5 MG/0.5 ML INH INHALATION ×4 (08:46→20:42)
[2021-01-02] MEDS: IPRATROPIUM BR 0.02% INH SOLN 0.5 MG/2.5 ML VIAL INHALATION ×4 (08:46→20:42)
[2021-01-02] MEDS: FUROSEMIDE INJ 100 MG/10 ML VIAL 80 MG IV PUSH ×2 (10:00→17:33)
[2021-01-02 10:44] LABS: Alveolar/Arterial O2 Gradient 180.5 mmHg; Base Excess ABG 21.6 mEq/l (+/-2.0); Fractional Inspired Oxygen 50 %; HCO3 ABG 52.5 mEq/l (22.0-26.0); Oxygen Content ABG 15.6 %vol (16.0-22.0); Oxygen Saturation ABG 89.3 % (95.0-100.0); Oxyhemoglobin 88.7 % THb (90.0-100.0); PO2 ABG 64.1 mmHg (80.0-100.0); PO2 FiO2 Ratio Arterial Blood 1.28 %; Total Hemoglobin 12.5 g/dL (12.0-18.0)
[2021-01-02 10:51] LABS: Device NON-INVASIVE VENT; Modified Allen's Test Pass; PCO2 ABG 99.5 mmHg (35.0-45.0); Site Drawn RIGHT RADIAL
[2021-01-02 10:52] LABS: Non-Invasive Expiratory Pressure 8 CMH2O; Non-Invasive Vent Rate 20 /MIN
[2021-01-02] MEDS: PERFLUTREN LIPID MICROSPHERES 1.5 ML VIAL DILUTED TO 10 ML TOTAL VOLUME IV PUSH (11:09)
--- NOTE | 2021-01-02 11:27 | PCOTNOTE ---
Attempted to see patient at this time, however patient back on BiPAP. Checked with nursing and RN reported therapy will not be seeing patient today.
--- NOTE | 2021-01-02 11:38 | PCPTNOTE ---
PT on hold per RN due to pt on Bipap. Will follow.
[2021-01-02 12:20] LABS: Alveolar/Arterial O2 Gradient 196.5 mmHg; Base Excess ABG 23.7 mEq/l (+/-2.0); Fractional Inspired Oxygen 50 %; HCO3 ABG 52.9 mEq/l (22.0-26.0); Oxygen Content ABG 13.6 %vol (16.0-22.0); Oxygen Saturation ABG 88.5 % (95.0-100.0); Oxyhemoglobin 89.2 % THb (90.0-100.0); PO2 ABG 59.4 mmHg (80.0-100.0); PO2 FiO2 Ratio Arterial Blood 1.19 %; Total Hemoglobin 10.8 g/dL (12.0-18.0)
[2021-01-02 12:21] LABS: Device NON-INVASIVE VENT; Modified Allen's Test Pass; PCO2 ABG 89.4 mmHg (35.0-45.0); Site Drawn RIGHT RADIAL
[2021-01-02 12:22] LABS: Non-Invasive Expiratory Pressure 8 CMH2O; Non-Invasive Vent Rate 26 /MIN
--- NOTE | 2021-01-02 12:46 | PM.CNCAR ---
Assessment and Plan Assessment and plan (1) Diastolic congestive heart failure: Code(s): I50.30 - Unspecified diastolic (congestive) heart failure Status: Acute Assessment and Plan: I agree patient has a component of heart failure with preserved ejection fraction, EF 65-70%. Repeat echocardiogram reveals preserved RV size and function, mild right atrial enlargement but now with worsening pulmonary hypertension RVSP 77 mm Hg. No clear evidence of ventricular interdependence. Chest x-ray suggestive worsening pulmonary vascular congestion from 01/01/2021. -I agree with aggressive IV diuresis Lasix 80 mg b.i.d. for now. Patient had a very good response this morning. I do not believe this is the sole explanation for her decompensated respiratory status. Discussed with pulmonology Dr. Allen at length in this regard. Accurate input and output. DVT prophylaxis. Add Lovenox 40 mg subcutaneous daily. Dose now. Serial troponins negative at admission. Repeat 12 lead EKG. Personally reviewed prior CT chest, echocardiogram, 12 lead EKG, chest x-rays and reviewed with pulmonology. Spent 70 minutes in the care of this patient including time at bedside examination, discussion with colleagues, chart review, and medical decision making. (2) Acute on chronic respiratory failure with hypoxia and hypercapnia: Code(s): J96.21 - Acute and chronic respiratory failure with hypoxia; J96.22 - Acute and chronic respiratory failure with hypercapnia Status: Acute Assessment and Plan: Continue bronchodilator therapy. Consider IV steroids. I would recommend repeat swab for COVID-19. Lower extremity venous Dopplers negative at admission, negative troponin. BNP elevated albeit mildly. Caution to avoid hypotension. Monitor electrolytes, renal function closely. Questionable benefit with dobutamine or Milrinone in this setting although given progressive pulmonary hypertension would favor Milrinone over dobutamine given preserved RV function although I would not recommend initiation at this time. Avoid intubation if at all possible with preference for noninvasive positive ventilation as tolerated. However, patient is declining despite noninvasive measures and diuretics. Patient is not wheezing no sputum production no fevers or chills or evidence of acute pulmonary infection or pneumonia. Not clearly in acute COPD exacerbation although cannot exclude but she is readily retaining CO2 on ABG.. (3) Obesity hypoventilation syndrome: Code(s): E66.2 - Morbid (severe) obesity with alveolar hypoventilation Status: Acute Assessment and Plan: Continue noninvasive positive pressure ventilation per pulmonology. Probable DANELLE and possible COPD. (4) Anemia of chronic disease: Code(s): D63.8 - Anemia in other chronic diseases classified elsewhere Status: Acute Assessment and Plan: Repeat CBC, BMP. (5) Thrombocytopenia: Code(s): D69.6 - Thrombocytopenia, unspecified Status: Acute (6) Obstructive sleep apnea: Code(s): G47.33 - Obstructive sleep apnea (adult) (pediatric) Status: Acute History of Present Illness History of Present Illness Consult date/time: Date of service: 01/02/21 12:46 Cardiology consultation at the request of Dr. Callaway for our opinion regarding respiratory failure and possible CHF. Requesting physician: Mitra Callaway MD Consult reason: congestive heart failure Reason For Visit: Acute respiratory failure/COPD exacerbation/ CHF Narrative: Patient is a 70-year-old female with a past medical history significant for COPD, chronic obesity hypoventilation syndrome, morbid obesity on home trilogy with 4 L O2 and recent admission for acute on chronic hypoxic and hypercarbic respiratory failure end of October. At that time she was discharged on Trelegy and her trilogy unit, Lasix 40 mg twice daily. 2D echocardiogram 11/20/2020 revealed EF 60-65%, mild tricuspid regurgi
[2021-01-02 12:54] LABS: Glucose Point of Care 139 mg/dl (65-105)
[2021-01-02] MEDS: methylPREDNISolone SOD SUCC 40 MG VIAL IV PUSH ×2 (14:30→21:13)
[2021-01-02] MEDS: ENOXAPARIN 40 MG/0.4 ML SYRINGE SUB-Q (14:30)
[2021-01-02 17:51] LABS: Glucose Point of Care 165 mg/dl (65-105)
--- NOTE | 2021-01-02 18:47 | PM.IMPN ---
Progress Note: A&P Additional Plan (1) Acute respiratory failure with hypoxia and hypercapnia: Code(s): J96.01 - Acute respiratory failure with hypoxia; J96.02 - Acute respiratory failure with hypercapnia Status: Acute Assessment and Plan: The patient is on a trilogy at home. Yesterday she was upgraded to IMU and started on BiPAP. Patient decompensated and had to be started on hospital BiPAP 18/8 all day yesterday and overnight. She was on 80% this morning with saturations 100%. Her tidal volumes were 330. Per pulmonary, she was switched to noninvasive ventilation with a VATS mode rate of 20, tidal volume 500, EPAP 8, inspiratory minimum pressure 9, inspiratory maximum pressure 35, inspiratory time 1.0 seconds, rise 3 and decreased her to 50% and she said these settings were better and her tidal volumes increased. Saturations on 50% were still 100% and FiO2 was decreased to 40%. Her BNP has increased to 372 from 200 on admission. She was -630 yesterday with 80 mg IV Lasix in the morning and 40 IV Lasix in the afternoon and I increased her to 80 IV b.i.d. this morning. She is afebrile and has no wheezing and no change in her phlegm. Per pulmonary her inhalers were changed to nebulized albuterol, nebulized ipratropium and nebulized budesonide. (2) Acute exacerbation of chronic obstructive pulmonary disease: Code(s): J44.1 - Chronic obstructive pulmonary disease with (acute) exacerbation Status: Acute Assessment and Plan: We will continue aggressive pulmonary toilet with scheduled duonebs, albuterol and budesonide nebulization. Unlikley COPD exacerbation in absence of increased sputum production. Patient is a chronic CO2 retainer on oxygen 4 liters at home which is her baseline (3) Obesity hypoventilation syndrome: Code(s): E66.2 - Morbid (severe) obesity with alveolar hypoventilation Status: Acute Assessment and Plan: Currently failing trilogy she was upgraded to bipap. (4) CHF (congestive heart failure): Qualifiers: Heart failure chronicity: acute on chronic Heart failure type: unspecified Qualified Code(s): I50.9 - Heart failure, unspecified Code(s): I50.9 - Heart failure, unspecified Status: Acute Assessment and Plan: Patient recently had an echo and EF was within normal limits but with significant diastolic dysfunction. Repeat echo shows worsening pulmonary hypertension. Cardiology agrees with aggressive diuresis. Patient is responding well to IV Lasix. She has chronic lymphedema to her lower extremities. The patient is typically on p.o. Lasix (40 mg b.i.d.). There is evidence of pitting edema along with her lymphedema on exam and also chest x-ray with congestion. Continue 80 mg IV Lasix BID today and continue to assess response. Stopped pioglitazone (5) Type 2 diabetes mellitus: Code(s): E11.9 - Type 2 diabetes mellitus without complications Status: Chronic Assessment and Plan: Continue with patient's home medication and will do Accu-Cheks a.c. HS with moderate sliding scale. Hemoglobin A1c 6.8. Stopped pioglitazone (6) Diastolic congestive heart failure: Code(s): I50.30 - Unspecified diastolic (congestive) heart failure Status: Acute Assessment and Plan: as above (7) Frequent PVCs: Code(s): I49.3 - Ventricular premature depolarization Status: Acute Assessment and Plan: Rate controlled with metoprolol. Monitor electrolytes. (8) CAP (community acquired pneumonia): Code(s): J18.9 - Pneumonia, unspecified organism Status: Acute Assessment and Plan: Chest Xray suggestive of pulmonary edema. Blood culture negative. Sputum culture reveals oropharyngeal christiana. (9) Hypothyroidism: Code(s): E03.9 - Hypothyroidism, unspecified Status: Chronic Assessment and Plan: Supplement with levothyroxine. (10) Essential hypertension: Code(s): I10 - Essential (primar
[2021-01-02 21:17] LABS: Glucose Point of Care 209 mg/dl (65-105)
[2021-01-03] VITALS (32 sets, daily range): BP systolic 113–130; BP diastolic 40–79; PULSE 65–96; RESP 20–28; TEMP 36.2–37; O2SAT 91–97
[2021-01-03] MEDS: ALBUTEROL SULFATE NEB 2.5 MG/0.5 ML INH INHALATION ×6 (00:36→21:34)
[2021-01-03] MEDS: IPRATROPIUM BR 0.02% INH SOLN 0.5 MG/2.5 ML VIAL INHALATION ×6 (00:36→21:34)
[2021-01-03] MEDS: methylPREDNISolone SOD SUCC 40 MG VIAL IV PUSH ×4 (01:08→20:13)
[2021-01-03 08:41] LABS: Glucose Point of Care 187 mg/dl (65-105)
[2021-01-03] MEDS: BUDESONIDE RESPULE NEB 0.5 MG/2 ML AMP INHALATION ×2 (09:06→21:34)
[2021-01-03] MEDS: ENOXAPARIN 40 MG/0.4 ML SYRINGE SUB-Q (09:16)
[2021-01-03] MEDS: FUROSEMIDE INJ 100 MG/10 ML VIAL 80 MG IV PUSH ×2 (09:17→17:13)
[2021-01-03] MEDS: POTASSIUM CHLORIDE 10 MEQ TABLET.ER PO (09:18)
[2021-01-03] MEDS: SPIRONOLACTONE 25 MG TABLET PO (09:18)
[2021-01-03] MEDS: MULTIVITAMINS /C LUTEIN (CENTRUM SILVER) TABLET *BKC 1 TAB PO (09:18)
[2021-01-03] MEDS: TOLNAFTATE 1% POWDER 45 GM BTL 1 APPLIC TOPICAL ×2 (09:19→20:26)
[2021-01-03] MEDS: METOPROLOL SUCCINATE EXT REL 50 MG TABCR PO (09:19)
[2021-01-03] MEDS: SILVERGEL (ELTA) 45 ML 1 APPLIC TOPICAL (09:19)
--- NOTE | 2021-01-03 10:14 | PC.NURSE ---
This nurse spoke with spouse Bill, Update given and all questions answered per Bill. Will continue to monitor.
[2021-01-03 10:57] LABS: Haptoglobin 152 mg/dL (43-212)
--- NOTE | 2021-01-03 12:47 | PM.PNCARD ---
Progress Note: A&P Assessment and Plan (1) Acute on chronic respiratory failure with hypoxia and hypercapnia: Code(s): J96.21 - Acute and chronic respiratory failure with hypoxia; J96.22 - Acute and chronic respiratory failure with hypercapnia Status: Acute Assessment and Plan: Secondary to obesity/hypoventilation syndrome and acute diastolic CHF, improving. Possible pneumonia. COVID re-screen pending Now off BiPAP and on O2. (2) Acute diastolic CHF (congestive heart failure): Code(s): I50.31 - Acute diastolic (congestive) heart failure Status: Acute Assessment and Plan: Good diuresis. Continue Lasix 80 mg IV push b.i.d.. Check BMP daily. (3) Pulmonary hypertension: Code(s): I27.20 - Pulmonary hypertension, unspecified Status: Acute Assessment and Plan: Severe pulmonary hypertension secondary to sleep apnea and hypoventilation. (4) Obstructive sleep apnea: Code(s): G47.33 - Obstructive sleep apnea (adult) (pediatric) Status: Acute Assessment and Plan: Getting use to the [facility], liked BiPAP better. Reviewed the importance of treating sleep apnea well for best survival and long-term outcome. (5) Lymphedema: Code(s): I89.0 - Lymphedema, not elsewhere classified Status: Acute (6) Morbid obesity with alveolar hypoventilation: Code(s): E66.2 - Morbid (severe) obesity with alveolar hypoventilation Status: Acute Subjective Date/time seen: 01/03/21 12:47 Interval history: Follow-up for respiratory failure primarily pulmonary but with a component of diastolic CHF, pulmonary hypertension. Also morbid obesity, anemia, thrombocytopenia and sleep apnea. 01/02/2021: Respiratory status worsen, transferred to IMU started on BiPAP. Also started on furosemide 80 IV push BID.. Date of service 01/03/2021: Feels okay, not short of breath at rest. Tolerating clear liquids. Was on BiPAP overnight but now on high-flow nasal oxygen 10 liters/minute with O2 sat 95%. Continues on Lasix 80 mg IV push b.i.d. COVID screen is still pending.. Good diuresis; I's and O's = 1250/2900. Review of Systems Constitutional: Constitutional: Reports no additional constitutional complaints Eyes: Eyes: Reports no additional eye complaints ENT: Denies epistaxis Cardiovascular: Cardiovascular: Denies chest pain, Reports pedal edema, Reports leg edema, Denies lightheadedness and Denies palpitations Respiratory: Respiratory: Denies cough and Denies dyspnea Gastrointestinal: Gastrointestinal: Denies abdominal pain Genitourinary: Genitourinary: Denies hematuria Musculoskeletal: Musculoskeletal: Denies back pain Integumentary/Breasts: Skin/Breast: Reports wounds (Left leg wrapped) Neurologic: Reports system reviewed and no additional complaints, except as documented Psychiatric: Psychiatric: Reports no additional psychiatric complaints Exam Const: General: comfortable and no acute distress HENMT: General nose exam: no epistaxis Eyes: EOM: EOMs intact bilaterally Neck: Neck: supple Resp: Effort & Inspection: normal respiratory effort Auscultation: diminished lung sounds Other: Decreased breath sounds throughout Cardio: Rate: regular rate Rhythm: regular rhythm Heart sounds: no murmurs GI: Inspection: distended GI Palp: Yes Soft to palpation Other: Obese Urinary Catheter: Urinary Catheter: patent and draining and urine clear Skin: General skin exam: normal color and no rashes or lesions noted (Left lower extremity wrapped) Neuro: Cognition (Neuro): normal cognition Speech: normal speech Extrem: General: edema and pedal edema Other: Moderate to severe edema of the legs and thighs, some edema of the hips Psych: Mental Status: mental status grossly normal Affect: normal affect Objective Data Vital Signs V
[2021-01-03] MEDS: INSULIN ASPART (*BKC) 100 UNITS/ML SUB-Q ×2 (12:54→17:14)
[2021-01-03 13:52] LABS: Glucose Point of Care 207 mg/dl (65-105)
--- NOTE | 2021-01-03 14:09 | PM.IMPN ---
Progress Note: A&P Assessment and Plan (1) Acute respiratory failure with hypoxia and hypercapnia: Code(s): J96.01 - Acute respiratory failure with hypoxia; J96.02 - Acute respiratory failure with hypercapnia Status: Acute Assessment and Plan: Patient tolerated BiPAP overnight wtih the following settings: VATS mode rate of 206 tidal volume 600, EPAP 8, inspiratory minimum pressure 9, inspiratory maximum pressure 35, inspiratory time 1.0 seconds, rise 3 and FiO2 40%. We is currently being weaned to nasal canula. (2) Acute exacerbation of chronic obstructive pulmonary disease: Code(s): J44.1 - Chronic obstructive pulmonary disease with (acute) exacerbation Status: Acute Assessment and Plan: We will continue aggressive pulmonary toilet with scheduled duonebs. There is no evidence of acute COPD exacerbation. Patient is a chronic CO2 retainer on oxygen 4 liters at home which is her baseline. There was no increased sputum production. (3) Obesity hypoventilation syndrome: Code(s): E66.2 - Morbid (severe) obesity with alveolar hypoventilation Status: Acute Assessment and Plan: PReviously on BIPAP weaned to [place]. (4) CHF (congestive heart failure): Qualifiers: Heart failure chronicity: acute on chronic Heart failure type: unspecified Qualified Code(s): I50.9 - Heart failure, unspecified Code(s): I50.9 - Heart failure, unspecified Status: Acute Assessment and Plan: Patient recently had an echo and EF was within normal limits but with significant diastolic dysfunction. Patient is responding well to IV Lasix. She has chronic lymphedema to her lower extremities. The patient is typically on p.o. Lasix (40 mg b.i.d.). There is evidence of pitting edema along with her lymphedema on exam and also chest x-ray with congestion. Continue IV Lasix 80 mg BID today and continue to assess response. (5) Type 2 diabetes mellitus: Code(s): E11.9 - Type 2 diabetes mellitus without complications Status: Chronic Assessment and Plan: Continue with patient's home medication and will do Accu-Cheks a.c. HS with moderate sliding scale. Hemoglobin A1c 6.8. Pioglitazone was stopped (6) Diastolic congestive heart failure: Code(s): I50.30 - Unspecified diastolic (congestive) heart failure Status: Acute Assessment and Plan: as above (7) Frequent PVCs: Code(s): I49.3 - Ventricular premature depolarization Status: Acute Assessment and Plan: Rate controlled with metoprolol. Monitor electrolytes. (8) CAP (community acquired pneumonia): Code(s): J18.9 - Pneumonia, unspecified organism Status: Acute Assessment and Plan: Chest Xray suggestive of pulmonary edema. Blood culture negative. Sputum culture reveals oropharyngeal christiana. Continue aggressive diuresis. (9) Hypothyroidism: Code(s): E03.9 - Hypothyroidism, unspecified Status: Chronic Assessment and Plan: Supplement with levothyroxine. (10) Essential hypertension: Code(s): I10 - Essential (primary) hypertension Status: Chronic Assessment and Plan: Continue with home lisinopril, metoprolol, and spironolactone (11) Anemia of chronic disease: Code(s): D63.8 - Anemia in other chronic diseases classified elsewhere Status: Acute Assessment and Plan: Continue to monitor no active bleeding at this time. (12) DVT prophylaxis: Code(s): Z29.9 - Encounter for prophylactic measures, unspecified Status: Acute Subjective Date/time seen: 01/03/21 14:09 PAtient was examined at the bedside erlier today while on BiPAP. Now back on oxygen. She remains confused. Review of Systems Review of Systems: ROS unobtainable: Yes unobtainable due to medical condition Respiratory: Respiratory: Reports no additional respiratory complaints Gastrointestinal: Gastrointestinal: Reports as per HPI Neuro
[2021-01-03 16:57] LABS: Glucose Point of Care 324 mg/dl (65-105)
[2021-01-03 17:59] LABS: Basophils Percent Auto 0.1 % (0.2-1.2); Hematocrit 33.6 % (37.0-47.0); Hemoglobin 9.4 g/dL (12.0-15.0); Immature Granulocyte Absolute 0.05 K/mm3 (0.00-0.031); Immature Granulocyte Percent A 0.7 % (0-0.5); Lymphocytes Absolute Auto 0.41 K/mm3 (0.9-3.2); Lymphocytes Percent Auto 5.8 % (18.3-44.2); Mean Corpuscular Hemoglobin 25.1 pg (26-34); Mean Corpuscular Volume 89.6 fl (80-100); Mean Platelet Volume 11.6 fl (7.4-10.4); Monocytes Absolute Auto 0.2 K/mm3 (0.1-0.6); Monocytes Percent Auto 2.7 % (2.6-8.5); Neutrophils Absolute Auto 6.4 K/mm3 (1.3-6.7); Neutrophils Percent Auto 90.7 % (45.5-73.1); Platelet Count Result 100 k/mm3 (150-375); Red Blood Count 3.75 M/mm3 (4.2-5.4); Red Cell Distribution Width 17.3 % (11.5-14.5)
[2021-01-03 18:23] LABS: Alanine Aminotransferase 22 U/L (4-35); Albumin Level 3.5 g/dL (3.5-5.1); Alkaline Phosphatase 102 U/L (38-126); Aspartate Amino Transferase 26 U/L (14-36); Bilirubin,Total 0.6 mg/dL (0.2-1.3); Blood Urea Nitrogen 24 mg/dL (7-17); Calcium 8.8 mg/dL (8.4-10.2); Carbon Dioxide > 40 mmol/L (22-30); Chloride 87 mmol/L (98-107); Estimated CRCL calculation 89 ml/min; Estimated Glomerular Filt Rate > 60; Glucose 322 mg/dL (65-110); Potassium 3.6 mmol/L (3.4-5.0); Sodium 135 mmol/L (137-145)
[2021-01-03 19:15] LABS: Anisocytosis 2+ (NORMAL); Hypochromasia 1+ (NORMAL); Platelet Estimate Decreased (Adequate)
[2021-01-03 20:50] LABS: Glucose Point of Care 236 mg/dl (65-105)
[2021-01-03 21:01] LABS: SARS-CoV-2 RNA PCR Negative
[2021-01-04] VITALS (29 sets, daily range): BP systolic 101–142; BP diastolic 50–73; PULSE 64–112; RESP 16–30; TEMP 36.2–36.9; O2SAT 91–100
[2021-01-04] MEDS: ALBUTEROL SULFATE NEB 2.5 MG/0.5 ML INH INHALATION ×6 (00:35→20:22)
[2021-01-04] MEDS: IPRATROPIUM BR 0.02% INH SOLN 0.5 MG/2.5 ML VIAL INHALATION ×6 (00:35→20:23)
[2021-01-04] MEDS: methylPREDNISolone SOD SUCC 40 MG VIAL IV PUSH ×2 (02:20→09:34)
[2021-01-04 02:51] LABS: Vancomycin Trough 20.8 ug/mL (10.0-20.0)
[2021-01-04 05:59] LABS: Hematocrit 33.6 % (37.0-47.0); Hemoglobin 9.4 g/dL (12.0-15.0); Immature Granulocyte Absolute 0.04 K/mm3 (0.00-0.031); Immature Granulocyte Percent A 0.6 % (0-0.5); Lymphocytes Absolute Auto 0.39 K/mm3 (0.9-3.2); Lymphocytes Percent Auto 6.3 % (18.3-44.2); Mean Corpuscular Hemoglobin 24.5 pg (26-34); Mean Corpuscular Volume 87.5 fl (80-100); Mean Platelet Volume 11.7 fl (7.4-10.4); Monocytes Absolute Auto 0.4 K/mm3 (0.1-0.6); Monocytes Percent Auto 6.1 % (2.6-8.5); Neutrophils Absolute Auto 5.4 K/mm3 (1.3-6.7); Platelet Count Result 92 k/mm3 (150-375); Red Blood Count 3.84 M/mm3 (4.2-5.4); Red Cell Distribution Width 17.2 % (11.5-14.5); White Blood Count 6.2 K/mm3 (4.5-10.0)
[2021-01-04 06:05] LABS: Blood Urea Nitrogen 30 mg/dL (7-17); Calcium 9.1 mg/dL (8.4-10.2); Carbon Dioxide > 40 mmol/L (22-30); Chloride 87 mmol/L (98-107); Estimated CRCL calculation 14 ml/min; Estimated Glomerular Filt Rate > 60; Glucose 214 mg/dL (65-110); Potassium 3.4 mmol/L (3.4-5.0); Sodium 138 mmol/L (137-145)
[2021-01-04] MEDS: LEVOTHYROXINE SODIUM 75 MCG TABLET PO (06:31)
[2021-01-04 07:47] LABS: Glucose Point of Care 217 mg/dl (65-105)
[2021-01-04] MEDS: BUDESONIDE RESPULE NEB 0.5 MG/2 ML AMP INHALATION ×2 (08:30→20:22)
[2021-01-04] MEDS: FUROSEMIDE INJ 100 MG/10 ML VIAL 80 MG IV PUSH ×2 (09:32→16:33)
[2021-01-04] MEDS: POTASSIUM CHLORIDE 10 MEQ TABLET.ER PO (09:33)
[2021-01-04] MEDS: SPIRONOLACTONE 25 MG TABLET PO (09:33)
[2021-01-04] MEDS: METOPROLOL SUCCINATE EXT REL 50 MG TABCR PO (09:33)
[2021-01-04] MEDS: MULTIVITAMINS /C LUTEIN (CENTRUM SILVER) TABLET *BKC 1 TAB PO (09:33)
[2021-01-04] MEDS: INSULIN ASPART (*BKC) 100 UNITS/ML SUB-Q ×3 (09:35→16:33)
[2021-01-04] MEDS: ENOXAPARIN 40 MG/0.4 ML SYRINGE SUB-Q (09:35)
[2021-01-04] MEDS: SILVERGEL (ELTA) 45 ML 1 APPLIC TOPICAL (09:36)
[2021-01-04] MEDS: TOLNAFTATE 1% POWDER 45 GM BTL 1 APPLIC TOPICAL ×2 (09:37→20:52)
[2021-01-04 10:22] LABS: Magnesium 1.8 mg/dL (1.6-2.3)
[2021-01-04 11:01] LABS: Alveolar/Arterial O2 Gradient 208.5 mmHg; Base Excess ABG 18.1 mEq/l (+/-2.0); Fractional Inspired Oxygen 50 %; HCO3 ABG 45.3 mEq/l (22.0-26.0); Oxygen Content ABG 13.8 %vol (16.0-22.0); Oxyhemoglobin 92.1 % THb (90.0-100.0); PO2 ABG 70.6 mmHg (80.0-100.0); PO2 FiO2 Ratio Arterial Blood 1.41 %; Total Hemoglobin 10.6 g/dL (12.0-18.0); pH ABG 7.436 (7.350-7.450)
[2021-01-04 11:04] LABS: Device HIGH FLOW THERAPY; Modified Allen's Test Pass; PCO2 ABG 68.8 mmHg (35.0-45.0); Site Drawn LEFT RADIAL
[2021-01-04 11:42] LABS: Glucose Point of Care 295 mg/dl (65-105)
--- NOTE | 2021-01-04 11:42 | PM.PNCARD ---
Progress Note: A&P Assessment and Plan (1) Acute on chronic respiratory failure with hypoxia and hypercapnia: Code(s): J96.21 - Acute and chronic respiratory failure with hypoxia; J96.22 - Acute and chronic respiratory failure with hypercapnia Status: Acute Assessment and Plan: Secondary to obesity/hypoventilation syndrome and acute diastolic CHF, improving. Possible pneumonia. COVID negative Trying to wean off BiPAP and onto high flow O2. (2) Acute diastolic CHF (congestive heart failure): Code(s): I50.31 - Acute diastolic (congestive) heart failure Status: Acute Assessment and Plan: Good diuresis. Continue Lasix 80 mg IV push b.i.d.. Renal function is tolerating the diuresis Getting some IV potassium Increase p.o. potassium Check BMP daily. Advance activity: Up in chair Also hopefully advance her diet soon. (3) Pulmonary hypertension: Code(s): I27.20 - Pulmonary hypertension, unspecified Status: Acute Assessment and Plan: Severe pulmonary hypertension secondary to sleep apnea and hypoventilation. (4) Obstructive sleep apnea: Code(s): G47.33 - Obstructive sleep apnea (adult) (pediatric) Status: Acute Assessment and Plan: Doesn't like her home Trilogy, likes BiPAP better. Reviewed the importance of treating sleep apnea well for best survival and long-term outcome. Encouraged patient to follow-up with the pulmonary doctor about her sleep apnea and treatment options. (5) Lymphedema: Code(s): I89.0 - Lymphedema, not elsewhere classified Status: Acute Assessment and Plan: Improving. (6) Morbid obesity with alveolar hypoventilation: Code(s): E66.2 - Morbid (severe) obesity with alveolar hypoventilation Status: Acute Subjective Date/time seen: 01/04/21 11:42 Interval history: Follow-up for respiratory failure primarily pulmonary but with a component of diastolic CHF, pulmonary hypertension. Also morbid obesity, anemia, thrombocytopenia and sleep apnea. 01/02/2021: Respiratory status worsen, transferred to IMU started on BiPAP. Also started on furosemide 80 IV push BID.. 01/03/2021: Feels okay, not short of breath at rest. Tolerating clear liquids. Was on BiPAP overnight but now on high-flow nasal oxygen 10 liters/minute with O2 sat 95%. Continues on Lasix 80 mg IV push b.i.d. COVID screen is still pending.. Good diuresis; I's and O's = 1250/2900. Date of service 01/04/2021: Breathing better, less edema. Back on BiPAP most of the time weaning to high-flow oxygen. Has not been very hungry but tolerating clear liquids. Again reiterated that she did not like the trilogy she has at home and thinks that that contributed to her recent decompensation. COVID screen was negative. Good diuresis,I's and O's 1600/3100. Review of Systems Constitutional: Constitutional: Reports fatigue Eyes: Eyes: Reports no additional eye complaints ENT: Denies epistaxis Cardiovascular: Cardiovascular: Denies chest pain, Reports pedal edema, Reports leg edema and Denies lightheadedness Respiratory: Respiratory: Reports dyspnea and Reports dyspnea on exertion Gastrointestinal: Gastrointestinal: Denies abdominal pain Genitourinary: Genitourinary: Denies hematuria Musculoskeletal: Musculoskeletal: Denies back pain Integumentary/Breasts: Skin/Breast: Denies rash Neurologic: Reports system reviewed and no additional complaints, except as documented Psychiatric: Psychiatric: Reports no additional psychiatric complaints Exam Narrative: Obese female with high-flow oxygen, alert cooperative and in no distress Const: General: comfortable and no acute distress HENMT: General nose exam: Normal nares present Eyes: EOM: EOMs intact bilaterally Neck: Neck: supple
--- NOTE | 2021-01-04 12:41 | PCPTNOTE ---
Patient refused treatment this session. Patient states she does not want to attempt getting out of bed or do LE exercises due to having loose stool. RN present for refusal. Patient educated in the importance of participating to improve strength and mobility.
--- NOTE | 2021-01-04 13:25 | PM.IMPN ---
Progress Note: A&P Assessment and Plan (1) Acute respiratory failure with hypoxia and hypercapnia: Code(s): J96.01 - Acute respiratory failure with hypoxia; J96.02 - Acute respiratory failure with hypercapnia Status: Acute Assessment and Plan: Patient is currently being weaned to high flow with AIRVO 35 liters per minute and saturating 100%. Given the clinical improvement patient is being transferred to the medical unit. (2) Acute exacerbation of chronic obstructive pulmonary disease: Code(s): J44.1 - Chronic obstructive pulmonary disease with (acute) exacerbation Status: Acute Assessment and Plan: We will continue aggressive pulmonary toilet with scheduled duonebs. There is no evidence of acute COPD exacerbation. Patient is a chronic CO2 retainer on oxygen 4 liters at home which is her baseline. There mild clear sputum production. (3) Obesity hypoventilation syndrome: Code(s): E66.2 - Morbid (severe) obesity with alveolar hypoventilation Status: Acute Assessment and Plan: PReviously on BIPAP weaned to AIRVO (4) CHF (congestive heart failure): Qualifiers: Heart failure chronicity: acute on chronic Heart failure type: unspecified Qualified Code(s): I50.9 - Heart failure, unspecified Code(s): I50.9 - Heart failure, unspecified Status: Acute Assessment and Plan: Patient recently had an echo and EF was within normal limits but with significant diastolic dysfunction. Patient is responding well to IV Lasix. She has chronic lymphedema to her lower extremities. Renal function remaining stable during aggressive diuresis. Her edemas are receding. We will repeat chest Xray today. (5) Type 2 diabetes mellitus: Code(s): E11.9 - Type 2 diabetes mellitus without complications Status: Chronic Assessment and Plan: Continue with patient's home medications and will do Accu-Cheks a.c. HS with moderate sliding scale. Hemoglobin A1c 6.8. Pioglitazone was stopped. SGLT2 inhibitors would certainly be a consideration. Given morbid obesity extra concern about side effects including genital/perineal infections make this option less advisable. (6) Diastolic congestive heart failure: Code(s): I50.30 - Unspecified diastolic (congestive) heart failure Status: Acute Assessment and Plan: as above (7) Frequent PVCs: Code(s): I49.3 - Ventricular premature depolarization Status: Acute Assessment and Plan: Rate controlled with metoprolol. Monitor electrolytes. (8) CAP (community acquired pneumonia): Code(s): J18.9 - Pneumonia, unspecified organism Status: Acute Assessment and Plan: Chest Xray suggestive of pulmonary edema. Blood culture negative. Sputum culture reveals oropharyngeal christiana. Continue aggressive diuresis. Significant clinical improvement overnight. We will repeat chest imaging studies (9) Hypothyroidism: Code(s): E03.9 - Hypothyroidism, unspecified Status: Chronic Assessment and Plan: Supplement with levothyroxine. (10) Essential hypertension: Code(s): I10 - Essential (primary) hypertension Status: Chronic Assessment and Plan: Continue with home lisinopril, metoprolol, and spironolactone (11) Anemia of chronic disease: Code(s): D63.8 - Anemia in other chronic diseases classified elsewhere Status: Acute Assessment and Plan: Continue to monitor no active bleeding at this time. (12) DVT prophylaxis: Code(s): Z29.9 - Encounter for prophylactic measures, unspecified Status: Acute Subjective Date/time seen: 01/04/21 13:25 Interval history: Date of service 01/04/2021: Patient is breathing better. She tolerated the BiPAP yesterday and is being weaned to high-flow oxygen on AIRVO with good saturations of low to mid 90s on 35 liters. She is tolerating clear liquids. Vigorous diuretic response with I/O 1.6L/2.4
--- NOTE | 2021-01-04 14:13 | PM.PNPUL ---
Progress Note: A&P Assessment and Plan (1) Acute on chronic respiratory failure with hypoxia and hypercapnia: Code(s): J96.21 - Acute and chronic respiratory failure with hypoxia; J96.22 - Acute and chronic respiratory failure with hypercapnia Status: Acute Assessment and Plan: 12/29 Patient has morbid obesity, obesity hypoventilation syndrome, pulmonary hypertension, tobacco use and possible COPD, and diastolic heart failure with fluid retention as the etiology for her respiratory failure. Currently I do not see evidence of pneumonia. I do not think this is a COPD exacerbation as no increase in phlegm volume and no change inphlegm color and only owrsening WOMACK with no rest SOB. Patient with acute on chronic hypoxemic and hypoxic hypercarbic respiratory failure. On 11/24 during previous hospitalization on AVAPS mode with a respiratory rate of 16, tidal volume 500, EPAP 8, minimal inspiratory pressure 9, maximal inspiratory pressure 25 inspiratory time 1.0 seconds, rise of 3 which is our middle setting, and 35% She had a blood gas at the end of the night with a pH of 7.43/70/82. Currently I have her back on these AVAPS settings. She has a home noninvasive ventilator with AVAPS-AE settings and I told the patient to have her family bring in this machine tubing and mask so that she can wear that in the hospital. 12/30 patient did well with a hospital noninvasive ventilator with a VATS mode overnight. I took the noninvasive ventilator off this morning and she said she is breathing at her normal when she is at rest. She states that her main trouble is when she tries to exert herself to walk. The best she can do is walk across the room with her walker at home. The says that they had some difficulty with a home noninvasive ventilator with alarms. I have encouraged the family to bring in the home unit so that we can troubleshoot the unit while the patient is in the hospital. 12/31 She states she has 50% back to normal. Patient wore her home noninvasive ventilator with the AVAPS-AE mode with a rate of 10, tidal volume 500, EPAP Min 5, EPAP max 15, IPAP min 9, IPAP max 25, inspiratory time 1.0 and 4 L bleed in last night. She said she was able to sleep a little bit with the machine on. She did complain of an air leak going into are eyes. At the bedside today I adjusted her mask to try to minimize this leak and she said it felt better after we adjusted the mask. At the end of the night she had a blood gas demonstrating a pH of 7.37/70/64. She had an overnight oximetry with the 4 L bleed in demonstrating her average saturation was 93%, Desiree saturation 76%, time with saturations less than or equal to 88% was 14 minutes. The tracing demonstrates 1 episode with saturations less than or equal to 88% but otherwise she was maintained over 88%. This episode below 88% may have been associated with mask malpositioning and will not increase her oxygen at this time. 9 Worsening oxygenation this morning and chest x-ray continues to show bilateral effusions with congestion. Patient was given 80 mg IV Lasix push this morning. She has no wheezing and no evidence of a pneumonia. continue her home AVAPS-AE mode with a rate of 10, tidal volume 500, EPAP Min 5, EPAP max 15, IPAP min 9, IPAP max 25, inspiratory time 1.0 and oxygen bleed in to maintain satuations 90-94%. 01/02 Patient wore hospital BiPAP 18/8 all day yesterday and overnight. She was on 80% this morning with saturations 100%. Her tidal volumes were 330. I changed her to noninvasive ventilation with AVAPS mode rate of 20, tidal volume 500, EPAP 8, inspiratory minimum pressure 9, inspiratory maximum pressure 35, inspiratory time 1.0 seconds, rise 3 and decreased her to 50% and she said these settings were better and her tidal volumes increased. Saturations on 50% were still 100% and I decreased her to 40%. 01/04 She is much better, less short of breath, O2 requirement lower, and [facility]
[2021-01-04] MEDS: POTASSIUM CHLORIDE 10 MEQ TABLET.ER 20 MEQ PO (16:32)
[2021-01-04 16:33] LABS: Glucose Point of Care 270 mg/dl (65-105)
[2021-01-04 20:07] LABS: Glucose Point of Care 230 mg/dl (65-105)
[2021-01-05] VITALS (23 sets, daily range): BP systolic 128–154; BP diastolic 48–67; PULSE 74–99; RESP 15–28; TEMP 36.4–37; O2SAT 91–100
[2021-01-05] MEDS: ALBUTEROL SULFATE NEB 2.5 MG/0.5 ML INH INHALATION ×6 (00:01→21:04)
[2021-01-05] MEDS: IPRATROPIUM BR 0.02% INH SOLN 0.5 MG/2.5 ML VIAL INHALATION ×6 (00:01→21:04)
[2021-01-05 05:33] LABS: Basophils Percent Auto 0.2 % (0.2-1.2); Eosinophils Percent Auto 0.5 % (0-4.4); Hematocrit 35.5 % (37.0-47.0); Hemoglobin 9.8 g/dL (12.0-15.0); Immature Granulocyte Absolute 0.03 K/mm3 (0.00-0.031); Immature Granulocyte Percent A 0.5 % (0-0.5); Lymphocytes Absolute Auto 0.85 K/mm3 (0.9-3.2); Lymphocytes Percent Auto 13.1 % (18.3-44.2); Mean Corpuscular HGB Conc 27.6 g/dl (32-36); Mean Corpuscular Hemoglobin 25.1 pg (26-34); Mean Corpuscular Volume 90.8 fl (80-100); Monocytes Absolute Auto 0.6 K/mm3 (0.1-0.6); Monocytes Percent Auto 8.9 % (2.6-8.5); Neutrophils Percent Auto 76.8 % (45.5-73.1); Platelet Count Result 97 k/mm3 (150-375); Red Blood Count 3.91 M/mm3 (4.2-5.4); Red Cell Distribution Width 17.5 % (11.5-14.5); White Blood Count 6.5 K/mm3 (4.5-10.0)
[2021-01-05 05:45] LABS: Estimated CRCL calculation 14 ml/min; Estimated Glomerular Filt Rate > 60
[2021-01-05] MEDS: LEVOTHYROXINE SODIUM 75 MCG TABLET PO (06:03)
[2021-01-05 08:53] LABS: Glucose Point of Care 102 mg/dl (65-105)
[2021-01-05] MEDS: FUROSEMIDE INJ 100 MG/10 ML VIAL 80 MG IV PUSH ×2 (09:08→16:58)
[2021-01-05] MEDS: ENOXAPARIN 40 MG/0.4 ML SYRINGE SUB-Q (09:09)
[2021-01-05] MEDS: MULTIVITAMINS /C LUTEIN (CENTRUM SILVER) TABLET *BKC 1 TAB PO (09:09)
[2021-01-05] MEDS: SPIRONOLACTONE 25 MG TABLET PO (09:10)
[2021-01-05] MEDS: POTASSIUM CHLORIDE 10 MEQ TABLET.ER 20 MEQ PO ×2 (09:10→16:58)
[2021-01-05] MEDS: METOPROLOL SUCCINATE EXT REL 50 MG TABCR PO (09:10)
[2021-01-05] MEDS: SILVERGEL (ELTA) 45 ML 1 APPLIC TOPICAL (09:11)
[2021-01-05] MEDS: TOLNAFTATE 1% POWDER 45 GM BTL 1 APPLIC TOPICAL ×2 (09:11→20:32)
[2021-01-05] MEDS: BUDESONIDE RESPULE NEB 0.5 MG/2 ML AMP INHALATION ×2 (09:18→21:06)
[2021-01-05 10:49] LABS: Hematocrit 35.8 % (37.0-47.0); Hemoglobin 9.8 g/dL (12.0-15.0); Mean Corpuscular HGB Conc 27.4 g/dl (32-36); Mean Corpuscular Volume 91.3 fl (80-100); Mean Platelet Volume 12.9 fl (7.4-10.4); Platelet Count Result 97 k/mm3 (150-375); Red Blood Count 3.92 M/mm3 (4.2-5.4); Red Cell Distribution Width 17.3 % (11.5-14.5); White Blood Count 7.3 K/mm3 (4.5-10.0)
[2021-01-05 11:02] LABS: Blood Urea Nitrogen 33 mg/dL (7-17); Calcium 8.7 mg/dL (8.4-10.2); Carbon Dioxide > 40 mmol/L (22-30); Chloride 89 mmol/L (98-107); Estimated CRCL calculation 62 ml/min; Estimated Glomerular Filt Rate 55; Glucose 221 mg/dL (65-110); Magnesium 1.9 mg/dL (1.6-2.3); Potassium 3.3 mmol/L (3.4-5.0); Sodium 140 mmol/L (137-145)
[2021-01-05] MEDS: INSULIN ASPART (*BKC) 100 UNITS/ML SUB-Q (12:42)
[2021-01-05 13:34] LABS: Glucose Point of Care 222 mg/dl (65-105)
--- NOTE | 2021-01-05 15:14 | PM.IMPN ---
Progress Note: A&P Assessment and Plan (1) Acute respiratory failure with hypoxia and hypercapnia: Code(s): J96.01 - Acute respiratory failure with hypoxia; J96.02 - Acute respiratory failure with hypercapnia Status: Acute Assessment and Plan: Patient is currently being weaned to high flow with AIRVO 35 liters per minute and saturating 100%. Given the clinical improvement patient is being transferred to the medical unit. 01/05/21 15:14 patient is 70-year-old morbidly obese female presented with shortness of breath secondary to exacerbation of acute to chronic diastolic congestive heart failure and hypoventilation syndrome due to morbid obesity, patient is being diuresed and her symptoms are improving patient is seen by pulmonology does not suspect significant pulmonary component and recommended to continue to diurese and currently on Lasix 80 mg b.i.d. IV, patient kidney function remains stable despite aggressive diuresis, patient states is feeling much better compared to when she arrived, will continue present management and appreciate seismographer and Cardiology input. (2) Acute exacerbation of chronic obstructive pulmonary disease: Code(s): J44.1 - Chronic obstructive pulmonary disease with (acute) exacerbation Status: Acute Assessment and Plan: We will continue aggressive pulmonary toilet with scheduled duonebs. There is no evidence of acute COPD exacerbation. Patient is a chronic CO2 retainer on oxygen 4 liters at home which is her baseline. There mild clear sputum production. (3) Obesity hypoventilation syndrome: Code(s): E66.2 - Morbid (severe) obesity with alveolar hypoventilation Status: Acute Assessment and Plan: PReviously on BIPAP weaned to AIRVO (4) CHF (congestive heart failure): Qualifiers: Heart failure chronicity: acute on chronic Heart failure type: unspecified Qualified Code(s): I50.9 - Heart failure, unspecified Code(s): I50.9 - Heart failure, unspecified Status: Acute Assessment and Plan: Patient recently had an echo and EF was within normal limits but with significant diastolic dysfunction. Patient is responding well to IV Lasix. She has chronic lymphedema to her lower extremities. Renal function remaining stable during aggressive diuresis. Her edemas are receding. We will repeat chest Xray today. (5) Type 2 diabetes mellitus: Code(s): E11.9 - Type 2 diabetes mellitus without complications Status: Chronic Assessment and Plan: Continue with patient's home medications and will do Accu-Cheks a.c. HS with moderate sliding scale. Hemoglobin A1c 6.8. Pioglitazone was stopped. SGLT2 inhibitors would certainly be a consideration. Given morbid obesity extra concern about side effects including genital/perineal infections make this option less advisable. (6) Diastolic congestive heart failure: Code(s): I50.30 - Unspecified diastolic (congestive) heart failure Status: Acute Assessment and Plan: as above (7) Frequent PVCs: Code(s): I49.3 - Ventricular premature depolarization Status: Acute Assessment and Plan: Rate controlled with metoprolol. Monitor electrolytes. (8) CAP (community acquired pneumonia): Code(s): J18.9 - Pneumonia, unspecified organism Status: Acute Assessment and Plan: Chest Xray suggestive of pulmonary edema. Blood culture negative. Sputum culture reveals oropharyngeal christiana. Continue aggressive diuresis. Significant clinical improvement overnight. We will repeat chest imaging studies (9) Hypothyroidism: Code(s): E03.9 - Hypothyroidism, unspecified Status: Chronic Assessment and Plan: Supplement with levothyroxine. (10) Essential hypertension: Code(s): I10 - Essential (primary) hypertension Status: Chronic Assessment and Plan: Continue with home lisinopril, metoprolol, and spironolactone (11) Anemi
[2021-01-05 17:38] LABS: Glucose Point of Care 143 mg/dl (65-105)
--- NOTE | 2021-01-05 18:30 | PM.PNCARD ---
Progress Note: A&P Assessment and Plan (1) Acute on chronic respiratory failure with hypoxia and hypercapnia: Code(s): J96.21 - Acute and chronic respiratory failure with hypoxia; J96.22 - Acute and chronic respiratory failure with hypercapnia Status: Acute Assessment and Plan: Secondary to obesity/hypoventilation syndrome and acute diastolic CHF, improving. Possible pneumonia. COVID negative Trying to wean off BiPAP and onto high flow O2. (2) Acute diastolic CHF (congestive heart failure): Code(s): I50.31 - Acute diastolic (congestive) heart failure Status: Acute Assessment and Plan: Good diuresis. Continue Lasix 80 mg IV push b.i.d.. Renal function is tolerating the diuresis Hypokalemic; addressed. Will increase p.o. potassium again. Check BMP daily. Advance activity: Up in chair (3) Pulmonary hypertension: Code(s): I27.20 - Pulmonary hypertension, unspecified Status: Acute Assessment and Plan: Severe pulmonary hypertension secondary to sleep apnea and hypoventilation. (4) Obstructive sleep apnea: Code(s): G47.33 - Obstructive sleep apnea (adult) (pediatric) Status: Acute Assessment and Plan: Doesn't like her home Trilogy, likes BiPAP better. Reviewed the importance of treating sleep apnea well for best survival and long-term outcome. Encouraged patient to follow-up with the pulmonary doctor about her sleep apnea and treatment options. (5) Lymphedema: Code(s): I89.0 - Lymphedema, not elsewhere classified Status: Acute Assessment and Plan: Improving. (6) Morbid obesity with alveolar hypoventilation: Code(s): E66.2 - Morbid (severe) obesity with alveolar hypoventilation Status: Acute Subjective Date/time seen: 01/05/21 18:30 Interval history: Follow-up for respiratory failure primarily pulmonary but with a component of diastolic CHF, pulmonary hypertension. Also morbid obesity, anemia, thrombocytopenia and sleep apnea. 01/02/2021: Respiratory status worsen, transferred to IMU started on BiPAP. Also started on furosemide 80 IV push BID.. 01/03/2021: Feels okay, not short of breath at rest. Tolerating clear liquids. Was on BiPAP overnight but now on high-flow nasal oxygen 10 liters/minute with O2 sat 95%. Continues on Lasix 80 mg IV push b.i.d. COVID screen is still pending.. Good diuresis; I's and O's = 1250/2900. 01/04/2021: Breathing better, less edema. Back on BiPAP most of the time weaning to high-flow oxygen. Has not been very hungry but tolerating clear liquids. Again reiterated that she did not like the trilogy she has at home and thinks that that contributed to her recent decompensation. COVID screen was negative. Good diuresis,I's and O's 1600/3100 Date of service 01/25/2021: Continues to diurese but had high intake yesterday (due in part to the IV vancomycin), 2900 In, 3000 out. Diuresing today. Not out of bed any. Off BiPAP for the whole day. Feels breathing is better, edema better Review of Systems Constitutional: Constitutional: Reports no additional constitutional complaints and Reports fatigue Eyes: Eyes: Reports no additional eye complaints ENT: Denies epistaxis Cardiovascular: Cardiovascular: Denies chest pain, Reports pedal edema, Reports leg edema, Denies lightheadedness, Denies palpitations, Reports dyspnea and Reports dyspnea on exertion Respiratory: Respiratory: Denies cough, Reports dyspnea and Reports dyspnea on exertion Gastrointestinal: Gastrointestinal: Denies abdominal pain Genitourinary: Genitourinary: Denies hematuria Musculoskeletal: Musculoskeletal: Denies back pain Integumentary/Breasts: Skin/Breast: Denies rash and Reports wounds (Left leg wrapped) Neurologic: Reports system reviewed and no addition
[2021-01-05 20:30] LABS: Glucose Point of Care 320 mg/dl (65-105)
[2021-01-06] VITALS (21 sets, daily range): BP systolic 134–139; BP diastolic 52–60; PULSE 77–89; RESP 14–26; TEMP 36.3–36.8; O2SAT 94–100
[2021-01-06] MEDS: ALBUTEROL SULFATE NEB 2.5 MG/0.5 ML INH INHALATION ×6 (00:45→21:20)
[2021-01-06] MEDS: LEVOTHYROXINE SODIUM 75 MCG TABLET PO (05:20)
[2021-01-06 06:51] LABS: Basophils Percent Auto 0.2 % (0.2-1.2); Eosinophils Absolute Auto 0.1 K/mm3 (0-0.3); Eosinophils Percent Auto 1.4 % (0-4.4); Hematocrit 35.2 % (37.0-47.0); Hemoglobin 9.7 g/dL (12.0-15.0); Immature Granulocyte Absolute 0.02 K/mm3 (0.00-0.031); Immature Granulocyte Percent A 0.3 % (0-0.5); Lymphocytes Percent Auto 7.7 % (18.3-44.2); Mean Corpuscular HGB Conc 27.6 g/dl (32-36); Mean Corpuscular Hemoglobin 25.2 pg (26-34); Mean Corpuscular Volume 91.4 fl (80-100); Mean Platelet Volume 12.3 fl (7.4-10.4); Monocytes Absolute Auto 0.5 K/mm3 (0.1-0.6); Monocytes Percent Auto 7.4 % (2.6-8.5); Neutrophils Absolute Auto 5.4 K/mm3 (1.3-6.7); Platelet Count Result 92 k/mm3 (150-375); Red Blood Count 3.85 M/mm3 (4.2-5.4); Red Cell Distribution Width 17.3 % (11.5-14.5); White Blood Count 6.5 K/mm3 (4.5-10.0)
[2021-01-06 07:28] LABS: Blood Urea Nitrogen 30 mg/dL (7-17); Calcium 8.4 mg/dL (8.4-10.2); Carbon Dioxide > 40 mmol/L (22-30); Chloride 89 mmol/L (98-107); Estimated CRCL calculation 68 ml/min; Estimated Glomerular Filt Rate > 60; Glucose 152 mg/dL (65-110); Potassium 3.5 mmol/L (3.4-5.0); Sodium 140 mmol/L (137-145)
--- NOTE | 2021-01-06 07:33 | PCOTNOTE ---
The OT treatment on 01/05/21 was unable to be completed due to the holiday. Will continue plan of care.
--- NOTE | 2021-01-06 07:36 | PC.NURSE ---
Patient was transferred w/o telemetry. I discussed patient's most recent treatments and lab values with IMU nurse. Patient pulled off mask during the night and appeared to be confused. She had difficulty getting her BiPAP mask to fit well. Otherwise when well oxygenated she was oriented with clear speech.
[2021-01-06] MEDS: ENOXAPARIN 40 MG/0.4 ML SYRINGE SUB-Q (08:00)
[2021-01-06] MEDS: POTASSIUM CHLORIDE 10 MEQ TABLET.ER 20 MEQ PO ×3 (08:03→18:52)
[2021-01-06] MEDS: FUROSEMIDE INJ 100 MG/10 ML VIAL 80 MG IV PUSH ×2 (08:04→16:50)
[2021-01-06] MEDS: METOPROLOL SUCCINATE EXT REL 50 MG TABCR PO (08:04)
[2021-01-06] MEDS: MULTIVITAMINS /C LUTEIN (CENTRUM SILVER) TABLET *BKC 1 TAB PO (08:05)
[2021-01-06] MEDS: SPIRONOLACTONE 25 MG TABLET PO (08:05)
[2021-01-06] MEDS: TOLNAFTATE 1% POWDER 45 GM BTL 1 APPLIC TOPICAL ×2 (08:07→19:59)
[2021-01-06 08:27] LABS: Glucose Point of Care 130 mg/dl (65-105)
[2021-01-06] MEDS: IPRATROPIUM BR 0.02% INH SOLN 0.5 MG/2.5 ML VIAL INHALATION ×4 (09:14→21:20)
[2021-01-06] MEDS: BUDESONIDE RESPULE NEB 0.5 MG/2 ML AMP INHALATION ×2 (09:15→21:20)
[2021-01-06 11:53] LABS: Glucose Point of Care 200 mg/dl (65-105)
--- NOTE | 2021-01-06 14:09 | PCNWS ---
Weekly nutritional screen. Patient is tolerating current diet with adequate intake. No weight loss reported. No nutritional needs at this time. I spoke with patient's nurse who confirmed patient is doing really well eating 100% her last couple of meals. Patient has been asking to advance to a regular diet. No nutritional concerns at this time.
[2021-01-06] MEDS: BENZOCAINE/MENTHOL (*BKC) 18 EA LOZENGE 1 LOZENGE PO (14:20)
[2021-01-06 15:17] LABS: Vancomycin Trough 15.3 ug/mL (10.0-20.0)
[2021-01-06 16:42] LABS: Glucose Point of Care 210 mg/dl (65-105)
[2021-01-06] MEDS: INSULIN ASPART (*BKC) 100 UNITS/ML SUB-Q (16:59)
[2021-01-06] MEDS: SILVERGEL (ELTA) 45 ML 1 APPLIC TOPICAL (17:00)
--- NOTE | 2021-01-06 17:32 | PM.IMPN ---
Progress Note: A&P Assessment and Plan (1) Acute respiratory failure with hypoxia and hypercapnia: Code(s): J96.01 - Acute respiratory failure with hypoxia; J96.02 - Acute respiratory failure with hypercapnia Status: Acute Assessment and Plan: Patient is currently being weaned off Oxygen - currently on nasal cannula, 8L 4L is baseline, home O2 requirement - Pulm HTN on Echo likely some pulmonary edema in setting of known copd pulm on board, appreciate recs (2) Acute exacerbation of chronic obstructive pulmonary disease: Code(s): J44.1 - Chronic obstructive pulmonary disease with (acute) exacerbation Status: Acute Assessment and Plan: We will continue aggressive pulmonary toilet with scheduled duonebs. There is no evidence of acute COPD exacerbation. Patient is a chronic CO2 retainer on oxygen 4 liters at home which is her baseline. There mild clear sputum production. (3) Obesity hypoventilation syndrome: Code(s): E66.2 - Morbid (severe) obesity with alveolar hypoventilation Status: Acute Assessment and Plan: PReviously on BIPAP weaned to AIRVO (4) CHF (congestive heart failure): Qualifiers: Heart failure chronicity: acute on chronic Heart failure type: unspecified Qualified Code(s): I50.9 - Heart failure, unspecified Code(s): I50.9 - Heart failure, unspecified Status: Acute Assessment and Plan: Patient recently had an echo and EF was within normal limits but with significant diastolic dysfunction. Patient is responding well to IV Lasix. She has chronic lymphedema to her lower extremities. Renal function remaining stable during aggressive diuresis. imporinvg edema (5) Type 2 diabetes mellitus: Code(s): E11.9 - Type 2 diabetes mellitus without complications Status: Chronic Assessment and Plan: Continue with patient's home medications and will do Accu-Cheks a.c. HS with moderate sliding scale. Hemoglobin A1c 6.8. Pioglitazone was stopped. SGLT2 inhibitors would certainly be a consideration. Given morbid obesity extra concern about side effects including genital/perineal infections make this option less advisable. (6) Diastolic congestive heart failure: Code(s): I50.30 - Unspecified diastolic (congestive) heart failure Status: Acute Assessment and Plan: as above (7) Frequent PVCs: Code(s): I49.3 - Ventricular premature depolarization Status: Acute Assessment and Plan: Rate controlled with metoprolol. Monitor electrolytes. (8) CAP (community acquired pneumonia): Code(s): J18.9 - Pneumonia, unspecified organism Status: Acute Assessment and Plan: Chest Xray suggestive of pulmonary edema. Blood culture negative. Sputum culture reveals oropharyngeal christiana. Continue aggressive diuresis. Significant clinical improvement. (9) Hypothyroidism: Code(s): E03.9 - Hypothyroidism, unspecified Status: Chronic Assessment and Plan: Supplement with levothyroxine. (10) Essential hypertension: Code(s): I10 - Essential (primary) hypertension Status: Chronic Assessment and Plan: Continue with home lisinopril, metoprolol, and spironolactone (11) Anemia of chronic disease: Code(s): D63.8 - Anemia in other chronic diseases classified elsewhere Status: Acute Assessment and Plan: Continue to monitor no active bleeding at this time. Time Spent With Patient Time with patient: less than 15 minutes Subjective Date/time seen: 01/06/21 17:32 No acute medical complaints. Still requiring NC O2. Able to engage in conversation. Review of Systems Review of Systems: All systems reviewed & are unremarkable except as noted in HPI and below Exam Const: General: no acute distress Neck: Neck: no JVD Resp: Effort & Inspection: normal respiratory effort Auscultation: clear to auscultation bilaterally Cardio: Rate: regular rat
--- NOTE | 2021-01-06 18:10 | PM.PNCARD ---
Progress Note: A&P Assessment and Plan (1) Acute on chronic respiratory failure with hypoxia and hypercapnia: Code(s): J96.21 - Acute and chronic respiratory failure with hypoxia; J96.22 - Acute and chronic respiratory failure with hypercapnia Status: Acute Assessment and Plan: Secondary to obesity/hypoventilation syndrome and acute diastolic CHF, improving. Possible pneumonia. COVID negative Now off BiPAP on high flow O2 at 7L curently (2) Acute diastolic CHF (congestive heart failure): Code(s): I50.31 - Acute diastolic (congestive) heart failure Status: Acute Assessment and Plan: Good diuresis. Remains fluid balance negative today -480 currently for the last 24 hours Continue Lasix 80 mg IV push b.i.d.. Renal function is tolerating the diuresis Potassium WNL with increased KCL supplementation Check BMP daily. Advance activity: Up in chair (3) Pulmonary hypertension: Code(s): I27.20 - Pulmonary hypertension, unspecified Status: Acute Assessment and Plan: Severe pulmonary hypertension secondary to sleep apnea and hypoventilation. (4) Obstructive sleep apnea: Code(s): G47.33 - Obstructive sleep apnea (adult) (pediatric) Status: Acute Assessment and Plan: Doesn't like her home Trilogy, likes BiPAP better. Reviewed the importance of treating sleep apnea well for best survival and long-term outcome. Encouraged patient to follow-up with the pulmonary doctor about her sleep apnea and treatment options. (5) Lymphedema: Code(s): I89.0 - Lymphedema, not elsewhere classified Status: Acute Assessment and Plan: Improving. (6) Morbid obesity with alveolar hypoventilation: Code(s): E66.2 - Morbid (severe) obesity with alveolar hypoventilation Status: Acute Subjective Date/time seen: 01/06/21 18:10 Interval history: Follow-up for respiratory failure primarily pulmonary but with a component of diastolic CHF, pulmonary hypertension. Also morbid obesity, anemia, thrombocytopenia and sleep apnea. 01/02/2021: Respiratory status worsen, transferred to IMU started on BiPAP. Also started on furosemide 80 IV push BID.. 01/03/2021: Feels okay, not short of breath at rest. Tolerating clear liquids. Was on BiPAP overnight but now on high-flow nasal oxygen 10 liters/minute with O2 sat 95%. Continues on Lasix 80 mg IV push b.i.d. COVID screen is still pending.. Good diuresis; I's and O's = 1250/2900. 01/04/2021: Breathing better, less edema. Back on BiPAP most of the time weaning to high-flow oxygen. Has not been very hungry but tolerating clear liquids. Again reiterated that she did not like the trilogy she has at home and thinks that that contributed to her recent decompensation. COVID screen was negative. Good diuresis,I's and O's 1600/3100 Date of service 01/25/2021: Continues to diurese but had high intake yesterday (due in part to the IV vancomycin), 2900 In, 3000 out. Diuresing today. Not out of bed any. Off BiPAP for the whole day. Feels breathing is better, edema better Date of service 01/06/2021: Continues to feel better with more diuresis. She says that she is able to get up out of bed today for the 1st time in 4 days and did well with that. She is on 7 L of high flow oxygen currently. Review of Systems Review of Systems: All systems reviewed & are unremarkable except as noted in HPI and below ROS unobtainable: Yes unobtainable due to medical condition (Limited due to BiPAP dependence, lethargy) Constitutional: Constitutional: Reports as per HPI, Reports no additional constitutional complaints and Reports fatigue Eyes: Eyes: Reports as per HPI and Reports no additional eye complaints ENT: Reports system reviewed and no additional complaints, except as document
[2021-01-07] VITALS (21 sets, daily range): BP systolic 111–131; BP diastolic 49–60; PULSE 73–88; RESP 18–26; TEMP 36.3–37.2; O2SAT 87–100
[2021-01-07] MEDS: ALBUTEROL SULFATE NEB 2.5 MG/0.5 ML INH INHALATION ×4 (00:30→11:30)
[2021-01-07] MEDS: IPRATROPIUM BR 0.02% INH SOLN 0.5 MG/2.5 ML VIAL INHALATION ×4 (00:30→11:31)
[2021-01-07 00:52] LABS: Glucose Point of Care 145 mg/dl (65-105)
[2021-01-07] MEDS: LEVOTHYROXINE SODIUM 75 MCG TABLET PO (05:28)
[2021-01-07 07:11] LABS: Basophils Percent Auto 0.1 % (0.2-1.2); Eosinophils Absolute Auto 0.2 K/mm3 (0-0.3); Eosinophils Percent Auto 2.2 % (0-4.4); Hematocrit 33.7 % (37.0-47.0); Hemoglobin 9.3 g/dL (12.0-15.0); Immature Granulocyte Absolute 0.02 K/mm3 (0.00-0.031); Immature Granulocyte Percent A 0.3 % (0-0.5); Lymphocytes Absolute Auto 0.49 K/mm3 (0.9-3.2); Lymphocytes Percent Auto 6.6 % (18.3-44.2); Mean Corpuscular HGB Conc 27.6 g/dl (32-36); Mean Corpuscular Hemoglobin 25.1 pg (26-34); Mean Corpuscular Volume 91.1 fl (80-100); Mean Platelet Volume 12.6 fl (7.4-10.4); Monocytes Absolute Auto 0.4 K/mm3 (0.1-0.6); Monocytes Percent Auto 5.4 % (2.6-8.5); Neutrophils Absolute Auto 6.3 K/mm3 (1.3-6.7); Neutrophils Percent Auto 85.4 % (45.5-73.1); Platelet Count Result 77 k/mm3 (150-375); Red Cell Distribution Width 16.8 % (11.5-14.5); White Blood Count 7.4 K/mm3 (4.5-10.0)
[2021-01-07 07:40] LABS: Alanine Aminotransferase 23 U/L (4-35); Albumin Level 3.1 g/dL (3.5-5.1); Alkaline Phosphatase 90 U/L (38-126); Aspartate Amino Transferase 28 U/L (14-36); Bilirubin,Total 0.5 mg/dL (0.2-1.3); Blood Urea Nitrogen 25 mg/dL (7-17); Calcium 8.5 mg/dL (8.4-10.2); Carbon Dioxide > 40 mmol/L (22-30); Chloride 87 mmol/L (98-107); Estimated CRCL calculation 77 ml/min; Estimated Glomerular Filt Rate > 60; Glucose 141 mg/dL (65-110); Magnesium 1.9 mg/dL (1.6-2.3); Phosphorus 2.6 mg/dL (2.5-4.5); Potassium 3.9 mmol/L (3.4-5.0); Sodium 137 mmol/L (137-145)
[2021-01-07 08:24] LABS: Glucose Point of Care 124 mg/dl (65-105)
[2021-01-07 08:42] LABS: Hypochromasia 1+ (NORMAL); Platelet Estimate Decreased (Adequate)
[2021-01-07 08:43] LABS: Anisocytosis 1+ (NORMAL)
[2021-01-07] MEDS: BUDESONIDE RESPULE NEB 0.5 MG/2 ML AMP INHALATION ×2 (08:47→20:57)
[2021-01-07] MEDS: TOLNAFTATE 1% POWDER 45 GM BTL 1 APPLIC TOPICAL ×2 (10:00→20:24)
[2021-01-07] MEDS: SPIRONOLACTONE 25 MG TABLET PO (10:00)
[2021-01-07] MEDS: ENOXAPARIN 40 MG/0.4 ML SYRINGE SUB-Q (10:00)
[2021-01-07] MEDS: SILVERGEL (ELTA) 45 ML 1 APPLIC TOPICAL (10:00)
[2021-01-07] MEDS: POTASSIUM CHLORIDE 10 MEQ TABLET.ER 20 MEQ PO ×3 (10:00→17:22)
[2021-01-07] MEDS: METOPROLOL SUCCINATE EXT REL 50 MG TABCR PO (10:00)
[2021-01-07] MEDS: FUROSEMIDE INJ 100 MG/10 ML VIAL 80 MG IV PUSH ×2 (10:00→17:23)
[2021-01-07] MEDS: MULTIVITAMINS /C LUTEIN (CENTRUM SILVER) TABLET *BKC 1 TAB PO (10:00)
--- NOTE | 2021-01-07 11:00 | PCPTNOTE ---
Attempted to see patient in AM however student nurses working with patient and patient unavailable for PT. PT will continue to follow per plan of care.
[2021-01-07 11:57] LABS: Glucose Point of Care 150 mg/dl (65-105)
--- NOTE | 2021-01-07 12:51 | PM.IMPN ---
Progress Note: A&P Assessment and Plan (1) Acute respiratory failure with hypoxia and hypercapnia: Code(s): J96.01 - Acute respiratory failure with hypoxia; J96.02 - Acute respiratory failure with hypercapnia Status: Acute Assessment and Plan: Patient is currently being weaned off Oxygen - back down to 4 L, which is her home oxygen requirement Pulm HTN on Echo likely some pulmonary edema in setting of known copd pulm on board, appreciate recs (2) Obesity hypoventilation syndrome: Code(s): E66.2 - Morbid (severe) obesity with alveolar hypoventilation Status: Acute Assessment and Plan: PReviously on BIPAP weaned to AIRVO (3) CHF (congestive heart failure): Qualifiers: Heart failure chronicity: acute on chronic Heart failure type: unspecified Qualified Code(s): I50.9 - Heart failure, unspecified Code(s): I50.9 - Heart failure, unspecified Status: Acute Assessment and Plan: Patient recently had an echo and EF was within normal limits but with significant diastolic dysfunction. Patient is responding well to IV Lasix. She has chronic lymphedema to her lower extremities. Renal function remaining stable during aggressive diuresis. imporinvg edema (4) Type 2 diabetes mellitus: Code(s): E11.9 - Type 2 diabetes mellitus without complications Status: Chronic Assessment and Plan: Continue with patient's home medications and will do Accu-Cheks a.c. HS with moderate sliding scale. Hemoglobin A1c 6.8. Pioglitazone was stopped. SGLT2 inhibitors would certainly be a consideration. Given morbid obesity extra concern about side effects including genital/perineal infections make this option less advisable. (5) Diastolic congestive heart failure: Code(s): I50.30 - Unspecified diastolic (congestive) heart failure Status: Acute Assessment and Plan: as above (6) Frequent PVCs: Code(s): I49.3 - Ventricular premature depolarization Status: Acute Assessment and Plan: Rate controlled with metoprolol. Monitor electrolytes. Additional Plan overall, breathing is approaching baseline, had conversation with her and she stay comfortable on 4 L, which is her home oxygen requirement. Will space out nebulize treatments from 4 hours to 12 hours. Continue diuresis. Transition from fluids to solid food, with a 1.2 L restriction. follow x-ray today. Asked if she is comfortable going home today, she she said she prefers to stay another day, so will plan to discharge tomorrow. Time Spent With Patient Time with patient: less than 15 minutes Subjective Date/time seen: 01/07/21 12:51 Breathing is improving, patient is asking if she can be transition to solid foods. No chest pain, fevers chills Review of Systems Review of Systems: All systems reviewed & are unremarkable except as noted in HPI and below Exam Const: General: no acute distress Neck: Neck: no JVD Resp: Effort & Inspection: normal respiratory effort Auscultation: clear to auscultation bilaterally Cardio: Rate: regular rate Rhythm: regular rhythm GI: GI Palp: Yes Soft to palpation and No Tenderness to palpation present (GI) Objective Data Vital Signs Vital Signs: Vital Signs - 24 hr 01/06/21 13:03 01/06/21 13:13 01/06/21 14:00 Temperature 97.7 F Pulse Rate 88 86 77 Respiratory Rate 20 20 14 Blood Pressure 134/60 Pulse Oximetry 99 01/06/21 16:47 01/06/21 16:57 01/06/21 20:00 Temperature Pulse Rate 82 85 Respiratory Rate 20 20 Blood Pressure Pulse Oximetry 97 97 97 01/06/21 21:21 01/06/21 21:25 01/06/21 21:30 Temperature 98.2 F Pulse Rate 84 85 82 Respiratory Rate 20 18 Blood Pressure 139/56 L Pulse Oximetry 99 97 01/06/21 21:35 01/06/21 22:08 01/07/21 00:30 Temperature Pulse Rate 83 89 81 Respiratory Rate 20 26 H 20 Blood Pressure Pulse Oximetry 97 01/07/21 00:45 01/07/21 01:23 01/07/21 03:44
--- NOTE | 2021-01-07 13:40 | PCOTNOTE ---
Attempted to see patient this pm, however patient off floor for testing.
--- NOTE | 2021-01-07 15:55 | PC.NURSE ---
On 01/07/21, the student, Patricia Garcia, provided care and completed [facility] documentation on this patient. I have reviewed the student's documentation and agree with the findings.
[2021-01-07 17:09] LABS: Glucose Point of Care 149 mg/dl (65-105)
[2021-01-07 22:23] LABS: Glucose Point of Care 189 mg/dl (65-105)
[2021-01-08] VITALS (13 sets, daily range): BP systolic 116–139; BP diastolic 50–66; PULSE 68–88; RESP 20–26; TEMP 35.9–36.9; O2SAT 90–98
[2021-01-08 05:06] LABS: Alveolar/Arterial O2 Gradient 175.8 mmHg; Base Excess ABG 20.1 mEq/l (+/-2.0); Fractional Inspired Oxygen 44 %; HCO3 ABG 47.8 mEq/l (22.0-26.0); Oxygen Content ABG 12.8 %vol (16.0-22.0); Oxyhemoglobin 85.8 % THb (90.0-100.0); PO2 ABG 52.9 mmHg (80.0-100.0); Total Hemoglobin 10.6 g/dL (12.0-18.0); pH ABG 7.425 (7.350-7.450)
[2021-01-08 05:11] LABS: Device NON-INVASIVE VENT; Modified Allen's Test Pass; Oxygen Saturation ABG 86.3 % (95.0-100.0); PCO2 ABG 74.6 mmHg (35.0-45.0); Site Drawn RIGHT RADIAL
[2021-01-08 05:12] LABS: Non-Invasive Vent Rate 15 /MIN
--- NOTE | 2021-01-08 05:14 | PCRCNOTE ---
Pt wore her home Trilogy all night. Dr. Macdonald asked that she wear it with a 4L O2 bleed-in and get an ABG before pt came off Trilogy in the morning. When placed on the Trilogy with a 4 L O2 bleed-in, pt's sat was in the mid 80s. O2 bleed-in was titrated up to 6L to achieve sats of 90-92 on a finger pulse ox. Pt wore Trilogy throughout the night. ABG was obtained in the AM prior to coming off Trilogy. Critical pH and O2 sat were called to nurse (Dean Sandra RN).
[2021-01-08] MEDS: LEVOTHYROXINE SODIUM 75 MCG TABLET PO (05:39)
[2021-01-08 06:59] LABS: Basophils Percent Auto 0.2 % (0.2-1.2); Eosinophils Absolute Auto 0.2 K/mm3 (0-0.3); Eosinophils Percent Auto 2.6 % (0-4.4); Hematocrit 33.8 % (37.0-47.0); Hemoglobin 9.5 g/dL (12.0-15.0); Immature Granulocyte Absolute 0.03 K/mm3 (0.00-0.031); Immature Granulocyte Percent A 0.3 % (0-0.5); Lymphocytes Absolute Auto 0.48 K/mm3 (0.9-3.2); Lymphocytes Percent Auto 5.5 % (18.3-44.2); Mean Corpuscular HGB Conc 28.1 g/dl (32-36); Mean Corpuscular Hemoglobin 25.7 pg (26-34); Mean Corpuscular Volume 91.4 fl (80-100); Mean Platelet Volume 12.6 fl (7.4-10.4); Monocytes Absolute Auto 0.4 K/mm3 (0.1-0.6); Monocytes Percent Auto 4.7 % (2.6-8.5); Neutrophils Absolute Auto 7.6 K/mm3 (1.3-6.7); Neutrophils Percent Auto 86.7 % (45.5-73.1); Platelet Count Result 75 k/mm3 (150-375); Red Cell Distribution Width 16.5 % (11.5-14.5); White Blood Count 8.8 K/mm3 (4.5-10.0)
[2021-01-08 07:30] LABS: Blood Urea Nitrogen 22 mg/dL (7-17); Calcium 8.5 mg/dL (8.4-10.2); Carbon Dioxide > 40 mmol/L (22-30); Chloride 88 mmol/L (98-107); Estimated CRCL calculation 61 ml/min; Estimated Glomerular Filt Rate 55; Glucose 155 mg/dL (65-110); Sodium 135 mmol/L (137-145)
[2021-01-08 08:16] LABS: Glucose Point of Care 143 mg/dl (65-105)
[2021-01-08] MEDS: BUDESONIDE RESPULE NEB 0.5 MG/2 ML AMP INHALATION ×2 (08:28→20:08)
[2021-01-08] MEDS: IPRATROPIUM BR 0.02% INH SOLN 0.5 MG/2.5 ML VIAL INHALATION ×2 (08:28→20:08)
[2021-01-08] MEDS: ALBUTEROL SULFATE NEB 2.5 MG/0.5 ML INH INHALATION ×2 (08:28→20:08)
--- NOTE | 2021-01-08 08:43 | PM.PNCARD ---
Progress Note: A&P Assessment and Plan (1) Acute on chronic respiratory failure with hypoxia and hypercapnia: Code(s): J96.21 - Acute and chronic respiratory failure with hypoxia; J96.22 - Acute and chronic respiratory failure with hypercapnia Status: Acute Assessment and Plan: Secondary to obesity/hypoventilation syndrome and acute diastolic CHF, improving. Possible pneumonia. COVID negative Now off BiPAP on high flow O2 at 7L curently - attempting to wean to home o2 of 4L (2) Acute diastolic CHF (congestive heart failure): Code(s): I50.31 - Acute diastolic (congestive) heart failure Status: Acute Assessment and Plan: Good diuresis. Remains fluid balance negative today CXR 01/07/21 showed improvement in pulmonary edema Transition from IV to p.o. lasix - 80mg p.o. b.i.d Renal function is tolerating the diuresis Potassium WNL with increased KCL supplementation Check BMP daily. Advance activity: Up in chair Follows with Dr. Bonny Hammond at [facility] who she should see in follow up within two weeks of hospital discharge (3) Pulmonary hypertension: Code(s): I27.20 - Pulmonary hypertension, unspecified Status: Acute Assessment and Plan: Severe pulmonary hypertension secondary to sleep apnea and hypoventilation. (4) Obstructive sleep apnea: Code(s): G47.33 - Obstructive sleep apnea (adult) (pediatric) Status: Acute Assessment and Plan: Doesn't like her home Trilogy, likes BiPAP better. Reviewed the importance of treating sleep apnea well for best survival and long-term outcome. Encouraged patient to follow-up with the pulmonary doctor about her sleep apnea and treatment options. (5) Lymphedema: Code(s): I89.0 - Lymphedema, not elsewhere classified Status: Acute Assessment and Plan: Improving. (6) Morbid obesity with alveolar hypoventilation: Code(s): E66.2 - Morbid (severe) obesity with alveolar hypoventilation Status: Acute Subjective Date/time seen: 01/08/21 08:43 Interval history: Follow-up for respiratory failure primarily pulmonary but with a component of diastolic CHF, pulmonary hypertension. Also morbid obesity, anemia, thrombocytopenia and sleep apnea. 01/02/2021: Respiratory status worsen, transferred to IMU started on BiPAP. Also started on furosemide 80 IV push BID.. 01/03/2021: Feels okay, not short of breath at rest. Tolerating clear liquids. Was on BiPAP overnight but now on high-flow nasal oxygen 10 liters/minute with O2 sat 95%. Continues on Lasix 80 mg IV push b.i.d. COVID screen is still pending.. Good diuresis; I's and O's = 1250/2900. 01/04/2021: Breathing better, less edema. Back on BiPAP most of the time weaning to high-flow oxygen. Has not been very hungry but tolerating clear liquids. Again reiterated that she did not like the trilogy she has at home and thinks that that contributed to her recent decompensation. COVID screen was negative. Good diuresis,I's and O's 1600/3100 Date of service 01/25/2021: Continues to diurese but had high intake yesterday (due in part to the IV vancomycin), 2900 In, 3000 out. Diuresing today. Not out of bed any. Off BiPAP for the whole day. Feels breathing is better, edema better Date of service 01/06/2021: Continues to feel better with more diuresis. She says that she is able to get up out of bed today for the 1st time in 4 days and did well with that. She is on 7 L of high flow oxygen currently. Date of service 01/08/2021: Feels good today. Does not voice any complaints of any kind. She states that her breathing is better today. She was out of bed yesterday and did well with activity. Continues to make good urine. Review of Systems Review of Systems: All systems reviewe
[2021-01-08] MEDS: MULTIVITAMINS /C LUTEIN (CENTRUM SILVER) TABLET *BKC 1 TAB PO (09:01)
[2021-01-08] MEDS: SPIRONOLACTONE 25 MG TABLET PO (09:01)
[2021-01-08] MEDS: METOPROLOL SUCCINATE EXT REL 50 MG TABCR PO (09:02)
[2021-01-08] MEDS: POTASSIUM CHLORIDE 10 MEQ TABLET.ER 20 MEQ PO ×3 (09:02→17:07)
[2021-01-08] MEDS: TOLNAFTATE 1% POWDER 45 GM BTL 1 APPLIC TOPICAL ×2 (09:36→21:20)
[2021-01-08] MEDS: SILVERGEL (ELTA) 45 ML 1 APPLIC TOPICAL (09:36)
--- NOTE | 2021-01-08 10:36 | PCPTNOTE ---
Patient states she did not sleep well last night and request PT return later today. PT will follow up in afternoon.
[2021-01-08 10:52] LABS: Hypochromasia 1+ (NORMAL); Platelet Estimate Decreased (Adequate)
[2021-01-08 10:53] LABS: Atypical Lymphocytes Present
[2021-01-08] MEDS: FUROSEMIDE 80 MG TABLET PO ×2 (11:29→17:06)
[2021-01-08 11:55] LABS: Glucose Point of Care 174 mg/dl (65-105)
--- NOTE | 2021-01-08 12:56 | PM.IMPN ---
Progress Note: A&P Assessment and Plan (1) Acute respiratory failure with hypoxia and hypercapnia: Code(s): J96.01 - Acute respiratory failure with hypoxia; J96.02 - Acute respiratory failure with hypercapnia Status: Acute Assessment and Plan: Patient is currently being weaned off Oxygen - Close to her home requirement, goes between 4 and 6 L Pulm HTN on Echo likely some pulmonary edema in setting of known copd pulm on board, appreciate recs (2) Obesity hypoventilation syndrome: Code(s): E66.2 - Morbid (severe) obesity with alveolar hypoventilation Status: Acute Assessment and Plan: PReviously on BIPAP weaned to AIRVO (3) CHF (congestive heart failure): Qualifiers: Heart failure chronicity: acute on chronic Heart failure type: unspecified Qualified Code(s): I50.9 - Heart failure, unspecified Code(s): I50.9 - Heart failure, unspecified Status: Acute Assessment and Plan: Patient recently had an echo and EF was within normal limits but with significant diastolic dysfunction. Patient is responding well to IV Lasix. She has chronic lymphedema to her lower extremities. Renal function remaining stable during aggressive diuresis. imporinvg edema (4) Type 2 diabetes mellitus: Code(s): E11.9 - Type 2 diabetes mellitus without complications Status: Chronic Assessment and Plan: Continue with patient's home medications and will do Accu-Cheks a.c. HS with moderate sliding scale. Hemoglobin A1c 6.8. Pioglitazone was stopped. SGLT2 inhibitors would certainly be a consideration. Given morbid obesity extra concern about side effects including genital/perineal infections make this option less advisable. (5) Diastolic congestive heart failure: Code(s): I50.30 - Unspecified diastolic (congestive) heart failure Status: Acute Assessment and Plan: as above (6) Frequent PVCs: Code(s): I49.3 - Ventricular premature depolarization Status: Acute Assessment and Plan: Rate controlled with metoprolol. Monitor electrolytes. Additional Plan overall, breathing is approaching baseline, had conversation with her and she stay comfortable on 4 L, which is her home oxygen requirement. Will space out nebulize treatments from 4 hours to 12 hours. Continue diuresis. Transition from fluids to solid food, with a 1.2 L restriction. follow x-ray today. Asked if she is comfortable going home today, but still says that she does not feel comfortable, and prefers to discharge tomorrow. Noted the patient is still on vancomycin, appreciate Pulmonary input. Time Spent With Patient Time with patient: less than 15 minutes Subjective Date/time seen: 01/08/21 12:56 Patient seen lying in bed. She stated clearly that she does not feel like her breathing is back to baseline, and as such would like to stay in the hospital another day. No chest pain, no coughing, no fevers or chills. Review of Systems Review of Systems: All systems reviewed & are unremarkable except as noted in HPI and below Exam Const: General: no acute distress Neck: Neck: no JVD Resp: Effort & Inspection: normal respiratory effort Auscultation: clear to auscultation bilaterally Cardio: Rate: regular rate Rhythm: regular rhythm GI: GI Palp: Yes Soft to palpation and No Tenderness to palpation present (GI) Objective Data Vital Signs Vital Signs: Vital Signs - 24 hr 01/07/21 15:27 01/07/21 20:00 01/07/21 20:59 Temperature 99 F Pulse Rate 81 83 Respiratory Rate 19 20 Blood Pressure 111/49 L Pulse Oximetry 100 92 92 01/07/21 21:06 01/07/21 21:26 01/07/21 23:57 Temperature 97.3 F L Pulse Rate 79 80 78 Respiratory Rate 20 18 Blood Pressure 131/51 L Pulse Oximetry 100 92 01/08/21 02:02 01/08/21 06:00 01/08/21 07:54 Temperature 97.2 F L 96.6 F L Pulse Rate 81 88 87 Respiratory Rate 20 Blood Pressure 131/55 L 139/50 L Pulse Oximetry
[2021-01-08 16:45] LABS: Glucose Point of Care 164 mg/dl (65-105)
--- NOTE | 2021-01-08 16:47 | PC.NURSE ---
On 01/08/21, the student, Nelsy Tejeda, provided care and completed [employer] documentation on this patient. I have reviewed the student's documentation and agree with the findings.
[2021-01-08 22:07] LABS: Glucose Point of Care 231 mg/dl (65-105)
[2021-01-09] VITALS (16 sets, daily range): BP systolic 98–143; BP diastolic 50–80; PULSE 72–92; RESP 14–26; TEMP 36.4–36.5; O2SAT 78–100
[2021-01-09] MEDS: LEVOTHYROXINE SODIUM 75 MCG TABLET PO (06:09)
[2021-01-09 06:59] LABS: Basophils Percent Auto 0.3 % (0.2-1.2); Eosinophils Absolute Auto 0.2 K/mm3 (0-0.3); Eosinophils Percent Auto 2.4 % (0-4.4); Hematocrit 33.8 % (37.0-47.0); Hemoglobin 9.3 g/dL (12.0-15.0); Immature Granulocyte Absolute 0.05 K/mm3 (0.00-0.031); Immature Granulocyte Percent A 0.6 % (0-0.5); Immature Platelet Fraction Pct 15.6 % (0.9-11.2); Lymphocytes Absolute Auto 0.45 K/mm3 (0.9-3.2); Lymphocytes Percent Auto 5.1 % (18.3-44.2); Mean Corpuscular HGB Conc 27.5 g/dl (32-36); Mean Corpuscular Hemoglobin 25.7 pg (26-34); Mean Corpuscular Volume 93.4 fl (80-100); Mean Platelet Volume 12.1 fl (7.4-10.4); Monocytes Absolute Auto 0.6 K/mm3 (0.1-0.6); Monocytes Percent Auto 6.5 % (2.6-8.5); Neutrophils Absolute Auto 7.4 K/mm3 (1.3-6.7); Neutrophils Percent Auto 85.1 % (45.5-73.1); Platelet Count Result 76 k/mm3 (150-375); Red Blood Count 3.62 M/mm3 (4.2-5.4); Red Cell Distribution Width 16.4 % (11.5-14.5); White Blood Count 8.7 K/mm3 (4.5-10.0)
[2021-01-09 07:25] LABS: Alanine Aminotransferase 22 U/L (4-35); Albumin Level 3.2 g/dL (3.5-5.1); Alkaline Phosphatase 76 U/L (38-126); Aspartate Amino Transferase 36 U/L (14-36); Bilirubin,Total 0.6 mg/dL (0.2-1.3); Blood Urea Nitrogen 26 mg/dL (7-17); Calcium 8.6 mg/dL (8.4-10.2); Carbon Dioxide > 40 mmol/L (22-30); Chloride 90 mmol/L (98-107); Estimated CRCL calculation 75 ml/min; Estimated Glomerular Filt Rate > 60; Glucose 161 mg/dL (65-110); Magnesium 2.1 mg/dL (1.6-2.3); Potassium 4.7 mmol/L (3.4-5.0); Sodium 136 mmol/L (137-145)
[2021-01-09] MEDS: ALBUTEROL SULFATE NEB 2.5 MG/0.5 ML INH INHALATION ×2 (08:07→21:10)
[2021-01-09] MEDS: BUDESONIDE RESPULE NEB 0.5 MG/2 ML AMP INHALATION ×2 (08:07→21:10)
[2021-01-09] MEDS: IPRATROPIUM BR 0.02% INH SOLN 0.5 MG/2.5 ML VIAL INHALATION ×2 (08:07→21:10)
[2021-01-09] MEDS: POTASSIUM CHLORIDE 10 MEQ TABLET.ER 20 MEQ PO ×3 (08:18→17:31)
[2021-01-09] MEDS: METOPROLOL SUCCINATE EXT REL 50 MG TABCR PO (08:18)
[2021-01-09] MEDS: SPIRONOLACTONE 25 MG TABLET PO (08:18)
[2021-01-09] MEDS: MULTIVITAMINS /C LUTEIN (CENTRUM SILVER) TABLET *BKC 1 TAB PO (08:20)
[2021-01-09] MEDS: FUROSEMIDE 80 MG TABLET PO ×2 (08:21→17:31)
[2021-01-09] MEDS: TOLNAFTATE 1% POWDER 45 GM BTL 1 APPLIC TOPICAL ×2 (08:26→20:43)
[2021-01-09] MEDS: SILVERGEL (ELTA) 45 ML 1 APPLIC TOPICAL (08:26)
[2021-01-09 08:36] LABS: Glucose Point of Care 143 mg/dl (65-105)
--- NOTE | 2021-01-09 10:00 | PCOTNOTE ---
Attempted OT treatment, patient reports back pain is to sever at this time and does not sadler to participate with therapy, will follow and attempt at later time.
--- NOTE | 2021-01-09 10:20 | PCRCNOTE ---
HOME O2 EVAL ATTEMPTED, PT IN PAIN AND UNABLE TO WALK AT THIS TIME.
--- NOTE | 2021-01-09 11:51 | PM.IMPN ---
Progress Note: A&P Assessment and Plan (1) Acute respiratory failure with hypoxia and hypercapnia: Code(s): J96.01 - Acute respiratory failure with hypoxia; J96.02 - Acute respiratory failure with hypercapnia Status: Acute Assessment and Plan: Patient is currently being weaned off Oxygen - Close to her home requirement, goes between 4 and 6 L Pulm HTN on Echo likely some pulmonary edema in setting of known copd pulm on board, appreciate recs (2) Obesity hypoventilation syndrome: Code(s): E66.2 - Morbid (severe) obesity with alveolar hypoventilation Status: Acute Assessment and Plan: Continue home trilogy at night (3) CHF (congestive heart failure): Qualifiers: Heart failure chronicity: acute on chronic Heart failure type: unspecified Qualified Code(s): I50.9 - Heart failure, unspecified Code(s): I50.9 - Heart failure, unspecified Status: Acute Assessment and Plan: Patient recently had an echo and EF was within normal limits but with significant diastolic dysfunction. Patient is responding well to IV Lasix. She has chronic lymphedema to her lower extremities. Renal function remaining stable during aggressive diuresis. (4) Type 2 diabetes mellitus: Code(s): E11.9 - Type 2 diabetes mellitus without complications Status: Chronic Assessment and Plan: Continue with patient's home medications and will do Accu-Cheks a.c. HS with moderate sliding scale. Hemoglobin A1c 6.8. Pioglitazone was stopped. SGLT2 inhibitors would certainly be a consideration. Given morbid obesity extra concern about side effects including genital/perineal infections make this option less advisable. (5) Diastolic congestive heart failure: Code(s): I50.30 - Unspecified diastolic (congestive) heart failure Status: Acute Assessment and Plan: Plan outlined as above (6) Frequent PVCs: Code(s): I49.3 - Ventricular premature depolarization Status: Acute Assessment and Plan: Rate controlled with metoprolol. Monitor electrolytes. (7) Anemia: Code(s): D64.9 - Anemia, unspecified Status: Acute Assessment and Plan: Noted to be chronically low, currently in the 9 range which is her baseline. (8) Thrombocytopenia: Code(s): D69.6 - Thrombocytopenia, unspecified Status: Acute Assessment and Plan: Noted to be chronically low in seen during prior hospitalizations and last year. Unclear etiology. Question of ITP. Monitor. Follow up in outpatient setting. Subjective Date/time seen: 01/09/21 11:51 She reports feeling more short of breath this morning. She is on 6 L of oxygen by nasal cannula. Overnight she was on her trilogy. Hemodynamically stable. Afebrile. Review of Systems Review of Systems: All systems reviewed & are unremarkable except as noted in HPI and below Exam Narrative: Gen: Alert, NAD, on oxygen by nasal cannula Abd: Soft, NT, ND Heart: RRR Lungs: CTAB Ext: 1+ bilateral lower extremity edema and lymphedema Objective Data Vital Signs Vital Signs: Vital Signs - 24 hr 01/08/21 14:00 01/08/21 20:00 01/08/21 20:10 Temperature 98.4 F Pulse Rate 88 78 Respiratory Rate 20 20 Blood Pressure 139/61 Pulse Oximetry 98 96 01/08/21 20:11 01/08/21 22:00 01/09/21 06:00 Temperature 97.3 F L 97.5 F L Pulse Rate 81 87 Respiratory Rate 20 22 H Blood Pressure 116/66 126/53 L Pulse Oximetry 90 95 96 01/09/21 08:10 01/09/21 08:11 01/09/21 08:18 Temperature Pulse Rate 74 72 Respiratory Rate 20 Blood Pressure Pulse Oximetry 92 Intake/Output Intake/Output: Intake & Output 01/06/21 01/07/21 01/08/21 01/09/21 23:59 23:59 23:59 23:59 Intake Total 2820 2610 1426 460 Output Total 2400 3300 2150 1350 Balance 420 -690 -724 -890 Meds/Results Medications: Active Medications Generic Name Dose Route Start Last Admin Trade Name Juliana Michelle
[2021-01-09 11:52] LABS: Glucose Point of Care 165 mg/dl (65-105)
[2021-01-09 12:48] LABS: Hypochromasia 1+ (NORMAL); Platelet Estimate Decreased (Adequate)
--- NOTE | 2021-01-09 14:03 | PCRCNOTE ---
HOME O2 EVAL ATTEMPTED AGAIN, PT VERY SOB, JUST GOT OFF THE COMMODE, SAO2 82% ON 5LPM HIGH FLOW AT REST. INCREASED TP 6LPM HIGH FLOW SAO2 INCREASED TO 91% AFTER 10 MINUTES DECREASED O2 BACK TO 5LPM, PT SAO2 90%. CHARGE NURSE NOTIFIED
--- NOTE | 2021-01-09 15:00 | PCRCNOTE ---
PT DISCHARGE PLAN IS GOING TO SNF, NO HOME O2 EVAL NEEDED, [facility] STAFF CAN TITRATE NEEDED.
--- NOTE | 2021-01-09 15:06 | PCPTNOTE ---
PT was not able participate in PT this morning due to c/o back pain. PT attempted this afternoon and patient sleeping soundly in bed. Patient did open eyes in response to name and fell back to sleep. SPO2 95% on 4L and HR 86bpm. PT will continue to follow per plan of care.
[2021-01-09 17:17] LABS: Vancomycin Trough 19.8 ug/mL (10.0-20.0)
[2021-01-09] MEDS: INSULIN ASPART (*BKC) 100 UNITS/ML SUB-Q (17:31)
[2021-01-09 17:36] LABS: Glucose Point of Care 215 mg/dl (65-105)
[2021-01-09 20:48] LABS: Glucose Point of Care 203 mg/dl (65-105)
[2021-01-10] VITALS (13 sets, daily range): BP systolic 125–135; BP diastolic 46–61; PULSE 78–95; RESP 14–26; TEMP 36.4–36.7; O2SAT 79–97
--- NOTE | 2021-01-10 00:31 | PCRCNOTE ---
RN informed RT pt saturation was low while pt was on trilogy with 10 liters bleed in. Sp02 86-88%. Pt stated she felt she could not breathe, pt placed on hospital V60 machine pervious AVAPS setting, Fi02 50, sp02 96%.
[2021-01-10] MEDS: LEVOTHYROXINE SODIUM 75 MCG TABLET PO (06:18)
[2021-01-10 07:04] LABS: Hemoglobin 8.8 g/dL (12.0-15.0); Immature Platelet Fraction Pct 14.6 % (0.9-11.2); Mean Corpuscular HGB Conc 27.5 g/dl (32-36); Mean Corpuscular Hemoglobin 24.9 pg (26-34); Mean Corpuscular Volume 90.4 fl (80-100); Mean Platelet Volume 13.1 fl (7.4-10.4); Platelet Count Result 75 k/mm3 (150-375); Red Blood Count 3.54 M/mm3 (4.2-5.4); Red Cell Distribution Width 16.6 % (11.5-14.5); White Blood Count 7.8 K/mm3 (4.5-10.0)
[2021-01-10 07:56] LABS: Glucose Point of Care 183 mg/dl (65-105)
[2021-01-10] MEDS: POTASSIUM CHLORIDE 10 MEQ TABLET.ER 20 MEQ PO ×3 (08:12→16:15)
[2021-01-10] MEDS: FUROSEMIDE 80 MG TABLET PO ×2 (08:13→16:15)
[2021-01-10] MEDS: SPIRONOLACTONE 25 MG TABLET PO (08:13)
[2021-01-10] MEDS: MULTIVITAMINS /C LUTEIN (CENTRUM SILVER) TABLET *BKC 1 TAB PO (08:13)
[2021-01-10] MEDS: METOPROLOL SUCCINATE EXT REL 50 MG TABCR PO (08:13)
[2021-01-10] MEDS: TOLNAFTATE 1% POWDER 45 GM BTL 1 APPLIC TOPICAL ×2 (08:13→20:31)
[2021-01-10] MEDS: SILVERGEL (ELTA) 45 ML 1 APPLIC TOPICAL (08:14)
--- NOTE | 2021-01-10 08:57 | PM.IMPN ---
Progress Note: A&P Assessment and Plan (1) Acute respiratory failure with hypoxia and hypercapnia: Code(s): J96.01 - Acute respiratory failure with hypoxia; J96.02 - Acute respiratory failure with hypercapnia Status: Acute Assessment and Plan: This is a combination of obesity hypoventilation, significant diastolic heart failure with pulmonary edema initially, pulmonary hypertension, and COPD. Patient is currently being weaned off Oxygen -unfortunately she continues to have significant desaturations with any activity. Continue budesonide, albuterol scheduled nebs and p.r.n. Pulmonary on board, appreciate recs (2) Obesity hypoventilation syndrome: Code(s): E66.2 - Morbid (severe) obesity with alveolar hypoventilation Status: Acute Assessment and Plan: Continue home trilogy at night (3) CHF (congestive heart failure): Qualifiers: Heart failure chronicity: acute on chronic Heart failure type: unspecified Qualified Code(s): I50.9 - Heart failure, unspecified Code(s): I50.9 - Heart failure, unspecified Status: Acute Assessment and Plan: Patient recently had an echo 01/02 with EF 60-70%, grade 2 diastolic dysfunction, severe pulmonary hypertension, and dilated IVC. Also noted mild aortic stenosis. Cardiology consulted, appreciate help. He responded to IV diuresis, note transition to p.o. furosemide. She has chronic lymphedema to her lower extremities. Renal function remaining stable during aggressive diuresis. Follows with Dr. Bonny Hammond at [facility] with recommendation per cards of follow up within two weeks of hospital discharge (4) Type 2 diabetes mellitus: Code(s): E11.9 - Type 2 diabetes mellitus without complications Status: Chronic Assessment and Plan: Continue with patient's home medications and will do Accu-Cheks a.c. HS with moderate sliding scale. Glucose control is above target, will initiate Lantus at bed time and titrate Hemoglobin A1c 6.8. Pioglitazone was stopped. SGLT2 inhibitors would certainly be a consideration. Given morbid obesity extra concern about side effects including genital/perineal infections make this option less advisable. (5) Diastolic congestive heart failure: Code(s): I50.30 - Unspecified diastolic (congestive) heart failure Status: Acute Assessment and Plan: Plan outlined as above (6) Frequent PVCs: Code(s): I49.3 - Ventricular premature depolarization Status: Acute Assessment and Plan: Rate controlled with metoprolol. Monitor electrolytes. (7) Anemia: Code(s): D64.9 - Anemia, unspecified Status: Acute Assessment and Plan: Noted to be chronically low, currently close to her baseline. (8) Thrombocytopenia: Code(s): D69.6 - Thrombocytopenia, unspecified Status: Acute Assessment and Plan: Noted to be chronically low in seen during prior hospitalizations and last year. Unclear etiology. Question of ITP. Monitor. Follow up in outpatient setting. Additional Plan I discussed discharge plans with her in detail today, plan for discharge to SNF, however patient continues to have desaturations with minimal activity, feels she is worse than her baseline, and reports if I go I will come right back , will continue to work on titrating her oxygen, appreciate help Pulmonary. Subjective Date/time seen: 01/10/21 08:57 Continues to have shortness of breath, overnight she did take off her trilogy and placed on oxygen, when I asked her why she took it off she had no clear answer but said the machine was not right, she could not explain on repeated questioning. Last evening, she got up to the commode, she was on 4 L of oxygen which was being weaned through the day, she dropped her saturations to the 70s, her oxygen was increased to 8 L and her saturations improved to the 90s. Otherwise hemodynamically stable. Afebrile. Exam Narrati
[2021-01-10 11:57] LABS: Glucose Point of Care 163 mg/dl (65-105)
--- NOTE | 2021-01-10 13:26 | PCOTNOTE ---
Pt was not able to be seen on 01/10/2021. Will continue per POC duration/frequency tomorrow.
[2021-01-10] MEDS: ALBUTEROL SULFATE NEB 2.5 MG/0.5 ML INH INHALATION ×2 (14:22→20:52)
--- NOTE | 2021-01-10 14:27 | PCRCNOTE ---
PT SPO2 79% AFTER BEING HELPED BACK TO BED. O2 INCREASED TO 12LPM HFNC AND PRN ALBUTEROL NEB GIVEN. ATTEMPTED TO WEAN O2 BACK TO 6LPM FOR SPO2 96%
[2021-01-10] MEDS: FUROSEMIDE INJ 40 MG/4 ML VIAL 120 MG IV PUSH (16:14)
[2021-01-10 16:57] LABS: Glucose Point of Care 162 mg/dl (65-105)
[2021-01-10] MEDS: BUDESONIDE RESPULE NEB 0.5 MG/2 ML AMP INHALATION (20:52)
[2021-01-11] VITALS (10 sets, daily range): BP systolic 112–132; BP diastolic 47–62; PULSE 80–93; RESP 12–20; TEMP 36.4–36.7; O2SAT 90–100
[2021-01-11 04:26] LABS: Glucose Point of Care 252 mg/dl (65-105)
[2021-01-11 06:16] LABS: Hematocrit 32.3 % (37.0-47.0); Hemoglobin 8.8 g/dL (12.0-15.0); Immature Platelet Fraction Pct 15.6 % (0.9-11.2); Mean Corpuscular HGB Conc 27.2 g/dl (32-36); Mean Corpuscular Hemoglobin 25.4 pg (26-34); Mean Corpuscular Volume 93.4 fl (80-100); Mean Platelet Volume 12.1 fl (7.4-10.4); Platelet Count Result 84 k/mm3 (150-375); Red Blood Count 3.46 M/mm3 (4.2-5.4); Red Cell Distribution Width 16.7 % (11.5-14.5); White Blood Count 7.2 K/mm3 (4.5-10.0)
[2021-01-11] MEDS: LEVOTHYROXINE SODIUM 75 MCG TABLET PO (06:17)
[2021-01-11] MEDS: METOPROLOL SUCCINATE EXT REL 50 MG TABCR PO (07:54)
[2021-01-11] MEDS: POTASSIUM CHLORIDE 10 MEQ TABLET.ER 20 MEQ PO ×3 (07:54→15:59)
[2021-01-11] MEDS: FUROSEMIDE 80 MG TABLET PO ×2 (07:55→15:59)
[2021-01-11] MEDS: MULTIVITAMINS /C LUTEIN (CENTRUM SILVER) TABLET *BKC 1 TAB PO (07:55)
[2021-01-11] MEDS: SPIRONOLACTONE 25 MG TABLET PO (07:55)
[2021-01-11] MEDS: SILVERGEL (ELTA) 45 ML 1 APPLIC TOPICAL (07:56)
[2021-01-11] MEDS: TOLNAFTATE 1% POWDER 45 GM BTL 1 APPLIC TOPICAL ×2 (07:56→21:19)
[2021-01-11 08:14] LABS: Glucose Point of Care 130 mg/dl (65-105)
[2021-01-11] MEDS: ALBUTEROL SULFATE NEB 2.5 MG/0.5 ML INH INHALATION ×2 (08:51→20:56)
[2021-01-11] MEDS: BUDESONIDE RESPULE NEB 0.5 MG/2 ML AMP INHALATION ×2 (08:51→20:56)
[2021-01-11] MEDS: IPRATROPIUM BR 0.02% INH SOLN 0.5 MG/2.5 ML VIAL INHALATION ×2 (08:51→20:55)
--- NOTE | 2021-01-11 09:32 | PM.IMPN ---
Progress Note: A&P Assessment and Plan (1) Acute respiratory failure with hypoxia and hypercapnia: Code(s): J96.01 - Acute respiratory failure with hypoxia; J96.02 - Acute respiratory failure with hypercapnia Status: Acute Assessment and Plan: This is a combination of obesity hypoventilation, significant diastolic heart failure with pulmonary edema initially, pulmonary hypertension, and COPD. Patient is currently being weaned off Oxygen -unfortunately she continues to have significant desaturations with any activity. Continue budesonide, albuterol scheduled nebs and p.r.n. Pulmonary on board, appreciate recs (2) Obesity hypoventilation syndrome: Code(s): E66.2 - Morbid (severe) obesity with alveolar hypoventilation Status: Acute Assessment and Plan: Continue home trilogy at night (3) CHF (congestive heart failure): Qualifiers: Heart failure chronicity: acute on chronic Heart failure type: unspecified Qualified Code(s): I50.9 - Heart failure, unspecified Code(s): I50.9 - Heart failure, unspecified Status: Acute Assessment and Plan: Patient recently had an echo 01/02 with EF 60-70%, grade 2 diastolic dysfunction, severe pulmonary hypertension, and dilated IVC. Also noted mild aortic stenosis. Cardiology consulted, appreciate help. He responded to IV diuresis, note transition to p.o. furosemide. She has chronic lymphedema to her lower extremities. Renal function remaining stable during aggressive diuresis. Follows with Dr. Bonny Hammond at [facility] with recommendation per cards of follow up within two weeks of hospital discharge (4) Type 2 diabetes mellitus: Code(s): E11.9 - Type 2 diabetes mellitus without complications Status: Chronic Assessment and Plan: Continue with patient's home medications and will do Accu-Cheks a.c. HS with moderate sliding scale. Glucose control is above target, will initiate Lantus at bed time and titrate Hemoglobin A1c 6.8. Pioglitazone was stopped. SGLT2 inhibitors would certainly be a consideration. Given morbid obesity extra concern about side effects including genital/perineal infections make this option less advisable. (5) Diastolic congestive heart failure: Code(s): I50.30 - Unspecified diastolic (congestive) heart failure Status: Acute Assessment and Plan: Plan outlined as above (6) Frequent PVCs: Code(s): I49.3 - Ventricular premature depolarization Status: Acute Assessment and Plan: Rate controlled with metoprolol. Monitor electrolytes. (7) Anemia: Code(s): D64.9 - Anemia, unspecified Status: Acute Assessment and Plan: Noted to be chronically low, currently close to her baseline. (8) Thrombocytopenia: Code(s): D69.6 - Thrombocytopenia, unspecified Status: Acute Assessment and Plan: Noted to be chronically low in seen during prior hospitalizations and last year. Unclear etiology. Question of ITP. Monitor. Follow up in outpatient setting. Additional Plan Continue to wean O2 to get her as optimized as possible. Remains tenuous from a respiratory status standpoint. I encouraged her to continue to keep her trilogy on through the night. I did call her today to discuss with him her care, he was not available and with no option to leave a voicemail. Subjective Date/time seen: 01/11/21 09:32 Unfortunately she continues to take off her trilogy and night, it does alarm, respiratory therapy were asked to visit with, there does not seem to be an issue with the machine function, she is currently on 8 L of oxygen by nasal cannula. Past 2 days we have been unable to wean her to lower than 8 L. she does desaturate to upper 70s, 80s with any movement in bed. Exam Narrative: Gen: Alert, NAD, on oxygen by nasal cannula Abd: Soft, NT, ND Heart: RRR Lungs: CTAB Ext: 1+ bilateral lower extremity edema and lymphedema
[2021-01-11 12:01] LABS: Glucose Point of Care 278 mg/dl (65-105)
[2021-01-11] MEDS: INSULIN ASPART (*BKC) 100 UNITS/ML SUB-Q (12:12)
[2021-01-11 17:12] LABS: Glucose Point of Care 156 mg/dl (65-105)
[2021-01-11 21:28] LABS: Glucose Point of Care 232 mg/dl (65-105)
[2021-01-12] VITALS (11 sets, daily range): BP systolic 104–149; BP diastolic 46–63; PULSE 72–100; RESP 20–24; TEMP 36–36.5; O2SAT 91–95
[2021-01-12] MEDS: LEVOTHYROXINE SODIUM 75 MCG TABLET PO (05:48)
[2021-01-12 07:15] LABS: Hematocrit 33.1 % (37.0-47.0); Hemoglobin 9.1 g/dL (12.0-15.0); Mean Corpuscular HGB Conc 27.5 g/dl (32-36); Mean Corpuscular Hemoglobin 25.3 pg (26-34); Mean Corpuscular Volume 91.9 fl (80-100); Mean Platelet Volume 12.8 fl (7.4-10.4); Platelet Count Result 92 k/mm3 (150-375); Red Cell Distribution Width 16.8 % (11.5-14.5); White Blood Count 5.6 K/mm3 (4.5-10.0)
[2021-01-12 07:27] LABS: Estimated CRCL calculation 61 ml/min; Estimated Glomerular Filt Rate 55
[2021-01-12 08:21] LABS: Glucose Point of Care 150 mg/dl (65-105)
[2021-01-12] MEDS: IPRATROPIUM BR 0.02% INH SOLN 0.5 MG/2.5 ML VIAL INHALATION ×3 (08:30→20:57)
[2021-01-12] MEDS: BUDESONIDE RESPULE NEB 0.5 MG/2 ML AMP INHALATION ×2 (08:31→20:56)
[2021-01-12] MEDS: ALBUTEROL SULFATE NEB 2.5 MG/0.5 ML INH INHALATION ×2 (08:31→20:56)
[2021-01-12] MEDS: POTASSIUM CHLORIDE 10 MEQ TABLET.ER 20 MEQ PO ×3 (08:39→18:27)
[2021-01-12] MEDS: METOPROLOL SUCCINATE EXT REL 50 MG TABCR PO (08:39)
[2021-01-12] MEDS: MULTIVITAMINS /C LUTEIN (CENTRUM SILVER) TABLET *BKC 1 TAB PO (08:39)
[2021-01-12] MEDS: FUROSEMIDE 80 MG TABLET PO ×2 (08:39→18:29)
[2021-01-12] MEDS: TOLNAFTATE 1% POWDER 45 GM BTL 1 APPLIC TOPICAL ×2 (08:41→22:22)
[2021-01-12] MEDS: SILVERGEL (ELTA) 45 ML 1 APPLIC TOPICAL (08:42)
[2021-01-12] MEDS: SPIRONOLACTONE 25 MG TABLET PO (08:42)
--- NOTE | 2021-01-12 10:47 | PM.IMPN ---
Progress Note: A&P Assessment and Plan (1) Acute respiratory failure with hypoxia and hypercapnia: Code(s): J96.01 - Acute respiratory failure with hypoxia; J96.02 - Acute respiratory failure with hypercapnia Status: Acute Assessment and Plan: This is a combination of obesity hypoventilation, significant diastolic heart failure with pulmonary edema initially, pulmonary hypertension, and COPD. Patient is currently being weaned off Oxygen -unfortunately she continues to have significant desaturations with any activity. Continue budesonide, albuterol scheduled nebs and p.r.n. Pulmonary on board, appreciate recs (2) Obesity hypoventilation syndrome: Code(s): E66.2 - Morbid (severe) obesity with alveolar hypoventilation Status: Acute Assessment and Plan: Continue home trilogy at night (3) CHF (congestive heart failure): Qualifiers: Heart failure chronicity: acute on chronic Heart failure type: unspecified Qualified Code(s): I50.9 - Heart failure, unspecified Code(s): I50.9 - Heart failure, unspecified Status: Acute Assessment and Plan: Patient recently had an echo 01/02 with EF 60-70%, grade 2 diastolic dysfunction, severe pulmonary hypertension, and dilated IVC. Also noted mild aortic stenosis. Cardiology consulted, appreciate help. He responded to IV diuresis, note transition to p.o. furosemide. She has chronic lymphedema to her lower extremities. Renal function remaining stable during aggressive diuresis. Follows with Dr. Bonny Hammond at [facility] with recommendation per cards of follow up within two weeks of hospital discharge (4) Type 2 diabetes mellitus: Code(s): E11.9 - Type 2 diabetes mellitus without complications Status: Chronic Assessment and Plan: Continue with patient's home medications and will do Accu-Cheks a.c. HS with moderate sliding scale. Glucose control is above target, will initiate Lantus at bed time and titrate Hemoglobin A1c 6.8. Pioglitazone was stopped. SGLT2 inhibitors would certainly be a consideration. Given morbid obesity extra concern about side effects including genital/perineal infections make this option less advisable. (5) Diastolic congestive heart failure: Code(s): I50.30 - Unspecified diastolic (congestive) heart failure Status: Acute Assessment and Plan: Plan outlined as above (6) Frequent PVCs: Code(s): I49.3 - Ventricular premature depolarization Status: Acute Assessment and Plan: Rate controlled with metoprolol. Monitor electrolytes. (7) Anemia: Code(s): D64.9 - Anemia, unspecified Status: Acute Assessment and Plan: Noted to be chronically low, currently close to her baseline. (8) Thrombocytopenia: Code(s): D69.6 - Thrombocytopenia, unspecified Status: Acute Assessment and Plan: Noted to be chronically low in seen during prior hospitalizations and last year. Unclear etiology. Question of ITP. Monitor. Follow up in outpatient setting. Additional Plan Continue PO diuresis, seems to be making adequate urine continue BID nebs - may need to increase frequency based on s/x pulm & cards on board, appreciate recs Lovenox DVT ppx, prn for nausea, wean O2 as tolerated - getting close to baseline -consider d/c soon, maybe tomorrow? Time Spent With Patient Time with patient: less than 15 minutes Subjective Date/time seen: 01/12/21 10:47 feeling better voeral,, but breathing still not quite baseline Review of Systems Review of Systems: All systems reviewed & are unremarkable except as noted in HPI and below Exam Const: General: no acute distress Neck: Neck: no JVD Resp: Effort & Inspection: normal respiratory effort Auscultation: clear to auscultation bilaterally Cardio: Rate: regular rate Rhythm: regular rhythm GI: GI Palp: Yes Soft to palpation and No Tenderness to palpation present (GI) Objecti
[2021-01-12] MEDS: INSULIN ASPART (*BKC) 100 UNITS/ML SUB-Q (12:24)
[2021-01-12 12:55] LABS: Glucose Point of Care 239 mg/dl (65-105)
[2021-01-12 18:40] LABS: Glucose Point of Care 159 mg/dl (65-105)
[2021-01-12 22:52] LABS: Glucose Point of Care 246 mg/dl (65-105)
[2021-01-13] VITALS (21 sets, daily range): BP systolic 99–153; BP diastolic 55–114; PULSE 86–124; RESP 24–38; TEMP 36.1–36.8; O2SAT 58–95; BMI 60.6
--- NOTE | 2021-01-13 04:28 | ECG_ITS ---
Measurements Intervals [place] Rate: 106 P: 89 [place]: 157 QRS: 56 QRSD: 84 T: 61 QT: 299 QTc: 397 Interpretive Statements SINUS TACHYCARDIA POSSIBLE LEFT ATRIAL ENLARGEMENT BASELINE ARTIFACT- I, II, III, AVR, AVL, AVF, V1-V3 ABNORMAL ECG Electronically Signed On 01-13-2021 7:49:58 CDT by Leland Johnson D.O.
[2021-01-13 04:37] LABS: Alveolar/Arterial O2 Gradient 160.3 mmHg; Base Excess ABG 22.9 mEq/l (+/-2.0); Carboxyhemoglobin 0.4 % THb (0-2.0); Fractional Inspired Oxygen 50 %; HCO3 ABG 53.4 mEq/l (22.0-26.0); Methemoglobin ABG 0.4 %THb (0-1.5); Oxygen Content ABG 14.2 %vol (16.0-22.0); Oxygen Saturation ABG 93.6 % (95.0-100.0); Oxyhemoglobin 93.1 % THb (90.0-100.0); PO2 ABG 78.8 mmHg (80.0-100.0); PO2 FiO2 Ratio Arterial Blood 1.58 %; Reduced Hemoglobin 6.1 %THb (0-5.0); Total Hemoglobin 10.8 g/dL (12.0-18.0); pH ABG 7.327 (7.350-7.450)
[2021-01-13 04:39] LABS: PCO2 ABG 104.4 mmHg (35.0-45.0)
[2021-01-13 04:40] LABS: Modified Allen's Test Pass; Site Drawn RIGHT RADIAL
--- NOTE | 2021-01-13 05:12 | PM.CCN ---
Critical Care Event Note Summary Code activated: No Narrative: 01/13/2021 at 4:00 a.m. Marika was on the medical floor when nursing staff called out that the patient was in distress. Both Marika and the nursing shuttle fitting supervisor arrived at bedside immediately. The patient was satting 59% on room air. The patient had refused her AVAPS earlier in the evening. Respiratory therapy was in the process of placing the AVAP back on the patient. When the machine was back on the patient the patient only pulling tidal volumes initially of 250-300. Her pulse ox did initially improved to 93% on her usual 50% FiO2. Her heart rate was 120 and she was diaphoretic. An Accu-Chek was performed which demonstrated mild hyperglycemia. The patient's systolic pressures were in the 140s. Approximately 10 minutes later nursing staff called me back to the room because the patient was desatting to the 80s again. The patient was restless and pulling at the mask. The patient was still tachycardic despite use of AVAPS. A stat EKG was performed which demonstrated no acute changes. Stat chest x-ray was performed which demonstrated stable findings. Stat ABG was performed which demonstrated 12/29/20 12/29/20 12/31/20 09:49 12:47 04:57 Puncture Site Right brachial Left radial Right radial ABG pH 7.230 L* 7.312 L 7.374 ABG pCO2 102.5 H* 86.9 H* 70.2 H* ABG pO2 168.9 H 72.3 L 64.1 L ABG PO2/FiO2 Ratio 2.11 1.61 1.83 ABG HCO3 42.0 H 43.0 H 40.0 H ABG O2 Saturation 98.7 92.1 L 91.1 L ABG O2 Content 14.3 L 13.6 L 13.9 L ABG Base Excess 11.5 13.8 12.4 A-a Gradient 293.9 149.7 103.8 Oxyhemoglobin 97.2 91.9 90.4 Carboxyhemoglobin 0.9 Reduced Hemoglobin 1.6 Total Hemoglobin 10.2 L 10.5 L 10.9 L O2 Delivery Device Non-rebreather mask Non-invasive vent Cpap O2 Liters/Min 15.0 0.0 Not Reportable Vent Rate 16 FiO2 80 45 35 09/03/21 09/03/21 09/05/21 10:38 12:14 10:55 Puncture Site Right radial Right radial Left radial ABG pH 7.340 L 7.390 7.436 ABG pCO2 99.5 H* 89.4 H* 68.8 H* ABG pO2 64.1 L 59.4 L 70.6 L ABG PO2/FiO2 Ratio 1.28 1.19 1.41 ABG HCO3 52.5 H 52.9 H 45.3 H ABG O2 Saturation 89.3 L 88.5 L 94.0 L ABG O2 Content 15.6 L 13.6 L 13.8 L ABG Base Excess 21.6 23.7 18.1 A-a Gradient 180.5 196.5 208.5 Oxyhemoglobin 88.7 L 89.2 L 92.1 Carboxyhemoglobin Reduced Hemoglobin Total Hemoglobin 12.5 10.8 L 10.6 L O2 Delivery Device Non-invasive vent Non-invasive vent High flow therapy O2 Liters/Min 35.0 Vent Rate 20 26 FiO2 50 50 50 01/08/21 01/13/21 04:46 04:31 Puncture Site Right radial Right radial ABG pH 7.425 7.327 L ABG pCO2 74.6 H* 104.4 H* ABG pO2 52.9 L 78.8 L ABG PO2/FiO2 Ratio 1.20 1.58 ABG HCO3 47.8 H 53.4 H ABG O2 Saturation 86.3 L* 93.6 L ABG O2 Content 12.8 L 14.2 L ABG Base Excess 20.1 22.9 A-a Gradient 175.8 160.3 Oxyhemoglobin 85.8 L 93.1 Carboxyhemoglobin 0.4 Reduced Hemoglobin 6.1 H Total Hemoglobin 10.6 L 10.8 L O2 Delivery Device Non-invasive vent Non-invasive vent O2 Liters/Min 6.0 Not Reportable Vent Rate 15 FiO2 44 50 PH of 7.327 pCO2 of 104 PO2 of 78 on AVAPS minimum pressure 8 max pressure of 40 on 50% FiO2. Given that the patient was hypercarbic and encephalopathic and would need closer monitoring patient was moved to IMU. Prior to my leaving the patient the patient was taking deeper breaths in axis pulling tidal volumes of almost a L. Subsequently the patient's max pressure was decreased back down to her usual amount of 35 in her PO2 decreased back down to 50%. Repeat ABG has been ordered for 7:00 a.m.. The patient had decreased breath sounds bilaterally with tachypnea. Patient was uncooperative and confused. 40 minute spent in critical care activities This case had a high probability of a clinically significant, sudden, or life threatening deterioration of this patient's condition which require
[2021-01-13 05:18] LABS: Basophils Percent Auto 0.3 % (0.2-1.2); Eosinophils Absolute Auto 0.1 K/mm3 (0-0.3); Eosinophils Percent Auto 1.3 % (0-4.4); Hematocrit 35.7 % (37.0-47.0); Hemoglobin 9.6 g/dL (12.0-15.0); Immature Granulocyte Absolute 0.06 K/mm3 (0.00-0.031); Lymphocytes Absolute Auto 0.37 K/mm3 (0.9-3.2); Mean Corpuscular HGB Conc 26.9 g/dl (32-36); Mean Corpuscular Hemoglobin 25.2 pg (26-34); Mean Corpuscular Volume 93.7 fl (80-100); Mean Platelet Volume 12.7 fl (7.4-10.4); Monocytes Absolute Auto 0.6 K/mm3 (0.1-0.6); Monocytes Percent Auto 9.1 % (2.6-8.5); Neutrophils Absolute Auto 5.1 K/mm3 (1.3-6.7); Neutrophils Percent Auto 82.3 % (45.5-73.1); Platelet Count Result 97 k/mm3 (150-375); Red Blood Count 3.81 M/mm3 (4.2-5.4); White Blood Count 6.2 K/mm3 (4.5-10.0)
[2021-01-13 05:28] LABS: INR 1.1; Prothrombin Time 14.1 Seconds (11.1-14.7)
[2021-01-13 05:29] LABS: Partial Thromboplastin Time 30.4 SECONDS (22.3-36.8)
--- NOTE | 2021-01-13 05:34 | PC.NURSE ---
pt. transferred from med surg floor to imu room 202 following post rapid respond.
[2021-01-13 05:35] LABS: Lactic Acid Reflex 0.9 mmol/L (0.7-2.1)
[2021-01-13 05:47] LABS: Alanine Aminotransferase 25 U/L (4-35); Albumin Level 3.5 g/dL (3.5-5.1); Alkaline Phosphatase 109 U/L (38-126); Aspartate Amino Transferase 32 U/L (14-36); Bilirubin,Total 0.6 mg/dL (0.2-1.3); Blood Urea Nitrogen 27 mg/dL (7-17); Calcium 8.8 mg/dL (8.4-10.2); Carbon Dioxide > 40 mmol/L (22-30); Chloride 86 mmol/L (98-107); Estimated CRCL calculation 61 ml/min; Estimated Glomerular Filt Rate 55; Glucose 185 mg/dL (65-110); Potassium 4.3 mmol/L (3.4-5.0); Sodium 143 mmol/L (137-145)
[2021-01-13 05:49] LABS: Hypochromasia 1+ (NORMAL); Platelet Estimate Decreased (Adequate)
[2021-01-13 05:50] LABS: Stomatocytes 1+ (NORMAL)
[2021-01-13 05:55] LABS: Troponin I 0.017 ng/mL (0.000-0.034)
[2021-01-13 06:08] LABS: Alanine Aminotransferase 25 U/L (4-35); Albumin Level 3.5 g/dL (3.5-5.1); Alkaline Phosphatase 109 U/L (38-126); Aspartate Amino Transferase 33 U/L (14-36); Bilirubin,Total 0.6 mg/dL (0.2-1.3); Blood Urea Nitrogen 28 mg/dL (7-17); Calcium 8.8 mg/dL (8.4-10.2); Carbon Dioxide > 40 mmol/L (22-30); Chloride 86 mmol/L (98-107); Estimated CRCL calculation 61 ml/min; Estimated Glomerular Filt Rate 55; Glucose 185 mg/dL (65-110); Magnesium 1.9 mg/dL (1.6-2.3); Phosphorus 4.9 mg/dL (2.5-4.5); Potassium 4.3 mmol/L (3.4-5.0); Sodium 145 mmol/L (137-145)
--- NOTE | 2021-01-13 07:31 | PM.IMPN ---
Progress Note: A&P Assessment and Plan (1) Acute respiratory failure with hypoxia and hypercapnia: Code(s): J96.01 - Acute respiratory failure with hypoxia; J96.02 - Acute respiratory failure with hypercapnia Status: Acute Assessment and Plan: This is a combination of obesity hypoventilation, significant diastolic heart failure with pulmonary edema initially, pulmonary hypertension, and COPD. Proving very difficult to wean her off oxygen, frequent desat to 80s with exertion or if we bring her close to her previous baseline of 3L - potentially she has a new baseline following the current exertion? Continue lasix 80 BID & may need to incresae neb frequency Pulmonary on board, appreciate recs (2) Obesity hypoventilation syndrome: Code(s): E66.2 - Morbid (severe) obesity with alveolar hypoventilation Status: Acute Assessment and Plan: Continue home trilogy at night Last night she fought this and likely precipitated rapid response will discuss importance of this with patient today (3) CHF (congestive heart failure): Qualifiers: Heart failure chronicity: acute on chronic Heart failure type: unspecified Qualified Code(s): I50.9 - Heart failure, unspecified Code(s): I50.9 - Heart failure, unspecified Status: Acute Assessment and Plan: Patient recently had an echo 01/02 with EF 60-70%, grade 2 diastolic dysfunction, severe pulmonary hypertension, and dilated IVC. Also noted mild aortic stenosis. Cardiology consulted, appreciate help. He responded to IV diuresis, note transition to p.o. furosemide. She has chronic lymphedema to her lower extremities. Renal function remaining stable during aggressive diuresis. Follows with Dr. Bonny Hammond at [facility] with recommendation per cards of follow up within two weeks of hospital discharge (4) Type 2 diabetes mellitus: Code(s): E11.9 - Type 2 diabetes mellitus without complications Status: Chronic Assessment and Plan: Continue with patient's home medications and will do Accu-Cheks a.c. HS with moderate sliding scale. Glucose control is above target, will initiate Lantus at bed time and titrate Hemoglobin A1c 6.8. Pioglitazone was stopped. SGLT2 inhibitors would certainly be a consideration. Given morbid obesity extra concern about side effects including genital/perineal infections make this option less advisable. (5) Diastolic congestive heart failure: Code(s): I50.30 - Unspecified diastolic (congestive) heart failure Status: Acute Assessment and Plan: Plan outlined as above (6) Frequent PVCs: Code(s): I49.3 - Ventricular premature depolarization Status: Acute Assessment and Plan: Rate controlled with metoprolol. Monitor electrolytes. (7) Anemia: Code(s): D64.9 - Anemia, unspecified Status: Acute Assessment and Plan: Noted to be chronically low, currently close to her baseline. (8) Thrombocytopenia: Code(s): D69.6 - Thrombocytopenia, unspecified Status: Acute Assessment and Plan: Noted to be chronically low in seen during prior hospitalizations and last year. Unclear etiology. Question of ITP. Monitor. Follow up in outpatient setting. Additional Plan rapid response last night likely related to pt refusal to wear Trilogy ABG taken at that time showing hypercarbic hypoxic resp failure to pCO2 104, down to 90 thismorning actually not hypoxic with baseline 5L O2, had a onversation with her on this today Will keep her on a fw more hours of BiPAP today to help blow off some CO2, and then we can repea abg late afternoon pulm on board, appreciate recs, possibly established new baseline from 3L to 4-5L following this hospitalization? Time Spent With Patient Time with patient: less than 15 minutes Subjective Date/time seen: 01/13/21 07:31 still in resp difficulty with exertion, currently 5L NC at saturating ok Review of Syst
--- NOTE | 2021-01-13 07:46 | PCOTNOTE ---
Patient on hold for today for occupational therapy due to increased O2 needs at this time, will follow.
[2021-01-13 08:07] LABS: Glucose Point of Care 165 mg/dl (65-105)
[2021-01-13 08:09] LABS: Glucose Point of Care 188 mg/dl (65-105)
--- NOTE | 2021-01-13 08:34 | PCPTNOTE ---
Patient transferred to IMU from [address] [place] [address] due to change in medical status. PT will hold therapy until further orders are received.
[2021-01-13 09:04] LABS: Alveolar/Arterial O2 Gradient 181.6 mmHg; Base Excess ABG 24.1 mEq/l (+/-2.0); Carboxyhemoglobin 1.1 % THb (0-2.0); Fractional Inspired Oxygen 50 %; HCO3 ABG 53.2 mEq/l (22.0-26.0); Methemoglobin ABG 0.4 %THb (0-1.5); Oxygen Content ABG 13.2 %vol (16.0-22.0); Oxygen Saturation ABG 93.3 % (95.0-100.0); Oxyhemoglobin 92.1 % THb (90.0-100.0); PO2 ABG 72.9 mmHg (80.0-100.0); PO2 FiO2 Ratio Arterial Blood 1.46 %; Reduced Hemoglobin 6.4 %THb (0-5.0); Total Hemoglobin 10.1 g/dL (12.0-18.0); pH ABG 7.386 (7.350-7.450)
[2021-01-13 09:07] LABS: Modified Allen's Test Pass; Non-Invasive Vent Rate 26 /MIN; PCO2 ABG 90.7 mmHg (35.0-45.0); Site Drawn RIGHT RADIAL
[2021-01-13 09:08] LABS: Device NON-INVASIVE VENT; Non-Invasive Expiratory Pressure 8 CMH2O
[2021-01-13] MEDS: BUDESONIDE RESPULE NEB 0.5 MG/2 ML AMP INHALATION ×2 (09:28→22:12)
[2021-01-13] MEDS: IPRATROPIUM BR 0.02% INH SOLN 0.5 MG/2.5 ML VIAL INHALATION ×2 (09:28→22:12)
[2021-01-13] MEDS: ALBUTEROL SULFATE NEB 2.5 MG/0.5 ML INH INHALATION ×2 (09:29→22:12)
[2021-01-13 09:55] LABS: Non-Invasive Expiratory Pressure 8 CMH2O; Non-Invasive Vent Rate 26 /MIN
[2021-01-13 09:56] LABS: Device NON-INVASIVE VENT
[2021-01-13] MEDS: TOLNAFTATE 1% POWDER 45 GM BTL 1 APPLIC TOPICAL ×2 (10:34→20:44)
[2021-01-13] MEDS: SILVERGEL (ELTA) 45 ML 1 APPLIC TOPICAL (10:34)
[2021-01-13] MEDS: METOPROLOL SUCCINATE EXT REL 50 MG TABCR PO (10:40)
[2021-01-13] MEDS: FUROSEMIDE 80 MG TABLET PO ×2 (10:40→17:53)
[2021-01-13] MEDS: SPIRONOLACTONE 25 MG TABLET PO (10:40)
[2021-01-13 12:32] LABS: Glucose Point of Care 153 mg/dl (65-105)
[2021-01-13] MEDS: POTASSIUM CHLORIDE 10 MEQ TABLET.ER 20 MEQ PO ×2 (13:23→17:53)
[2021-01-13 16:10] LABS: Base Excess ABG 22.4 mEq/l (+/-2.0); Fractional Inspired Oxygen 50 %; HCO3 ABG 50.6 mEq/l (22.0-26.0); Oxygen Content ABG 12.2 %vol (16.0-22.0); Oxygen Saturation ABG 90.2 % (95.0-100.0); Oxyhemoglobin 88.5 % THb (90.0-100.0); PO2 ABG 61.5 mmHg (80.0-100.0); PO2 FiO2 Ratio Arterial Blood 1.23 %; Total Hemoglobin 9.8 g/dL (12.0-18.0); pH ABG 7.409 (7.350-7.450)
[2021-01-13 16:12] LABS: Device NON-INVASIVE VENT; Modified Allen's Test Pass; Non-Invasive Expiratory Pressure 8 CMH2O; Non-Invasive Vent Rate 26 /MIN; PCO2 ABG 81.8 mmHg (35.0-45.0); Site Drawn RIGHT RADIAL
[2021-01-13 17:59] LABS: Glucose Point of Care 128 mg/dl (65-105)
[2021-01-13 20:11] LABS: Glucose Point of Care 133 mg/dl (65-105)
[2021-01-14] VITALS (21 sets, daily range): BP systolic 123–166; BP diastolic 50–71; PULSE 86–108; RESP 22–33; TEMP 36.4–36.9; O2SAT 87–97
[2021-01-14 04:55] LABS: Basophils Percent Auto 0.1 % (0.2-1.2); Eosinophils Percent Auto 0.6 % (0-4.4); Hematocrit 33.4 % (37.0-47.0); Hemoglobin 9.2 g/dL (12.0-15.0); Immature Granulocyte Absolute 0.04 K/mm3 (0.00-0.031); Immature Granulocyte Percent A 0.6 % (0-0.5); Lymphocytes Percent Auto 5.7 % (18.3-44.2); Mean Corpuscular HGB Conc 27.5 g/dl (32-36); Mean Corpuscular Hemoglobin 25.2 pg (26-34); Mean Corpuscular Volume 91.5 fl (80-100); Mean Platelet Volume 12.3 fl (7.4-10.4); Monocytes Absolute Auto 0.5 K/mm3 (0.1-0.6); Monocytes Percent Auto 7.4 % (2.6-8.5); Neutrophils Percent Auto 85.6 % (45.5-73.1); Platelet Count Result 103 k/mm3 (150-375); Red Blood Count 3.65 M/mm3 (4.2-5.4); Red Cell Distribution Width 17.2 % (11.5-14.5)
[2021-01-14 05:21] LABS: Alanine Aminotransferase 23 U/L (4-35); Albumin Level 3.4 g/dL (3.5-5.1); Alkaline Phosphatase 105 U/L (38-126); Aspartate Amino Transferase 30 U/L (14-36); Bilirubin,Total 0.7 mg/dL (0.2-1.3); Blood Urea Nitrogen 30 mg/dL (7-17); Calcium 8.7 mg/dL (8.4-10.2); Carbon Dioxide > 40 mmol/L (22-30); Chloride 87 mmol/L (98-107); Estimated CRCL calculation 61 ml/min; Estimated Glomerular Filt Rate 55; Glucose 189 mg/dL (65-110); Phosphorus 3.3 mg/dL (2.5-4.5); Potassium 4.1 mmol/L (3.4-5.0); Sodium 144 mmol/L (137-145)
[2021-01-14] MEDS: LEVOTHYROXINE SODIUM 75 MCG TABLET PO (05:40)
--- NOTE | 2021-01-14 07:30 | PM.IMPN ---
Progress Note: A&P Assessment and Plan (1) Acute respiratory failure with hypoxia and hypercapnia: Code(s): J96.01 - Acute respiratory failure with hypoxia; J96.02 - Acute respiratory failure with hypercapnia Status: Acute Assessment and Plan: This is a combination of obesity hypoventilation, significant diastolic heart failure with pulmonary edema initially, pulmonary hypertension, and COPD. Proving very difficult to wean her off oxygen, frequent desat to 80s with exertion or if we bring her close to her previous baseline of 3L - potentially she has a new baseline following the current exertion? may need to incresae neb frequency CXR showing worsening pulm edema 11/12, so will switch lasix to IV Pulmonary on board, appreciate recs (2) Obesity hypoventilation syndrome: Code(s): E66.2 - Morbid (severe) obesity with alveolar hypoventilation Status: Acute Assessment and Plan: Continue home trilogy at night Last night she fought this and likely precipitated rapid response will discuss importance of this with patient today (3) CHF (congestive heart failure): Qualifiers: Heart failure chronicity: acute on chronic Heart failure type: unspecified Qualified Code(s): I50.9 - Heart failure, unspecified Code(s): I50.9 - Heart failure, unspecified Status: Acute Assessment and Plan: Patient recently had an echo 01/02 with EF 60-70%, grade 2 diastolic dysfunction, severe pulmonary hypertension, and dilated IVC. Also noted mild aortic stenosis. Cardiology consulted, appreciate help. PO diuresis briefly, switch now to IV diuresis She has chronic lymphedema to her lower extremities. Renal function remaining stable during aggressive diuresis. Follows with Dr. Bonny Hammond at [facility] with recommendation per cards of follow up within two weeks of hospital discharge (4) Type 2 diabetes mellitus: Code(s): E11.9 - Type 2 diabetes mellitus without complications Status: Chronic Assessment and Plan: Continue with patient's home medications and will do Accu-Cheks a.c. HS with moderate sliding scale. Glucose control is above target, will initiate Lantus at bed time and titrate Hemoglobin A1c 6.8. Pioglitazone was stopped. SGLT2 inhibitors would certainly be a consideration. Given morbid obesity extra concern about side effects including genital/perineal infections make this option less advisable. (5) Diastolic congestive heart failure: Code(s): I50.30 - Unspecified diastolic (congestive) heart failure Status: Acute Assessment and Plan: Plan outlined as above (6) Frequent PVCs: Code(s): I49.3 - Ventricular premature depolarization Status: Acute Assessment and Plan: Rate controlled with metoprolol. Monitor electrolytes. (7) Anemia: Code(s): D64.9 - Anemia, unspecified Status: Acute Assessment and Plan: Noted to be chronically low, currently close to her baseline. (8) Thrombocytopenia: Code(s): D69.6 - Thrombocytopenia, unspecified Status: Acute Assessment and Plan: Noted to be chronically low in seen during prior hospitalizations and last year. Unclear etiology. Question of ITP. Monitor. Follow up in outpatient setting. Additional Plan switch from PO to IV diuresis in light of worsening pulm edema on CXR from 01/13 if not responding significantly by end of day, may add metolazone Still needs bipap overnight, may obtain abg at some point today for pCO2 Time Spent With Patient Time with patient: less than 15 minutes Subjective Date/time seen: 01/14/21 07:30 tolerated bipap overnight able to speak comfortably with NC without desaturating Review of Systems Review of Systems: All systems reviewed & are unremarkable except as noted in HPI and below Exam Const: General: no acute distress Neck: Neck: no JVD Resp: Effort & Inspection: normal respiratory effort Auscultati
[2021-01-14 08:47] LABS: Glucose Point of Care 170 mg/dl (65-105)
[2021-01-14] MEDS: BUDESONIDE RESPULE NEB 0.5 MG/2 ML AMP INHALATION ×2 (09:27→19:59)
[2021-01-14] MEDS: IPRATROPIUM BR 0.02% INH SOLN 0.5 MG/2.5 ML VIAL INHALATION ×2 (09:27→19:59)
[2021-01-14] MEDS: ALBUTEROL SULFATE NEB 2.5 MG/0.5 ML INH INHALATION ×2 (09:27→19:59)
[2021-01-14] MEDS: FUROSEMIDE INJ 100 MG/10 ML VIAL 80 MG IV PUSH ×3 (10:06→18:56)
[2021-01-14] MEDS: METOPROLOL SUCCINATE EXT REL 50 MG TABCR PO (10:06)
[2021-01-14] MEDS: POTASSIUM CHLORIDE 10 MEQ TABLET.ER 20 MEQ PO ×3 (10:06→18:56)
[2021-01-14] MEDS: SPIRONOLACTONE 25 MG TABLET PO (10:07)
[2021-01-14] MEDS: MULTIVITAMINS /C LUTEIN (CENTRUM SILVER) TABLET *BKC 1 TAB PO (10:07)
--- NOTE | 2021-01-14 10:45 | PCPTNOTE ---
Maria L ESPINOZA stated pt can be seen, however needs to stay on Bipap. Pt was drowsy and refused therapy, encouraged her to participate a she still refused. Will try again at later time.
[2021-01-14 12:22] LABS: Glucose Point of Care 173 mg/dl (65-105)
[2021-01-14] MEDS: SILVERGEL (ELTA) 45 ML 1 APPLIC TOPICAL (13:30)
[2021-01-14] MEDS: TOLNAFTATE 1% POWDER 45 GM BTL 1 APPLIC TOPICAL ×2 (13:30→21:24)
--- NOTE | 2021-01-14 15:07 | PCOTNOTE ---
OT re-eval not completed on this date, will follow and attempt tomorrow.
[2021-01-14 17:15] LABS: Glucose Point of Care 144 mg/dl (65-105)
[2021-01-14 20:20] LABS: Glucose Point of Care 222 mg/dl (65-105)
[2021-01-15] VITALS (24 sets, daily range): BP systolic 119–145; BP diastolic 42–80; PULSE 79–100; RESP 16–33; TEMP 36.2–36.6; O2SAT 88–97
[2021-01-15 05:09] LABS: Basophils Percent Auto 0.3 % (0.2-1.2); Eosinophils Absolute Auto 0.1 K/mm3 (0-0.3); Hematocrit 31.2 % (37.0-47.0); Hemoglobin 8.6 g/dL (12.0-15.0); Immature Granulocyte Absolute 0.06 K/mm3 (0.00-0.031); Immature Granulocyte Percent A 0.8 % (0-0.5); Lymphocytes Absolute Auto 0.72 K/mm3 (0.9-3.2); Lymphocytes Percent Auto 9.2 % (18.3-44.2); Mean Corpuscular HGB Conc 27.6 g/dl (32-36); Mean Corpuscular Hemoglobin 25.1 pg (26-34); Mean Corpuscular Volume 91.2 fl (80-100); Mean Platelet Volume 12.3 fl (7.4-10.4); Monocytes Absolute Auto 0.5 K/mm3 (0.1-0.6); Monocytes Percent Auto 5.7 % (2.6-8.5); Neutrophils Absolute Auto 6.5 K/mm3 (1.3-6.7); Platelet Count Result 103 k/mm3 (150-375); Red Blood Count 3.42 M/mm3 (4.2-5.4); Red Cell Distribution Width 17.2 % (11.5-14.5); White Blood Count 7.8 K/mm3 (4.5-10.0)
[2021-01-15 05:38] LABS: Alanine Aminotransferase 21 U/L (4-35); Albumin Level 3.2 g/dL (3.5-5.1); Alkaline Phosphatase 102 U/L (38-126); Aspartate Amino Transferase 33 U/L (14-36); Bilirubin,Total 0.8 mg/dL (0.2-1.3); Blood Urea Nitrogen 38 mg/dL (7-17); Calcium 8.7 mg/dL (8.4-10.2); Carbon Dioxide > 40 mmol/L (22-30); Chloride 87 mmol/L (98-107); Estimated CRCL calculation 48 ml/min; Estimated Glomerular Filt Rate 40; Glucose 144 mg/dL (65-110); Magnesium 2.2 mg/dL (1.6-2.3); Phosphorus 3.9 mg/dL (2.5-4.5); Potassium 4.3 mmol/L (3.4-5.0); Sodium 144 mmol/L (137-145)
[2021-01-15 06:21] LABS: Anisocytosis 1+ (NORMAL); Hypochromasia 1+ (NORMAL)
[2021-01-15] MEDS: LEVOTHYROXINE SODIUM 75 MCG TABLET PO (07:02)
--- NOTE | 2021-01-15 07:32 | PM.IMPN ---
Progress Note: A&P Assessment and Plan (1) Acute respiratory failure with hypoxia and hypercapnia: Code(s): J96.01 - Acute respiratory failure with hypoxia; J96.02 - Acute respiratory failure with hypercapnia Status: Acute Assessment and Plan: This is a combination of obesity hypoventilation, significant diastolic heart failure with pulmonary edema initially, pulmonary hypertension, and COPD. Proving very difficult to wean her off oxygen, frequent desat to 80s with exertion or if we bring her close to her previous baseline of 3L - potentially she has a new baseline following the current exertion? BiPap at night, NC in day, diuresing well Pulmonary on board, appreciate recs (2) Obesity hypoventilation syndrome: Code(s): E66.2 - Morbid (severe) obesity with alveolar hypoventilation Status: Acute Assessment and Plan: Continue home trilogy at night Last night she fought this and likely precipitated rapid response will discuss importance of this with patient today (3) CHF (congestive heart failure): Qualifiers: Heart failure chronicity: acute on chronic Heart failure type: unspecified Qualified Code(s): I50.9 - Heart failure, unspecified Code(s): I50.9 - Heart failure, unspecified Status: Acute Assessment and Plan: Patient recently had an echo 01/02 with EF 60-70%, grade 2 diastolic dysfunction, severe pulmonary hypertension, and dilated IVC. Also noted mild aortic stenosis. Cardiology consulted, appreciate help. PO diuresis briefly, switch now to IV diuresis She has chronic lymphedema to her lower extremities. Renal function remaining stable during aggressive diuresis. Follows with Dr. Bonny Hammond at [facility] with recommendation per cards of follow up within two weeks of hospital discharge (4) Type 2 diabetes mellitus: Code(s): E11.9 - Type 2 diabetes mellitus without complications Status: Chronic Assessment and Plan: Continue with patient's home medications and will do Accu-Cheks a.c. HS with moderate sliding scale. Glucose control is above target, will initiate Lantus at bed time and titrate Hemoglobin A1c 6.8. Pioglitazone was stopped. SGLT2 inhibitors would certainly be a consideration. Given morbid obesity extra concern about side effects including genital/perineal infections make this option less advisable. (5) Diastolic congestive heart failure: Code(s): I50.30 - Unspecified diastolic (congestive) heart failure Status: Acute Assessment and Plan: Plan outlined as above (6) Frequent PVCs: Code(s): I49.3 - Ventricular premature depolarization Status: Acute Assessment and Plan: Rate controlled with metoprolol. Monitor electrolytes. (7) Anemia: Code(s): D64.9 - Anemia, unspecified Status: Acute Assessment and Plan: Noted to be chronically low, currently close to her baseline. (8) Thrombocytopenia: Code(s): D69.6 - Thrombocytopenia, unspecified Status: Acute Assessment and Plan: Noted to be chronically low in seen during prior hospitalizations and last year. Unclear etiology. Question of ITP. Monitor. Follow up in outpatient setting. Additional Plan will discuss with patient and family to develop plan for discharge She needs Bipap at night, and oxygen 5-6L at rest for COPD and obesity hypoventilation and chf continue diuresis, IV works for her, PO doesn't seem to pull as much fluid off pulm on board, appreciate recs some throat pain on right side, expect it is likely lymphadenopathy, reactive. However will obtain Thyroid/neck US to be sure. Time Spent With Patient Time with patient: less than 15 minutes Subjective Date/time seen: 01/15/21 07:32 BiPap at night, Tolerates NC in the daytime no change in status, feels hungry, feels like she can tolerate meals does complain of some right throat pain Review of Systems Review of Systems: All system
[2021-01-15] MEDS: ALBUTEROL SULFATE NEB 2.5 MG/0.5 ML INH INHALATION ×2 (07:56→20:37)
[2021-01-15] MEDS: IPRATROPIUM BR 0.02% INH SOLN 0.5 MG/2.5 ML VIAL INHALATION ×2 (07:56→20:38)
[2021-01-15] MEDS: BUDESONIDE RESPULE NEB 0.5 MG/2 ML AMP INHALATION ×2 (07:56→20:38)
[2021-01-15 08:11] LABS: Glucose Point of Care 124 mg/dl (65-105)
[2021-01-15] MEDS: POTASSIUM CHLORIDE 10 MEQ TABLET.ER 20 MEQ PO ×3 (08:32→17:34)
[2021-01-15] MEDS: METOPROLOL SUCCINATE EXT REL 50 MG TABCR PO (08:32)
[2021-01-15] MEDS: SPIRONOLACTONE 25 MG TABLET PO (08:32)
[2021-01-15] MEDS: MULTIVITAMINS /C LUTEIN (CENTRUM SILVER) TABLET *BKC 1 TAB PO (08:33)
[2021-01-15] MEDS: FUROSEMIDE INJ 100 MG/10 ML VIAL 80 MG IV PUSH ×2 (08:34→17:34)
--- NOTE | 2021-01-15 11:13 | PCOTNOTE ---
Spoke with hospitalist Dr. Hidalgo, who is agreeable with continuing Occupational Therapy at this time, will complete Re-evaluation for Occupational therapy.
--- NOTE | 2021-01-15 13:48 | PC.NURSE ---
On 01/15/21, the student, [Raiza Harrell ], provided care and [facility] I have reviewed the student's documentation and agree with the findings.
[2021-01-15 14:12] LABS: Glucose Point of Care 228 mg/dl (65-105)
[2021-01-15] MEDS: INSULIN ASPART (*BKC) 100 UNITS/ML SUB-Q (14:43)
--- NOTE | 2021-01-15 14:45 | PCDIET ---
Nutrition Follow-Up Complete: Nutrition Diagnosis: Predicted suboptimal oral intake related to respiratory failure as evidenced by patient on bipap. Nutrition Goal: Patient to meet estimated nutritional needs. Goal in progress. Patient previously not eating well due to bipap requirements, but consumed 100% of lunch tray in room. Reports being sent the wrong breakfast items, so she ate peanut butter and bucky crackers from the floor. Recommend continuing low sodium diet. Could consider increasing fluid restriction to 1500mL daily, as serum sodium in goal range only c/o during visit was thirst. Last recorded weight is 140.9 kg. Recommend obtaining new weight. Bowel Motility: Last documented BM on 01/12/21 x 1. Labs Reviewed: RBC (3.42), Hgb (8.6), Glu (144), BUN (38), Cr (1.3), Alb (3.2) Meds Noted: Albuterol, Pulmicort, Lasix, Atrovent, Synthroid, Toprol XL, Centrum, KCl, Aldactone Additional Notes: Left lower leg with venous stasis ulcer. Abdomen and groin macerated. Will continue to monitor with same goal. Nutrition Monitoring and Evaluation: Follow up in 5 days.
[2021-01-15] MEDS: TOLNAFTATE 1% POWDER 45 GM BTL 1 APPLIC TOPICAL ×2 (14:48→20:24)
[2021-01-15] MEDS: SILVERGEL (ELTA) 45 ML 1 APPLIC TOPICAL (14:48)
[2021-01-15 17:42] LABS: Glucose Point of Care 184 mg/dl (65-105)
[2021-01-15 20:41] LABS: Glucose Point of Care 151 mg/dl (65-105)
[2021-01-16] VITALS (25 sets, daily range): BP systolic 108–146; BP diastolic 48–65; PULSE 79–100; RESP 26–28; TEMP 36.3–37.1; O2SAT 91–99
[2021-01-16 06:08] LABS: Basophils Percent Auto 0.1 % (0.2-1.2); Eosinophils Absolute Auto 0.2 K/mm3 (0-0.3); Eosinophils Percent Auto 2.7 % (0-4.4); Hematocrit 30.3 % (37.0-47.0); Hemoglobin 8.3 g/dL (12.0-15.0); Immature Granulocyte Absolute 0.03 K/mm3 (0.00-0.031); Immature Granulocyte Percent A 0.4 % (0-0.5); Lymphocytes Absolute Auto 0.71 K/mm3 (0.9-3.2); Lymphocytes Percent Auto 9.6 % (18.3-44.2); Mean Corpuscular HGB Conc 27.4 g/dl (32-36); Mean Corpuscular Hemoglobin 25.3 pg (26-34); Mean Corpuscular Volume 92.4 fl (80-100); Monocytes Absolute Auto 0.3 K/mm3 (0.1-0.6); Monocytes Percent Auto 4.6 % (2.6-8.5); Neutrophils Absolute Auto 6.1 K/mm3 (1.3-6.7); Neutrophils Percent Auto 82.6 % (45.5-73.1); Platelet Count Result 107 k/mm3 (150-375); Red Blood Count 3.28 M/mm3 (4.2-5.4); Red Cell Distribution Width 17.2 % (11.5-14.5); White Blood Count 7.4 K/mm3 (4.5-10.0)
[2021-01-16 06:23] LABS: Alanine Aminotransferase 21 U/L (4-35); Albumin Level 3.1 g/dL (3.5-5.1); Alkaline Phosphatase 103 U/L (38-126); Aspartate Amino Transferase 34 U/L (14-36); Bilirubin,Total 0.5 mg/dL (0.2-1.3); Blood Urea Nitrogen 48 mg/dL (7-17); Calcium 8.6 mg/dL (8.4-10.2); Carbon Dioxide > 40 mmol/L (22-30); Chloride 87 mmol/L (98-107); Estimated CRCL calculation 48 ml/min; Estimated Glomerular Filt Rate 40; Glucose 132 mg/dL (65-110); Magnesium 2.1 mg/dL (1.6-2.3); Phosphorus 4.3 mg/dL (2.5-4.5); Potassium 4.3 mmol/L (3.4-5.0); Sodium 142 mmol/L (137-145)
[2021-01-16] MEDS: LEVOTHYROXINE SODIUM 75 MCG TABLET PO (06:41)
--- NOTE | 2021-01-16 07:42 | PM.IMPN ---
Progress Note: A&P Assessment and Plan (1) Acute respiratory failure with hypoxia and hypercapnia: Code(s): J96.01 - Acute respiratory failure with hypoxia; J96.02 - Acute respiratory failure with hypercapnia Status: Acute Assessment and Plan: This is a combination of obesity hypoventilation, significant diastolic heart failure with pulmonary edema initially, pulmonary hypertension, and COPD. Proving very difficult to wean her off oxygen, frequent desat to 80s with exertion or if we bring her close to her previous baseline of 3L - potentially she has a new baseline following the current exertion? BiPap at night, NC in day, diuresing well Pulmonary on board, appreciate recs (2) Obesity hypoventilation syndrome: Code(s): E66.2 - Morbid (severe) obesity with alveolar hypoventilation Status: Acute Assessment and Plan: Continue home trilogy at night Last night she fought this and likely precipitated rapid response will discuss importance of this with patient today (3) CHF (congestive heart failure): Qualifiers: Heart failure chronicity: acute on chronic Heart failure type: unspecified Qualified Code(s): I50.9 - Heart failure, unspecified Code(s): I50.9 - Heart failure, unspecified Status: Acute Assessment and Plan: Patient recently had an echo 01/02 with EF 60-70%, grade 2 diastolic dysfunction, severe pulmonary hypertension, and dilated IVC. Also noted mild aortic stenosis. Cardiology consulted, appreciate help. PO diuresis briefly, switch now to IV diuresis She has chronic lymphedema to her lower extremities. Renal function remaining stable during aggressive diuresis. Follows with Dr. Bonny Hammond at [facility] with recommendation per cards of follow up within two weeks of hospital discharge (4) Type 2 diabetes mellitus: Code(s): E11.9 - Type 2 diabetes mellitus without complications Status: Chronic Assessment and Plan: Continue with patient's home medications and will do Accu-Cheks a.c. HS with moderate sliding scale. Glucose control is above target, will initiate Lantus at bed time and titrate Hemoglobin A1c 6.8. Pioglitazone was stopped. SGLT2 inhibitors would certainly be a consideration. Given morbid obesity extra concern about side effects including genital/perineal infections make this option less advisable. (5) Diastolic congestive heart failure: Code(s): I50.30 - Unspecified diastolic (congestive) heart failure Status: Acute Assessment and Plan: Plan outlined as above (6) Frequent PVCs: Code(s): I49.3 - Ventricular premature depolarization Status: Acute Assessment and Plan: Rate controlled with metoprolol. Monitor electrolytes. (7) Anemia: Code(s): D64.9 - Anemia, unspecified Status: Acute Assessment and Plan: Noted to be chronically low, currently close to her baseline. (8) Thrombocytopenia: Code(s): D69.6 - Thrombocytopenia, unspecified Status: Acute Assessment and Plan: Noted to be chronically low in seen during prior hospitalizations and last year. Unclear etiology. Question of ITP. Monitor. Follow up in outpatient setting. (9) Multinodular goiter: Code(s): E04.2 - Nontoxic multinodular goiter Status: Acute Assessment and Plan: Ti Rads 4, several nodules largest in 1.6cm on rt side Additional Plan Patient found to have multinodular goiter on US. Largest nodule is 1.6cm on the right, where she is complaining of neck pain. She is known to have hypothyroid, however the growth of this swelling in her neck does align with the symptoms of dyspnea. As such, given size and number of nodules of goiter, she may benefit from endo eval - maybe a candidate for radioiodine? At the very least needs to have Biopsy of nodule. Time Spent With Patient Time with patient: less than 15 minutes Subjective Date/time seen: 01/16/21 07:42 belkis
[2021-01-16] MEDS: BUDESONIDE RESPULE NEB 0.5 MG/2 ML AMP INHALATION ×2 (08:29→20:38)
[2021-01-16] MEDS: ALBUTEROL SULFATE NEB 2.5 MG/0.5 ML INH INHALATION ×2 (08:29→20:38)
[2021-01-16] MEDS: IPRATROPIUM BR 0.02% INH SOLN 0.5 MG/2.5 ML VIAL INHALATION ×2 (08:29→20:38)
[2021-01-16 08:58] LABS: Glucose Point of Care 131 mg/dl (65-105)
[2021-01-16] MEDS: POTASSIUM CHLORIDE 10 MEQ TABLET.ER 20 MEQ PO ×3 (09:36→17:26)
[2021-01-16] MEDS: FUROSEMIDE INJ 100 MG/10 ML VIAL 80 MG IV PUSH ×2 (09:36→17:26)
[2021-01-16] MEDS: MULTIVITAMINS /C LUTEIN (CENTRUM SILVER) TABLET *BKC 1 TAB PO (09:36)
[2021-01-16] MEDS: SPIRONOLACTONE 25 MG TABLET PO (09:37)
[2021-01-16] MEDS: METOPROLOL SUCCINATE EXT REL 50 MG TABCR PO (09:37)
[2021-01-16 11:27] LABS: Hypochromasia 2+ (NORMAL)
[2021-01-16 11:28] LABS: Anisocytosis 1+ (NORMAL)
[2021-01-16 11:43] LABS: Glucose Point of Care 167 mg/dl (65-105)
[2021-01-16] MEDS: SILVERGEL (ELTA) 45 ML 1 APPLIC TOPICAL (16:33)
[2021-01-16] MEDS: TOLNAFTATE 1% POWDER 45 GM BTL 1 APPLIC TOPICAL ×2 (16:33→20:06)
[2021-01-16 16:58] LABS: Glucose Point of Care 162 mg/dl (65-105)
[2021-01-16 20:23] LABS: Glucose Point of Care 230 mg/dl (65-105)
[2021-01-17] VITALS (26 sets, daily range): BP systolic 122–141; BP diastolic 56–80; PULSE 79–100; RESP 24–29; TEMP 35.8–36.9; O2SAT 90–94
[2021-01-17 05:44] LABS: Basophils Percent Auto 0.2 % (0.2-1.2); Eosinophils Absolute Auto 0.2 K/mm3 (0-0.3); Eosinophils Percent Auto 3.3 % (0-4.4); Hematocrit 30.7 % (37.0-47.0); Hemoglobin 8.2 g/dL (12.0-15.0); Immature Granulocyte Absolute 0.04 K/mm3 (0.00-0.031); Immature Granulocyte Percent A 0.6 % (0-0.5); Lymphocytes Absolute Auto 0.65 K/mm3 (0.9-3.2); Lymphocytes Percent Auto 9.8 % (18.3-44.2); Mean Corpuscular HGB Conc 26.7 g/dl (32-36); Mean Corpuscular Hemoglobin 25.2 pg (26-34); Mean Corpuscular Volume 94.5 fl (80-100); Mean Platelet Volume 12.6 fl (7.4-10.4); Monocytes Absolute Auto 0.3 K/mm3 (0.1-0.6); Monocytes Percent Auto 4.4 % (2.6-8.5); Neutrophils Absolute Auto 5.4 K/mm3 (1.3-6.7); Neutrophils Percent Auto 81.7 % (45.5-73.1); Platelet Count Result 99 k/mm3 (150-375); Red Blood Count 3.25 M/mm3 (4.2-5.4); Red Cell Distribution Width 17.1 % (11.5-14.5); White Blood Count 6.6 K/mm3 (4.5-10.0)
[2021-01-17] MEDS: LEVOTHYROXINE SODIUM 75 MCG TABLET PO (05:55)
[2021-01-17 06:03] LABS: Alanine Aminotransferase 23 U/L (4-35); Albumin Level 3.2 g/dL (3.5-5.1); Alkaline Phosphatase 108 U/L (38-126); Aspartate Amino Transferase 35 U/L (14-36); Bilirubin,Total 0.4 mg/dL (0.2-1.3); Blood Urea Nitrogen 43 mg/dL (7-17); Calcium 8.5 mg/dL (8.4-10.2); Carbon Dioxide > 40 mmol/L (22-30); Chloride 89 mmol/L (98-107); Estimated CRCL calculation 56 ml/min; Estimated Glomerular Filt Rate 49; Glucose 134 mg/dL (65-110); Magnesium 2.2 mg/dL (1.6-2.3); Potassium 4.5 mmol/L (3.4-5.0); Sodium 143 mmol/L (137-145)
--- NOTE | 2021-01-17 07:21 | PM.IMPN ---
Progress Note: A&P Assessment and Plan (1) Acute respiratory failure with hypoxia and hypercapnia: Code(s): J96.01 - Acute respiratory failure with hypoxia; J96.02 - Acute respiratory failure with hypercapnia Status: Acute Assessment and Plan: This is a combination of obesity hypoventilation, significant diastolic heart failure with pulmonary edema initially, pulmonary hypertension, and COPD. Proving very difficult to wean her off oxygen, frequent desat to 80s with exertion or if we bring her close to her previous baseline of 3L - potentially she has a new baseline following the current exertion? BiPap at night, NC in day, diuresing well Pulmonary on board, appreciate recs (2) Obesity hypoventilation syndrome: Code(s): E66.2 - Morbid (severe) obesity with alveolar hypoventilation Status: Acute Assessment and Plan: Continue home trilogy at night Last night she fought this and likely precipitated rapid response will discuss importance of this with patient today (3) CHF (congestive heart failure): Qualifiers: Heart failure chronicity: acute on chronic Heart failure type: unspecified Qualified Code(s): I50.9 - Heart failure, unspecified Code(s): I50.9 - Heart failure, unspecified Status: Acute Assessment and Plan: Patient recently had an echo 01/02 with EF 60-70%, grade 2 diastolic dysfunction, severe pulmonary hypertension, and dilated IVC. Also noted mild aortic stenosis. Cardiology consulted, appreciate help. PO diuresis briefly, switch now to IV diuresis She has chronic lymphedema to her lower extremities. Renal function remaining stable during aggressive diuresis. Follows with Dr. Bonny Hammond at [facility] with recommendation per cards of follow up within two weeks of hospital discharge (4) Type 2 diabetes mellitus: Code(s): E11.9 - Type 2 diabetes mellitus without complications Status: Chronic Assessment and Plan: Continue with patient's home medications and will do Accu-Cheks a.c. HS with moderate sliding scale. Glucose control is above target, will initiate Lantus at bed time and titrate Hemoglobin A1c 6.8. Pioglitazone was stopped. SGLT2 inhibitors would certainly be a consideration. Given morbid obesity extra concern about side effects including genital/perineal infections make this option less advisable. (5) Diastolic congestive heart failure: Code(s): I50.30 - Unspecified diastolic (congestive) heart failure Status: Acute Assessment and Plan: Plan outlined as above (6) Frequent PVCs: Code(s): I49.3 - Ventricular premature depolarization Status: Acute Assessment and Plan: Rate controlled with metoprolol. Monitor electrolytes. (7) Anemia: Code(s): D64.9 - Anemia, unspecified Status: Acute Assessment and Plan: Noted to be chronically low, currently close to her baseline. (8) Thrombocytopenia: Code(s): D69.6 - Thrombocytopenia, unspecified Status: Acute Assessment and Plan: Noted to be chronically low in seen during prior hospitalizations and last year. Unclear etiology. Question of ITP. Monitor. Follow up in outpatient setting. (9) Multinodular goiter: Code(s): E04.2 - Nontoxic multinodular goiter Status: Acute Assessment and Plan: Ti Rads 4, several nodules largest in 1.6cm on rt side Additional Plan breathing appears to be approaching baseline if endo not doable inpatient, will assess if patient can be safely discharged for eval of goiter as outpatient if so can can d/c to rehab with daytime O2 and nighttime BiPAP Time Spent With Patient Time with patient: less than 15 minutes Subjective Date/time seen: 01/17/21 07:21 resting comfortably tyolerated bipap at night no acute medical complaints Review of Systems Review of Systems: All systems reviewed & are unremarkable except as noted in HPI and below Exam Con
[2021-01-17] MEDS: BUDESONIDE RESPULE NEB 0.5 MG/2 ML AMP INHALATION ×2 (08:12→20:39)
[2021-01-17] MEDS: ALBUTEROL SULFATE NEB 2.5 MG/0.5 ML INH INHALATION ×2 (08:12→20:39)
[2021-01-17] MEDS: IPRATROPIUM BR 0.02% INH SOLN 0.5 MG/2.5 ML VIAL INHALATION ×2 (08:12→20:39)
[2021-01-17] MEDS: MULTIVITAMINS /C LUTEIN (CENTRUM SILVER) TABLET *BKC 1 TAB PO (08:32)
[2021-01-17] MEDS: METOPROLOL SUCCINATE EXT REL 50 MG TABCR PO (08:32)
[2021-01-17] MEDS: POTASSIUM CHLORIDE 10 MEQ TABLET.ER 20 MEQ PO ×3 (08:32→17:41)
[2021-01-17] MEDS: FUROSEMIDE INJ 100 MG/10 ML VIAL 80 MG IV PUSH ×2 (08:33→17:40)
[2021-01-17] MEDS: TOLNAFTATE 1% POWDER 45 GM BTL 1 APPLIC TOPICAL ×2 (08:34→20:02)
[2021-01-17] MEDS: SILVERGEL (ELTA) 45 ML 1 APPLIC TOPICAL (08:34)
[2021-01-17] MEDS: SPIRONOLACTONE 25 MG TABLET PO (08:34)
--- NOTE | 2021-01-17 08:42 | PCOTNOTE ---
Attempted to see patient this AM for skilled OT session. Respiratory and RN present, stated to come back later d/t patient's O2 dropping below 85% while at rest and therapy not appropriate at this time. Will attempt to see patient again if appropriate this date. Continue per POC accordingly.
--- NOTE | 2021-01-17 08:46 | PCPTNOTE ---
Checked on patient this morning. Per RN, patient O2 levels were ranging around 85% without activity. Nursing suggested checking back. Will plan to check back on patient later this date.
[2021-01-17 09:28] LABS: Glucose Point of Care 138 mg/dl (65-105)
--- NOTE | 2021-01-17 10:47 | PC.NURSE ---
Spouse called in this morning, this nurse gave an update and answered all questions verbalized by Fady. Will continue to monitor.
[2021-01-17] MEDS: ACETAMINOPHEN 325 MG TABLET 650 MG PO (12:30)
[2021-01-17 13:04] LABS: Glucose Point of Care 184 mg/dl (65-105)
[2021-01-17 17:06] LABS: Glucose Point of Care 181 mg/dl (65-105)
[2021-01-17 20:39] LABS: Glucose Point of Care 281 mg/dl (65-105)
[2021-01-18] VITALS (15 sets, daily range): BP systolic 142–155; BP diastolic 62–96; PULSE 91–104; RESP 26–28; TEMP 36.6–36.9; O2SAT 89–100
[2021-01-18 04:33] LABS: Basophils Percent Auto 0.3 % (0.2-1.2); Eosinophils Absolute Auto 0.2 K/mm3 (0-0.3); Eosinophils Percent Auto 2.6 % (0-4.4); Hematocrit 33.2 % (37.0-47.0); Hemoglobin 8.8 g/dL (12.0-15.0); Immature Granulocyte Absolute 0.07 K/mm3 (0.00-0.031); Immature Granulocyte Percent A 1.1 % (0-0.5); Lymphocytes Absolute Auto 0.57 K/mm3 (0.9-3.2); Lymphocytes Percent Auto 8.7 % (18.3-44.2); Mean Corpuscular HGB Conc 26.5 g/dl (32-36); Mean Corpuscular Hemoglobin 25.1 pg (26-34); Mean Corpuscular Volume 94.9 fl (80-100); Mean Platelet Volume 12.3 fl (7.4-10.4); Monocytes Absolute Auto 0.3 K/mm3 (0.1-0.6); Monocytes Percent Auto 4.6 % (2.6-8.5); Neutrophils Absolute Auto 5.4 K/mm3 (1.3-6.7); Neutrophils Percent Auto 82.7 % (45.5-73.1); Platelet Count Result 95 k/mm3 (150-375); Red Cell Distribution Width 16.9 % (11.5-14.5); White Blood Count 6.5 K/mm3 (4.5-10.0)
[2021-01-18 05:02] LABS: Anisocytosis 1+ (NORMAL); Hypochromasia 1+ (NORMAL); Platelet Estimate Decreased (Adequate)
[2021-01-18 05:10] LABS: Alanine Aminotransferase 25 U/L (4-35); Albumin Level 3.4 g/dL (3.5-5.1); Alkaline Phosphatase 116 U/L (38-126); Aspartate Amino Transferase 37 U/L (14-36); Bilirubin,Total 0.4 mg/dL (0.2-1.3); Blood Urea Nitrogen 39 mg/dL (7-17); Calcium 8.7 mg/dL (8.4-10.2); Carbon Dioxide > 40 mmol/L (22-30); Chloride 89 mmol/L (98-107); Estimated CRCL calculation 61 ml/min; Estimated Glomerular Filt Rate 55; Glucose 169 mg/dL (65-110); Magnesium 2.1 mg/dL (1.6-2.3); Phosphorus 4.1 mg/dL (2.5-4.5); Potassium 4.8 mmol/L (3.4-5.0); Sodium 145 mmol/L (137-145)
[2021-01-18] MEDS: LEVOTHYROXINE SODIUM 75 MCG TABLET PO (06:07)
--- NOTE | 2021-01-18 07:30 | PM.IMPN ---
Progress Note: A&P Assessment and Plan (1) Acute respiratory failure with hypoxia and hypercapnia: Code(s): J96.01 - Acute respiratory failure with hypoxia; J96.02 - Acute respiratory failure with hypercapnia Status: Acute Assessment and Plan: This is a combination of obesity hypoventilation, significant diastolic heart failure with pulmonary edema initially, pulmonary hypertension, and COPD. Proving very difficult to wean her off oxygen, frequent desat to 80s with exertion or if we bring her close to her previous baseline of 3L - potentially she has a new baseline following the current exertion? BiPap at night, NC in day, diuresing well Pulmonary on board, appreciate recs (2) Obesity hypoventilation syndrome: Code(s): E66.2 - Morbid (severe) obesity with alveolar hypoventilation Status: Acute Assessment and Plan: Continue home trilogy at night Last night she fought this and likely precipitated rapid response will discuss importance of this with patient today (3) CHF (congestive heart failure): Qualifiers: Heart failure chronicity: acute on chronic Heart failure type: unspecified Qualified Code(s): I50.9 - Heart failure, unspecified Code(s): I50.9 - Heart failure, unspecified Status: Acute Assessment and Plan: Patient recently had an echo 01/02 with EF 60-70%, grade 2 diastolic dysfunction, severe pulmonary hypertension, and dilated IVC. Also noted mild aortic stenosis. Cardiology consulted, appreciate help. PO diuresis briefly, switch now to IV diuresis She has chronic lymphedema to her lower extremities. Renal function remaining stable during aggressive diuresis. Follows with Dr. Bonny Hammond at [facility] with recommendation per cards of follow up within two weeks of hospital discharge (4) Type 2 diabetes mellitus: Code(s): E11.9 - Type 2 diabetes mellitus without complications Status: Chronic Assessment and Plan: Continue with patient's home medications and will do Accu-Cheks a.c. HS with moderate sliding scale. Glucose control is above target, will initiate Lantus at bed time and titrate Hemoglobin A1c 6.8. Pioglitazone was stopped. SGLT2 inhibitors would certainly be a consideration. Given morbid obesity extra concern about side effects including genital/perineal infections make this option less advisable. (5) Diastolic congestive heart failure: Code(s): I50.30 - Unspecified diastolic (congestive) heart failure Status: Acute Assessment and Plan: Plan outlined as above (6) Frequent PVCs: Code(s): I49.3 - Ventricular premature depolarization Status: Acute Assessment and Plan: Rate controlled with metoprolol. Monitor electrolytes. (7) Anemia: Code(s): D64.9 - Anemia, unspecified Status: Acute Assessment and Plan: Noted to be chronically low, currently close to her baseline. (8) Thrombocytopenia: Code(s): D69.6 - Thrombocytopenia, unspecified Status: Acute Assessment and Plan: Noted to be chronically low in seen during prior hospitalizations and last year. Unclear etiology. Question of ITP. Monitor. Follow up in outpatient setting. (9) Multinodular goiter: Code(s): E04.2 - Nontoxic multinodular goiter Status: Acute Assessment and Plan: Ti Rads 4, several nodules largest in 1.6cm on rt side Time Spent With Patient Time with patient: less than 15 minutes Subjective Date/time seen: 01/18/21 07:30 patient is in respiratory distress BiPap around the clock, minimally responsive to extreme pain stimuli only Review of Systems Review of Systems: All systems reviewed & are unremarkable except as noted in HPI and below Exam Const: General: no acute distress Neck: Neck: no JVD Resp: Effort & Inspection: normal respiratory effort Auscultation: clear to auscultation bilaterally Cardio: Rate: regular rate Rhythm: regula
--- NOTE | 2021-01-18 08:23 | PCOTNOTE ---
Attempted to see patient for skilled OT session at this time. Patient was lying in bed with eyes closed and bipap donned. Patient refused to open eyes and respond to TENORIO's offering of therapy session and participation. Will attempt to see patient again for a second time. Continue per POC.
[2021-01-18] MEDS: ALBUTEROL SULFATE NEB 2.5 MG/0.5 ML INH INHALATION (08:45)
[2021-01-18] MEDS: BUDESONIDE RESPULE NEB 0.5 MG/2 ML AMP INHALATION (08:45)
[2021-01-18] MEDS: IPRATROPIUM BR 0.02% INH SOLN 0.5 MG/2.5 ML VIAL INHALATION (08:45)
[2021-01-18 09:18] LABS: Base Excess ABG 26.9 mEq/l (+/-2.0); Fractional Inspired Oxygen 100 %; HCO3 ABG 60.8 mEq/l (22.0-26.0); Oxygen Content ABG 13.7 %vol (16.0-22.0); Oxygen Saturation ABG 94.2 % (95.0-100.0); Oxyhemoglobin 94.6 % THb (90.0-100.0); PO2 FiO2 Ratio Arterial Blood 0.96 %; Total Hemoglobin 10.2 g/dL (12.0-18.0)
[2021-01-18 09:21] LABS: pH ABG 7.192 (7.350-7.450)
[2021-01-18 09:22] LABS: Device NON-INVASIVE VENT; Modified Allen's Test Pass; Non-Invasive Vent Rate 26 /MIN; Site Drawn LEFT RADIAL
[2021-01-18 09:23] LABS: Non-Invasive Expiratory Pressure 8 CMH2O
[2021-01-18 09:44] LABS: Glucose Point of Care 152 mg/dl (65-105)
[2021-01-18] MEDS: FUROSEMIDE INJ 100 MG/10 ML VIAL 80 MG IV PUSH (10:34)
[2021-01-18 11:06] LABS: Alveolar/Arterial O2 Gradient 494.3 mmHg; Base Excess ABG 30.1 mEq/l (+/-2.0); Fractional Inspired Oxygen 100 %; Oxygen Content ABG 13.7 %vol (16.0-22.0); Oxyhemoglobin 94.6 % THb (90.0-100.0); PO2 ABG 90.9 mmHg (80.0-100.0); PO2 FiO2 Ratio Arterial Blood 0.91 %; Total Hemoglobin 10.2 g/dL (12.0-18.0); pH ABG 7.304 (7.350-7.450)
--- NOTE | 2021-01-18 11:06 | PCOTNOTE ---
Attempted to see patient for a second time this date for skilled OT session. Spoke with RN before attempting. RN reports that patient is not appropriate to be seen this date d/t fluctuating O2 levels and being unresponsive. RN reports patient will be getting ABG test and may be going comfort care. Hold therapy this date. Will continue per POC appropriately.
[2021-01-18 11:11] LABS: Device NON-INVASIVE VENT; Modified Allen's Test Pass; PCO2 ABG 127.8 mmHg (35.0-45.0); Site Drawn LEFT RADIAL
[2021-01-18 11:12] LABS: Non-Invasive Expiratory Pressure 8 CMH2O; Non-Invasive Inspiratory Pressure 28 CMH2O; Non-Invasive Vent Rate 26 /MIN
--- NOTE | 2021-01-18 11:32 | PCPTNOTE ---
Per nursing pt is not medically stable for therapy treatment/reassessment at this time. Will attempt on 01/19/21 if medically stable.
[2021-01-18] MEDS: SILVERGEL (ELTA) 45 ML 1 APPLIC TOPICAL (11:40)
[2021-01-18] MEDS: TOLNAFTATE 1% POWDER 45 GM BTL 1 APPLIC TOPICAL (11:40)
[2021-01-18] MEDS: LORazepam INJ (*CRX) 2 MG/ML VIAL IV PUSH ×2 (16:10→22:41)
[2021-01-18 20:15] LABS: Glucose Point of Care 130 mg/dl (65-105)
[2021-01-19] VITALS (18 sets, daily range): BP systolic 135–169; BP diastolic 61–87; PULSE 59–114; RESP 20–27; TEMP 36.4–37.1; O2SAT 89–98
[2021-01-19] MEDS: LORazepam INJ (*CRX) 2 MG/ML VIAL IV PUSH ×3 (00:54→20:01)
[2021-01-19 08:52] LABS: Glucose Point of Care 118 mg/dl (65-105)
--- NOTE | 2021-01-19 11:10 | PCDIET ---
Nutrition Follow-Up Complete: Nutrition Diagnosis: Predicted suboptimal oral intake related to respiratory failure as evidenced by patient on bipap. Nutrition Goal: Patient to meet estimated nutritional needs. Goal not met. Patient previously with fair intake, but currently on comfort care with orders for Morphine and Ativan. GCS 7. Last recorded weight is 140.9 kg. Bowel Motility: Last documented BM on 01/15/21 x 1. Labs Reviewed: Glu (118) Additional Notes: Recommend clarification of NPO status. If plan of care would change and aggressive nutritional therapy is desired, consult RD for nutrition support recommendations. Nutrition Monitoring and Evaluation: Follow up in 3 days.
--- NOTE | 2021-01-19 13:07 | PCOTNOTE ---
Per RN, patient going comfort care. OT will discontinue plan of care.
[2021-01-19 13:27] LABS: Glucose Point of Care 121 mg/dl (65-105)
[2021-01-19] MEDS: MORPHINE SULFATE (*CRX) 2 MG/ML INJ IV PUSH (14:33)
--- NOTE | 2021-01-19 14:54 | PCOTNOTE ---
Patient will be discharged from OT services on this date due to decline in medical status and patient going comfort care at this time.
--- NOTE | 2021-01-19 17:28 | PM.IMPN ---
Progress Note: A&P Assessment and Plan (1) Need for comfort care: Status: Acute Assessment and Plan: Following extensive conversation with previous provider, family has decided to proceed with comfort care. Would like to remove the BiPAP this evening after the patient's son arrives from out of town to visit his mother. Ativan and morphine p.r.n. Will initiate morphine drip prior to removal of BiPAP mask. (2) Acute respiratory failure with hypoxia and hypercapnia: Code(s): J96.01 - Acute respiratory failure with hypoxia; J96.02 - Acute respiratory failure with hypercapnia Status: Acute Assessment and Plan: Acute on chronic This is a combination of obesity hypoventilation, significant diastolic heart failure with pulmonary edema initially, pulmonary hypertension, and COPD. She has been seen in consultation by pulmonology. She has been maintained on continuous BiPAP. Previous provider had extensive conversation with patient's family. They report that she would not want to proceed with a tracheostomy and have now decided to proceed with comfort care measures. (3) Obesity hypoventilation syndrome: Code(s): E66.2 - Morbid (severe) obesity with alveolar hypoventilation Status: Acute Assessment and Plan: Plan as above (4) CHF (congestive heart failure): Qualifiers: Heart failure chronicity: acute on chronic Heart failure type: unspecified Qualified Code(s): I50.9 - Heart failure, unspecified Code(s): I50.9 - Heart failure, unspecified Status: Acute Assessment and Plan: Patient recently had an echo 01/02 with EF 60-70%, grade 2 diastolic dysfunction, severe pulmonary hypertension, and dilated IVC. Also noted mild aortic stenosis. She was seen in consultation by Cardiology (5) Type 2 diabetes mellitus: Code(s): E11.9 - Type 2 diabetes mellitus without complications Status: Chronic Assessment and Plan: Accu-Cheks and sliding scale insulin with drawn given comfort care measures (6) Diastolic congestive heart failure: Code(s): I50.30 - Unspecified diastolic (congestive) heart failure Status: Acute (7) Frequent PVCs: Code(s): I49.3 - Ventricular premature depolarization Status: Acute Assessment and Plan: Previous on metoprolol, this has been discontinued due to comfort care measures (8) Anemia: Code(s): D64.9 - Anemia, unspecified Status: Acute Assessment and Plan: No longer monitoring CBC (9) Thrombocytopenia: Code(s): D69.6 - Thrombocytopenia, unspecified Status: Acute Assessment and Plan: Not being monitored as above (10) Multinodular goiter: Code(s): E04.2 - Nontoxic multinodular goiter Status: Acute Assessment and Plan: No further follow-up Additional Plan Case has been reviewed with attending physician. Subjective Date/time seen: 01/19/21 17:28 Interval history: Date of service: 01/19/2021 Radha Burns is a 70-year-old female with chronic respiratory failure. She is on comfort measures at this time. She is on BiPAP and I am not able to obtain any history. Review of Systems Review of Systems: ROS unobtainable: Yes unobtainable due to medical condition Exam Narrative: Ms. Burns is an acutely ill 70-year-old female who is on continuous BiPAP. She is restless. Cardiac exam with regular rate. Additional exam deferred due to restlessness. Objective Data Vital Signs Vital Signs: Vital Signs - 24 hr 01/18/21 20:00 01/18/21 21:48 01/19/21 00:00 Temperature 98.4 F Pulse Rate 91 95 94 Respiratory Rate 26 H Blood Pressure 142/62 H Pulse Oximetry 93 01/19/21 02:00 01/19/21 04:00 01/19/21 05:59 Temperature 98.4 F Pulse Rate 101 H 97 105 H Respiratory Rate 26 H Blood Pressure 169/71 H Pulse Oximetry 97 01/19/21 08:00 01/19/21 08:02 01/19/21 09:05 Temp
[2021-01-19 17:47] LABS: Glucose Point of Care 119 mg/dl (65-105)
[2021-01-19] MEDS: MORPHINE SULFATE INJ (*CRX) 50 MG in SODIUM CHLORIDE 0.9% IV 95 ML IV CONT (18:46)
--- NOTE | 2021-01-19 23:37 | PC.NURSE ---
brought to [facility] [place] in contact with [facility]
--- NOTE | 2021-01-20 07:32 | P.DN_ITS ---
Discharge Summary Date and Time Date of : 01/19/21 Time of : 22:30 Provider Pronounced By: darrell stoddard Probable Cause of Probable Cause of : Acute on chronic respiratory failure Summary Hospital Course: Date of admission: 12/29/2020 Date of : 01/19/2021 Radha Burns is a 70-year-old female with history of chronic respiratory failure on home oxygen therapy, COPD, diastolic CHF, hypertension, hypothyroidism, obesity hypoventilation syndrome, DANELLE, type 2 diabetes mellitus who was admitted to the hospital for acute on chronic respiratory failure requiring continuous BiPAP. She had progressive deterioration and deconditioning. Family ultimately decided to proceed with comfort care and decided to withdraw use of BiPAP on 01/19/2021 after family members were able to say their goodbyes. Patient passed comfortably on 01/19/2021 at 2230. Additional Data Confirmation of as documented by pronouncing clinician: Pupillary Reflex, Response to Stimuli, Heart Tones and Breath Sounds Name of Provider Notified: michelle hernandez Time Provider Notified: 22:55 Family Requests Autopsy: No Traveling Buyer Notified: Yes Date [facility] Notified of : 01/19/21 Time [facility] Notified of : 23:02
== END 2021-01-19 22:30 | disposition expired | DRG 189 ==
LOC: ANHED 10:07 → ANHIMU 15:33 → ANH3MED 12-31 20:55 → ANH3MEDSUR 01-12 08:55 → ANHIMU 01-19 07:03 → ANH3MED 01-20 11:43 → ANH3MEDSUR 01-20 11:43 → ANHIMU 01-20 11:43
PROVIDERS: Family Medicine; Internal Medicine; Internal Medicine Cardiovascular Disease; Internal Medicine Critical Care Medicine; Internal Medicine Pulmonary Disease; Nurse Practitioner; Admitting Provider Internal Medicine Nephrology; Emergency Provider Emergency Medicine; PCP Family Medicine; Visit Provider Physician Assistant
DX: J96.21 Acute and chronic respiratory failure with hypoxia (principal); I50.31 Acute diastolic (congestive) heart failure; E66.2 Morbid (severe) obesity with alveolar hypoventilation; Z68.44 Body mass index [BMI] 60.0-69.9, adult; J96.22 Acute and chronic respiratory failure with hypercapnia; Z20.822 Contact with and (suspected) exposure to COVID-19; I27.20 Pulmonary hypertension, unspecified; J44.9 Chronic obstructive pulmonary disease, unspecified; Z99.81 Dependence on supplemental oxygen; I11.0 Hypertensive heart disease with heart failure; E03.9 Hypothyroidism, unspecified; E11.9 Type 2 diabetes mellitus without complications; D69.6 Thrombocytopenia, unspecified; D63.8 Anemia in other chronic diseases classified elsewhere; E78.5 Hyperlipidemia, unspecified; I49.3 Ventricular premature depolarization; I89.0 Lymphedema, not elsewhere classified; I35.0 Nonrheumatic aortic (valve) stenosis; E04.2 Nontoxic multinodular goiter; Z51.5 Encounter for palliative care; Z79.899 Other long term (current) drug therapy; Z87.891 Personal history of nicotine dependence
CPT/HCPCS: 36415; 36600; 71045; 71046; 71275; 76536; 80048; 80053; 80202; 82247; 82248; 82274; 82375; 82565; 82607; 82728; 82746; 82805; 82948; 83010; 83036; 83050; 83540; 83550; 83605; 83615; 83735; 83880; 84100; 84443; 84484; 85025; 85027; 85055; 85610; 85730; 86140; 87040; 93005; 93970; 94002; 94003; 94640; 94660; 94762; 97110; 97116; 97161; 97165; 97530; 97535; 99291; A9270; C8929; C9803; J0131; J1650; J1815; J1940; J2060; J2270; J2543; J2920; J3370; J3480; J7060; Q9957; Q9967; U0003; U0005